=== PATIENT | female | born 1945 | race Caucasian/White ===

== ENCOUNTER → 2017-04-30 14:42 | Outpatient (CLI) | payer MEDICARE, SELFPAY ==
--- NOTE | 2017-04-30 14:46 | RAD_ITS ---
STUDY: X-RAY - LEFT KNEE REASON FOR EXAM: Left knee pain, no specific injury. TECHNIQUE: 4 view(s) of the knee. COMPARISON: None. FINDINGS: Normal visualized distal femur. Normal visualized proximal tibia and fibula. There is mild subchondral cystic change in the head of the fibula at the proximal tibiofibular articulation. There is mild joint space narrowing of the medial femorotibial compartment. There is no joint space narrowing of the lateral femorotibial compartment. Normal patellofemoral articulation. There is chondrocalcinosis of the medial and lateral menisci. RAD/Knee 4 or More Views IMPRESSION: Mild arthrosis of the medial femorotibial compartment. Chondrocalcinosis of the medial and lateral menisci. Electronically Signed: Shen Donovan MD at 16:31 EST Tel , Service support ,
--- NOTE | 2017-04-30 14:47 | VDLE_ITS ---
Reason For Study: EDEMA, PAIN Procedure LEFT Exam performed in department. GSV is normal. Proximal Peroneal V not visualized. CFV is compressible, spontaneous, phasic, A preliminary report was called and/or faxed competent, and demonstrates normal to DR BARON. augmentation. FV is compressible, spontaneous, phasic, competent and demonstrates normal augmentation. POP V is compressible, spontaneous, phasic, competent and demonstrates normal augmentation. T/P Trunk is compressible. PTV is compressible. LT PerV is compressible. Interpretation Summary Deep veins of the left lower extremity are patent and compressible segmentally. There is no evidence of left lower extremity deep vein thrombosis. Valvular competence appears intact within the proximal deep venous system on the left . The left greater saphenous vein appears patent and compressible segmentally. Ordering Physician: Swati Baron Performed By: Vee Jaquez, JACINTO, RVT
== END ==
PROVIDERS: Family Provider Family Medicine; PCP Family Medicine; Visit Provider Family Medicine
DX: R60.0 Localized edema (principal); M25.562 Pain in left knee
CPT/HCPCS: 73564; 93971

== ENCOUNTER → 2018-03-12 08:03 | Outpatient (CLI) | payer MEDICARE, SELFPAY ==
[2018-03-12 10:31] LABS: ALB/GLOB Ratio 1.1 RATIO (0.9-2.4); AST(SGOT) 21 U/L (15-37); Alanine Aminotransfer ALT/SGPT 25 U/L (13-56); Albumin, Serum 3.5 g/dL (3.2-5.0); Alkaline Phosphatase 76 U/L (45-117); Anion Gap 6 (5-15); BUN 18 mg/dL (7-18); BUN/Creat Ratio 20.4 RATIO (10-20); Calcium,Total 8.8 mg/dL (8.5-10.1); Chloride 106 mmol/L (98-107); Cholesterol 174 mg/dL (200); Creatinine, Serum 0.88 mg/dL (0.55-1.02); EST Glomerular Filtration Rate 67 mL/min (>60); Est Glom Filt Rate - Afr Amer 81 mL/min (>60); Globulin 3.2 g/dL (2.2-4.2); Glucose 89 mg/dL (74-106); High Density Lipoprotein 66 mg/dL; Potassium 4.3 mmol/L (3.5-5.1); Protein, Total 6.7 g/dL (6.4-8.2); Sodium Level 141 mmol/L (136-145); Triglycerides 85 mg/dL; Very Low Density Lipoprotein 17 mg/dL (5-40)
--- OUTSIDE RECORDS SUMMARY | 2018-05-16 20:39 | XMS RPT_ITS ---
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 animal products (which include dairy and all meats except fatty fish) and use whole, unprocessed plant foods to provide your protein, vitamins and other nutrients. We have a lot of information to share with you on this topic. This is not a diet. It is a way of life that you will keep with you. EXERCISE REGULARLY It is not important to spend hours in the gym, lifting weights and perspiring heavily. A total of 2-3 hours per week of aerobic (causing you to be moderately short of breath) exercise is sufficient to improve your health. Talk to us before you begin a new exercise program, if you have heart disease or experience shortness of breath or chest pain. REDUCE STRESS Chronic emotional and physical stress leads to disease. Ways of reducing stress include meditation, visualization, prayer, yoga and other forms of relaxation therapy. Consistency is the barber. Find a technique that works for you and do it every day. CULTIVATE RELATIONSHIPS Loneliness and isolation have a major negative impact on health. Seek out others who can love, care for and nurture you. Avoid hurtful relationships. MAINTAIN IDEAL BODY WEIGHT The best way to do this is to do all the things above. Our bodies naturally find the right weight if we keep moving and feed ourselves the right food. If your BMI is greater than 25, we strongly recommend a referral to a weight management program. Please speak to us or your family physician about available programs. AVOID NICOTINE IN ALL FORMS This includes all tobacco products, whether chewed, smoked, vaped, or rubbed on the skin. Smoking cessation programs, which can make use of tobacco substitutes, medications to suppress cravings and behavior management, are available. Please contact your family physician about programs in your area. Jay Peres MD 01/14/2018 9:08 AM Signed PERTINENT CARDIAC HISTORY Palpitations MIKE, SVT runs CLARA - CPAP ADHERENCE TO GUIDELINES MARK-I or ARB for HF with prior LVEF<40 (NQF 0081) - N/A ASA or Plavix for ASHD (NQF 0067) - N/A Beta keenan for ASHD with prior VT or prior LVEF<40 (NQF 0070) - N/A Beta keenan for HF with prior LVEF<40 (NQF 0083) - N/A MARK-I or ARB for ASHD with DM or prior LVEF<40 (NQF 0066) - N/A Statin therapy for ASHD or FHL or DM - N/A BMI documented and plan if >25 (NQF 0421) - lifestyle recommendation form Tobacco use screening and referral (NQ 0028) - lifestyle recommendation form Recommendation for whole food, plant based diet - lifestyle recommendation form CLINICAL IMPRESSION/PLAN: Carmen Nunes is doing well. Her arrhythmias are likely related largely to her sleep apnea. I encouraged her to remain active, increase her intake of plants and decrease fast food and processed food. I recommend that she be seen again in 12 months or as needed. Written and verbal health teaching given to patient, patient verbalizes understanding and agrees with treatment plan. DIAGNOSIS FOR VISIT: SVT HISTORY OF PRESENT ILLNESS Carmen Nunes returns for follow-up of her palpitations. She has been on CPAP. Her symptoms have largely resolved. She's had no progression of her memory problems. Her exercise tolerance has been stable. She denies chest pain. She's had no orthopnea, edema, syncope, TIAs, amaurosis or claudication. ALLERGIES: ALLERGIES Allergen Reactions - Penicillins Hives CURRENT OUTPATIENT MEDICATIONS: cholecalciferol, vitamin D3, 1,000 unit/drop drop Take 2 Drops by mouth once daily. anastrozole (ARIMIDEX) 1 mg tablet Take 1 tablet by mouth once daily. OTC PRODUCT Cyruta Plus OTC PRODUCT Catalyn Vitamin OTC PRODUCT Cataplex C: Take one(1) tablet three times daily. OTC PRODUCT Cataplex B: Take one(1) tablet daily. OTC PRODUCT Zinc Liver Chelate: Take one(1) tablet daily. PHYSICAL EXAMINATION: VITAL SIGNS: BP 96/57 Ht 5' 5.25 (1.66m) Wt 170 lb 14.4 oz (77.5kg) BMI 28.23 kg/(m2). Chest: Clear to auscultation. Trachea is midline. Air entry is equal. Cardiac: Regular rhythm. S1 and S2 are normal. PMI is nondisplaced. There are no murmurs, rubs or gallops. Carotids are brisk without bruits. JVP is less than 10 cm. Abdomen: Soft and nontender. There are no pulsatile masses or bruits. No liver enlargement. Bowel sounds are active. Extremities: No edema. Pulses are intact and symmetrical. Recent labs reviewed. Renal function is normal. LDL had increased slightly to 106. Echocardiogram shows normal ejection fraction and valves. Carotid Doppler showed no significant stenosis. There is diffuse plaque. Electronically Signed: Jay Peres MD January 14, 2018 8:56 AM CC: Swati Baron MD Referring Provider: JAY PERES [[id number]] Allergies As of Date: 01/14/2018 Noted Allergy Reaction PENICILLINS 05/27/2007 4 - Hives Date Reviewed: 01/14/2018 Reviewed by: Monse Bradley MA - Fully Assessed Reason for Visit: Established Patient [175] Primary Visit Diagnosis:SVT (supraventricular tachycardia) (HCC) [I47.1] Prescriptions as of 01/14/2018 Sig: CHOLECALCIFEROL (VITAMIN D3) * Take 2 Drops by mouth once da* ANASTROZOLE 1 MG TABLET Take 1 tablet by mouth once d* OTC PRODUCT Cyruta Plus OTC PRODUCT Catalyn Vitamin OTC PRODUCT Cataplex C: Take one(1) table* OTC PRODUCT Cataplex B: Take one(1) table* OTC PRODUCT Zinc Liver Chelate: Take one(* Problem List As Of Date 01/14/2018 Noted Resolved Lump or mass in breast [N63.0] INVALID FOR*10/29/2013 Breast cancer [C50.919] INVALID FOR* ER+ (estrogen receptor positive status) [Z17.0] INVALID FOR* Secondary and unspecified malignant neoplasm of*INVALID FOR*10/29/2013 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 Please give serious thought to the following areas and commit to making intermediate changes. EAT A WHOLE FOOD, PLANT BASED DIET The nutrition your body gets is more important than the medicine you take. What matters most is the overall way you eat. We encourage you to minimize the use of animal products (which include dairy and all meats except fatty fish) and use whole, unprocessed plant foods to provide your protein, vitamins and other nutrients. We have a lot of information to share with you on this topic. This is not a diet. It is a way of life that you will keep with you. EXERCISE REGULARLY It is not important to spend hours in the gym, lifting weights and perspiring heavily. A total of 2-3 hours per week of aerobic (causing you to be moderately short of breath) exercise is sufficient to improve your health. Talk to us before you begin a new exercise program, if you have heart disease or experience shortness of breath or chest pain. REDUCE STRESS Chronic emotional and physical stress leads to disease. Ways of reducing stress include meditation, visualization, prayer, yoga and other forms of relaxation therapy. Consistency is the barber. Find a technique that works for you and do it every day. CULTIVATE RELATIONSHIPS Loneliness and isolation have a major negative impact on health. Seek out others who can love, care for and nurture you. Avoid hurtful relationships. MAINTAIN IDEAL BODY WEIGHT The best way to do this is to do all the things above. Our bodies naturally find the right weight if we keep moving and feed ourselves the right food. If your BMI is greater than 25, we strongly recommend a referral to a weight management program. Please speak to us or your family physician about available programs. AVOID NICOTINE IN ALL FORMS This includes all tobacco products, whether chewed, smoked, vaped, or rubbed on the skin. Smoking cessation programs, which can make use of tobacco substitutes, medications to suppress cravings and behavior management, are available. Please contact your family physician about programs in your area. Encounter Status:Closed by JAY PERES MD on 01/14/18 CBC AND DIFFERENTIAL Collected: 01/07/2018 Status: F Source: [place] 8:04 AM [facility] REPOSITORY TYPE CODE TESTS RESULT OUT OF REFERENCE UNITS RANGE LAB WBC 3.70-11.00 k/uL Low WBC 3.44 LAB RBC 3.90-5.20 m/uL RBC 4.75 LAB HGB 11.5-15.5 g/dL Hemoglobin 14.5 LAB HCT 36.0-46.0 % Hematocrit 45.0 LAB MCV 80.0-100.0 fL MCV 94.7 LAB MCH 26.0-34.0 pG MCH 30.5 LAB MCHC 30.5-36.0 g/dL MCHC 32.2 LAB RDWCV 11.5-15.0 % RDW-CV 12.9 LAB PLTCT 150-400 k/uL Platelet Count 155 LAB MPV 9.0-12.7 fL MPV 10.9 LAB ANEUT % Neut% 62.8 LAB AANEUT 1.45-7.50 k/uL Abs Neut 2.15 LAB ALYMP % Lymph% 25.3 LAB AALYMP 1.00-4.00 k/uL Low Abs Lymph 0.87 LAB AMONO % Rosebud% 9.3 LAB AAMONO <0.87 k/uL Abs Rosebud 0.32 LAB AEOS % Eosin% 1.7 LAB AAEOS <0.46 k/uL Abs Eosin 0.06 LAB ABASO % Baso% 0.9 LAB AABASO <0.11 k/uL Abs Baso 0.03 LAB AUNRBC 0 /100 WBC NRBCs 0.0 LAB ABNRBC <0.01 k/uL Absolute nRBC <0.01 LAB DTYP DTYPE Auto Diff Performed By: #### CBCDIF, HBA1C, VITD, LD6, CMP, LDLDCT, LIPB, SERFOL, GGT, IRON, MG1, PHOS, URIC #### [facility] [address] [place], [place] [address] HEMOGLOBIN A1C Collected: 01/07/2018 Status: F Source: [place] 8:04 AM [facility] REPOSITORY TYPE CODE TESTS RESULT OUT OF REFERENCE UNITS RANGE LAB HGBA1C 4.3-5.6 % Hemoglobin A1c 5.4 Result Comment: [place] Diabetes Association guidelines indicate that patients with HgbA1c in the range 5.7-6.4% are at increased risk for development of diabetes, and intervention by lifestyle modification may be beneficial. HgbA1c greater or equal to 6.5% is considered diagnostic of diabetes. LAB HBA0 mg/dL Est. Average Glucose 108 Result Comment: eAG: (Estimated average glucose) is a calculated value from HgbA1c and is wholesale representative of the average blood glucose level in the last 2-3 month period. Performed By: #### CBCDIF, HBA1C, VITD, LD6, CMP, LDLDCT, LIPB, SERFOL, GGT, IRON, MG1, PHOS, URIC #### [facility] [address] [place] [address] VITAMIN D 25 HYDROXY Collected: 01/07/2018 Status: F Source: [place] 8:04 AM [facility] REPOSITORY TYPE CODE TESTS RESULT OUT OF REFERENCE UNITS RANGE LAB VITD 31.0-80.0 ng/mL Vitamin D 25 34.7 Hydroxy Result Comment: Classification of 25 [place] Vitamin D status: Insufficiency/Moderate Deficiency: < or = 30 ng/mL Sufficiency/Optimal Levels: 31 to 80 ng/mL Toxicity: > 100 ng/mL Test performed by chemiluminescent immunoassay. Performed By: #### CBCDIF, HBA1C, VITD, LD6, CMP, LDLDCT, LIPB, SERFOL, GGT, IRON, MG1, PHOS, URIC #### [facility] [employer] [facility] [place] [address] LD Collected: 01/07/2018 Status: F Source: [facility] 8:04 [facility] REPOSITORY TYPE CODE TESTS RESULT OUT OF RANGE REFERENCE UNITS LAB LD 135-214 U/L LD 171 Performed By: #### CBCDIF, HBA1C, VITD, LD6, CMP, LDLDCT, LIPB, SERFOL, GGT, IRON, MG1, PHOS, URIC #### [facility] [employer] [facility] [place] [address] COMP METABOLIC PANEL Collected: 01/07/2018 Status: F Source: [place] 8:04 AM [facility] REPOSITORY TYPE CODE TESTS RESULT OUT OF REFERENCE UNITS RANGE LAB TP 6.3-8.0 g/dL Protein, Total 7.0 LAB ALB 3.9-4.9 g/dL Albumin 4.2 LAB CA 8.5-10.2 mg/dL Calcium, Total 9.5 LAB TBIL 0.2-1.3 mg/dL Bilirubin, Total 0.5 LAB ALKP 34-123 U/L Alkaline Phosphatase 69 LAB AST 13-35 U/L AST 24 LAB GLU 74-99 mg/dL Glucose 85 Result Comment: The [place] Diabetes Association (ADA) provides guidance for cutoff values for fasting glucose and random glucose. The ADA defines fasting as no caloric intake for at least 8 hours. Fas ting plasma glucose results between 100 to 125 mg/dL indicate increased risk for diabetes (prediabetes). Fasting plasma glucose results greater than or equal to 126 mg/dL meet the criteria for diagnosis of diabetes. In the absence of unequivocal hyperglycemia, results should be confirmed by repeat testing. In a patient with classic symptoms of hyperglycemia or hyperglycemic crisis, random plasma glucose results greater than or equal to 200 mg/dL meet the criteria for diagnosis of diabetes. Reference: Standards of Medical Care in Diabetes 2016, [place] Diabetes Association. Diabetes Care. 2016.39(Suppl 1). LAB BUN 7-21 mg/dL BUN 15 LAB CRET 0.58-0.96 mg/dL Creatinine 0.93 LAB NA 136-144 mmol/L Sodium 141 LAB K 3.7-5.1 mmol/L Potassium 4.2 LAB CL 97-105 mmol/L Chloride 103 LAB CO2 22-30 mmol/L CO2 23 LAB AGAP 9-18 mmol/L Anion Gap 15 LAB ALT 7-38 U/L ALT 15 LAB GFRAA eGFR- Amer. >60 LAB GFRNAA . eGFR-All Other Races 60 Result Comment: eGFR (Estimated GFR) Units of measure: mL/min/1.73 meters squared eGFR is derived from the reexpressed MDRD Study equation using the following parameters: serum creatinine, age, gender and race. The creatinine assay has been calibrated to be traceable to IDMS. An eGFR <60 mL/min/1.73m2 for >3 months is consistent with chronic kidney disease. Refer to KDOQI guidelines for clinical interpretation. In patients with unstable renal function, e.g. those with acute kidney injury, the eGFR may not accurately reflect actual GFR. Performed By: #### CBCDIF, HBA1C, VITD, LD6, CMP, LDLDCT, LIPB, SERFOL, GGT, IRON, MG1, PHOS, URIC #### [facility] [address] [place] [address] LDL-CHOL, DIRECT Collected: 01/07/2018 Status: F Source: [place] 8:04 AM [facility] REPOSITORY TYPE CODE TESTS RESULT OUT OF REFERENCE UNITS RANGE LAB LDLDIR <100 mg/dL High LDL-Chol, 121 Direct Result Comment: <100 mg/dL, Optimal 100-129 mg/dL, Near optimal/above optimal 130-159 mg/dL, Borderline high 160-189 mg/dL, High >189 mg/dL, Very high Secondary prevention optimal LDL Cholesterol levels are recommended to be < 70 mg/dL Performed By: #### CBCDIF, HBA1C, VITD, LD6, CMP, LDLDCT, LIPB, SERFOL, GGT, IRON, MG1, PHOS, URIC #### [facility] [address] [place] [id number] LIPID PANEL, BASIC Collected: 01/07/2018 Status: F Source: [place] 8:04 AM [facility] REPOSITORY TYPE CODE TESTS RESULT OUT OF REFERENCE UNITS RANGE LAB CHOL <200 mg/dL Cholesterol 184 Result Comment: <200 mg/dL, Desirable 200-239 mg/dL, Borderline high >239 mg/dL, High LAB TRIGLY <150 mg/dL Triglyceride 68 Result Comment: <150 mg/dL, Normal 150-199 mg/dL, Borderline high 200-499 mg/dL, High >499 mg/dL, Very high LAB HDL >39 mg/dL HDL-Cholesterol 64 Result Comment: 40-59 mg/dL, Acceptable >59 mg/dL, High: Negative risk factor for coronary heart disease <40 mg/dL, Low: Positive risk factor for coronary heart disease LAB LDL <100 mg/dL LDL-Cholesterol High 106 Result Comment: <100 mg/dL, Optimal 100-129 mg/dL, Near optimal/above optimal 130-159 mg/dL, Borderline high 160-189 mg/dL, High >189 mg/dL, Very high Secondary prevention optimal LDL Cholesterol levels are recommended to be < 70 mg/dL LAB NONHDL <130 mg/dL Non HDL Cholesterol 120 Result Comment: <130 mg/dL, Optimal 130-159 mg/dL, Near optimal/above optimal 160-189 mg/dL, Borderline high 190-219 mg/dL, High >219 mg/dL, Very high Secondary prevention optimal non HDL Cholesterol levels are recommended to be < 100 mg/dL LAB FT hrs Fasting Time Unknown LAB VLDL <30 mg/dL VLDL Cholesterol 14 LAB TCHDL <5.10 TC:HDL Ratio 2.88 LAB LDLHDL <2.54 LDL:HDL Ratio 1.66 Result Comment: Reference: 1. National Cholesterol Education Program ATP III Guideline At-A-Glance Quick Desk Reference: National Heart, Lung, and Blood [place]. National Institutes of Health. 2001: NIH Publication No. 01-3305. 2. An International Atherosclerosis Society position paper: global recommendations for the management of dyslipidemia: executive summary, Atherosclerosis. 2014: 232(2):410-413. Performed By: #### CBCDIF, HBA1C, VITD, LD6, CMP, LDLDCT, LIPB, SERFOL, GGT, IRON, MG1, PHOS, URIC #### [facility] [address] [phone] FOLATE, SERUM Collected: 01/07/2018 Status: F Source: [place] 8:04 AM [facility] REPOSITORY TYPE CODE TESTS RESULT OUT OF REFERENCE UNITS RANGE LAB SERFOL >4.7 ng/mL Folate, 19.1 Serum Performed By: #### CBCDIF, HBA1C, VITD, LD6, CMP, LDLDCT, LIPB, SERFOL, GGT, IRON, MG1, PHOS, URIC #### [facility] [address] [place] [phone] GGT Collected: 01/07/2018 Status: F Source: [place] 8:04 [facility] REPOSITORY TYPE CODE TESTS RESULT OUT OF RANGE REFERENCE UNITS LAB GGT 6-46 U/L GGT 14 Performed By: #### CBCDIF, HBA1C, VITD, LD6, CMP, LDLDCT, LIPB, SERFOL, GGT, IRON, MG1, PHOS, URIC #### [facility] [address] [place], [place] [address] IRON AND TIBC Collected: 01/07/2018 Status: F Source: [place] 8:04 AM [facility] REPOSITORY TYPE CODE TESTS RESULT OUT OF REFERENCE UNITS RANGE LAB IRN 41-186 ug/dL Iron 79 LAB TIBC 232-386 ug/dL TIBC 274 LAB SAT 15-57 % Transferrin Saturatn 29 Performed By: #### CBCDIF, HBA1C, VITD, LD6, CMP, LDLDCT, LIPB, SERFOL, GGT, IRON, MG1, PHOS, URIC #### [facility] [address] [place], [place] [phone] MAGNESIUM Collected: 01/07/2018 Status: F Source: [place] 8:04 AM [facility] REPOSITORY TYPE CODE TESTS RESULT OUT OF REFERENCE UNITS RANGE LAB MG 1.7-2.3 mg/dL Magnesium 2.2 Performed By: #### CBCDIF, HBA1C, VITD, LD6, CMP, LDLDCT, LIPB, SERFOL, GGT, IRON, MG1, PHOS, URIC #### [facility] [address] [place], [place] [address] PHOSPHORUS Collected: 01/07/2018 Status: F Source: [place] 8:04 AM [facility] REPOSITORY TYPE CODE TESTS RESULT OUT OF REFERENCE UNITS RANGE LAB PHOS 2.7-4.8 mg/dL Phosphorus 3.4 Performed By: #### CBCDIF, HBA1C, VITD, LD6, CMP, LDLDCT, LIPB, SERFOL, GGT, IRON, MG1, PHOS, URIC #### [facility] [address] [place], [place] [address] URIC ACID Collected: 01/07/2018 Status: F Source: [place] 8:04 AM [facility] REPOSITORY TYPE CODE TESTS RESULT OUT OF RANGE REFERENCE UNITS LAB URIC 2.5-6.6 mg/dL Uric Acid 4.2 Performed By: #### CBCDIF, HBA1C, VITD, LD6, CMP, LDLDCT, LIPB, SERFOL, GGT, IRON, MG1, PHOS, URIC #### [facility] [address] [place], [place] [address] PROGRESS Observed: 01/06/2018 Status: COMPLETED Source: [place] 9:15 AM [facility] REPOSITORY HNO ID: [id number] Author: Viktoria Hawkins Service: (none) Author Type: Nurse Practitioner Type: Progress Notes Filed: 01/06/2018 9:48 AM Note Text: Chief Complaint Patient presents with: Established Patient HPI: Carmen Nunes is a 72 year old female who presents here today for follow up breast cancer. H/o palpable breast mass. The patient notes a mass in the retroaerolar portion of her left breast. The patient has noticed this mass for couple months. The patient had a mammogram on 06/24/12 which demonstrated Birads 4. ?? On Jul 14 2012, she underwent a ultrasound-guided left needle core biopsy. This came back as invasive ductal carcinoma. Dr. Colby performed a left wire loaclization lumpectomy with sentinel lymph node biopsy on 08/05/12. The pathology demonstrated invasive poorly differentiated carcinoma. The tumor's greatest dimension was 2.5 cm. Surgical margins were free of disease. axillary sentinel node biopsy 1 out of 1 lymph nodes were positive for metastatic disease. Total 8 axillary lymph nodes removed, with 1/8 positive for metastatic disease. The estrogen receptors were positive, the progesterone receptors were moderate positive, [id number] receptors were 2-2+, but non-amplified by FISH. Pathologic stage was pT2 N1a Mx. ?? Received:AC/Taxol After third treatment-neutropenic/mucositis/thrombocytopenic/dehydrated/orthostatic hypotension. Received fluids. ?? Completed Radiation:01/18/13 to 03/05/13 Arimidex started 2013. ?? Pt. broke her L ankle 2013-slipped and fell in her kitchen- floor wet. Had a plate and 2 pins placed. ? Stopped arimidex d/t fatigue, not sleeping at night-symptoms resolved when stopped the drug. Changed to Aromasin. ?? Pt. wanted to change back to arimidex d/t s/e of anxiety/depression and head fogginess ?? Current therapy:Arimidex ? 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 ?? Followed by Dr. Stein. ? No complaints. Pt. was seen by Dr. Stein in July. He advised pt. to take fosamax-she declined. ?? Appetite:good Energy level:great Denies fever, chills or night sweats. Resp:denies cough or sob Cardiac:denies chest pain/palpitations GI:denies abd pain, n/v, moving bowels regularly :denies dysuria/hematuria Extrem:denies pain currently Endo:denies hot flashes Neuro:tingling to feet-more to the soles-stable Skin:denies rashes/lesions? Heme:denies bleeding The ROS is otherwise negative. Past medical history, appointments, medications, allergies reviewed. No changes. EXAM: BP 105/73 Pulse 75 Temp 36.7 ?C (98 ?F) (Oral) Wt 76.7 kg (169 lb) BMI 27.70 kg/m? APPEARANCE Well appearing, alert, in no acute distress, well-hydrated, well nourished. HEART RRR with normal S1 and S2, no murmurs LUNG clear to auscultation BREAST FEMALE R recon/implant no surrounding mass/nodule, L no mass/nodule LYMPH NODES No cervical lymphadenopathy, No supraclavicular lymphadenopathy and No axillary lymphadenopathy. ABDOMEN bowel sounds normoactive, no bruits, soft, non-tender, non-distended, without organomegaly or palpable masses EXTREMITIES No edema NEURO Awake, alert and oriented x 3, Normal gait and No involuntary motions. SKIN Skin color, texture, turgor normal, no suspicious rashes or lesions ASSESSMENT/PLAN: 1. 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 Encounter for screening mammogram for high-risk patient - ICD9: V76.11, ICD10: Z12.31 - ?No concerning findings on exam. - ?Tolerating arimidex well. Continue. - ?L mammogram due in June 2018. - ?Follow up in 6 months after mammogram. - ?Pt. aware to call office with any questions/concerns. ? The patient indicates understanding of these issues and agrees with the plan. Viktoria Hawkins APRN.SELINA CNOVSP Observed: 01/06/2018 Status: COMPLETED Source: [place] 9:00 AM [facility] REPOSITORY Visit (SP) Office (SHRAVAN) FRANCISCO NUNESYURI Abel ([id number]) 1945 F [facility] Date Time Provider Department 01/06/18 9:00 AM VIKTORIA HAWKINS During your visit today, we recorded the following information about you: Temperature Pulse Blood pressure Weight 98 degrees 75/minute 105/73 76.7 kg Olinda Yo LPN 01/06/2018 9:15 AM Signed Est patient. Six month office visit. Olinda Hawkins APRN.SELINA 01/06/2018 9:48 AM Signed Chief Complaint Patient presents with: Established Patient HPI: Carmen Roman Nunes is a 72 year old female who presents here today for follow up breast cancer. H/o palpable breast mass. The patient notes a mass in the retroaerolar portion of her left breast. The patient has noticed this mass for couple months. The patient had a mammogram on 06/24/12 which demonstrated Birads 4. ?? On Jul 14 2012, she underwent a ultrasound-guided left needle core biopsy. This came back as invasive ductal carcinoma. Dr. Colby performed a left wire loaclization lumpectomy with sentinel lymph node biopsy on 08/05/12. The pathology demonstrated invasive poorly differentiated carcinoma. The tumor's greatest dimension was 2.5 cm. Surgical margins were free of disease. axillary sentinel node biopsy 1 out of 1 lymph nodes were positive for metastatic disease. Total 8 axillary lymph nodes removed, with 1/8 positive for metastatic disease. The estrogen receptors were positive, the progesterone receptors were moderate positive, [id number] receptors were 2-2+, but non-amplified by FISH. Pathologic stage was pT2 N1a Mx. ?? Received:AC/Taxol After third treatment-neutropenic/mucositis/thrombocytopenic/dehydrated/orthostatic hypotension. Received fluids. ?? Completed Radiation:01/18/13 to 03/05/13 Arimidex started 2013. ?? Pt. broke her L ankle 2013-slipped and fell in her kitchen- floor wet. Had a plate and 2 pins placed. ? Stopped arimidex d/t fatigue, not sleeping at night-symptoms resolved when stopped the drug. Changed to Aromasin. ?? Pt. wanted to change back to arimidex d/t s/e of anxiety/depression and head fogginess ?? Current therapy:Arimidex ? 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 ?? Followed by Dr. Stein. ? No complaints. Pt. was seen by Dr. Stein in July. He advised pt. to take fosamax- she declined. ?? Appetite:good Energy level:great Denies fever, chills or night sweats. Resp:denies cough or sob Cardiac:denies chest pain/palpitations GI:denies abd pain, n/v, moving bowels regularly :denies dysuria/hematuria Extrem:denies pain currently Endo:denies hot flashes Neuro:tingling to feet-more to the soles-stable Skin:denies rashes/lesions? Heme:denies bleeding The ROS is otherwise negative. Past medical history, appointments, medications, allergies reviewed. No changes. EXAM: BP 105/73 Pulse 75 Temp 36.7 ?C (98 ?F) (Oral) Wt 76.7 kg (169 lb) BMI 27.70 kg/m? APPEARANCE Well appearing, alert, in no acute distress, well- hydrated, well nourished. HEART RRR with normal S1 and S2, no murmurs LUNG clear to auscultation BREAST FEMALE R recon/implant no surrounding mass/nodule, L no mass/nodule LYMPH NODES No cervical lymphadenopathy, No supraclavicular lymphadenopathy and No axillary lymphadenopathy. ABDOMEN bowel sounds normoactive, no bruits, soft, non-tender, non-distended, without organomegaly or palpable masses EXTREMITIES No edema NEURO Awake, alert and oriented x 3, Normal gait and No involuntary motions. SKIN Skin color, texture, turgor normal, no suspicious rashes or lesions ASSESSMENT/PLAN: 1. 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 Encounter for screening mammogram for high-risk patient - ICD9: V76.11, ICD10: Z12.31 - ?No concerning findings on exam. - ?Tolerating arimidex well. Continue. - ?L mammogram due in June 2018. - ?Follow up in 6 months after mammogram. - ?Pt. aware to call office with any questions/concerns. ? The patient indicates understanding of these issues and agrees with the plan. Viktoria Hawkins APRN.DUST BOX WORKER Referring Provider: VIKTORIA HAWKINS [[id number]] Allergies As of Date: 01/06/2018 Noted Allergy Reaction PENICILLINS 05/27/2007 4 - Hives Date Reviewed: 01/06/2018 Reviewed by: Viktoria Hawkins - Fully Assessed Reason for Visit: Established Patient [175] Primary Visit Diagnosis:Malignant neoplasm of left breast in female, estrogen receptor positive, unspecified site of breast (HCC) [C50.912, Z17.0] Other Visit Diagnoses:Sarcoma of right breast (HCC) [C50.911] Encounter for screening mammogram for high-risk patient [Z12.31] Order(s):JEANETTE SCREENING W ELIAZAR [[id number]] Order #: [id number] FUTURE Follow-up and Disposition History Recorded Prescriptions as of 01/06/2018 Sig: CHOLECALCIFEROL (VITAMIN D3) * Take 2 Drops by mouth once da* ANASTROZOLE 1 MG TABLET Take 1 tablet by mouth once d* OTC PRODUCT Cyruta Plus OTC PRODUCT Catalyn Vitamin OTC PRODUCT Cataplex C: Take one(1) table* OTC PRODUCT Cataplex B: Take one(1) table* OTC PRODUCT Zinc Liver Chelate: Take one(* Problem List As Of Date 01/06/2018 Noted Resolved Lump or mass in breast [N63.0] INVALID FOR*10/29/2013 Breast cancer [C50.919] INVALID FOR* ER+ (estrogen receptor positive status) [Z17.0] INVALID FOR* Secondary and unspecified malignant neoplasm of*INVALID FOR*10/29/2013 Drug induced neutropenia(288.03) (HCC) [D70.2] INVALID FOR*10/29/2013 Breast mass, right [N63.10] INVALID FOR* Sarcoma of breast (HCC) [C50.919] INVALID FOR* History of breast cancer [Z85.3] INVALID FOR* Sarcoma of right breast (HCC) [C50.911] INVALID FOR* Malignant neoplasm of left breast in female, es*INVALID FOR* Visit Notes: >> Olinda Yo LPN [place] Jan 06, 2018 9:00 AM Status: Signed Est patient. Six month office visit. Olinda Yo LPN Encounter Status:Closed by VIKTORIA HAWKINS CNP on 01/06/18 PROGRESS Observed: 08/07/2017 Status: COMPLETED Source: [place] 8:40 AM [facility] REPOSITORY HNO ID: [id number] Author: Tavon Stein Service: (none) Author Type: Physician Type: Progress Notes Filed: 08/07/2017 9:14 AM Note Text: [facility] SOLID TUMOR ONCOLOGY PROGRESS NOTE PATIENT NAME: Carmen Nunes DATE: 08/07/2017 PHYSICIAN: Abel Stein MD PATIENT ID: Carmen Nunes is a 72 year old woman who is seen in follow-up for a spindle-cell sarcoma of the right breast. HISTORY OF THE PRESENT ILLNESS: Carmen Nunes has a history of Stage IIA ([id number]) ER+, LA+, HER2-negative (2+, non-amplified) left breast cancer treated with left partial mastectomy and axillary staging 08/05/12. She also received adjuvant therapy with dose-dense doxorubicin/cyclophosphamide followed by paclitaxel, radiation therapy, and remains on anastrozole 1 mg po daily. On 05/08/14 she was seen for a palpable right (contralateral) breast mass, confirmed on mammography and ultrasound. A core biopsy was reported by [facility] to show only benign stromal tissue, and she was followed clinically. Mammograms 09/07/14 showed the right breast mass, which was not significantly changed in size, but was somewhat painful. On 09/29/14 Dr. Colby performed an excisional biopsy. Pathologic review of this specimen showed a 3 cm low-grade spindle cell sarcoma, as read here. The resection margins were positive. She feels well physically. On 03/20/15 Ms. Nunes underwent right completion mastectomy by Dr. Azevedo with implant reconstruction by Dr. Li. Pathologic review showed patch areas of dense stromal fibrosis, but no residual malignancy. She saw Dr. Nair pre-operatively, who felt that radiation was not indicated. INTERVAL HISTORY: Ms. Nunes feels well. She tolerates anastrozole well and takes it daily without fail. She has no symptoms suggestive of recurrent or metastatic malignancy. PHYSICAL EXAM: BP 125/63 Pulse 56[md cooper[ Temp (Src) 97.8 (Oral) Resp 20 Wt 167 lb 3.2 oz (75.8kg) SpO2 100% Carmen Nunes is a very pleasant 72 year old woman who is unaccompanied in the exam room today. Performance Status=0. HEENT-unremarkable. Pulmonary-lungs are clear to ausculation. Cardiac-regular rate and rhythm. Breast and Chest Wall-right breast exam shows healed right implant reconstruction. Examination of the left breast shows post-operative changes, but no suspicious masses. Abdomen-no organomegaly, mass, or tenderness. Extremities-unremarkable. Neuro-grossly intact. LABORATORY: none today IMAGING: Tomosynthesis mammograms performed 07/10/17 showed new calcifications, but left breast mammograms showed only benign appearing calcifications. Chest CT done 08/06/17 showed stable sub-cm pulmonary nodules, unchanged from 01/24/15. DEXA Scan performed 08/06/17 showed osteopenia in the lumbar spine, with lowest T-score -1.8. IMPRESSION: No evidence or recurrent breast cancer or low grade spindle-cell sarcoma. Osteopenia. PLAN: The situation was reviewed and discussed. She will continue anastrozole. We discussed her osteopenia, and she will start alendronate 70 mg po monthly for no more than 5 years. She will return in 6 months with no tests. We plan no more chest imaging unless she develops new signs or symptoms. Abel Stein MD cc: MD Swati Walker MD Chirag Shah, MD CNOVSP Observed: 08/07/2017 Status: COMPLETED Source: [place] 8:40 AM [facility] REPOSITORY Visit (SP) Office ([facility]) CARMEN NUNES ([id number]) 1945 F [facility] Date Time Provider Department 08/07/17 8:40 AM TAVON STEIN [facility] During your visit today, we recorded the following information about you: Temperature Pulse Respiration Blood pressure 97.8 degrees 56/minute 20/minute 125/63 Weight 75.8 kg Xiomara Arroyo LPN, LPN 08/07/2017 8:19 AM Signed Additional intake questions: Has the patient had nausea, vomiting, diarrhea, constipation, fatigue for > 1 week? None of the above Does the patient have a decreased appetite? No Does patient want to see a Transformation Manager? No (yes to any of above refer patient to schedulers for dietitian appointment) ) Does patient have any new or increased numbness or tingling of extremities? No Is patient interested in fertility information? NA Does patient need any prescription refills? Yes, MD Farmer Electronically Signed By: DAYNA Tapia MD 08/07/2017 9:14 AM Signed [facility] SOLID TUMOR ONCOLOGY PROGRESS NOTE PATIENT NAME: Carmen Nunes DATE: 08/07/2017 PHYSICIAN: Abel Stein MD PATIENT ID: Carmen Nunes is a 72 year old woman who is seen in follow-up for a spindle-cell sarcoma of the right breast. HISTORY OF THE PRESENT ILLNESS: Carmen Nunes has a history of Stage IIA (T6R2tD4) ER+, LA+, HER2-negative (2+, non-amplified) left breast cancer treated with left partial mastectomy and axillary staging 08/05/12. She also received adjuvant therapy with dose-dense doxorubicin/cyclophosphamide followed by paclitaxel, radiation therapy, and remains on anastrozole 1 mg po daily. On 05/08/14 she was seen for a palpable right (contralateral) breast mass, confirmed on mammography and ultrasound. A core biopsy was reported by [facility] to show only benign stromal tissue, and she was followed clinically. Mammograms 09/07/14 showed the right breast mass, which was not significantly changed in size, but was somewhat painful. On 09/29/14 Dr. Colby performed an excisional biopsy. Pathologic review of this specimen showed a 3 cm low-grade spindle cell sarcoma, as read here. The resection margins were positive. She feels well physically. On 03/20/15 Ms. Nunes underwent right completion mastectomy by Dr. Azevedo with implant reconstruction by Dr. Li. Pathologic review showed patch areas of dense stromal fibrosis, but no residual malignancy. She saw Dr. Nair pre-operatively, who felt that radiation was not indicated. INTERVAL HISTORY: Ms. Nunes feels well. She tolerates anastrozole well and takes it daily without fail. She has no symptoms suggestive of recurrent or metastatic malignancy. PHYSICAL EXAM: BP 125/63 Pulse 56[md cooper[ Temp (Src) 97.8 (Oral) Resp 20 Wt 167 lb 3.2 oz (75.8kg) SpO2 100% Carmen Nunes is a very pleasant 72 year old woman who is unaccompanied in the exam room today. Performance Status=0. HEENT-unremarkable. Pulmonary-lungs are clear to ausculation. Cardiac-regular rate and rhythm. Breast and Chest Wall-right breast exam shows healed right implant reconstruction. Examination of the left breast shows post-operative changes, but no suspicious masses. Abdomen-no organomegaly, mass, or tenderness. Extremities-unremarkable. Neuro-grossly intact. LABORATORY: none today IMAGING: Tomosynthesis mammograms performed 07/10/17 showed new calcifications, but left breast mammograms showed only benign appearing calcifications. Chest CT done 08/06/17 showed stable sub-cm pulmonary nodules, unchanged from 01/24/15. DEXA Scan performed 08/06/17 showed osteopenia in the lumbar spine, with lowest T-score -1.8. IMPRESSION: No evidence or recurrent breast cancer or low grade spindle-cell sarcoma. Osteopenia. PLAN: The situation was reviewed and discussed. She will continue anastrozole. We discussed her osteopenia, and she will start alendronate 70 mg po monthly for no more than 5 years. She will return in 6 months with no tests. We plan no more chest imaging unless she develops new signs or symptoms. Abel Stein MD cc: MD Swati Walker MD Chirag Shah, MD Referring Provider: TAVON STEIN [[id number]] Allergies As of Date: 08/07/2017 Noted Allergy Reaction PENICILLINS 05/27/2007 4 - Hives Date Reviewed: 08/07/2017 Reviewed by: Xiomara (Hourly Associate) DAYNA Arroyo - Fully Assessed Reason for Visit: Established Patient [175] Primary Visit Diagnosis:Malignant neoplasm of left breast in female, estrogen receptor positive, unspecified site of breast (HCC) [C50.912, Z17.0] Order(s):anastrozole (ARIMIDEX) 1 mg tabletTake 1 tablet by mouth once daily.Disp: 90 tabletRfl: 3 alendronate (FOSAMAX) 70 mg tabletTake 1 tablet by mouth once each week.Disp: 12 tabletRfl: 3 Disposition: Return in about 6 months (around 02/06/2018). Follow-up and Disposition History Recorded Prescriptions as of 08/07/2017 Sig: ANASTROZOLE 1 MG TABLET Take 1 tablet by mouth once d* OTC PRODUCT Cyruta Plus OTC PRODUCT Catalyn Vitamin OTC PRODUCT Cataplex C: Take one(1) table* OTC PRODUCT Cataplex B: Take one(1) table* OTC PRODUCT Zinc Liver Chelate: Take one(* ALENDRONATE 70 MG TABLET Take 1 tablet by mouth once e* Problem List As Of Date 08/07/2017 Noted Resolved Lump or mass in breast [N63.0] INVALID FOR*10/29/2013 Breast cancer [C50.919] INVALID FOR* ER+ (estrogen receptor positive status) [Z17.0] INVALID FOR* Secondary and unspecified malignant neoplasm of*INVALID FOR*10/29/2013 Drug induced neutropenia(288.03) (HCC) [D70.2] INVALID FOR*10/29/2013 Breast mass, right [N63.10] INVALID FOR* Sarcoma of breast (HCC) [C50.919] INVALID FOR* History of breast cancer [Z85.3] INVALID FOR* Sarcoma of right breast (HCC) [C50.911] INVALID FOR* Malignant neoplasm of left breast in female, es*INVALID FOR* Visit Notes: >> Xiomara Arroyo LPN [facility] Aug 07, 2017 8:18 AM Status: Signed Additional intake questions: Has the patient had nausea, vomiting, diarrhea, constipation, fatigue for > 1 week? None of the above Does the patient have a decreased appetite? No Does patient want to see a Transformation Manager? No (yes to any of above refer patient to schedulers for dietitian appointment) ) Does patient have any new or increased numbness or tingling of extremities? No Is patient interested in fertility information? NA Does patient need any prescription refills? Yes, Notiifed PROGRESS Observed: 08/06/2017 Status: COMPLETED Source: [place] 12:22 PM [facility] [place] REPOSITORY HNO ID: [id number] Author: Racheal Lerner Service: (none) Author Type: (none) Type: Progress Notes Filed: 08/06/2017 12:22 PM Note Text: Radiology Service Progress Note PATIENT NAME: Carmen Nunes DATE OF SERVICE: August 06, 2017 TIME: 12:22 PM PATIENT IDENTITY VERIFICATION COMPLETED USING TWO (2) METHODS: Patient confirmed name verbally and Date of . PATIENT GENDER DATA: Female. status: : No status: NO. PATIENT RELEVANT IMPLANT DATA REVIEWED: Not Applicable RADIOLOGY DEPARTMENT: CT; Exam(s) Completed: Chest PERIPHERAL IV DATA: Not applicable SIGNED BY: Racheal Lerner August 06, 2017 12:22 PM BD DXA - AXIAL Observed: 08/06/2017 Status: F Source: [place] 9:47 AM [facility] [place] REPOSITORY * * *Final Report* * * DATE OF EXAM: Aug 06 2017 9:47AM WRB [id number] - BD DXA - AXIAL [place] B / PROCEDURE REASON: multiple diagnoses * * * * Physician Interpretation * * * * PROCEDURE: BD DXA - AXIAL [place] INDICATION: Malignant neoplasm of unspecified site of left female breast Estrogen receptor positive status (ER+) Malignant neoplasm of unspecified site of right female breast TECHNIQUE: Low dose AP spine and hip images COMPARISON: 12/23/2012 LUMBAR SPINE: The bone mineral density from L1 through L4 is 0.852 grams per square centimeter which yields a T-score of -1.8. This is 14.2% worse. LEFT HIP: The bone mineral density of the total region of the hip is 0.934 grams per square centimeter which yields a T-score of -0.1. This is 8.5% worse. LEFT FEMORAL NECK: The bone mineral density of the femoral neck is 0.745 grams per square centimeter which yields a T-score of -0.9. This is 13.2% worse. RIGHT HIP: The bone mineral density of the total region of the hip is 0.964 grams per square centimeter which yields a T-score of 0.2. This is 8.9% worse. RIGHT FEMORAL NECK: The bone mineral density of the femoral neck is 0.765 grams per square centimeter which yields a T-score of -0.8. This is 7.4% worse. 10-year Fracture Risk (FRAX): Major osteoporotic fracture risk 14% Hip fracture risk 1.3% IMPRESSION: Osteopenia in the lumbar spine and normal bone mineral density in both hips, worse in all areas compared to the prior study. [facility]. CLASSIFICATION OF BONE MASS CLASSIFICATION T-SCORE Normal Greater than -1 Low Bone Mass Between -1 and -2.5 (Osteopenia) Osteoporosis Less than or equal to -2.5 Washing Machine Loader: MARTÍNEZ Transcribe Date/Time: Aug 06 2017 12:08P Dictated by : NATALIE BOWDEN MD This examination was interpreted and the report reviewed and electronically signed by: NATALIE BOWDEN MD on Aug 06 2017 12:16PM EST [id number] PROGRESS Observed: 08/06/2017 Status: COMPLETED Source: [place] 9:33 AM [facility] REPOSITORY HNO ID: [id number] Author: Rolf Judd (Rt) Gonzalo Mayo Service: (none) Author Type: Steam Box Hand Type: Progress Notes Filed: 08/06/2017 9:43 AM Note Text: Radiology Service Progress Note PATIENT NAME: Carmen Nunes DATE OF SERVICE: August 06, 2017 TIME: 9:33 AM PATIENT IDENTITY VERIFICATION COMPLETED USING TWO (2) METHODS: Patient confirmed name verbally and Date of . PATIENT GENDER DATA: Female. status: : No status: NO. PATIENT RELEVANT IMPLANT DATA REVIEWED: Not Applicable RADIOLOGY DEPARTMENT: [facility] bone density PERIPHERAL IV DATA: Not applicable SIGNED BY: RT Annelise August 06, 2017 9:[address] CHEST WO IVCON Observed: 08/06/2017 Status: F Source: [place] 9:30 AM [facility] REPOSITORY * * *Final Report* * * DATE OF EXAM: Aug 06 2017 9:30AM [facility] 0541 - CT CHEST WO IVCON / PROCEDURE REASON: multiple diagnoses * * * * Physician Interpretation * * * * EXAMINATION: CHEST CT WITHOUT CONTRAST CLINICAL HISTORY: 72-year-old female with history of left breast cancer, status post lumpectomy and chemoradiation ((2012) and history of right breast sarcoma status post mastectomy and right breast implant (2014). Technique: Spiral CT acquisition of the chest from the thoracic inlet to the upper abdomen without contrast. MQ: [id number] CT Dose-Length Product: 293 mGy*cm CT Dose Reduction Employed: Automated exposure control (AEC) Comparison: CT chest 07/10/2016, 01/24/2015 RESULT: Lines, tubes, and devices: None. Lung parenchyma and pleura: When compared to the exam dated 07/10/2016, there are no new or enlarging pulmonary nodules. Several indeterminate pulmonary nodules are again identified and stable from the exam dated 01/24/2015. For reference, an indeterminant 3 mm subpleural groundglass nodule in the superior aspect of the right lower lobe (image 79) and a 2 mm nodule adjacent to the superior aspect of the right major fissure (image 71). There is a tiny granuloma in the medial aspect of the right middle lobe. Groundglass opacities in the medial aspect of the right lower lobe adjacent to sequential osteophytes is passive atelectasis. Overall unchanged appearance of architectural distortion, traction bronchiectasis, volume loss and linear opacities in the left apex/anterior left upper lobe which are sequela from prior radiation therapy. No suspicious nodularity in the radiation port. Trachea and central bronchi are patent and without endobronchial lesions. No pleural effusion or pneumothorax. Thoracic inlet, heart, and mediastinum: The thyroid is mildly heterogeneous. Stable status post left axillary slade dissection with several clips in the operative bed. Scattered subcentimeter mediastinal lymph nodes are unchanged from prior. Normal caliber and appearance of the great vessels. Mild biatrial enlargement. Mild aortic valve calcifications. No coronary calcifications. No pericardial effusion. The esophagus is nondilated. Bones and soft tissues: Lumpectomy scar related changes of the left breast with minimal stranding and mild thickening in the subareolar soft tissues are stable from prior exam. No suspicious nodularity. Status post right mastectomy and breast implants with postsurgical changes stable from the prior exam. Mild pectus excavatum. Mild rightward curvature of the spine. Multi degenerative endplate and disc changes of the visualized spine. No suspicious osseous findings. Upper abdomen: Several low dense lesions in the liver are again identified, the largest in the right hepatic lobe is partially visualized measuring 6.5 cm in long axis. The remaining visualized upper abdomen is unremarkable. IMPRESSION: When compared to the exam dated 07/10/2016, No CT evidence of new pulmonary metastasis or thoracic lymphadenopathy. Several indeterminate subcentimeter pulmonary nodules are again identified stable from 01/24/2015. Continued follow-up according to clinical protocol is recommended. Stable left lung fibrotic changes are sequela of radiation therapy to the left breast. Stable bilateral breast and chest wall changes as described in the body of the report. I agree that this report by the resident or fellow represents my interpretation of the study. Washing Machine Loader: MARTÍNEZ Transcribe Date/Time: Aug 06 2017 12:01P Dictated by : JACEY HODGES MD This examination was interpreted and the report reviewed and electronically signed by: SHELLEY WARNER MD on Aug 06 2017 3:59PM EST [id number] PROGRESS Observed: 07/16/2017 Status: COMPLETED Source: [place] 12:07 PM [facility] REPOSITORY HNO ID: [id number] Author: Tanvi Lui Rt Service: (none) Author Type: (none) Type: Progress Notes Filed: 07/16/2017 12:07 PM Note Text: Radiology Service Progress Note PATIENT NAME: Carmen Nunes DATE OF SERVICE: July 16, 2017 TIME: 12:07 PM PATIENT IDENTITY VERIFICATION COMPLETED USING TWO (2) METHODS: Patient confirmed name verbally and Date of . PATIENT GENDER DATA: Female. status: : No status: NO. PATIENT RELEVANT IMPLANT DATA REVIEWED: Not Applicable RADIOLOGY DEPARTMENT: [facility] left diagnostic mammogram PERIPHERAL IV DATA: Not applicable SIGNED BY: Tanvi Lui Rt July 16, 2017 12:07 PM CNCO Observed: 07/16/2017 Status: COMPLETED Source: [place] 11:53 AM [facility] [place] REPOSITORY HNO ID: [id number] Author: Mammography Coordinator Service: (none) Author Type: Physician Type: Letter Filed: 07/17/2017 11:31 PM Note Text: July 16, 2017 PID: [id number] Carmen Nunes [address] [place] [address] Dear Ms. Nunes, We are pleased to inform you that the results of your recent breast imaging exam on 07/16/2017 are normal and we recommend that you return to your annual screening Mammography schedule. Early detection of cancer is very important. We also understand recommendations regarding breast cancer screening are controversial. Please discuss with your primary care provider which strategy is best for you and whether a mammogram is right for you. Your imaging studies and report will be kept on file at [facility] as part of your permanent medical record and are available for your continuing care. Thank you for allowing us to help in meeting your health care needs. Sincerely, Dr. Duque Interpreting Radiologist [facility] (Return to Annual Mammogram schedule) [facility] DIAGNOSTIC LT Observed: 07/16/2017 Status: F Source: [place] 11:43 AM [facility] REPOSITORY * * *Final Report* * * DATE OF EXAM: Jul 16 2017 11:43AM WR 0621 - [facility] DIAGNOSTIC LT / PROCEDURE REASON: call back left breast / abnormal mammogram * * * * Physician Interpretation * * * * RESULT: #[id number] - [facility] DIAGNOSTIC LT UNILATERAL LEFT DIGITAL DIAGNOSTIC MAMMOGRAM WITH CAD: 07/16/2017 HISTORY: Call Back Left Breast / Abnormal Mammogram. RESULT: TECHNIQUE: The study was acquired using full field digital technology and interpreted from soft copy. Current study was also evaluated with a Computer Aided Detection (CAD). Comparison is made to exams dated: 07/10/2017 mammogram, 03/28/2016 mammogram, 09/26/2015 mammogram - [facility], 09/13/2015 mammogram - [facility], 09/29/2014 mammogram, and 09/07/2014 mammogram - [facility]. The tissue of the left breast is heterogeneously dense. This may lower the sensitivity of mammography. There are linear coarse calcifications in the left breast at 5 o'clock in the retroareolar region. This correlates with surgery. No other significant masses or calcifications are seen in the breast. IMPRESSION: BENIGN FINDING The linear coarse calcifications in the left breast are consistent with fat necrosis or a previous surgery and are benign. These are most likely related to prior reduction in 2015. There is no mammographic evidence of malignancy. A 1 year screening mammogram is recommended. Jamal Duque M.D. tab/jaylan:07/16/2017 11:53:41 Lay Out Carpenter: Tanvi RUIZ)(Placido), [facility] letter sent: Return to Annual Mammogram BI-RADS: 2 Benign finding Washing Machine Loader: Jaylan Transcribe Date/Time: Jul 16 2017 11:24A Dictated by: JAMAL DUQUE MD This examination was interpreted and the report reviewed and electronically signed by: JAMAL DUQUE MD on Jul 16 2017 11:53AM EST [id number] Observed: 07/14/2017 Status: COMPLETED Source: [place] 8:50 AM CLINIC OTHER CAMPUS REPOSITORY O ID: [id number] Author: Jay Peres Service: (none) Author Type: Physician Type: Progress Notes Filed: 07/16/2017 1:04 PM Note Text: PERTINENT CARDIAC HISTORY Palpitations MIKE, SVT runs CLARA - CPAP ADHERENCE TO GUIDELINES MARK-I or ARB for HF with prior LVEF<40 (NQF 0081) - N/A ASA or Plavix for ASHD (NQF 0067) - N/A Beta keenan for ASHD with prior VT or prior LVEF<40 (NQF 0070) - N/A Beta keenan for HF with prior LVEF<40 (NQF 0083) - N/A MARK-I or ARB for ASHD with DM or prior LVEF<40 (NQF 0066) - N/A Statin therapy for ASHD or FHL or DM - N/A BMI documented and plan if >25 (NQF 0421) - lifestyle recommendation form Tobacco use screening and referral (NQ 0028) - lifestyle recommendation form Recommendation for whole food, plant based diet - lifestyle recommendation form CLINICAL IMPRESSION/PLAN: Carmen Nunes has had some improvement in her SVT. She's now on CPAP, which has helped. She is concerned about her memory loss. Recent TSH was normal. I recommended that she have an echocardiogram as well as carotid Doppler for further evaluation of her cardiac arrhythmia and memory dysfunction. These will be done in the near future. I'll see her in 6 months or as needed. Written and verbal health teaching given to patient, patient verbalizes understanding and agrees with treatment plan. DIAGNOSIS FOR VISIT: SVT TIAs HISTORY OF PRESENT ILLNESS Carmen Nunes returns for follow-up of her SVT. She reports that her palpitations have improved with CPAP therapy. She was noted to have occasional isolated ventricular and atrial ectopics. No atrial fibrillation was observed. There were occasional short runs of SVT. She denies chest pain. She's had no orthopnea, edema, amaurosis or claudication. She notes occasional brain fogginess by which she means that she loses her train of thought or forgets recent events for a short time. She has had no unilateral motor or sensory findings and no gait instability. She denies eye symptoms. ALLERGIES: ALLERGIES Allergen Reactions - Penicillins Hives CURRENT OUTPATIENT MEDICATIONS: OTC PRODUCT Cyruta Plus OTC PRODUCT Catalyn Vitamin anastrozole (ARIMIDEX) 1 mg tablet Take 1 tablet by mouth once daily. OTC PRODUCT Cataplex C: Take one(1) tablet three times daily. OTC PRODUCT Cataplex B: Take one(1) tablet daily. OTC PRODUCT Zinc Liver Chelate: Take one(1) tablet daily. PHYSICAL EXAMINATION: VITAL SIGNS: BP 104/67 Pulse 62 Ht 5' 5.5 (1.66m) Wt 170 lb (77.1kg) BMI 27.85 kg/(m2). Chest: Clear to percussion and auscultation. Trachea is midline. Air entry is equal. Cardiac: Regular rhythm. S1 and S2 are normal. PMI is nondisplaced. Is a soft systolic ejection murmur. Carotids are brisk with soft bilateral bruits. JVP is less than 10 cm. Abdomen: Soft and nontender. There are no pulsatile masses or bruits. No liver enlargement. Bowel sounds are active. Extremities: No edema. Pulses are intact and symmetrical. Neurologic: No gross motor or sensory deficit. She is alert and oriented. Recent labs were reviewed. Renal function is normal. LDL was 97. Event monitor was reviewed. Her symptoms of palpitations correlated with isolated ventricular ectopy but also were seen during sinus rhythm. Electronically Signed: Jay Peres MD July 14, 2017 8:50 AM CC: Swati Baron MD CNOV Observed: 07/14/2017 Status: COMPLETED Source: [place] 8:30 AM CLINIC OTHER CAMPUS REPOSITORY Office Visit (AGCARDWST) CARMEN NUNES ([id number]) 1945 [facility] Date Time Provider Department 07/14/17 8:30 AM JAY PERES AGCARDWST During your visit today, we recorded the following information about you: Pulse Blood pressure Weight Height 62/minute 104/67 77.1 kg 1.664 m Jay Peres MD 07/16/2017 1:04 PM Signed PERTINENT CARDIAC HISTORY Palpitations MIKE, SVT runs CLARA - CPAP ADHERENCE TO GUIDELINES MARK-I or ARB for HF with prior LVEF<40 (NQF 0081) - N/A ASA or Plavix for ASHD (NQF 0067) - N/A Beta keenan for ASHD with prior VT or prior LVEF<40 (NQF 0070) - N/A Beta keenan for HF with prior LVEF<40 (NQF 0083) - N/A MARK-I or ARB for ASHD with DM or prior LVEF<40 (NQF 0066) - N/A Statin therapy for ASHD or FHL or DM - N/A BMI documented and plan if >25 (NQF 0421) - lifestyle recommendation form Tobacco use screening and referral (NQF 0028) - lifestyle recommendation form Recommendation for whole food, plant based diet - lifestyle recommendation form CLINICAL IMPRESSION/PLAN: Carmen Nunes has had some improvement in her SVT. She's now on CPAP, which has helped. She is concerned about her memory loss. Recent TSH was normal. I recommended that she have an echocardiogram as well as carotid Doppler for further evaluation of her cardiac arrhythmia and memory dysfunction. These will be done in the near future. I'll see her in 6 months or as needed. Written and verbal health teaching given to patient, patient verbalizes understanding and agrees with treatment plan. DIAGNOSIS FOR VISIT: SVT TIAs HISTORY OF PRESENT ILLNESS Carmen Nunes returns for follow-up of her SVT. She reports that her palpitations have improved with CPAP therapy. She was noted to have occasional isolated ventricular and atrial ectopics. No atrial fibrillation was observed. There were occasional short runs of SVT. She denies chest pain. She's had no orthopnea, edema, amaurosis or claudication. She notes occasional brain fogginess by which she means that she loses her train of thought or forgets recent events for a short time. She has had no unilateral motor or sensory findings and no gait instability. She denies eye symptoms. ALLERGIES: ALLERGIES Allergen Reactions - Penicillins Hives CURRENT OUTPATIENT MEDICATIONS: OTC PRODUCT Cyruta Plus OTC PRODUCT Catalyn Vitamin anastrozole (ARIMIDEX) 1 mg tablet Take 1 tablet by mouth once daily. OTC PRODUCT Cataplex C: Take one(1) tablet three times daily. OTC PRODUCT Cataplex B: Take one(1) tablet daily. OTC PRODUCT Zinc Liver Chelate: Take one(1) tablet daily. PHYSICAL EXAMINATION: VITAL SIGNS: BP 104/67 Pulse 62 Ht 5' 5.5 (1.66m) Wt 170 lb (77.1kg) BMI 27.85 kg/(m2). Chest: Clear to percussion and auscultation. Trachea is midline. Air entry is equal. Cardiac: Regular rhythm. S1 and S2 are normal. PMI is nondisplaced. Is a soft systolic ejection murmur. Carotids are brisk with soft bilateral bruits. JVP is less than 10 cm. Abdomen: Soft and nontender. There are no pulsatile masses or bruits. No liver enlargement. Bowel sounds are active. Extremities: No edema. Pulses are intact and symmetrical. Neurologic: No gross motor or sensory deficit. She is alert and oriented. Recent labs were reviewed. Renal function is normal. LDL was 97. Event monitor was reviewed. Her symptoms of palpitations correlated with isolated ventricular ectopy but also were seen during sinus rhythm. Electronically Signed: Jay Peres MD July 14, 2017 8:50 AM CC: MD Jay Barney MD 07/14/2017 8:50 AM Signed LIFESTYLE CHANGE A healthy lifestyle is the most important component of your overall treatment plan. Please give serious thought to the following areas and commit to making intermediate changes. EAT A WHOLE FOOD, PLANT BASED DIET The nutrition your body gets is more important than the medicine you take. What matters most is the overall way you eat. We encourage you to minimize the use of animal products (which include dairy and all meats except fatty fish) and use whole, unprocessed plant foods to provide your protein, vitamins and other nutrients. We have a lot of information to share with you on this topic. This is not a diet. It is a way of life that you will keep with you. EXERCISE REGULARLY It is not important to spend hours in the gym, lifting weights and perspiring heavily. A total of 2-3 hours per week of aerobic (causing you to be moderately short of breath) exercise is sufficient to improve your health. Talk to us before you begin a new exercise program, if you have heart disease or experience shortness of breath or chest pain. REDUCE STRESS Chronic emotional and physical stress leads to disease. Ways of reducing stress include meditation, visualization, prayer, yoga and other forms of relaxation therapy. Consistency is the barber. Find a technique that works for you and do it every day. CULTIVATE RELATIONSHIPS Loneliness and isolation have a major negative impact on health. Seek out others who can love, care for and nurture you. Avoid hurtful relationships. MAINTAIN IDEAL BODY WEIGHT The best way to do this is to do all the things above. Our bodies naturally find the right weight if we keep moving and feed ourselves the right food. If your BMI is greater than 25, we strongly recommend a referral to a weight management program. Please speak to us or your family physician about available programs. AVOID NICOTINE IN ALL FORMS This includes all tobacco products, whether chewed, smoked, vaped, or rubbed on the skin. Smoking cessation programs, which can make use of tobacco substitutes, medications to suppress cravings and behavior management, are available. Please contact your family physician about programs in your area. Referring Provider: JAY PERES [[id number]] Allergies As of Date: 07/14/2017 Noted Allergy Reaction PENICILLINS 05/27/2007 4 - Hives Date Reviewed: 07/14/2017 Reviewed by: Tayla Lackey - Fully Assessed Reason for Visit: Established Patient [175] Primary Visit Diagnosis:SVT (supraventricular tachycardia) (HCC) [I47.1] Other Visit Diagnoses:Transient cerebral ischemia, unspecified type [G45.9] Dizziness and giddiness [R42] Order(s): CAROTID ARTERIES [facility] [[id number]] Order #: [id number] FUTURE ECHO [[id number]] Order #: [id number]: 1 FUTURE Prescriptions as of 07/14/2017 Sig: OTC PRODUCT Cyruta Plus OTC PRODUCT Catalyn Vitamin ANASTROZOLE 1 MG TABLET Take 1 tablet by mouth once d* OTC PRODUCT Cataplex C: Take one(1) table* OTC PRODUCT Cataplex B: Take one(1) table* OTC PRODUCT Zinc Liver Chelate: Take one(* Problem List As Of Date 07/14/2017 Noted Resolved Lump or mass in breast [N63.0] INVALID FOR*10/29/2013 Breast cancer [C50.919] INVALID FOR* ER+ (estrogen receptor positive status) [Z17.0] INVALID FOR* Secondary and unspecified malignant neoplasm of*INVALID FOR*10/29/2013 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 Please give serious thought to the following areas and commit to making extermination supervisor changes. EAT A WHOLE FOOD, PLANT BASED DIET The nutrition your body gets is more important than the medicine you take. What matters most is the overall way you eat. We encourage you to minimize the use of animal products (which include dairy and all meats except fatty fish) and use whole, unprocessed plant foods to provide your protein, vitamins and other nutrients. We have a lot of information to share with you on this topic. This is not a diet. It is a way of life that you will keep with you. EXERCISE REGULARLY It is not important to spend hours in the gym, lifting weights and perspiring heavily. A total of 2-3 hours per week of aerobic (causing you to be moderately short of breath) exercise is sufficient to improve your health. Talk to us before you begin a new exercise program, if you have heart disease or experience shortness of breath or chest pain. REDUCE STRESS Chronic emotional and physical stress leads to disease. Ways of reducing stress include meditation, visualization, prayer, yoga and other forms of relaxation therapy. Consistency is the barber. Find a technique that works for you and do it every day. CULTIVATE RELATIONSHIPS Loneliness and isolation have a major negative impact on health. Seek out others who can love, care for and nurture you. Avoid hurtful relationships. MAINTAIN IDEAL BODY WEIGHT The best way to do this is to do all the things above. Our bodies naturally find the right weight if we keep moving and feed ourselves the right food. If your BMI is greater than 25, we strongly recommend a referral to a weight management program. Please speak to us or your family physician about available programs. AVOID NICOTINE IN ALL FORMS This includes all tobacco products, whether chewed, smoked, vaped, or rubbed on the skin. Smoking cessation programs, which can make use of tobacco substitutes, medications to suppress cravings and behavior management, are available. Please contact your family physician about programs in your area. Encounter Status:Closed by JAY PERES MD on 07/16/17 CNCO Observed: 07/10/2017 Status: COMPLETED Source: [place] 2:34 PM [facility] REPOSITORY [facility] ID: [id number] Author: Mammography Coordinator Service: (none) Author Type: Physician Type: Letter Filed: 07/14/2017 11:32 PM Note Text: July 10, 2017 PID: [id number] Carmen Nunes [address] [place] [address] Dear Ms. Nunes, Your recent breast imaging exam on 07/10/2017 showed a possible finding that requires additional imaging studies for a complete evaluation. Most such findings are probably benign (not cancer). Please call [phone] or [phone] to schedule an appointment for your additional imaging if you have not already done so. Your mammogram demonstrates that you have dense breast tissue, which could hide abnormalities. Dense breast tissue, in and of itself, is a relatively common condition. Therefore, this information is not provided to cause undue concern; rather, it is to raise your awareness and promote discussion with your health care provider regarding the presence of dense breast tissue in addition to other risk factors. Your breast images and report will be kept on file here as part of your permanent medical record and are available for your continuing care. Thank you for allowing us to help in meeting your health care needs. Sincerely, Dr. Bird Interpreting Radiologist [facility] (Additional imaging) [facility] SCREENING W ELIAZAR Observed: 07/10/2017 Status: F Source: [place] 9:35 AM [facility] REPOSITORY * * *Final Report* * * DATE OF EXAM: Jul 10 2017 9:35AM W 0582 - [facility] SCREENING W ELIAZAR / PROCEDURE REASON: multiple diagnoses * * * * Physician Interpretation * * * * RESULT: #[id number] - [facility] SCREENING W ELIAZAR BILATERAL DIGITAL SCREENING MAMMOGRAM TOMOSYNTHESIS WITH CAD: 07/10/2017 HISTORY: Multiple Diagnoses /Screening Mammogram - patient reports NO symptoms /priors available for comparison. RESULT: TECHNIQUE: The study was acquired using full field digital technology and interpreted from soft copy. Digital Breast Tomosynthesis (DBT) images were obtained and used to assist in the interpretation of this examination. Current study was also evaluated with a Computer Aided Detection (CAD). Comparison is made to exams dated: 03/28/2016 mammogram, 09/26/2015 mammogram - [facility], 09/13/2015 mammogram - [facility], 09/29/2014 mammogram, 09/07/2014 mammogram, and 04/28/2014 mammogram - [facility]. The tissue of both breasts is heterogeneously dense. This may lower the sensitivity of mammography. There are stable post operative findings in the left breast. The patient is status post mastectomy right breast. There are multiple new calcifications in the left breast inferior medial quadrant anterior depth. No other significant masses, calcifications, or other findings are seen in either breast. IMPRESSION: INCOMPLETE: NEEDS ADDITIONAL IMAGING EVALUATION The multiple new calcifications in the left breast resemble fat necrosis or a previous surgery and are indeterminate. Additional views are recommended. The exam was reviewed by a staff physician. Stephanie Ahumada M.D. ld,sarbjit/jaylan:07/10/2017 14:34:32 Lay Out Carpenter: Mari POWER(Anand)(Placido), [facility] letter sent: Additional Imaging Needed Mammogram BI-RADS: 0 Incomplete: needs additional imaging evaluation Washing Machine Loader: Jaylan Transcribe Date/Time: Jul 10 2017 9:11A Dictated by: LORI AHUMADA MD This examination was interpreted and the report reviewed and electronically signed by: STEPHANIE BIRD MD on Jul 10 2017 2:34PM EST [id number] Observed: 07/10/2017 Status: COMPLETED Source: [place] 8:25 AM [facility] REPOSITORY HNO ID: [id number] Author: Camille Power Service: (none) Author Type: (none) Type: Progress Notes Filed: 07/10/2017 3:02 PM Note Text: Radiology Service Progress Note PATIENT NAME: Carmen Nunes DATE OF SERVICE: July 10, 2017 TIME: 8:25 AM PATIENT IDENTITY VERIFICATION COMPLETED USING TWO (2) METHODS: Patient confirmed name verbally and Date of . PATIENT GENDER DATA: Female. status: : No status: NO. PATIENT RELEVANT IMPLANT DATA REVIEWED: Not Applicable RADIOLOGY DEPARTMENT: [facility] left scr mammogram PERIPHERAL IV DATA: Not applicable SIGNED BY: Camille Power July 10, 2017 8:25 AM PROGRESS Observed: 07/08/2017 Status: COMPLETED Source: [place] 9:02 AM [facility] [place] REPOSITORY HNO ID: [id number] Author: Viktoria Hawkins Service: (none) Author Type: Nurse Practitioner Type: Progress Notes Filed: 07/08/2017 12:54 PM Note Text: Chief Complaint Patient presents with: Established Patient HPI: Carmen Nunes is a 72 year old female who presents here today for follow up breast cancer. H/o palpable breast mass. The patient notes a mass in the retroaerolar portion of her left breast. The patient has noticed this mass for couple months. The patient had a mammogram on 06/24/12 which demonstrated Birads 4. ?? On Jul 14 2012, she underwent a ultrasound-guided left needle core biopsy. This came back as invasive ductal carcinoma. Dr. Colby performed a left wire loaclization lumpectomy with sentinel lymph node biopsy on 08/05/12. The pathology demonstrated invasive poorly differentiated carcinoma. The tumor's greatest dimension was 2.5 cm. Surgical margins were free of disease. axillary sentinel node biopsy 1 out of 1 lymph nodes were positive for metastatic disease. Total 8 axillary lymph nodes removed, with 1/8 positive for metastatic disease. The estrogen receptors were positive, the progesterone receptors were moderate positive, Mco5Jdm receptors were 2-2+, but non-amplified by FISH. Pathologic stage was pT2 N1a Mx. ?? Received:AC/Taxol After third treatment-neutropenic/mucositis/thrombocytopenic/dehydrated/orthostatic hypotension. Received fluids. ?? Completed Radiation:01/18/13 to 03/05/13 Arimidex started 2013. ?? Pt. broke her L ankle 2013-slipped and fell in her kitchen- floor wet. Had a plate and 2 pins placed. ? Stopped arimidex d/t fatigue, not sleeping at night-symptoms resolved when stopped the drug. Changed to Aromasin. ?? Pt. wanted to change back to arimidex d/t s/e of anxiety/depression and head fogginess ?? Current therapy:Arimidex ? 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 ?? Followed by Dr. Stein. ? No complaints. ?? Appetite:good Energy level:it's really good Denies fever, chills or night sweats. Resp:denies cough or sob Cardiac:denies chest pain/palpitations GI:denies abd pain, n/v, moving bowels regularly :denies dysuria/hematuria Extrem:denies pain currently, occ. L knee pain Endo:denies hot flashes Neuro:tingling to feet-more to the soles-stable Skin:denies rashes/lesions Heme:denies bleeding ? The ROS is otherwise negative. Past medical history, appointments, medications, allergies reviewed. No changes. EXAM: BP 108/63 Pulse 65 Temp 36.1 ?C (97 ?F) Wt 77.1 kg (170 lb) BMI 28.29 kg/m? APPEARANCE Well appearing, alert, in no acute distress, well-hydrated, well nourished. HEART RRR with normal S1 and S2, no murmurs LUNG clear to auscultation BREAST FEMALE R implant no surrounding mass/nodule, L no mass/nodule LYMPH NODES No cervical lymphadenopathy, No supraclavicular lymphadenopathy and No axillary lymphadenopathy. ABDOMEN bowel sounds normoactive, no bruits, soft, non-tender, non-distended, without organomegaly or palpable masses EXTREMITIES No edema NEURO Awake, alert and oriented x 3, Normal gait and No involuntary motions. SKIN Skin color, texture, turgor normal, no suspicious rashes or lesions ASSESSMENT/PLAN: 1. 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 - Tolerating arimidex well. Continue. - L mammogram overdue. - Follow up in 6 months-pending mammogram. - Pt. aware to call office with any questions/concerns. The patient indicates understanding of these issues and agrees with the plan. Viktoria Hawkins APRN.DUST BOX WORKER CNOVSP Observed: 07/08/2017 Status: COMPLETED Source: [place] 9:00 AM [facility] REPOSITORY Visit (SP) Office (SHRAVAN) CARMEN NUNES ([id number]) 1945 F [place] Date Time Provider Department 07/08/17 9:00 AM VIKTORIA HAWKINS (SELINA) SHRAVAN During your visit today, we recorded the following information about you: Temperature Pulse Blood pressure Weight 97 degrees 65/minute 108/63 77.1 kg Ewa Fields LPN, DAYNA 07/08/2017 9:12 AM Signed Est pt., 6 month f/u DAYNA Reina APRN.SELINA 07/08/2017 12:54 PM Signed Chief Complaint Patient presents with: Established Patient HPI: Carmen Nunes is a 72 year old female who presents here today for follow up breast cancer. H/o palpable breast mass. The patient notes a mass in the retroaerolar portion of her left breast. The patient has noticed this mass for couple months. The patient had a mammogram on 06/24/12 which demonstrated Birads 4. ?? On Jul 14 2012, she underwent a ultrasound-guided left needle core biopsy. This came back as invasive ductal carcinoma. Dr. Colby performed a left wire loaclization lumpectomy with sentinel lymph node biopsy on 08/05/12. The pathology demonstrated invasive poorly differentiated carcinoma. The tumor's greatest dimension was 2.5 cm. Surgical margins were free of disease. axillary sentinel node biopsy 1 out of 1 lymph nodes were positive for metastatic disease. Total 8 axillary lymph nodes removed, with 1/8 positive for metastatic disease. The estrogen receptors were positive, the progesterone receptors were moderate positive, Upi7Nsp receptors were 2-2+, but non-amplified by FISH. Pathologic stage was pT2 N1a Mx. ?? Received:AC/Taxol After third treatment-neutropenic/mucositis/thrombocytopenic/dehydrated/orthostatic hypotension. Received fluids. ?? Completed Radiation:01/18/13 to 03/05/13 Arimidex started 2013. ?? Pt. broke her L ankle 2013-slipped and fell in her kitchen- floor wet. Had a plate and 2 pins placed. ? Stopped arimidex d/t fatigue, not sleeping at night-symptoms resolved when stopped the drug. Changed to Aromasin. ?? Pt. wanted to change back to arimidex d/t s/e of anxiety/depression and head fogginess ?? Current therapy:Arimidex ? 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 ?? Followed by Dr. Stein. ? No complaints. ?? Appetite:good Energy level:it's really good Denies fever, chills or night sweats. Resp:denies cough or sob Cardiac:denies chest pain/palpitations GI:denies abd pain, n/v, moving bowels regularly :denies dysuria/hematuria Extrem:denies pain currently, occ. L knee pain Endo:denies hot flashes Neuro:tingling to feet-more to the soles-stable Skin:denies rashes/lesions Heme:denies bleeding ? The ROS is otherwise negative. Past medical history, appointments, medications, allergies reviewed. No changes. EXAM: BP 108/63 Pulse 65 Temp 36.1 ?C (97 ?F) Wt 77.1 kg (170 lb) BMI 28.29 kg/m? APPEARANCE Well appearing, alert, in no acute distress, well- hydrated, well nourished. HEART RRR with normal S1 and S2, no murmurs LUNG clear to auscultation BREAST FEMALE R implant no surrounding mass/nodule, L no mass/nodule LYMPH NODES No cervical lymphadenopathy, No supraclavicular lymphadenopathy and No axillary lymphadenopathy. ABDOMEN bowel sounds normoactive, no bruits, soft, non-tender, non-distended, without organomegaly or palpable masses EXTREMITIES No edema NEURO Awake, alert and oriented x 3, Normal gait and No involuntary motions. SKIN Skin color, texture, turgor normal, no suspicious rashes or lesions ASSESSMENT/PLAN: 1. 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 - Tolerating arimidex well. Continue. - L mammogram overdue. - Follow up in 6 months-pending mammogram. - Pt. aware to call office with any questions/concerns. The patient indicates understanding of these issues and agrees with the plan. Viktoria Hawkins APRN.DUST BOX WORKER Referring Provider: VIKTORIA HAWKINS ([facility]) [[id number]] Allergies As of Date: 07/08/2017 Noted Allergy Reaction PENICILLINS 05/27/2007 4 - Hives Date Reviewed: 07/08/2017 Reviewed by: Viktoria ([facility]) Ross - Fully Assessed Reason for Visit: Established Patient [175] Primary Visit Diagnosis:Malignant neoplasm of left breast in female, estrogen receptor positive, unspecified site of breast (HCC) [C50.912, Z17.0] Other Visit Diagnosis:Sarcoma of right breast (HCC) [C50.911] Follow-up and Disposition History Recorded Prescriptions as of 07/08/2017 Sig: OTC PRODUCT Cyruta Plus OTC PRODUCT Catalyn Vitamin ANASTROZOLE 1 MG TABLET Take 1 tablet by mouth once d* OTC PRODUCT Cataplex C: Take one(1) table* OTC PRODUCT Cataplex B: Take one(1) table* OTC PRODUCT Zinc Liver Chelate: Take one(* Medication notes this encounter OTC PRODUCT >> Ewa Fields LPN, LPN 07/08/2017 8:53 AM >> EWA FIELDS July 08, 2017 8:53 AM resumed Problem List As Of Date 07/08/2017 Noted Resolved Lump or mass in breast [N63.0] INVALID FOR*10/29/2013 Breast cancer [C50.919] INVALID FOR* ER+ (estrogen receptor positive status) [Z17.0] INVALID FOR* Secondary and unspecified malignant neoplasm of*INVALID FOR*10/29/2013 Drug induced neutropenia(288.03) (HCC) [D70.2] INVALID FOR*10/29/2013 Breast mass, right [N63.10] INVALID FOR* Sarcoma of breast (HCC) [C50.919] INVALID FOR* History of breast cancer [Z85.3] INVALID FOR* Sarcoma of right breast (HCC) [C50.911] INVALID FOR* Malignant neoplasm of left breast in female, es*INVALID FOR* Visit Notes: >> Ewa Rehana (Dayna) DAYNA Fields FriJuly 08, 2017 8:53 AM Status: Signed Est pt., 6 month f/u Ewa Rehana Fields LPN Encounter Status:Closed by VIKTORIA HAWKINS CNP on 07/08/17 VENOUS DUPLEX LOWER Observed: 04/30/2017 Status: F Source: [place] EXTREMITY 5:47 PM [facility] REPOSITORY [facility] Cardiovascular Services [address] [place] [id number] Venous Duplex US, Unilateral 04/30/17 1449 MR#: [id number] Acct: [id number] Name: CARMEN NUNES Rep #: [id number] : 1945 71 From: Kj Cochran MD Attending Dr: Swati Baron MD Status: REG CLI Ordering Dr: Swati Baron MD Date: 04/30/17 Location: [facility] Sex: F C Admitted: Reason For Study: EDEMA, PAIN Procedure LEFT Exam performed in department. GSV is normal. Proximal Peroneal V not visualized. CFV is compressible, spontaneous, phasic, A preliminary report was called and/or faxed competent, and demonstrates normal to DR BARON. augmentation. FV is compressible, spontaneous, phasic, competent and demonstrates normal augmentation. POP V is compressible, spontaneous, phasic, competent and demonstrates normal augmentation. T/P Trunk is compressible. PTV is compressible. LT PerV is compressible. Interpretation Summary Deep veins of the left lower extremity are patent and compressible segmentally. There is no evidence of left lower extremity deep vein thrombosis. Valvular competence appears intact within the proximal deep venous system on the left . The left greater saphenous vein appears patent and compressible segmentally. Ordering Physician: Swati Baron Performed By: Vee Jaquez, JACINTO, RVT 04/30/17 1747 Date Kj Cochran MD CC: Swati Baron MD Date Dictated: 04/30/17 1449 Date Transcribed: 04/30/171746 Washing Machine Loader: Signed KNEE 4 OR MORE Observed: 04/30/2017 Status: F Source: [place] VIEWS 2:47 PM [facility] REPOSITORY [facility] Imaging Services [address] [place] [address] Knee 4 or More Views MR#: [id number] Acct: [id number] Name: CARMEN NUNES Rep #: [id number] : 1945 F 71 From: Shen Donovan MD PCP: Swati Baron MD Status: REG CLI Study: Knee 4 or More Views Date of Exam: 04/30/17 Exam# [id number] Ordering Dr: Swati Baron MD STUDY: X-RAY - LEFT KNEE REASON FOR EXAM: Left knee pain, no specific injury. TECHNIQUE: 4 view(s) of the knee. COMPARISON: None. FINDINGS: Normal visualized distal femur. Normal visualized proximal tibia and fibula. There is mild subchondral cystic change in the head of the fibula at the proximal tibiofibular articulation. There is mild joint space narrowing of the medial femorotibial compartment. There is no joint space narrowing of the lateral femorotibial compartment. Normal patellofemoral articulation. There is chondrocalcinosis of the medial and lateral menisci. RAD/Knee 4 or More Views IMPRESSION: Mild arthrosis of the medial femorotibial compartment. Chondrocalcinosis of the medial and lateral menisci. Electronically Signed: Shen Donovan MD at 16:31 EST Tel , Service support , CC: Swati Baron MD Washing Machine Loader: Signed BASIC METABOLIC PANL Collected: 04/14/2017 Status: F Source: [place] 10:36 AM [facility] REPOSITORY TYPE CODE TESTS RESULT OUT OF REFERENCE UNITS RANGE LAB GLU 74-99 mg/dL Glucose 81 Result Comment: The [place] Diabetes Association (ADA) provides guidance for cutoff values for fasting glucose and random glucose. The ADA defines fasting as no caloric intake for at least 8 hours. Fas ting plasma glucose results between 100 to 125 mg/dL indicate increased risk for diabetes (prediabetes). Fasting plasma glucose results greater than or equal to 126 mg/dL meet the criteria for diagnosis of diabetes. In the absence of unequivocal hyperglycemia, results should be confirmed by repeat testing. In a patient with classic symptoms of hyperglycemia or hyperglycemic crisis, random plasma glucose results greater than or equal to 200 mg/dL meet the criteria for diagnosis of diabetes. Reference: Standards of Medical Care in Diabetes 2016, [place] Diabetes Association. Diabetes Care. 2016.39(Suppl 1). LAB BUN 7-21 mg/dL BUN 15 LAB CRET 0.58-0.96 mg/dL Creatinine 0.95 LAB NA 136-144 mmol/L Sodium 141 LAB K 3.7-5.1 mmol/L Potassium 4.3 LAB CL 97-105 mmol/L Chloride 102 LAB CO2 22-30 mmol/L CO2 29 LAB AGAP 9-18 mmol/L Anion Gap 10 LAB CA 8.5-10.2 mg/dL Calcium, Total 9.4 LAB GFRAA eGFR- Amer. >60 LAB GFRNAA . eGFR-All Other Races 58 Result Comment: eGFR (Estimated GFR) Units of measure: mL/min/1.73 meters squared eGFR is derived from the reexpressed MDRD Study equation using the following parameters: serum creatinine, age, gender and race. The creatinine assay has been calibrated to be traceable to IDMS. An eGFR <60 mL/min/1.73m2 for >3 months is consistent with chronic kidney disease. Refer to KDOQI guidelines for clinical interpretation. In patients with unstable renal function, e.g. those with acute kidney injury, the eGFR may not accurately reflect actual GFR. Performed By: #### BMP, LIPB, MG1, TSH #### [facility] [employer] [address] [place], [place] [address] LIPID PANEL, BASIC Collected: 04/14/2017 Status: F Source: [place] 10:36 AM [facility] REPOSITORY TYPE CODE TESTS RESULT OUT OF REFERENCE UNITS RANGE LAB CHOL <200 mg/dL Cholesterol 181 Result Comment: <200 mg/dL, Desirable 200-239 mg/dL, Borderline high >239 mg/dL, High LAB TRIGLY <150 mg/dL Triglyceride 91 Result Comment: <150 mg/dL, Normal 150-199 mg/dL, Borderline high 200-499 mg/dL, High >499 mg/dL, Very high LAB HDL >39 mg/dL HDL-Cholesterol 66 Result Comment: 40-59 mg/dL, Acceptable >59 mg/dL, High: Negative risk factor for coronary heart disease <40 mg/dL, Low: Positive risk factor for coronary heart disease LAB LDL <100 mg/dL LDL-Cholesterol 97 Result Comment: <100 mg/dL, Optimal 100-129 mg/dL, Near optimal/above optimal 130-159 mg/dL, Borderline high 160-189 mg/dL, High >189 mg/dL, Very high Secondary prevention optimal LDL Cholesterol levels are recommended to be < 70 mg/dL LAB NONHDL <130 mg/dL Non HDL Cholesterol 115 Result Comment: <130 mg/dL, Optimal 130-159 mg/dL, Near optimal/above optimal 160-189 mg/dL, Borderline high 190-219 mg/dL, High >219 mg/dL, Very high Secondary prevention optimal non HDL Cholesterol levels are recommended to be < 100 mg/dL LAB FT hrs Fasting Time 2 LAB VLDL <30 mg/dL VLDL Cholesterol 18 LAB TCHDL <5.10 TC:HDL Ratio 2.74 LAB LDLHDL <2.54 LDL:HDL Ratio 1.47 Result Comment: Reference: 1. National Cholesterol Education Program ATP III Guideline At-A-Glance Quick Desk Reference: National Heart, Lung, and Blood [place]. National Institutes of Health. 2001: NIH Publication No. 01-3305. 2. An International Atherosclerosis Society position paper: global recommendations for the management of dyslipidemia: executive summary, Atherosclerosis. 2014: 232(2):410-413. Performed By: #### BMP, LIPB, MG1, TSH #### [facility] [address] [address] MAGNESIUM Collected: 04/14/2017 Status: F Source: [place] 10:36 AM [facility] REPOSITORY TYPE CODE TESTS RESULT OUT OF REFERENCE UNITS RANGE LAB MG 1.7-2.3 mg/dL Magnesium 2.2 Performed By: #### BMP, LIPB, MG1, TSH #### [facility] [address] [address] TSH Collected: 04/14/2017 Status: F Source: [place] 10:36 AM [facility] REPOSITORY TYPE CODE TESTS RESULT OUT OF RANGE REFERENCE UNITS LAB TSH 0.400-5.500 uU/mL TSH 1.720 Performed By: #### BMP, LIPB, MG1, TSH #### [facility] [address] [address] PROGRESS Observed: 04/14/2017 Status: COMPLETED Source: [place] 10:19 AM [facility] OTHER [place] REPOSITORY O ID: [id number] Author: Jay Peres Service: (none) Author Type: Physician Type: Progress Notes Filed: 04/14/2017 5:56 PM Note Text: PERTINENT CARDIAC HISTORY Palpitations MIKE, SVT runs CLARA - CPAP ADHERENCE TO GUIDELINES MARK-I or ARB for HF with prior LVEF<40 (NQF 0081) - N/A ASA or Plavix for ASHD (NQF 0067) - N/A Beta keenan for ASHD with prior VT or prior LVEF<40 (NQF 0070) - N/A Beta keenan for HF with prior LVEF<40 (NQF 0083) - N/A MARK-I or ARB for ASHD with DM or prior LVEF<40 (NQF 0066) - N/A Statin therapy for ASHD or FHL or DM - N/A BMI documented and plan if >25 (NQF 0421) - lifestyle recommendation form Tobacco use screening and referral (NQF 0028) - lifestyle recommendation form Recommendation for whole food, plant based diet - lifestyle recommendation form CLINICAL IMPRESSION/PLAN: Carmen Nunes has palpitations which are likely related to benign ectopy. This may be exacerbated by her sleep apnea. She is likely awakening with sleep disturbance and not with palpitations. She's been advised to get her device as soon as possible. Laboratory studies will be done today. I've asked her to call me in a week to let me know how she's doing. If she continues to have palpitations, we can consider suppressive therapy, although her low blood pressure makes this problematic. I will see her in 3 months or as needed. Written and verbal health teaching given to patient, patient verbalizes understanding and agrees with treatment plan. This note was generated using WorkingPoint voice recognition system, and there may be some incorrect words, spellings, and punctuation that were not noted in checking the note before saving. DIAGNOSIS FOR VISIT: Ventricular arrhythmia Sleep apnea HISTORY OF PRESENT ILLNESS Carmen Nunes returns for follow-up of her palpitations. Event monitoring disclosed occasional ventricular ectopy. There was no complex ectopy. She had short runs of SVT. She's undergone a sleep study which showed moderately severe sleep apnea. She reports that she slept well during her titration. She's not yet gotten her device. She denies chest pain. She's had no orthopnea or edema. She denies syncope, TIAs, amaurosis and claudication. ALLERGIES: ALLERGIES Allergen Reactions - Penicillins Hives CURRENT OUTPATIENT MEDICATIONS: OTC PRODUCT Cyruta Plus OTC PRODUCT Catalyn Vitamin anastrozole (ARIMIDEX) 1 mg tablet Take 1 tablet by mouth once daily. OTC PRODUCT Cataplex C: Take one(1) tablet three times daily. OTC PRODUCT Cataplex B: Take one(1) tablet daily. OTC PRODUCT Cardiotrophin PMG CALCIUM LACTATE ORAL Take 2 tablets by mouth twice daily. OTC PRODUCT Zinc Liver Chelate: Take one(1) tablet daily. COD LIVER OIL ORAL Take 2 capsules by mouth once daily. OTC PRODUCT Zypan: Take one(1) tablet three times daily with meals. PHYSICAL EXAMINATION: VITAL SIGNS: BP 90/58 Pulse 62 Ht 5' 5 (1.65m) Wt 165 lb 6.4 oz (75.0kg) BMI 27.52 kg/(m2). Chest: Clear to percussion and auscultation. Trachea is midline. Air entry is equal. Cardiac: Regular rhythm. S1 and S2 are normal. PMI is nondisplaced. There is a 1/6 systolic ejection murmur. Carotids are brisk without bruits. JVP is less than 10 cm. Abdomen: Soft and nontender. There are no pulsatile masses or bruits. No liver enlargement. Bowel sounds are active. Extremities: No edema. Pulses are intact and symmetrical. EKG, sleep study and event monitor were all reviewed with her. Laboratory studies have not yet been done. Electronically Signed: Jay Peres MD April 14, 2017 10:19 AM CC: Swati Baron MD CNOV Observed: 04/14/2017 Status: COMPLETED Source: [place] 10:00 AM CLINIC OTHER [place] REPOSITORY Office Visit (AGCARDWST) CARMEN NUNES ([id number]) 1945 [facility] Date Time Provider Department 04/14/17 10:00 AM JAY PERES During your visit today, we recorded the following information about you: Pulse Blood pressure Weight Height 62/minute 90/58 75 kg 1.651 m Jay Peres MD 04/14/2017 5:56 PM Signed PERTINENT CARDIAC HISTORY Palpitations MIKE, SVT runs CLARA - CPAP ADHERENCE TO GUIDELINES MARK-I or ARB for HF with prior LVEFANDlt;40 (NQF 0081) - N/A ASA or Plavix for ASHD (NQF 0067) - N/A Beta keenan for ASHD with prior VT or prior LVEFANDlt;40 (NQF 0070) - N/A Beta keenan for HF with prior LVEFANDlt;40 (NQF 0083) - N/A MARK-I or ARB for ASHD with DM or prior LVEFANDlt;40 (NQF 0066) - N/A Statin therapy for ASHD or FHL or DM - N/A BMI documented and plan if ANDgt;25 (NQF 0421) - lifestyle recommendation form Tobacco use screening and referral (NQF 0028) - lifestyle recommendation form Recommendation for whole food, plant based diet - lifestyle recommendation form CLINICAL IMPRESSION/PLAN: Carmen Nunes has palpitations which are likely related to benign ectopy. This may be exacerbated by her sleep apnea. She is likely awakening with sleep disturbance and not with palpitations. She's been advised to get her device as soon as possible. Laboratory studies will be done today. I've asked her to call me in a week to let me know how she's doing. If she continues to have palpitations, we can consider suppressive therapy, although her low blood pressure makes this problematic. I will see her in 3 months or as needed. Written and verbal health teaching given to patient, patient verbalizes understanding and agrees with treatment plan. This note was generated using WorkingPoint voice recognition system, and there may be some incorrect words, spellings, and punctuation that were not noted in checking the note before saving. DIAGNOSIS FOR VISIT: Ventricular arrhythmia Sleep apnea HISTORY OF PRESENT ILLNESS Carmen Nunes returns for follow-up of her palpitations. Event monitoring disclosed occasional ventricular ectopy. There was no complex ectopy. She had short runs of SVT. She's undergone a sleep study which showed moderately severe sleep apnea. She reports that she slept well during her titration. She's not yet gotten her device. She denies chest pain. She's had no orthopnea or edema. She denies syncope, TIAs, amaurosis and claudication. ALLERGIES: ALLERGIES Allergen Reactions - Penicillins Hives CURRENT OUTPATIENT MEDICATIONS: OTC PRODUCT Cyruta Plus OTC PRODUCT Catalyn Vitamin anastrozole (ARIMIDEX) 1 mg tablet Take 1 tablet by mouth once daily. OTC PRODUCT Cataplex C: Take one(1) tablet three times daily. OTC PRODUCT Cataplex B: Take one(1) tablet daily. OTC PRODUCT Cardiotrophin PMG CALCIUM LACTATE ORAL Take 2 tablets by mouth twice daily. OTC PRODUCT Zinc Liver Chelate: Take one(1) tablet daily. COD LIVER OIL ORAL Take 2 capsules by mouth once daily. OTC PRODUCT Zypan: Take one(1) tablet three times daily with meals. PHYSICAL EXAMINATION: VITAL SIGNS: BP 90/58 Pulse 62 Ht 5' 5ANDquot; (1.65m) Wt 165 lb 6.4 oz (75.0kg) BMI 27.52 kg/(m2). Chest: Clear to percussion and auscultation. Trachea is midline. Air entry is equal. Cardiac: Regular rhythm. S1 and S2 are normal. PMI is nondisplaced. There is a 1/6 systolic ejection murmur. Carotids are brisk without bruits. JVP is less than 10 cm. Abdomen: Soft and nontender. There are no pulsatile masses or bruits. No liver enlargement. Bowel sounds are active. Extremities: No edema. Pulses are intact and symmetrical. EKG, sleep study and event monitor were all reviewed with her. Laboratory studies have not yet been done. Electronically Signed: Jay Peres MD April 14, 2017 10:19 AM CC: MD Ignacio Barney, RN, RN 04/15/2017 8:26 AM Signed Copy of OV note mailed to Dr. Baron's office. Referring Provider: JAY PERES [[id number]] Allergies As of Date: 04/14/2017 Noted Allergy Reaction PENICILLINS 05/27/2007 4 - Hives Date Reviewed: 04/14/2017 Reviewed by: Tayla Lackey - Fully Assessed Reason for Visit: Follow Up [171] Primary Visit Diagnosis:Palpitations [R00.2] Prescriptions as of 04/14/2017 Sig: OTC PRODUCT Cyruta Plus OTC PRODUCT Catalyn Vitamin ANASTROZOLE 1 MG TABLET Take 1 tablet by mouth once d* OTC PRODUCT Cataplex C: Take one(1) table* OTC PRODUCT Cataplex B: Take one(1) table* OTC PRODUCT Cardiotrophin PMG CALCIUM LACTATE ORAL Take 2 tablets by mouth twice* OTC PRODUCT Zinc Liver Chelate: Take one(* COD LIVER OIL ORAL Take 2 capsules by mouth once* OTC PRODUCT Zypan: Take one(1) tablet thr* Medication notes this encounter OTC PRODUCT >> Tayla Lackey MA 04/14/2017 9:47 AM >> TRAMAINE TAYLA WALSH [facility] Apr 14, 2017 9:47 AM Not taking Problem List As Of Date 04/14/2017 Noted Resolved Lump or mass in breast [N63.0] INVALID FOR*10/29/2013 Breast cancer [C50.919] INVALID FOR* ER+ (estrogen receptor positive status) [Z17.0] INVALID FOR* Secondary and unspecified malignant neoplasm of*INVALID FOR*10/29/2013 Drug induced neutropenia(288.03) (HCC) [D70.2] INVALID FOR*10/29/2013 Breast mass, right [N63.10] INVALID FOR* Sarcoma of breast (HCC) [C50.919] INVALID FOR* History of breast cancer [Z85.3] INVALID FOR* Sarcoma of right breast (HCC) [C50.911] INVALID FOR* Malignant neoplasm of left breast in female, es*INVALID FOR* Visit Notes: >> Ignacio (Rn) DANNY Olmos Apr 15, 2017 8:25 AM Status: Signed Copy of OV note mailed to Dr. Baron's office. Encounter Status:Closed by JAY PERES MD on 04/14/17 ALLERGIES ALLERGIES DATE TYPE / CODE NAME / CODE REACTION SEVERITY SOURCE 03/29/2013 Drug Penicillins/[id number] Hives Unknown [place] Allergy/416 0476(RXNORM) [facility] [id number]([facility] ED CT) Repository 05/27/2007 Drug PENICILLINS HIVES [facility] Class/52141 Other [place] 1003(SNOMED Repository CT) [id number] PENICILLINS [place] [address]([facility] CT) Repository ENCOUNTERS ENCOUNTERS ADMIT/DISCHARGE ACCOUNT NUMBER ADMITTING ENCOUNTER LOCATION SOURCE CLASS 03/12/2018 [id number] Ambulatory [facility] ding:MFPLAB Repository 02/03/2018/02/06/20 [id number] Ambulatory [address] Repository 01/14/2018/01/15/20 [id number] Ambulatory [address] Repository 01/14/2018 [id number] Ambulatory [facility] MEDICAL Repository CENTERBuildi ng:CAGWS 01/06/2018/01/08/20 [id number] Ambulatory [place] 18 [facility] [place] 08/07/2017/08/08/19 [id number] Ambulatory [address] [place] 08/06/2017/08/07/19 [id number] Ambulatory [address] [place] 08/06/2017/08/07/19 [id number] Ambulatory [address] [place] 07/23/2017/07/24/19 [id number] Ambulatory [address] [place] 07/23/2017/07/24/19 [id number] Ambulatory [address] [place] 07/16/2017/07/17/19 [id number] Ambulatory [address] [place] 07/14/2017/07/15/19 [id number] Ambulatory [address] [place] 07/14/2017/07/15/19 [id number] Ambulatory [address] MEDICAL Repository MIAMIBuildi ng:JOSE ENRIQUE 07/10/2017/07/11/19 [id number] Ambulatory [address] [place] 07/08/2017/07/10/19 [id number] Ambulatory [address] [place] 04/30/2017 [id number] [facility] ding:[facility] Repository 04/14/2017/04/14/19 [id number] Ambulatory [address] [place] 04/14/2017/04/14/19 [id number] Ambulatory [address] [place] 04/14/2017/04/14/19 [id number] Ambulatory [address] MEDICAL Repository CENTERBuildi ng:JOSE ENRIQUE PAYERS PAYERS ENCOUNTER GUARANTOR PAYER SUBSCRIBER SOURCE 03/12/2018 Carmen Roman Primary Insurance:MMO Carmen Nickersonoster [id number] MEDICAREPolicy CampbellDOB: [facility] Number: [id number], [place] [id number] Repository [address]Xku: 330) Date:[id number] [phone] (FH) [address] [address]JX: 03/12/2018 Secondary NOT GIVENUNK [place] Insurance:SELF PAY [facility] Number: Effective Repository Date:2018-03-12 01/14/2018 CARMEN Roman Primary Insurance:MMO CARMEN Roman [facility] CAMPBELLDOB: MEDADVANTAGE CAMPBELLDOB: [facility] PREFERRED PPOPolicy [id number] Repository PRAY Number: ROSY WAGNER [id number]: ([phone]) Date: [phone] (HP) 07/14/2017 CARMEN Roman Primary Insurance:MMO CARMEN Roman [facility] CAMPBELLDOB: MEDADVANTAGE CAMPBELLDOB: [facility] System PREFERRED PPOPolicy [id number] Repository PRAY Number: ROSY WAGNER [id number]: ([phone]) Date: [phone] (HP) 04/30/2017 Carmen Roman Primary Insurance:MMO Carmen Roman [place] [id number] MEDICAREPolic CampbellDOB: [facility] Number: [id number] [facility] Centersherineluis [place] [id number] Repository [address]Ptm: ([phone]) Date:[id number] [phone] (HP) [address] [address]JG: 04/30/2017 Secondary NOT GIVENUNK [place] Insurance:SELF PAY [facility] Number: Effective Repository Date:2017-04-30 04/14/2017 CARMEN Roman Primary Insurance:MMO CARMEN Roman [facility] CAMPBELLDOB: MEDADVANTAGE CAMPBELLDOB: Health System PREFERRED PPOPolicy [id number] Repository PRAY Number: [place] [id number]: ([phone]) Date: [phone] (HP)
== END ==
PROVIDERS: Family Provider Family Medicine; PCP Family Medicine; Visit Provider Nurse Practitioner Family
DX: Z00.00 Encounter for general adult medical examination without abnormal findings (principal)
CPT/HCPCS: 36415; 80053; 80061

== ENCOUNTER → 2018-08-26 15:31 | Outpatient (CLI) | payer MEDICARE, SELFPAY ==
[2018-08-26 17:45] LABS: Absolute Neutrophil Count 4.2 X10^3/uL (2.0-7.7); Basophil# 0.01 X10^3/uL; Basophil% 0.2 % (0-1); Eosinophil# 0.02 X10^3/uL; Eosinophils% 0.3 % (0-5); Hematocrit 42.8 % (37-47); Hemoglobin 13.9 g/dl (12.0-15.0); Lymphocyte % 18.3 % (19-41); Mean Corp Hgb Conc 32.5 g/gl (32-36); Mean Corpuscular Hgb 30.2 pg (27.0-32.0); Mean Platelet Vol. 10.5 fl (6.2-12.0); Monocyte# 0.68 X10^3/uL; Monocyte% 11.3 % (0-10); Neutrophil # 4.18 X10^3/uL (2.7-7.7); Neutrophil % 69.7 % (47-70); Platelet Count 152 K/mm3 (150-450); RBC Distribution Width CV 13.5 % (11.6-14.6); RBC Distribution Width SD 45.3 fl (35.1-43.9)
[2018-08-26 18:06] LABS: ALB/GLOB Ratio 1.4 RATIO (0.9-2.4); AST(SGOT) 26 U/L (15-37); Alanine Aminotransfer ALT/SGPT 25 U/L (13-56); Alkaline Phosphatase 62 U/L (45-117); Anion Gap 8 (5-15); BUN 17 mg/dL (7-18); Calcium,Total 9.1 mg/dL (8.5-10.1); Chloride 104 mmol/L (98-107); Creatinine, Serum 0.95 mg/dL (0.55-1.02); EST Glomerular Filtration Rate 62 mL/min (>60); Est Glom Filt Rate - Afr Amer 75 mL/min (>60); Globulin 2.9 g/dL (2.2-4.2); Glucose 104 mg/dL (74-106); Potassium 4.2 mmol/L (3.5-5.1); Protein, Total 6.9 g/dL (6.4-8.2); Sodium Level 140 mmol/L (136-145); Thyroid Stim Hormone (TSH) 1.41 uIU/mL (0.358-3.74)
[2018-08-26 18:12] LABS: POSITIVE COUNT NO; POSITIVE DIFFERENTIAL NO; POSITIVE MORPHOLOGY NO
== END ==
PROVIDERS: Family Provider Family Medicine; PCP Family Medicine; Referring Provider Family Medicine; Visit Provider Family Medicine
DX: R53.81 Other malaise (principal)
CPT/HCPCS: 36415; 80053; 84443; 85025

== ENCOUNTER 2019-04-28 19:14 | Emergency (ER) | payer MEDICARE, SELFPAY ==
[2019-04-28 19:15] VITALS: BP 137/73; PULSE 79; RESP 16; TEMP 36.3; O2SAT 96; BMI 26.8
--- NOTE | 2019-04-28 19:25 | ED.RN ---
CALLED FOR EKG PER RN REQUEST, PULLED OLD EKGS FOR
--- NOTE | 2019-04-28 19:45 | EKG12_ITS ---
Test Reason : PALPITATIONS Blood Pressure : / mmHG Vent. Rate : 069 BPM Atrial Rate : 069 BPM P-R Int : 142 ms QRS Dur : 086 ms QT Int : 408 ms P-R-T Axes : 029 008 032 degrees QTc Int : 437 ms Normal sinus rhythm Nonspecific ST-T Changes Abnormal ECG Confirmed by BERNA RAIN, SERG ([id number]), editor managing director CRISTOBAL RICK ([id number]) on 04/30/2019 8:04:38 AM Referred By: RICHARD Confirmed By:TEODORO CORONEL MD
--- NOTE | 2019-04-28 19:49 | RAD_ITS ---
STUDY: X-RAY CHEST REASON FOR EXAM: Female, 73 years old. CHEST PAIN WITH SOB TECHNIQUE: PA and lateral views of the chest. COMPARISON: September 08, 2012. FINDINGS: Cardiac silhouette unremarkable. Pulmonary vascularity unremarkable. Aorta unremarkable. Postsurgical changes are noted in the left breast. No focal airspace opacities. No pleural effusions. Upper abdomen unremarkable. Osseous structures intact. No pneumothorax. RAD/Chest PA and Lateral IMPRESSION: No acute cardiopulmonary findings Electronically Signed: Mohsen Bolanos, at 20:10 EST Tel , Service support ,
[2019-04-28 19:55] LABS: Absolute Lymphocyte Count 0.85 X10^3/uL (0.83-4.51); Absolute Neutrophil Count 4.4 X10^3/uL (2.0-7.7); Basophil# 0.02 X10^3/uL; Basophil% 0.3 % (0-1); Eosinophil# 0.03 X10^3/uL; Eosinophils% 0.5 % (0-5); Hematocrit 41.8 % (37-47); Hemoglobin 13.8 g/dL (12.0-15.0); Lymphocyte # 0.85 X10^3/ul (4.0); Lymphocyte % 14.4 % (19-41); Mean Corpuscular Hgb 30.2 pg (27.0-32.0); Mean Corpuscular Volume 91.5 fL (81-99); Mean Platelet Vol. 9.9 fl (6.2-12.0); Monocyte# 0.62 X10^3/uL; Monocyte% 10.5 % (0-10); NRBC Flagged by Analyzer 0 % (0-5); Neutrophil # 4.37 X10^3/uL (2.7-7.7); Neutrophil % 74.1 % (47-70); Platelet Count 152 K/mm3 (150-450); RBC Distribution Width CV 12.8 % (11.6-14.6); RBC Distribution Width SD 42.5 fl (35.1-43.9); Red Blood Count 4.57 M/mm3 (4.2-5.4); White Blood Count 5.9 K/mm3 (4.4-11.0)
[2019-04-28 20:23] LABS: Anion Gap 3 (5-15); BUN 13 mg/dL (7-18); BUN/Creat Ratio 12.7 RATIO (10-20); Calcium,Total 9.2 mg/dL (8.5-10.1); Chloride 107 mmol/L (98-107); Creatinine, Serum 1.02 mg/dL (0.55-1.02); EST Glomerular Filtration Rate 57 mL/min (>60); Est Glom Filt Rate - Afr Amer 69 mL/min (>60); Estimated Creatinine Clearance 47.36 ml/min; Glucose 112 mg/dL (74-106); Magnesium 2.2 mg/dL (1.6-2.6); Potassium 4.1 mmol/L (3.5-5.1); Sodium Level 140 mmol/L (136-145); Thyroid Stim Hormone (TSH) 2.07 uIU/mL (0.358-3.74)
[2019-04-28 20:39] VITALS: BP 134/74; PULSE 60; RESP 18; TEMP 36.7; O2SAT 98
--- NOTE | 2019-04-28 20:42 | NURSING ---
dr browne said ok to d/c sepsis protocol
[2019-04-28 21:03] VITALS: BP 144/84; PULSE 61; RESP 15; O2SAT 98
--- NOTE | 2019-04-28 21:23 | ED.VIS.CHEST ---
History of Present Illness Chief Complaint: Palpitations Informant: Patient Narrative: Patient presenting for evaluation secondary to palpitations. Patient reports that she has been having intermittent issue with palpitations over the course of the last couple of days, but worse tonight. She reports that these will come and go and do not necessarily have any sort of inciting factors. No relieving factors. Not associated with time of day, exertion, anxiety, eating, drinking. She reports that she will just feel a palpitation in her chest. She denies chest pain. She denies lightheadedness shortness of breath or sweatiness associated with this. Patient denies any increased caffeine intake, recent travel or surgery DVT or PE risk factors. She denies any cardiovascular history. Review of systems otherwise negative. Past Medical History - Allergies and Home Meds Allergies/Adverse Reactions: Allergies Penicillins Allergy (Verified 03/29/13 11:54) Hives Primary Care Physician: Swati Baron MD [Primary Care Provider] - Past Medical History: - - Distant history of breast cancer Smoking Status: Never smoker Review of Systems All systems negative except as indicated General: Denies: Chills, Fever, Sweats Eyes: Denies: Visual changes - bilaterally, Diplopia ENT: Denies: Rhinorrhea, Sore throat Cardiovascular: Reports: Palpitations Respiratory: Denies: Dyspnea, Cough, Dyspnea on exertion Gastrointestinal: Denies: Abdominal pain, Nausea, Vomiting, Diarrhea, Melena, Hematochezia Genitourinary: Denies: Dysuria, Hematuria, Frequency Musculoskeletal: Denies: Back pain, Extremity Pain Skin: Denies: Rash, Wounds Neurological: Denies: Headache, Weakness, Numbness Physical Exam Vital Signs/Narrative: Vital Signs Temp Pulse Resp BP Pulse Ox 04/28/19 21:03 61 15 144/84 H 98 04/28/19 20:39 98.1 F 60 18 134/74 H 98 04/28/19 19:15 97.3 F L 79 16 137/73 H 96 Inital Vital Signs reviewed: Yes General: Well nourished, Well developed, No Acute Distress Head: Normocephalic, Atraumatic Eyes: Perrl, EOMI ENT: Moist mucous membranes, No rhinorrhea Neck: Supple, Nontender Cardiovascular: Regular rate, Regular rhythm, No murmurs Respiratory: No distress, CTA bilaterally, Chest nontender Abdomen: Soft, Nontender, Nondistended, Normal bowel sounds Back: Nontender, Normal Inspection Extremities: Nontender, No edema Skin: Normal color, No rash Neurological: Alert, Oriented x3, Cranial nerves II-XII grossly intact, Normal Strength, Normal Sensation Psychological: Normal affect, Normal Mood Diagnostic/Tx/Re-eval Chest X-Ray - ED: 2 View, Read by ED Physician, Read by Radiologist, Normal - EKG Initial EKG Interpretation: - - Sinus rhythm at [address] segments. There is a incomplete right bundle branch block with abnormal but nonspecific appearing T waves in leads V3. No evidence of acute ischemia or arrhythmia. - Medical Decision Making Patient presented secondary to palpitations. She did not have any events on telemetry monitoring. CBC chemistry troponin TSH and magnesium all found to be unremarkable. Patient's EKG unremarkable chest x-ray unremarkable. Patient at this point is having palpitations, she has not had any arrhythmias, there is no indications for admission she has not had any chest pain. Patient was given reassurance, recommended to follow-up with primary care for Holter monitor should she have continued symptoms. ED Disposition - Plan for ED Patient: Disposition: Home or Assisted Living Diagnosis: Palpitations Instructions: Palpitations Referrals: Swati Baron MD [Primary Care Provider] - 3-5 Days
[2019-04-28 21:34] VITALS: BP 148/61; PULSE 61; RESP 18; O2SAT 98
== END 2019-04-28 21:36 | disposition home or self-care (01) ==
PROVIDERS: Emergency Provider Emergency Medicine; PCP Family Medicine
DX: R00.2 Palpitations (principal); Z85.3 Personal history of malignant neoplasm of breast; Z88.0 Allergy status to penicillin
CPT/HCPCS: 71046; 80048; 83735; 84443; 84484; 85025; 93005; 99285; A4216

== ENCOUNTER → 2019-05-12 05:47 | Outpatient (CLI) | payer MEDICARE, SELFPAY ==
[2019-04-28 19:15] VITALS: BMI 26.8
--- NOTE | 2019-05-12 11:59 | STRESSREP ---
Stress Test Report Exercise myocardial perfusion stress test. 74-year-old lady with a history of chest pain. Stress protocol: Resting EKG demonstrates sinus bradycardia with a rate of 55 bpm normal intervals are noted resting blood pressure 730/70 2 mmHg. Patient exercised according to regular Maximus protocol for total duration of 9 minutes. The maximum heart rate attained was 131 bpm which was 88% of the maximum predicted heart rate. The maximum workload was 10.1 metabolic equivalents. At rest there were no ST or T wave changes noted suggest ischemia peak exercise upsloping ST changes only were noted with no meet the criteria for ischemia. No clinical angina was noted the test was terminated due to the target heart rate being achieved. Myocardial perfusion protocol. 11.6 mCi of technetium 99m sestamibi was injected at rest. Patient exercised according to regular Maximus protocol for 9 minutes at peak exercise 33.1 mCi of technetium 99m sestamibi was injected stress images were obtained stress and rest images were reconstructed and compared in the short axis vertical and horizontal long axis. Gated images were also obtained Perfusion SPECT analysis: Review of the stress images demonstrate normal uptake of tracer noted in all areas of the myocardium the resting images similar demonstrate normal uptake of tracer noted in all areas of the myocardium. No reversibility is no suggest ischemia no previous infarct is noted. Gated SPECT analysis: The gated ejection fraction is noted to be 65%. Conclusion: Normal exercise myocardial perfusion stress test at a high workload. Preserved ejection fraction.
== END ==
PROVIDERS: PCP Family Medicine; Referring Provider Family Medicine; Visit Provider Family Medicine
DX: R07.9 Chest pain, unspecified (principal); R00.2 Palpitations
CPT/HCPCS: 78452; 93017; A9500; A4216

== ENCOUNTER 2019-09-27 08:34 | Emergency (ER) | payer MEDICARE, SELFPAY ==
[2019-09-27 08:37] VITALS: BP 132/81; PULSE 111; RESP 17; TEMP 36.9; O2SAT 96; BMI 26.8
[2019-09-27 08:47] VITALS: BP 149/81; PULSE 95; RESP 18; O2SAT 96
--- NOTE | 2019-09-27 08:57 | EKG12_ITS ---
Test Reason : PALPS Blood Pressure : / mmHG Vent. Rate : 078 BPM Atrial Rate : 078 BPM P-R Int : 124 ms QRS Dur : 078 ms QT Int : 386 ms P-R-T Axes : 005 025 016 degrees QTc Int : 440 ms Normal sinus rhythm Nonspecific ST and T wave abnormality Abnormal ECG Confirmed by RAMEZ RAIN, MEAGHAN ([id number]), commercial production editor PHILL WALKER ([id number]) on 09/30/2019 3:33:32 PM Referred By: ALLEGRA Confirmed By:MEAGHAN MYRICK MD
--- NOTE | 2019-09-27 09:05 | ED.VIS.GEN ---
History of Present Illness Chief Complaint: Palpitations Informant: Patient Narrative: Patient is a 74-year-old female who presents to the emergency department for palpitations. She states she gets a fluttering sensation in her chest that goes up to her neck and also to her hands. She feels like she has a tremor in her bilateral upper extremities. No chest pain. She does occasionally feel short of breath during these episodes. She is not currently experiencing this. She did call her PCP today to get an appointment but they were told to come to the emergency department. These symptoms have been going on for the past couple of months. She was seen in April for the same complaint. At that time her work-up was negative and she was discharged. Denies any leg swelling or calf pain. No recent illnesses including any cough, cold, congestion. No fevers or chills. No abdominal pain or nausea/vomiting. She does not know any aggravating or relieving factors. She thought she might of been overdoing her vitamin so she stopped some of them. This did not help. She is under a lot of stress as they are putting a lot of money into a vacation home currently. She believes that this might be contributing. Past Medical History - Allergies and Home Meds Allergies/Adverse Reactions: Allergies Penicillins Allergy (Verified 09/27/19 08:36) Hives Primary Care Physician: Swati Baron MD [Primary Care Provider] - As soon as possible Past Medical History: - - History of breast cancer status post resection Smoking Status: Never smoker Drugs: None Review of Systems All systems negative except as indicated General: Denies: Chills, Fever, Sweats Eyes: Denies: Visual changes - bilaterally, Diplopia ENT: Denies: Rhinorrhea, Sore throat Cardiovascular: Reports: Palpitations. Denies: Chest pain Respiratory: Reports: Dyspnea. Denies: Cough, Dyspnea on exertion Gastrointestinal: Denies: Abdominal pain, Nausea, Vomiting, Diarrhea, Melena, Hematochezia Genitourinary: Denies: Dysuria, Hematuria, Frequency Musculoskeletal: Denies: Back pain, Extremity Pain Skin: Denies: Rash, Wounds Neurological: Denies: Headache, Weakness, Numbness Physical Exam Vital Signs/Narrative: Vital Signs Temp Pulse Resp BP Pulse Ox 09/27/19 08:47 95 18 149/81 H 96 09/27/19 08:37 98.5 F 111 H 17 132/81 H 96 Inital Vital Signs reviewed: Yes General: Well nourished, Well developed, No Acute Distress Head: Normocephalic, Atraumatic Eyes: Perrl, EOMI ENT: Moist mucous membranes, No rhinorrhea Neck: Supple, Nontender Cardiovascular: Regular rate, Regular rhythm, No murmurs Respiratory: No distress, CTA bilaterally, Chest nontender Abdomen: Soft, Nontender, Nondistended, Normal bowel sounds Back: Nontender, Normal Inspection Extremities: Nontender, No edema. Negative for: Edema, Calf Tenderness Skin: Normal color, No rash Neurological: Alert, Oriented x3, Cranial nerves II-XII grossly intact, Normal Strength, Normal Sensation Psychological: Normal affect, Normal Mood Diagnostic/Tx/Re-eval - EKG Initial EKG Interpretation: - - Rate of 78 bpm and normal sinus rhythm. Normal intervals. Normal axis. No ST elevations or depressions appreciated. T wave inversions in the anterior leads. Prior EKG for comparison was performed on April 28, 2019 which is similar in appearance. - Medical Decision Making Patient presents to the emergency department for intermittent palpitations. She is not currently having the symptoms. Upon arrival to the emerge department vital signs within normal limits. Physical exam is benign. Heart is regular rate and rhythm without any murmurs. Will check basic lab work along with EKG and chest x-ray. Lab work-up did not reveal any significant acute abnormality. X-ray negative for acute cardiopulmonary abnormality. She has been asymptomatic throughout ED stay. She states she does feel very calm on reexamination. I did call and talk to her PCP, Dr. Calix. We did discuss the patient wearing a Holter monitor and they believe that this is a good idea. The patient is to call the office to help schedule this. Warning signs and symptoms for which to return to the emerge department are reviewed with her. She understands and is agreeable this plan. Will discharge home in stable condition. ED Disposition - Plan for ED Patient: Disposition: Home or Assisted Living Diagnosis: Palpitations Instructions: ED Palpitations Referrals: Swati Baron MD [Primary Care Provider] - As soon as possible Additional Instructions: For Holter monitor.
[2019-09-27 09:08] LABS: Absolute Lymphocyte Count 0.61 X10^3/uL (0.83-4.51); Absolute Neutrophil Count 5.8 X10^3/uL (2.0-7.7); Basophil# 0.03 X10^3/uL; Basophil% 0.4 % (0-1); Eosinophil# 0.13 X10^3/uL; Eosinophils% 1.8 % (0-5); Hematocrit 45.2 % (37-47); Hemoglobin 14.9 g/dL (12.0-15.0); Lymphocyte # 0.61 X10^3/ul (4.0); Lymphocyte % 8.4 % (19-41); Mean Corpuscular Hgb 30.7 pg (27.0-32.0); Mean Corpuscular Volume 93.2 fL (81-99); Mean Platelet Vol. 9.8 fl (6.2-12.0); Monocyte# 0.67 X10^3/uL; Monocyte% 9.2 % (0-10); NRBC Flagged by Analyzer 0 % (0-5); Neutrophil # 5.81 X10^3/uL (2.7-7.7); Neutrophil % 79.9 % (47-70); POSITIVE MORPHOLOGY YES; Platelet Count 181 K/mm3 (150-450); RBC Distribution Width CV 12.9 % (11.6-14.6); RBC Distribution Width SD 44.2 fl (35.1-43.9); Red Blood Count 4.85 M/mm3 (4.2-5.4); White Blood Count 7.3 K/mm3 (4.4-11.0)
[2019-09-27 09:18] LABS: Differential Indicated SCAN CRITERIA MET
[2019-09-27 09:23] LABS: Anion Gap 6 (5-15); BUN 17 mg/dL (7-18); BUN/Creat Ratio 15.2 RATIO (10-20); Calcium,Total 8.9 mg/dL (8.5-10.1); Chloride 105 mmol/L (98-107); Creatinine, Serum 1.12 mg/dL (0.55-1.02); EST Glomerular Filtration Rate 51 mL/min (>60); Est Glom Filt Rate - Afr Amer 61 mL/min (>60); Glucose 120 mg/dL (74-106); Magnesium 2.3 mg/dL (1.6-2.6); Potassium 3.9 mmol/L (3.5-5.1); Sodium Level 137 mmol/L (136-145)
[2019-09-27 09:36] LABS: Reactive Lymphocyte RARE
--- NOTE | 2019-09-27 10:00 | RAD_ITS ---
STUDY: X-RAY CHEST REASON FOR EXAM: Female, 74 years old. Palpitations for 1 month TECHNIQUE: Single AP portable view of the chest. COMPARISON: Comparison is made with prior study dated 04/28/2019. FINDINGS: EKG electrodes are seen. Surgical clips are seen in the left axillary region. The lungs are clear and expanded. There is no demonstrated pleural abnormality. Normal size heart. Normal mediastinum and hubert. Normal visualized pulmonary arteries. There is atherosclerotic tortuosity of the aortic arch and descending thoracic aorta. There are mild degenerative changes of the visualized thoracic spine. Normal visualized ribs, clavicles, and shoulders. There is no demonstrated abnormality of the visualized soft tissue structures of the upper abdomen. RAD/Chest 1 View (Portable) IMPRESSION: No acute abnormality is seen. Electronically Signed: Jesus Souza, at 10:18 EDT , Service support ,
[2019-09-27 10:02] VITALS: BP 131/74; PULSE 78; RESP 18; O2SAT 98
[2019-09-27 11:03] VITALS: BP 140/71; PULSE 80; RESP 18; O2SAT 99
== END 2019-09-27 11:04 | disposition home or self-care (01) ==
PROVIDERS: Emergency Provider Emergency Medicine; PCP Family Medicine
DX: R00.2 Palpitations (principal); Z85.3 Personal history of malignant neoplasm of breast; Z88.0 Allergy status to penicillin
CPT/HCPCS: 71045; 80048; 83735; 84484; 85025; 93005; 99284; A4216

== ENCOUNTER → 2020-02-11 10:15 | Outpatient (CLI) | payer MEDICARE, SELFPAY ==
[2020-02-11 12:28] LABS: Hemoglobin A1c 5.7 % (3.8-5.6)
[2020-02-11 12:29] LABS: Thyroid Stim Hormone (TSH) 1.25 uIU/mL (0.358-3.74)
== END ==
PROVIDERS: PCP Family Medicine; Referring Provider Family Medicine; Visit Provider Family Medicine
DX: R41.3 Other amnesia (principal)
CPT/HCPCS: 36415; 83036; 84443

== ENCOUNTER 2020-04-03 08:06 | Emergency (ER) | payer MEDICARE, SELFPAY ==
[2020-04-03 08:07] VITALS: BP 126/80; PULSE 114; RESP 18; TEMP 36.9; O2SAT 98; BMI 26.6
[2020-04-03 08:29] VITALS: BP 126/80; PULSE 84; RESP 18; TEMP 36.9; O2SAT 98
--- NOTE | 2020-04-03 08:37 | CT_ITS ---
STUDY: CT CHEST WITH CONTRAST REASON FOR EXAM: Female, 74 years old. PAIN, REDNESS AND SWELLING TO BREAST, HAS IMPLANTS FOLLOWING MASTECTOMY, HX-LT BREAST CA RADIATION DOSAGE (If Supplied By Facility): CTDIvol = ( 10.62 ) mGy, DLP = ( 526.86 ) mGycm TECHNIQUE: Transaxial imaging was performed following intravenous administration of IV 100mL Isovue-300. Multiplanar coronal and sagittal images were reformatted. Individualized dose optimization techniques were used for this CT. COMPARISON: None. FINDINGS: The patient is status post right breast implant. There is deformity of the breast implant with evidence of fluid surrounding the anterior and posterior aspect of the implant. This is more prominent on the posterior side. There is evidence of increased soft tissue markings in the deep portion of the [place] right breast. Inflammatory changes should be ruled out. 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 Minimal increased markings are also seen in the lingular segment of the left upper lobe. There is no demonstrated pleural abnormality. Normal heart and pericardium. Normal mediastinum. Normal hilar regions. Normal enhanced pulmonary arteries. Normal aorta arch and descending thoracic aorta. There are multi-level degenerative changes of the thoracic spine. Multiple hypodensities are seen in the liver suggestive of multiple hepatic cysts in both lobes of the liver. CT/Chest WITH Contrast IMPRESSION: There is deformity of the right breast implant with fluid surrounding the implant more prominent posteriorly with increased markings in the [place] right breast suggestive of a inflammatory changes most likely secondary to implant rupture. Clinical correlation is recommended. Electronically Signed: Jesus Souza MD at 10:12 EST , Service support ,
[2020-04-03 08:56] LABS: Absolute Neutrophil Count 7.7 X10^3/uL (2.0-7.7); Basophil# 0.03 X10^3/uL; Basophil% 0.3 % (0-1); Eosinophil# 0.07 X10^3/uL; Eosinophils% 0.7 % (0-5); Hematocrit 39.1 % (37-47); Hemoglobin 12.7 g/dL (12.0-15.0); Lymphocyte % 6.3 % (19-41); Mean Corp Hgb Conc 32.5 g/dL (32-36); Mean Corpuscular Hgb 29.9 pg (27.0-32.0); Mean Platelet Vol. 9.2 fl (6.2-12.0); Monocyte# 1.05 X10^3/uL; Monocyte% 11.1 % (0-10); NRBC Flagged by Analyzer 0 % (0-5); Neutrophil # 7.71 X10^3/uL (2.7-7.7); Neutrophil % 81.2 % (47-70); POSITIVE DIFFERENTIAL YES; Platelet Count 208 K/mm3 (150-450); RBC Distribution Width SD 47.5 fl (35.1-43.9); Red Blood Count 4.25 M/mm3 (4.2-5.4); White Blood Count 9.5 K/mm3 (4.4-11.0)
[2020-04-03 08:57] LABS: Differential Indicated SCAN CRITERIA MET
[2020-04-03 09:14] LABS: Anion Gap 5 (5-15); BUN 13 mg/dL (7-18); BUN/Creat Ratio 15.3 RATIO (10-20); Calcium,Total 8.9 mg/dL (8.5-10.1); Chloride 108 mmol/L (98-107); Creatinine, Serum 0.85 mg/dL (0.55-1.02); EST Glomerular Filtration Rate 70 mL/min (>60); Est Glom Filt Rate - Afr Amer 84 mL/min (>60); Estimated Creatinine Clearance 53.83 ml/min; Glucose 105 mg/dL (74-106); Potassium 3.9 mmol/L (3.5-5.1); Sodium Level 140 mmol/L (136-145)
--- NOTE | 2020-04-03 09:38 | ED.DCSUM_ITS ---
History of Present Illness Chief Complaint: Cellulitis Narrative: Patient presenting secondary to concern for inflammatory changes of the right breast. Patient has a past history of a right-sided mastectomy with breast implant. Patient reports that last week she had a dermatologic procedure where she had biopsy taken of the lesion on her breast that was found to be negative. In the last day or 2 she has had significant spreading redness pain and swelling of the right breast. She denies constitutional symptoms such as objective fever. Pain is moderate worse with palpation and movement. Patient does state on Friday of this week she is scheduled to have both a mammogram and an ultrasound. Patient denies history of immunosuppression. Review of systems otherwise negative. Past Medical History - Allergies and Home Meds Allergies/Adverse Reactions: Allergies Penicillins Allergy (Verified 04/03/20 08:10) Hives Primary Care Physician: Swati Baron MD [Primary Care Provider] - Prior records reviewed: Yes Past Medical History: - - Breast cancer Smoking Status: Never smoker Review of Systems All systems negative except as indicated General: Denies: Chills, Fever, Sweats Eyes: Denies: Visual changes - bilaterally, Diplopia ENT: Denies: Rhinorrhea, Sore throat Cardiovascular: Denies: Chest pain, Palpitations Respiratory: Denies: Dyspnea, Cough, Dyspnea on exertion Gastrointestinal: Denies: Abdominal pain, Nausea, Vomiting, Diarrhea, Melena, Hematochezia Genitourinary: Denies: Hematuria Musculoskeletal: Denies: Back pain, Extremity Pain Skin: Reports: Rash Neurological: Denies: Headache, Weakness, Numbness Physical Exam Vital Signs/Narrative: Vital Signs Temp Pulse Resp BP Pulse Ox 04/03/20 08:29 98.4 F 84 18 126/80 H 98 04/03/20 08:07 98.4 F 114 H 18 126/80 H 98 Inital Vital Signs reviewed: Yes General: Well nourished, Well developed, No Acute Distress Head: Normocephalic, Atraumatic Eyes: Perrl, EOMI ENT: Moist mucous membranes, No rhinorrhea Neck: Supple, Nontender Cardiovascular: Regular rhythm, No murmurs, Tachycardia Respiratory: No distress, CTA bilaterally, Chest nontender, - - Chaperoned exam of the patient's right breast shows induration of the inferior portion of the breast with overlying erythema and tenderness to palpation. No obvious fluctuance. No drainage noted. Abdomen: Soft, Nontender, Nondistended, Normal bowel sounds Back: Nontender, Normal Inspection Extremities: Nontender, No edema Skin: Normal color, No rash Neurological: Alert, Oriented x3, Cranial nerves II-XII grossly intact, Normal Strength, Normal Sensation Psychological: Normal affect, Normal Mood Diagnostic/Tx/Re-eval Clinical Impression(s) from Imaging Studies Chest CT 04/03/20 08:37 IMPRESSION: There is deformity of the right breast implant with fluid surrounding the implant more prominent posteriorly with increased markings in the [place] right breast suggestive of a inflammatory changes most likely secondary to implant rupture. Clinical correlation is recommended. Electronically Signed: Jesus Souza MD at 10:12 EST , Service support , Laboratory Data 04/03/20 04/03/20 08:45 08:45 WBC 9.5 RBC 4.25 Hgb 12.7 Hct 39.1 MCV 92.0 MCH 29.9 MCHC 32.5 RDW Std Deviation 47.5 H RDW Coeff of [place] 14.0 Plt Count 208 MPV 9.2 Immature Gran % (Auto) 0.400 Neut % (Auto) 81.2 H Lymph % (Auto) 6.3 L [place] % (Auto) 11.1 H Eos % (Auto) 0.7 Baso % (Auto) 0.3 Absolute Neuts (auto) 7.7 Absolute Lymphs (auto) 0.60 L Nucleated RBC % 0 Sodium 140 Potassium 3.9 Chloride 108 H Carbon Dioxide 27.0 Anion Gap 5 BUN 13 Creatinine 0.85 Estim Creat Clear Calc 53.83 Est GFR (MDRD) Af Amer 84 Est GFR (MDRD) Non-Af 70 BUN/Creatinine Ratio 15.3 Glucose 105 Calcium 8.9 - Medical Decision Making Patient presented secondary to inflammatory changes of the right breast. IV was established patient was given clindamycin. CBC shows a normal white count with somewhat of a neutrophilic predominance. Chemistry unremarkable. CT of the chest with IV contrast per radiology review shows inflammatory changes and deformation of the patient's right breast implant concerning for rupture of the breast implant with inflammatory changes. I discussed the patient's case with on-call surgery Dr. Earnestine. He states that he does not perform procedures on breast implants, and the patient will need to follow-up with her plastic surgeon. Through a significant amount of efforts by the oracle reports developer, we ultimately were able to speak with somebody from the plastic surgery team at the [facility]. Patient will be arranged close follow-up in the next 2 days, and an appointment was made. Patient will be discharged with a course of clindamycin. Patient was given strict return instructions that should she have any worsening she actually should present to the emergency department at [facility] for quicker evaluation by the breast specialists. She did voice understanding of this. Patient was discharged in stable condition. ED Disposition - Plan for ED Patient: Disposition: Home or Assisted Living Diagnosis: Breast implant leak Instructions: Cellulitis Prescriptions: Clindamycin [Cleocin] 300 mg PO 4X/DAY #80 cap Prescription Printed Additional Instructions: Followup at the following appointment Dr Christel Stahl [phone] [facility] 6th Floor, Desk A60 Sunday April 05, 2020 9:15 AM
[2020-04-03 10:10] VITALS: BP 104/68; PULSE 78; RESP 16; TEMP 37.1; O2SAT 100
--- NOTE | 2020-04-03 10:26 | NURSING ---
DR UNDERWOOD PAGED
--- NOTE | 2020-04-03 11:21 | NURSING ---
CALLED [facility] TRYING TO REACH A PLASTIC SURGEON. TALKED TO ALVINA RUEDA AND GABRIELA ROLDAN SURGERY DONE Feb BY DR CADEN RUFF POST OP VISIT WITH DR DARIEN LEMONS [phone] PLASTICS NUMBER IS [phone]. CALLED AND LEFT A MESSAGE FOR TO CALL AND TALK TO DR RAMOS
--- NOTE | 2020-04-03 13:19 | NURSING ---
[address] CULP OFFICE, TALKED TO NIRANJAN. [phone] SHE PUT IN A PAGE TO PLASTICS FOR US.
--- NOTE | 2020-04-03 13:20 | NURSING ---
KIMBERLI, NURSE PRACTIONER, TALKING TO DR RAMOS
[2020-04-03 13:38] VITALS: BP 142/75; PULSE 85; RESP 18; TEMP 36.8; O2SAT 99
== END 2020-04-03 13:56 | disposition home or self-care (01) ==
PROVIDERS: Emergency Provider Emergency Medicine; PCP Family Medicine
DX: T85.43XA Leakage of breast prosthesis and implant, initial encounter (principal); Y83.8 Other surgical procedures as the cause of abnormal reaction of the patient, or of later complication, without mention of misadventure at the time of the procedure; Y92.9 Unspecified place or not applicable; Z85.3 Personal history of malignant neoplasm of breast; Z88.0 Allergy status to penicillin; Z98.82 Breast implant status
CPT/HCPCS: 71260; 80048; 85025; 99284; Q9967; A4216

== ENCOUNTER → 2020-11-20 14:02 | Outpatient (CLI) | payer MEDICARE, SELFPAY ==
--- NOTE | 2020-11-20 14:05 | RAD_ITS ---
STUDY: X-RAY CHEST REASON FOR EXAM: Female, 75 years old. COUGH TECHNIQUE: Single PA view of the chest. COMPARISON: 09/27/2019, 221 CT FINDINGS: Surgical clips project over the right lower chest. The lungs are clear and expanded. There is no demonstrated pleural abnormality. Normal size heart. Normal mediastinum and hubert. Normal visualized pulmonary arteries. Normal visualized aortic arch and descending thoracic aorta. There are diffuse degenerative changes of the visualized thoracic spine. 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 There is no demonstrated abnormality of the visualized soft tissue structures of the upper abdomen. RAD/Chest PA and Lateral IMPRESSION: No acute abnormal cardiopulmonary finding. Electronically Signed: Felipe Martinez MD at 22:09 EDT Tel , Service support ,
== END ==
PROVIDERS: PCP Family Medicine; Referring Provider Family Medicine; Visit Provider Family Medicine
DX: R05 Cough (principal)
CPT/HCPCS: 71046

== ENCOUNTER 2021-04-13 12:28 | Outpatient (CLI) | payer MEDICARE, SELFPAY ==
--- NOTE | 2021-04-13 13:34 | SP.MBSS_ITS ---
Modified Barium Swallow - Patient Information Study Date: 04/13/21 Study Time: 13:00 Direct Billable Minutes: 45 Total Minutes procedure & reportin Diagnosis: Dysphagia, unspecified (R13.10) Referring Physician: Ned Ortega V Reason for Referral: To objectively assess swallow function and aspiration risk. Medical History: The patient is a 75 year old female with PMH including CLARA and breast cancer s/p surgery and chemoradiation treatment (~3-4 years ago per patient). She was referred for a MBS study due to increased coughing; however, the patient denies coughing when eating and drinking. She manages her cough with a cough drop. No cough observed prior to MBS study on this date. Current Diet Ordered: Regular Textures / Thin Liquids Dentition: Natural Teeth Mental Status: WNL Respiratory Status: Oxygenating on Room Air - Penetration-Aspiration Scale Penetration-Aspiration Scale: OBJECTIVE ASSESSMENT OF SWALLOW FUNCTION (QUANTITATIVE ? PER TRIAL): PENETRATION / ASPIRATION SCALE (BAIN): 1 = does not enter airway 2 = enters airway/above vocal folds/ejected 3 = enters airway/above vocal folds/not ejected 4 = enters airway/contacts vocal folds/ejected 5 = enters airway/contacts vocal folds/not ejected 6 = enters airway/below vocal folds/ejected 7 = enters airway/below vocal folds/not ejected despite effort 8 = enters airway/below vocal folds/no effort VIDEOFLOROSCOPIC SCALE SCORE (BAIN): Grade I = aspiration of material that has penetrated into the laryngeal vestibule, intact cough reflex Grade II = aspiration < 10 % of the bolus, intact cough reflex Grade III = aspiration of < 10 % of the bolus, reduced cough reflex or aspiration of > 10 % of the bolus, intact cough reflex Grade IV = aspiration of > 10 % of the bolus, reduced cough reflex - Penetration-Aspiration Scale Score Thin Liquid via teaspoon Result: 1= does not enter airway Thin Liquid via teaspoon Trial 2 Result: 1= does not enter airway Thin Liquid via large single sip from cup Result: 1= does not enter airway Thin Liquid via sequential sips from cup Result: 1= does not enter airway [place] Thick Liquid via large single sip from cup Result: 1= does not enter airway Honey Thick Liquid via large single sip from cup Result: 1= does not enter airway Pudding via teaspoon with Esophageal screen Result: 1= does not enter airway 1/2 Eva Jo in Pudding with Esophageal screen Result: 1= does not enter airway Thin Liquid via single sip from straw Result: 1= does not enter airway Thin Liquid via sequential sips from straw Result: 1= does not enter airway - Oral Phase Labial Seal: No Labial Escape Tongue Control During Bolus Hold: Posterior escape of less than half of bolus Bolus Preparation/Mastication: Timely and efficient chewing and mashing Bolus Transport/Lingual Motion: Brisk tongue motion Oral Residue: Complete oral clearance - Pharyngeal Phase Initiation of Pharyngeal Swallow: Bolus head at posterior laryngeal surgace of epiglottis Soft Palate Elevation: No bolus between soft palate and pharyngeal wall Laryngeal Elevation: Partial superior movement thyroid cart/partial apprx aryt- epig petiole Anterior Hyoid Excursion: Complete anterior movement Epiglottic Movement: Complete inversion Laryngeal Vestibule Closure at Height of Swallow: Complete; no air/contrast in laryngeal vestibule Pharyngeal Stripping Wave: Present - complete Pharyngoesophageal Segment Opening: Complete distension and complete duration; no obstruction of flow Tongue Base Retraction: Trace column of contrast between tongue base & post. pharyngeal wall Pharyngeal Residue: Trace residue within or on pharyngeal structures - Esophageal Phase Esophageal Clearance: Esophageal retention - Minimal retention in upper esophagus with no retrograde flow - Diagnosis/Impression Diagnosis: Swallow function WNL Impression: Overall, the patient presents with normal swallow function. She presented with premature posterior spillage of large bolus sizes to the posterior surface of the epiglottis and mildly decreased laryngeal elevation; however, the patient demonstrated excellent airway closure with no penetration or aspiration evident during the study. - Recommendations Diet: Regular Textures, Thin Liquids Recommend Repeat Modified Barium Swallow: No Need for Skilled Speech Therapy Services: No Education Completed: 1. Described result of evaluation. - Status Active ST Patient: Active - Contact Information [facility] Speech Therapy:: Ale Baldwin M.A. [facility] Speech-Language Pathologist [facility] [address] [place] [address] [email or web address] [phone] 04/13/21 13:46
== END 2021-04-13 23:59 | disposition home or self-care (01) ==
LOC: RAD 12:28
PROVIDERS: PCP Family Medicine; Referring Provider Internal Medicine Pulmonary Disease; Visit Provider Internal Medicine Pulmonary Disease
DX: R13.10 Dysphagia, unspecified (principal)
CPT/HCPCS: 74230; 92611

== ENCOUNTER → 2021-07-10 | Outpatient (CLI) | payer MEDICARE, SELFPAY ==
[2021-07-10 12:19] LABS: Absolute Lymphocyte Count 0.87 X10^3/uL (0.83-4.51); Absolute Neutrophil Count 5.7 X10^3/uL (2.0-7.7); Basophil# 0.03 X10^3/uL; Basophil% 0.4 % (0-1); Eosinophil# 0.07 X10^3/uL; Eosinophils% 0.9 % (0-5); Hematocrit 43.3 % (37-47); Hemoglobin 13.7 g/dL (12.0-15.0); Lymphocyte # 0.87 X10^3/ul (0.83-4.51); Lymphocyte % 11.6 % (19-41); Mean Corp Hgb Conc 31.6 g/dL (32-36); Mean Corpuscular Hgb 29.3 pg (27.0-32.0); Mean Corpuscular Volume 92.7 fL (81-99); Mean Platelet Vol. 9.6 fl (6.2-12.0); Monocyte# 0.81 X10^3/uL; Monocyte% 10.8 % (0-10); NRBC Flagged by Analyzer 0 % (0-5); Neutrophil # 5.66 X10^3/uL (2.7-7.7); Neutrophil % 75.9 % (47-70); Platelet Count 215 K/mm3 (150-450); RBC Distribution Width CV 14.1 % (11.6-14.6); RBC Distribution Width SD 48.2 fl (35.1-43.9); Red Blood Count 4.67 M/mm3 (4.2-5.4); White Blood Count 7.5 K/mm3 (4.4-11.0)
[2021-07-10 12:47] LABS: Syphilis Antibodies Non-reactive; Vitamin B12 540 pg/mL (211-911); Vitamin D,25 Hydroxy 47.5 ng/mL
[2021-07-10 13:12] LABS: ALB/GLOB Ratio 0.9 RATIO (0.9-2.4); AST(SGOT) 23 U/L (15-37); Alanine Aminotransfer ALT/SGPT 31 U/L (13-56); Albumin, Serum 3.3 g/dL (3.2-5.0); Alkaline Phosphatase 76 U/L (45-117); Anion Gap 5 (5-15); BUN 21 mg/dL (7-18); BUN/Creat Ratio 22.2 RATIO (10-20); Calcium,Total 8.9 mg/dL (8.5-10.1); Chloride 106 mmol/L (98-107); Creatinine, Serum 0.94 mg/dL (0.55-1.02); EST Glomerular Filtration Rate 62 mL/min (>60); Est Glom Filt Rate - Afr Amer 74 mL/min (>60); Globulin 3.5 g/dL (2.2-4.2); Glucose 106 mg/dL (74-106); Iron 86 ug/dL (50-170); Potassium 4.2 mmol/L (3.5-5.1); Protein, Total 6.8 g/dL (6.4-8.2); Sodium Level 140 mmol/L (136-145)
[2021-07-27 20:42] LABS: VITAMIN B6 47.3 ug/L (3.4-65.2); Vitamin B1, Thiamine 171.8 nmol/L (66.5-200.0)
== END | disposition home or self-care (01) ==
LOC: MFPLAB 10:47
PROVIDERS: PCP Family Medicine; Visit Provider Family Medicine
DX: D50.9 Iron deficiency anemia, unspecified (principal); E55.9 Vitamin D deficiency, unspecified; R41.3 Other amnesia
CPT/HCPCS: 36415; 80053; 82306; 82607; 82746; 83540; 84207; 84425; 84443; 85025; 86780

== ENCOUNTER → 2021-08-30 | Outpatient (CLI) | payer MEDICARE, SELFPAY ==
[2021-09-01 00:07] LABS: Free Kappa Light Chains 22.2 mg/L (3.3-19.4); Free Lambda Light Chains 15.8 mg/L (5.7-26.3)
== END | disposition home or self-care (01) ==
LOC: MTLAB 08:32
PROVIDERS: PCP Family Medicine; Referring Provider Psychiatry & Neurology Neurology; Visit Provider Psychiatry & Neurology Neurology
DX: G62.9 Polyneuropathy, unspecified (principal)
CPT/HCPCS: 36415; 83883

== ENCOUNTER → 2021-09-12 | Outpatient (CLI) | payer MEDICARE, SELFPAY ==
--- NOTE | 2021-09-12 07:31 | MRI_ITS ---
STUDY: MRI BRAIN WITHOUT CONTRAST REASON FOR EXAM: Female, 76 years old. dementia TECHNIQUE: Standardized multiplanar fat and water weighted pulse sequences were obtained. COMPARISON: None. FINDINGS: There is mild cerebral atrophy with widening of the extra-axial spaces and ventricular dilatation. There are a limited number of small white matter hyperintensities, distributed throughout the deep white matter tracts of the cerebral hemispheres, consistent with mild chronic white matter ischemic changes. There is no evidence for recent intracranial ischemia or other cause of cytotoxic edema on diffusion weighted imaging (DWI). Normal T2* images of the brain without demonstrated susceptibility artifact. There is no demonstrated hemosiderin stain. Normal bilateral frontal poles, and orbital frontal and gyrus recti of the frontal lobes. Normal bilateral temporal tips of the temporal lobes. There are no white matter shear injuries (diffuse axonal injuries). There are no parenchymal hemorrhages or hematomas. There are no findings to suggest prior closed head parenchymal injury of the brain. No focal parenchymal edema or lesions are present. Normal bilateral basal ganglia. Normal thalami. There is no extra-axial fluid accumulation. Normal flow voids within the major intracranial circulation suggesting patency by spin echo criteria. Normal sella turcica, pituitary gland, infundibular stalk, optic chiasm and hypothalamus. Normal tectal plate and pineal gland. Normal midbrain, isidro and medulla. Normal cerebellum. Normal basal cisterns. Normal bilateral temporal bones. Normal bilateral internal auditory canals. No demonstrated orbital abnormality, within the constraints of a routine brain study. Normal visualized paranasal sinuses. Normal calvarium and skull base. Normal visualized soft tissue structures. Normal visualized upper cervical spine. MRI/Brain without Contrast IMPRESSION: 1. Chronic ischemic and involutional changes of the brain, as described above. Electronically Signed: Kwan Palmer MD at 15:21 EDT Reading Location ID and State: [facility] / [place] , Service support ,
== END | disposition home or self-care (01) ==
LOC: MRI 07:31
PROVIDERS: PCP Family Medicine; Referring Provider Psychiatry & Neurology Neurology; Visit Provider Psychiatry & Neurology Neurology
DX: F03.90 Unspecified dementia, unspecified severity, without behavioral disturbance, psychotic disturbance, mood disturbance, and anxiety (principal)
CPT/HCPCS: 70551

== ENCOUNTER → 2021-12-18 | Outpatient (CLI) | payer MEDICARE, SELFPAY ==
[2021-12-21 15:08] LABS: Albumin 3.9 g/dL (2.9-4.4); Alpha-1-Globulins 0.3 g/dL (0.0-0.4); Alpha-2-Globulins 0.7 g/dL (0.4-1.0); Gamma Globulin 1.2 g/dL (0.4-1.8); Immunoglobulin A 251 mg/dL (64-422); Immunoglobulin G 1106 mg/dL (586-1602); Immunoglobulin M 162 mg/dL (26-217); PROEL- TOTAL PROTEIN 7.3 g/dL (6.0-8.5)
[2021-12-22 09:47] LABS: IMMUNOFIXATION RESULT,S Comment: (.)
== END | disposition home or self-care (01) ==
LOC: MTLAB 13:09
PROVIDERS: PCP Family Medicine; Referring Provider Psychiatry & Neurology Neurology; Visit Provider Psychiatry & Neurology Neurology
DX: G62.9 Polyneuropathy, unspecified (principal)
CPT/HCPCS: 36415; 82784; 84165; 86334; 86335

== ENCOUNTER 2022-01-24 16:06 | Emergency (ER) | payer MEDICARE, SELFPAY ==
[2022-01-24 16:07] VITALS: BP 119/82; PULSE 95; RESP 16; TEMP 36.7; O2SAT 94; BMI 29.4
[2022-01-24 17:58] VITALS: BP 131/80; PULSE 72; RESP 16; O2SAT 99
--- NOTE | 2022-01-24 18:17 | CT_ITS ---
STUDY: CT ABDOMEN AND PELVIS WITH CONTRAST REASON FOR EXAM: Female, 76 years old. Abdominal pain -- IV PO Contrast RADIATION DOSAGE (If Supplied By Facility): CTDIvol = ( 15.96 ) mGy, DLP = ( 925.23 ) mGycm TECHNIQUE: Transaxial images were obtained from the dome of the diaphragm to the symphysis pubis without oral contrast. Oral and amp; IV Gastrografin and amp; 100mL Isovue-370 was administered. Sagittal and coronal images were reconstructed. Individualized dose optimization techniques were used for this CT. COMPARISON: None. FINDINGS: The visualized lung bases are unremarkable. The visualized portions of the heart are within normal limits. Multiple simple hepatic cysts measuring up to 6.9 cm the right lobe. Normal gallbladder and extrahepatic biliary system. Normal spleen. Normal pancreas. Normal bilateral adrenal glands. Punctate nonobstructing nephrolith on the right. Normal left kidney. Oral contrast in the stomach. Multiple air-fluid levels in the small bowel. Oral contrast is also noted in the small bowel. Colonic diverticulosis. Appendix is not identified. Normal abdominal aorta. Normal inferior vena cava. Normal retroperitoneum. Normal urinary bladder. There is a small umbilical hernia containing fat. Normal osseous structures. CT/Abdomen/Pelvis WITH Contrast IMPRESSION: Punctate nonobstructing nephrolith on the right. Ileus. Electronically Signed: Bowen Sarmiento MD at 20:23 [facility] ,
[2022-01-24] MEDS: 0.9% Normal Saline 1,000 ML 1000 ML IV (18:39)
--- NOTE | 2022-01-24 18:44 | ED.VIS.GI ---
HPI HPI - GI History of Present Illness Chief Complaint: Abd Pain Informant: patient and spouse/S.O. Abdominal Pain/Flank Pain Onset: Yesterday Context: Gradual Onset Timing: Continuous Quality: Cramping Location: RLQ Worsened by: Nothing Relieved by: Nothing Nausea/Vomiting/Emesis GI Symptom: Positive for Nausea; Negative for Vomiting Diarrhea/Melena/Hematochezia GI Symptom: Negative for Diarrhea, Melena or Hematochezia Associated Symptoms Associated Symptoms: Negative for Dysuria, Frequency or Hematuria Narrative Narrative: Patient presents with abdominal pain that has been constant for the past couple days. Patient states the pain started in the right lower abdomen. Patient states today she had some pain in her right shoulder as well. Patient states nothing seems to make her pain worse and nothing makes it better. Patient admits to some mild nausea but denies any vomiting. Patient states her appetite is fine. Patient describes her pain as cramping. Patient denies any diarrhea, melena, or hematochezia. Patient denies any dysuria, frequency, or hematuria. [facility] Medical History Breast cancer Neuropathy Skin cancer Vision problems Home Medications anastrozole 1 mg tablet 1 mg PO DAILY 03/29/13 [History Last Taken 04/28/19] alendronate 70 mg tablet 70 mg PO QWEEK 04/28/19 [History Last Taken 04/28/19] fluticasone furoate 200 mcg/actuation blister powder for inhalation (Arnuity Ellipta) 1 inh inhalation DAILY 08/21/21 [History Last Taken Unknown] mitocore PO DAILY 08/21/21 [History Last Taken Unknown] alendronate 70 mg tablet 70 mg PO QWEEK 12/18/21 [History Last Taken Unknown] ascorbate calcium (vitamin C) 500 mg tablet 1,000 mg PO DAILY 12/18/21 [History Last Taken Unknown] donepezil 10 mg tablet 10 mg PO QHS #30 tabs 12/18/21 [Rx Last Taken Unknown] memantine 14 mg capsule sprinkle,extended release 24hr 14 mg PO DAILY #14 ea 12/18/21 [Rx Last Taken Unknown] memantine 28 mg capsule sprinkle,extended release 24hr 28 mg PO DAILY #30 ea 12/18/21 [Rx Last Taken Unknown] omeprazole 20 mg capsule,delayed release 20 mg PO DAILY 12/18/21 [History Last Taken Unknown] ondansetron 4 mg disintegrating tablet 4 mg PO Q8H PRN PRN Nausea #10 tabs 01/24/22 [Rx Last Taken Unknown] Allergy/AdvReac Type Severity Reaction Status Date / Time Penicillins Allergy Hives Verified 01/24/22 16:07 Family History Mother Dementia Father Lung cancer Grandfather Parkinson disease Surgical History History of mastectomy Hx of breast implants, bilateral Social History Smoking Status: Never smoker second hand exposure: No alcohol intake: never substance use type: does not use what type of physical activity do you participate in: none adeel/hinduism: Worship seatbelt use: always ROS ROS ED Constitutional Constitutional ED: Denies chills or fever(s) Eyes Eyes: Denies blurry vision or change in vision ENT ENT ED: Denies rhinorrhea or sore throat Cardiovascular Cardiovascular: Denies chest pain or palpitations Respiratory/Chest Respiratory/Chest: Denies cough or dyspnea Gastrointestinal Gastrointestinal: Reports abdominal pain and nausea; Denies diarrhea or vomiting Genitourinary Genitourinary ED: Denies dysuria or hematuria Musculoskeletal Musculoskeletal: Denies back pain or neck pain Integumentary Denies abscess or rash Neurologic Neurologic: Denies headache(s) or weakness Allergic/Immunologic Allergic/Immunologic ED: Denies mouth swelling or urticaria EXAM Physical Exam Const Vital Signs: 01/24/22 16:07 01/24/22 17:58 Temperature 98.0 F Temperature Source Temporal Pulse Rate 95 72 Respiratory Rate 16 16 Blood Pressure 119/82 H 131/80 H Blood Pressure Mean 94 97 Pulse Ox 94 99 Oxygen Delivery Method Room Air Room Air Positive well nourished and well developed General Appearance ED: well developed HEENT Reports moist mucous membranes Neck supple and no JVD Resp normal respiratory effort and clear to auscultation bilaterally Cardio regular rate, regular rhythm and no murmurs GI normal to inspection, nondistended, normoactive bowel sounds and non-tender Palpation: soft Extremity normal to inspection General Extremety ED: Negative for edema or tenderness General Extremity: Negative for edema Neuro oriented x3, CN's II-XII intact bilaterally and no sensory deficits noted Sensorium / Orientation: alert Motor Exam: strength 5/5 throughout Psych mental status grossly normal Skin no rashes or lesions noted MDM MDM MDM Narrative Medical decision making narrative: Patient was given IV fluids and Zofran here. CBC was within normal limits. Comprehensive metabolic profile showed a mild hypokalemia of 2.9. BUN was slightly elevated at 19. Lipase was normal. Urinalysis does not show any evidence of urinary tract infection. CT scan of the abdomen pelvis was obtained. There is a nonobstructing stone in the right kidney. There is a mild ileus. There is no evidence of bowel obstruction. Patient is feeling better on reevaluation. Patient wants to go home. Patient was given a prescription for Zofran. Patient was instructed to start with a liquid diet and advance as tolerated. Patient was instructed to follow-up with her primary care physician in 5 to 7 days. Patient and spouse understood and were agreeable with the plan. All questions were answered. Lab Data Attestation: I reviewed the patient's lab results. Labs: Laboratory Results - last 24 hr 01/24/22 01/24/22 01/24/22 18:38 18:38 18:50 WBC 8.4 RBC 4.64 Hgb 13.6 Hct 42.4 MCV 91.4 MCH 29.3 MCHC 32.1 RDW Std Deviation 46.2 H RDW Coeff of [place] 13.6 Plt Count 184 MPV 9.5 Immature Gran % (Auto) 0.400 Neut % (Auto) 75.0 H Lymph % (Auto) 11.9 L [place] % (Auto) 11.8 H Eos % (Auto) 0.7 Baso % (Auto) 0.2 Absolute Neuts (auto) 6.3 Absolute Lymphs (auto) 1.00 Nucleated RBC % 0 Sodium 144 Potassium 2.9 L Chloride 114 H Carbon Dioxide 25.0 Anion Gap 5 BUN 19 H Creatinine 0.67 Estim Creat Clear Calc 44.41 Est GFR (MDRD) Af Amer 111 Est GFR (MDRD) Non-Af 92 BUN/Creatinine Ratio 28.5 H Glucose 89 Calcium 7.2 L Total Bilirubin 0.30 AST 21 ALT 23 Alkaline Phosphatase 54 Total Protein 4.9 L Albumin 2.5 L Globulin 2.4 Albumin/Globulin Ratio 1.0 Lipase 153 Urine Color Yellow Urine Clarity Clear Urine pH 6.0 Ur Specific [place] 1.025 Urine Protein 30 H Urine Glucose (UA) Normal Urine Ketones 5 H Urine Occult Blood Negative Urine Nitrite Negative Urine Bilirubin Negative Urine Urobilinogen Normal Ur Leukocyte Esterase 25 H Urine RBC 0 SEEN Urine WBC 0-5 SEEN Ur Squamous Epith Cells 0-5 SEEN Calcium Oxalate Crystal 2+ Urine Bacteria 0 SEEN Urine Mucus 2+ Radiography Diagnostic Testing: Clinical Impression(s) from Imaging Studies Abdomen/Pelvis CT 01/24/22 18:17 IMPRESSION: Punctate nonobstructing nephrolith on the right. Ileus. Electronically Signed: Bowen Sarmiento MD at 20:23 EST Reading Location ID and State: [address] [place] [address] , Service support , Discharge Plan Triage Chief Complaint: Abd Pain ED Provider: Walt Prado Dx/Rx/DC Orders Clinical Impression: Abdominal pain, Ileus Instructions: ED Abdominal Pain Unkn Cause Fem Prescriptions: New ondansetron [ondansetron] 4 mg tablet,disintegrating 4 mg PO Q8H PRN PRN (Reason: Nausea) Qty: 10 0RF No Action mitocore PO DAILY Arnuity Ellipta 200 mcg/actuation blister with device 1 inh inhalation DAILY ascorbate calcium (vitamin C) 500 mg tablet 1,000 mg PO DAILY omeprazole 20 mg capsule,delayed release(DR/EC) 20 mg PO DAILY alendronate 70 mg tablet 70 mg PO QWEEK memantine 14 mg capsule,sprinkle,ER 24hr 14 mg PO DAILY Qty: 14 0RF memantine 28 mg capsule,sprinkle,ER 24hr 28 mg PO DAILY Qty: 30 4RF Rx Instructions: Begin after completing 2 week course of memantine ER 14mg daily donepezil 10 mg tablet 10 mg PO QHS Qty: 30 4RF anastrozole 1 MG tablet 1 mg PO DAILY alendronate 70 MG tablet 70 mg PO QWEEK Rx Instructions: every fri Primary Care Provider: Swati Baron Referrals: Swati Baron MD [Primary Care Provider] - 3-5 Days Disposition Disposition: Home, Self Care
[2022-01-24 18:56] LABS: Absolute Neutrophil Count 6.3 X10^3/uL (2.0-7.7); Basophil# 0.02 X10^3/uL; Basophil% 0.2 % (0-1); Eosinophil# 0.06 X10^3/uL; Eosinophils% 0.7 % (0-5); Hematocrit 42.4 % (37-47); Hemoglobin 13.6 g/dL (12.0-15.0); Lymphocyte % 11.9 % (19-41); Mean Corp Hgb Conc 32.1 g/dL (32-36); Mean Corpuscular Hgb 29.3 pg (27.0-32.0); Mean Corpuscular Volume 91.4 fL (81-99); Mean Platelet Vol. 9.5 fl (6.2-12.0); Monocyte# 0.99 X10^3/uL; Monocyte% 11.8 % (0-10); NRBC Flagged by Analyzer 0 % (0-5); Neutrophil # 6.31 X10^3/uL (2.7-7.7); Platelet Count 184 K/mm3 (150-450); RBC Distribution Width CV 13.6 % (11.6-14.6); RBC Distribution Width SD 46.2 fl (35.1-43.9); Red Blood Count 4.64 M/mm3 (4.2-5.4); White Blood Count 8.4 K/mm3 (4.4-11.0)
[2022-01-24 19:00] LABS: Bacteria 0 SEEN /hpf (None Seen); Color, Urine Yellow (Yellow); Glucose, Dipstick Normal (Normal); Ketone-Dipstick 5 mg/dl (Negative); Leukocyte Esterase-Dipstick 25 /ul (Negative); Nitrite-Dipstick Negative (Negative); Occult Blood-Urine Negative /ul (Negative); Protein-Dipstick 30 mg/dl (Negative); Red Blood Cells-Urine 0 SEEN /hpf (0-5); Specific Gravity, Urine 1.025 (1.002-1.030); Urine Bilirubin Dipstick Negative (Negative); Urine Clarity Clear (Clear); Urine Urobilinogen Normal (Normal)
[2022-01-24 19:06] LABS: Mucous, Urine 2+ /hpf (<or=2+); Squamous Epithelial Cells - UA 0-5 SEEN /hpf (5-10)
[2022-01-24 19:07] LABS: Calcium Oxalate Crystals Ur 2+ /hpf (<or=2+); White Blood Cells 0-5 SEEN /hpf (0-5)
[2022-01-24 19:09] LABS: AST(SGOT) 21 U/L (15-37); Alanine Aminotransfer ALT/SGPT 23 U/L (13-56); Albumin, Serum 2.5 g/dL (3.2-5.0); Alkaline Phosphatase 54 U/L (45-117); Anion Gap 5 (5-15); BUN 19 mg/dL (7-18); BUN/Creat Ratio 28.5 RATIO (10-20); Calcium,Total 7.2 mg/dL (8.5-10.1); Chloride 114 mmol/L (98-107); Creatinine, Serum 0.67 mg/dL (0.55-1.02); EST Glomerular Filtration Rate 92 mL/min (>60); Est Glom Filt Rate - Afr Amer 111 mL/min (>60); Estimated Creatinine Clearance 44.41 ml/min; Globulin 2.4 g/dL (2.2-4.2); Glucose 89 mg/dL (74-106); Lipase 153 U/L (73-393); Potassium 2.9 mmol/L (3.5-5.1); Protein, Total 4.9 g/dL (6.4-8.2); Sodium Level 144 mmol/L (136-145)
== END 2022-01-24 21:22 | disposition home or self-care (01) ==
PROVIDERS: Emergency Provider Emergency Medicine; PCP Family Medicine; Visit Provider Emergency Medicine
DX: K56.7 Ileus, unspecified (principal); R11.0 Nausea; N20.0 Calculus of kidney; R10.9 Unspecified abdominal pain
CPT/HCPCS: 74177; 80053; 81001; 83690; 85025; 96361; 96374; 99283; Q9967; A4216; J2405

== ENCOUNTER → 2022-03-20 | Outpatient (CLI) | payer MEDICARE, SELFPAY ==
--- NOTE | 2022-03-20 06:42 | CT_ITS ---
STUDY: CT CHEST WITHOUT CONTRAST REASON FOR EXAM: Female, 76 years old. COUGH X2 WEEKS -- HX-BREAST CA W/ PARTIAL MASTECTOMY, CHEMO, RADIATION RADIATION DOSAGE (If Supplied By Facility): CTDIvol = ( 11.46 ) mGy, DLP = ( 412.24 ) mGycm TECHNIQUE: Transaxial imaging was performed without the administration of intravenous contrast material. Individualized dose optimization techniques were used for this CT. COMPARISON: Comparison is made with prior examination dated 04/03/2020. FINDINGS: CHEST The patient is status post right mastectomy. This is new as compared to prior study. Surgical clips are seen in the right axillary region. Surgical clips are also seen in the deep chest wall on the right side. Prior biopsy in the left breast with evidence of a tissue clip marker. Stable focal area of scarring and bronchiectasis in the upper medial aspect of the left upper lobe in keeping with history of prior radiation therapy and post radiation fibrosis. Minimal increased linear markings in the anterior aspect of the lingular segment of the left upper lobe. There is no demonstrated pleural abnormality. There are calcifications of the coronary arteries. There are multiple small lymph nodes within the mediastinum, which are normal in size and morphology most compatible with reactive lymph hyperplasia. Normal hilar regions. Normal unenhanced pulmonary arteries. There is atherosclerotic calcification of the aortic arch with tortuosity and elongation of the aortic arch and descending thoracic aorta. There are multi-level degenerative changes of the thoracic spine. Stable multiple well-defined hypodense nodules in the liver suggestive of cysts. The largest is in the posterior inferior aspect of the right lobe of the liver and measures 6.1 cm x 6.[address]/Chest without Contrast IMPRESSION: Stable area of focal scarring in the medial aspect of the left upper lobe in keeping with prior radiation and post radiation fibrosis. Stable appearance of the multiple hypodense nodules in the liver. Electronically Signed: Jesus Souza MD at 9:14 EST ,
== END | disposition home or self-care (01) ==
LOC: CT 06:39
PROVIDERS: PCP Family Medicine; Visit Provider Internal Medicine Pulmonary Disease
DX: R05.9 Cough, unspecified (principal)
CPT/HCPCS: 71250

== ENCOUNTER → 2022-05-09 | Outpatient (CLI) | payer MEDICARE, SELFPAY ==
[2022-05-09 12:42] LABS: BUN 18 mg/dL (7-18); Creatinine, Serum 1.11 mg/dL (0.55-1.02); EST Glomerular Filtration Rate 51 mL/min (>60); Est Glom Filt Rate - Afr Amer 62 mL/min (>60); Potassium 3.9 mmol/L (3.5-5.1)
[2022-05-10 14:09] LABS: Albumin 3.9 g/dL (2.9-4.4); Alpha-1-Globulins 0.3 g/dL (0.0-0.4); Alpha-2-Globulins 0.7 g/dL (0.4-1.0); Gamma Globulin 0.9 g/dL (0.4-1.8); Immunoglobulin A 220 mg/dL (64-422); Immunoglobulin G 983 mg/dL (586-1602); Immunoglobulin M 145 mg/dL (26-217); PROEL- TOTAL PROTEIN 6.8 g/dL (6.0-8.5)
== END | disposition home or self-care (01) ==
LOC: MTLAB 09:20
PROVIDERS: PCP Family Medicine; Referring Provider Psychiatry & Neurology Neurology; Visit Provider Psychiatry & Neurology Neurology
DX: E87.6 Hypokalemia (principal); G62.9 Polyneuropathy, unspecified
CPT/HCPCS: 36415; 82565; 82784; 84132; 84165; 84520; 86334

== ENCOUNTER → 2023-01-22 | Outpatient (CLI) | payer MEDICARE, SELFPAY ==
--- NOTE | 2023-01-22 16:37 | RAD_ITS ---
STUDY: X-RAY CHEST REASON FOR EXAM: Female, 77 years old. COUGH/PURITIS TECHNIQUE: PA and lateral views of the chest. COMPARISON: 11/20/2020 FINDINGS: Status post right mastectomy and bilateral axillary lymph node dissection. Pectus excavatum deformity of the chest wall. The lungs are clear and expanded. There is no demonstrated pleural abnormality. Normal size heart. Normal mediastinum and hubert. Normal visualized pulmonary arteries. Normal visualized aortic arch and descending thoracic aorta. Normal visualized thoracic spine. Normal visualized ribs, clavicles, and shoulders. There is no demonstrated abnormality of the visualized soft tissue structures of the upper abdomen. RAD/Chest PA and Lateral IMPRESSION: No active disease. Electronically Signed: Babka Don MD at 20:56 EST ,
[2023-01-28 11:08] LABS: Alternaria alternata <0.10 kU/L (Class 0); Bermuda Grass <0.10 kU/L (Class 0); Bluegrass, Kentucky <0.10 kU/L (Class 0); Cat Hair/Dander, Standard <0.10 kU/L (Class 0); D farinae Mite <0.10 kU/L (Class 0); D pteronyssinus <0.10 kU/L (Class 0); Dog Epithelia <0.10 kU/L (Class 0); Elm, American White <0.10 kU/L (Class 0); Mouse Urine <0.10 kU/L (Class 0); Oak, White <0.10 kU/L (Class 0); Plantain, English <0.10 kU/L (Class 0); Ragweed, Short/Common <0.10 kU/L (Class 0)
== END | disposition home or self-care (01) ==
PROVIDERS: PCP Family Medicine; Referring Provider Internal Medicine Pulmonary Disease; Visit Provider Internal Medicine Pulmonary Disease
DX: R05.9 Cough, unspecified (principal); Z90.11 Acquired absence of right breast and nipple
CPT/HCPCS: 36415; 71046; 86003

== ENCOUNTER 2023-02-20 13:29 | Emergency (ER) | payer MEDICARE, SELFPAY ==
[2023-02-20 13:30] VITALS: BP 134/81; PULSE 100; RESP 26; TEMP 36.2; O2SAT 97; BMI 29.9
[2023-02-20 13:43] VITALS: O2SAT 96
--- OUTSIDE RECORDS SUMMARY | 2023-02-20 14:51 | XMS RPT_ITS | CCD ---
Author Name Unknown Address [address] [place] [address] Organization [facility] Care Team Providers Care [place] Pilot Name Role Phone LARISA, BONNIE Unavailable Unavailable Jolliff, Swati Unavailable Unavailable Jolliff, Swati Unavailable Unavailable LARISA, BONNIE Unavailable Unavailable Jolliff, Swati Unavailable Unavailable LARISA, BONNIE Unavailable Unavailable LARISA, BONNIE Unavailable Unavailable Jolliff, Swati Unavailable Unavailable LARISA, BONNIE Unavailable Unavailable LARISA, BONNIE Unavailable Unavailable Jolliff, Swati Unavailable Unavailable LARISA, BONNIE Unavailable Unavailable LARISA, BONNIE Unavailable Unavailable Jolliff, Swati Unavailable Unavailable Jolliff, Swati Bryce Primary Care Provider [phone] Blayne Villareal Unavailable Ned Graves Unavailable Swati Baron Bryce Primary Care Provider Blayne Villareal Unavailable Ned Graves Unavailable SWATI BARON BRYCE Primary Care Unavailable PROVIDER, UNKNOWN Referring Unavailable Loraine Swati Bryce Primary Care Provider Blayne Villareal MD Unavailable Ned Graves Unavailable LORAINE SWATI BRYCE Primary Care Unavailable FRANCESCO HAWKINS Attending Unavailable FRANCESCO HAWKINS Referring Unavailable ALISONLLIFF, SWATI BRYCE Primary Care Unavailable TAVON STEIN Attending Unavailable TAVON STEIN Referring Unavailable JOLLIFF, SWATI BRYCE Primary Care Unavailable TALI DIXON Referring Unavailable JOLLIFF, SWATI BRYCE Primary Care Unavailable FRANCESCO HAWKINS Attending Unavailable FRANCESCO HAWKINS Referring Unavailable JOLLIFF, SWATI BRYCE Primary Care Unavailable Allergies Allergy Classification Reported Allergen(s) Allergy Type Date of Onset Reaction(s) Facility (18 sources) Penicillins; Translations: [PENICILLINS] Propensity to adverse reactions (disorder) 8 [facility] Repository Medications Current Medications Medication Drug Class(es) Dates Sig (Normalized) Sig (Original) cephalexin 500 mg oral capsule (1 source) Cephalosporin Antibacterial Start: 02-26-2022 End: 03-05-2022 take 1 capsule by mouth three times daily cephALEXin (KEFLEX) 500 mg capsule Take 1 capsule by mouth three times daily for 7 days. 21 capsule 0 02/26/2022 03/05/2022 Active Completed/Discontinued Medications Medication Drug Class(es) Dates Sig (Normalized) Sig (Original) alendronic acid 70 mg oral tablet (15 sources) Bisphosphonate Start: 02-22-2021 End: 10-16-2022 take 1 tablet by mouth every week alendronate (FOSAMAX) 70 mg tablet Take 1 tablet by mouth once a week 12 tablet 3 01/31/2022 10/16/2022 Discontinued Problems Active Problems Problem Classification Problem Date Documented Date Episodic/Chronic Cancer of bone and connective tissue (2 sources) Primary malignant neoplasm; Translations: [Malignant neoplasm of connective and soft tissue, unspecified] Chronic Cancer of breast (20 sources) Malignant neoplasm of female breast; Translations: [Malignant neoplasm of unspecified site of left female breast] Onset: 07-23-2012 Chronic Cardiac dysrhythmias (20 sources) Supraventricular tachycardia; Translations: [Supraventricular tachycardia] Onset: 01-14-2018 01-14-2018 Chronic Inflammation; infection of eye (except that caused by tuberculosis or sexually transmitteddisease) (1 source) Acute conjunctivitis of right eye; Translations: [Unspecified acute conjunctivitis, right eye] Episodic Other aftercare (2 sources) Long-term current use of aromatase inhibitor; Translations: [skilled nursing (current) use of aromatase inhibitors] Episodic Other aftercare (1 source) skilled nursing (current) use of aromatase inhibitors; Translations: [skilled nursing (current) use of aromatase inhibitors] Onset: 12-26-2021 Episodic Other aftercare (1 source) H/O: malignant neoplasm; Translations: [Encounter for follow-up examination after completed treatment for malignant neoplasm] Episodic Other aftercare (2 sources) Prophylactic aromatase inhibitors given; Translations: [skilled nursing (current) use of aromatase inhibitors] Episodic Residual codes; unclassified (15 sources) Obstructive sleep apnea syndrome; Translations: [Obstructive sleep apnea (adult) (pediatric)] Onset: 01-27-2019 02-03-2019 Chronic Residual codes; unclassified (2 sources) Menopause present; Translations: [Asymptomatic menopausal state] Episodic Residual codes; unclassified (1 source) Asymptomatic menopausal state; Translations: [Menopause] Onset: 12-26-2021 Episodic Unclassified (1 source) Obstructive sleep apnea (adult)(pediatric) Onset: 03-14-2017 Chronic Unclassified (1 source) Unknown / UNK(Unknown) Onset: 03-14-2017 Past or Other Problems Problem Classification Problem Date Documented Date Episodic/Chronic Cancer of breast (15 sources) History of malignant neoplasm of breast; Translations: [Personal history of malignant neoplasm of breast] Onset: 01-25-2015 01-25-2015 Episodic Nonmalignant breast conditions (20 sources) Lump in right breast; Translations: [Unspecified lump in the right breast, unspecified quadrant] Onset: 12-14-2014 12-14-2014 Episodic Other screening for suspected conditions (not mental disorders or infectious disease) (2 sources) Patient encounter status; Translations: [Encounter for screening mammogram for malignant neoplasm of breast] Onset: 05-01-2022 Episodic Residual codes; unclassified (15 sources) Estrogen receptor positive tumor; Translations: [Estrogen receptor positive status [ER+]] Onset: 08-20-2012 08-20-2012 Episodic Residual codes; unclassified (4 sources) H/O: artificial organ/tissue; Translations: [Other specified postprocedural states] Onset: 06-20-2020 06-20-2020 Episodic Residual codes; unclassified (11 sources) History of breast reconstruction; Translations: [Other specified postprocedural states] Onset: 06-20-2020 06-20-2020 Episodic Residual codes; unclassified (1 source) Estrogen receptor positive status [ER+]; Translations: [Malignant neoplasm of left breast in female, estrogen receptor positive, unspecified site of breast (HCC)] Onset: 12-18-2016 Episodic Results Test Name Value Interpretation Reference Range Facil ity Vital Signs Date Time Vital Sign Value Performing Clinician Faci lity 10-16-2022 10:47-0400 Body height 164.2 cm Francesco Hawkins SOLE ASSESSOR.BURNER OPERATOR Work Phone: [facility] 10-16-2022 10:47-0400 Body temperature 97.7 [degF] [place] Hawkins SOLE ASSESSOR.BURNER OPERATOR Work Phone: [facility] 10-16-2022 10:47-0400 Body weight 78.7 kg [place]on Hawkins SOLE ASSESSOR.BURNER OPERATOR Work Phone: [facility] 10-16-2022 10:47-0400 Diastolic blood pressure 67 mm[Hg] Francesco Hawkins SOLE ASSESSOR.BURNER OPERATOR Work Phone: [facility] 10-16-2022 10:47-0400 Heart rate 80 /min [place]on Hawkins SOLE ASSESSOR.BURNER OPERATOR Work Phone: [facility] 10-16-2022 10:47-0400 SaO2% (BldA) [Mass fraction] 95 % Francesco Hawkins SOLE ASSESSOR.BURNER OPERATOR Work Phone: [facility] 10-16-2022 10:47-0400 Systolic blood pressure 102 mm[Hg] [place]on Hawkins SOLE ASSESSOR.BURNER OPERATOR Work Phone: [facility] 05-01-2022 11:32-0500 Body height 163.2 cm Tavon Stein MD Work Phone: [facility] 05-01-2022 11:32-0500 Body temperature 97.3 [degF] Tavon Stein MD Work Phone: [facility] 05-01-2022 11:32-0500 Body weight 78.06 kg Tavon Stein MD Work Phone: [facility] 05-01-2022 11:32-0500 Diastolic blood pressure 72 mm[Hg] Tavon Stein MD Work Phone: [facility] 05-01-2022 11:32-0500 Heart rate 86 /min Tavon Stein MD Work Phone: [facility] 05-01-2022 11:32-0500 Respiratory rate 16 /min Tavon Stein MD Work Phone: [facility] 05-01-2022 11:32-0500 SaO2% (BldA) [Mass fraction] 100 % Tavon Stein MD Work Phone: [facility] 05-01-2022 11:32-0500 Systolic blood pressure 132 mm[Hg] Tavon Stein MD Work Phone: [facility] 03-18-2022 08:35-0500 Body temperature 98.8 [degF] Sc[place]on Hawkins SOLE ASSESSOR.BURNER OPERATOR Work Phone: [facility] 03-18-2022 08:35-0500 Body weight 79.38 kg Scranton Hawkins SOLE ASSESSOR.BURNER OPERATOR Work Phone: [facility] 03-18-2022 08:35-0500 Diastolic blood pressure 52 mm[Hg] Sc[place]on Hawkins SOLE ASSESSOR.BURNER OPERATOR Work Phone: [facility] 03-18-2022 08:35-0500 Heart rate 112 /min Scranton Hawkins SOLE ASSESSOR.BURNER OPERATOR Work Phone: [facility] 03-18-2022 08:35-0500 SaO2% (BldA) [Mass fraction] 95 % [place]on Hawkins SOLE ASSESSOR.BURNER OPERATOR Work Phone: [facility] 03-18-2022 08:35-0500 Systolic blood pressure 85 mm[Hg] Francesco Hawkins SOLE ASSESSOR.BURNER OPERATOR Work Phone: [facility] 02-26-2022 16:42-0500 Body temperature 99.5 [degF] Charis Athy PA-C Work Phone: [facility] 02-26-2022 16:42-0500 Body weight 79.83 kg Charis Athy PA-C Work Phone: [facility] 02-26-2022 16:42-0500 Diastolic blood pressure 72 mm[Hg] Charis Athy PA-C Work Phone: [facility] 02-26-2022 16:42-0500 Heart rate 106 /min Charis Athy PA-C Work Phone: [facility] 02-26-2022 16:42-0500 Respiratory rate 16 /min Charissole Dela Cruzy PA-C Work Phone: [facility] 02-26-2022 16:42-0500 SaO2% (BldA) [Mass fraction] 95 % Charissole Dela Cruzy PA-C Work Phone: [facility] 02-26-2022 16:42-0500 Systolic blood pressure 122 mm[Hg] Charissole Dela Cruzy PA-C Work Phone: [facility] 09-17-2021 08:12-0400 Body temperature 98.29 [degF] Francesco Hawkins SOLE ASSESSOR.BURNER OPERATOR Work Phone: [facility] 09-17-2021 08:12-0400 Body weight 82.56 kg Francesco Hawkins SOLE ASSESSOR.BURNER OPERATOR Work Phone: [facility] 09-17-2021 08:12-0400 Diastolic blood pressure 75 mm[Hg] Francesco Hawkins SOLE ASSESSOR.BURNER OPERATOR Work Phone: [facility] 09-17-2021 08:12-0400 Heart rate 112 /min Francesco Hawkins SOLE ASSESSOR.BURNER OPERATOR Work Phone: [facility] 09-17-2021 08:12-0400 Systolic blood pressure 130 mm[Hg] Francesco Hawkins SOLE ASSESSOR.BURNER OPERATOR Work Phone: [facility] Encounters Encounter Date Encounter Type Care Provider Facility Start: 11-27-2022 Telephone encounter Tavon Degroot MD Work Phone: Hematology/Oncology Procedures Date Procedure Procedure Detail Performing Clinician Start: 05-01-2022 Mammography Tavon dunaway MD Work Phone: Start: 12-26-2021 Dxa bone density haleigh dy 1/> sites axial skel Francesco Hawkins SOLE ASSESSOR.BURNER OPERATOR Work Phone: Start: 09-26-2021 Mri chest w/o & w/co ntrast material Jono Pimentel MD Work Phone: Start: 09-26-2021 Radiologic exam ches t 2 views Jono Pimentel MD Work Phone: Start: 04-30-2021 Mammography Francesco garcia SOLE ASSESSOR.BURNER OPERATOR Work Phone: Start: 07-05-2020 Adult depression scr eening assessment Francesco Hawkins SOLE ASSESSOR.BURNER OPERATOR Work Phone: Start: 01-07-2018 Lipid 1996 panel - S ainsley or Plasma Tavon Stein MD Work Phone: Start: 07-12-2013 Colonoscopy Francesco garcia SOLE ASSESSOR.BURNER OPERATOR Work Phone: Plan of Treatment Date Care Activity Detail Author Start: 07-13-2023 Colonoscopy COLONOSCOPY [facility] Start: 07-13-2023 COLORECTAL CANCER SCREENING COLORECTAL CANCER SCREENING [facility] Start: 06-26-2023 DIABETES SCREEN DIABETES SCREEN [facility] Start: 06-26-2023 Diabetes Screening Diabetes Screenin g [facility] Start: 05-05-2023 End: 10-30-2023 JEANETTE SCREENING W ELIAZAR JEANETTE SCREENING W ELIAZAR Radiology Routine Malignant neoplasm of left breast in female, estrogen receptor positive, unspecified site of breast (HCC) Aromatase inhibitor use Sarcoma of right breast (HCC) Expected: 05/05/2023 (Approximate), Expires: 10/30/2023 [facility] Work Phone: Immunizations Immunization Date Immunization Notes Care Provider Babs valerio 02-01-2022 influenza virus vacc ine, unspecified formulation Tavon Stein MD Work Phone: [facility] 06-23-2020 COVID-19 vaccine, fu ll dose (MODERNA) Francesco Hawkins SOLE ASSESSOR.BURNER OPERATOR Work Phone: [facility] 12-03-2012 influenza virus vacc ine, unspecified formulation Francesco Hawkins SOLE ASSESSOR.BURNER OPERATOR Work Phone: [facility] Payers Date Payer Category Payer Medicare MMO MEDICARE MMO MEDADVANTAGE O [id number] 2018-Present [phone] [address] [place] [address] [facility] [id number] 2018 Medicare MMO MEDICARE MMO MEDADVANTAGE HMO [id number] 2018-Present [phone] [address] [place] [address] O [id number] 2018 Unknown [id number] Social History Date Type Detail Facility Start: 06-14-2020 End: 02-26-2022 Tobacco smoking status NHIS Ex-smoker [facility] Work Phone: Start: 06-14-2020 End: 02-26-2022 Tobacco use and exposure Smokeless tobacco non-user [facility] Work Phone: Start: 09-17-2021 End: 10-16-2022 Alcohol intake Ex-drinker (finding) [facility] Start: 06-14-2020 End: 02-26-2022 Tobacco Comment smoked for a few years in [facility] Start: 1945 Sex Assigned At Not on file [facility] Start: 09-07-2021 End: 12-26-2021 Exposure to SARS-CoV-2 (event) Not sure [facility] History of tobacco use Current smoker [facility] Work Phone: Start: 02-26-2022 End: 10-16-2022 History of Social function [facility] Start: 02-26-2022 End: 10-16-2022 Tobacco use panel [facility] Adult Depression Screening Assessment 0 [facility] Medical Equipment Procedure Code Equipment Code Equipment Origin al Text Equipment Identifier Dates Matrix Alloderm Thick Acellular Dermis 16x8cm Tissue Allograft Regenerative - [id number] Start: 03-20-2015 Implant Memoryge l 13.9cm P4.2cm Moderate Plus Profile Silicone Breast Gel - [id number] Start: 03-20-2015 Clinical Notes 09-09-2012 to 11-27-2022 Telephone Encounter - Rosana Cooper - 11/27/2022 9:14 AM Francesco Carbajal APRN.CNP - 10/16/2022 10:27 AM EDTLetter - Mammography Coordinator - 05/01/2022 3:07 PM EST Note Date & Type Note Facility 11-27-2022 Miscellaneous Notes Carmen Nunes('s) is calling Abel Stein MD today regarding Health Professor - Other Patient has been identified by name and birthdate. Patient [facility] #[phone] called stated the patient needs a order for mammogram would like to know when completed Requesting response back: [phone] (home) [phone] (cell) Rosana Cooper November 27, 2022 documented in this encounter [facility] 10-16-2022 Note HNO ID: [id number] Author: Francesco Hawkins APRN.SELINA Service: ? Author Type: Nurse Practitioner Type: Progress Notes Filed: 10/16/2022 2:39 PM Note Text: Chief Complaint Patient presents with: Established Patient HPI: Carmen Nunes is a 77 year old female who presents here today for follow up breast cancer. Per Dr. Rendon's previous note: H/o palpable breast mass. The patient notes a mass in the retroaerolar portion of her left breast. The patient has noticed this mass for couple months. The patient had a mammogram on 06/24/12 which demonstrated Birads 4. On Jul 14 2012, she underwent a [...] positive, the progesterone receptors were moderate positive, Acm5Tmm receptors were 2-2+, but non-amplified by FISH. Pathologic stage was pT2 N1a Mx. Received:AC/Taxol After third treatment-neutropenic/mucositis/ thrombocytopenic/dehydrated/orth ostatic hypotension. Received fluids. Completed Radiation:01/18/13 to 03/05/13 Arimidex started 2013. Pt. broke her L ankle 2013-slipped and fell in her kitchen-floor wet. Had a plate and 2 pins placed. Stopped arimidex d/t fatigue, not sleeping at night-symptoms resolved when stopped the drug. Changed to Aromasin. Pt. wanted to change back to arimidex d/t s/e of anxiety/depression and head fogginess Current therapy:Arimidex S/p Right breast completion mastectomy for a known sarcoma that was located and removed on the right breast at the 6 o'clock posterior depth location (Jolly) 03/20/2015 and Right breast immediate reconstruction with breast implant and AlloDerm and contralateral breast reduction for symmetrization (Mono). 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 Followed by Dr. Stein. Seen 03/29/20 to eval R pain around implant that began the night prior. US ordered/scheduled. Pt. ended up going to [facility] ED before US was obtained. S/p right infected breast implant removal, right breast inferior capsulectomy, and repair of pectoralis major muscle to the chest wall on 04/05/20. Pathology findings consistent with low-grade spindle cell sarcoma in breast tissue that was sent and in the capsule. Pt. was then seen by Dr. Stein who did not recommend chemotherapy. Radiation recommended. Pt. is scheduled for R mastectomy/to go flat-no implant by Dr. Azevedo. She will then follow up with radiation to discuss plan. Last seen by Dr. Nair on 05/09/20. L breast bx done on 04/24/20 for calcifications: FINAL DIAGNOSIS Left breast, calcifications, stereotactic biopsy with top hat clip placement - Benign fibrofatty breast tissue with dense hyalinized stroma and associated stromal microcalcifications. - Focal usual ductal hyperplasia. - See comment. S/p 06/20/20-Dr. Stahl 1. Right Chest Wall Sarcoma Resection and Removal of Breast Reconstruction Capsule 2. Right Pedicled Musculocutaneous Latissimus Dorsi Flap to Reconstruct the Right Chest Wall Surgery/Date: 06/20/20-Dr. 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 Plan for surveillance. Pt. here today with her . She is being followed by Neuro for dementia. Pt. able to answer questions but does ask to verify her answers. Seen by Dr. Stein April 2022. Appetite: Good. Wt. stable. Energy level: It's off. Denies fevers or recent illness. Resp:+ chronic cough, denies sob at rest, occ. acuña-followed by PULM-Dr. Ortega-on CPAP Cardiac:denies chest pain/palpitations GI:denies abd pain, n/v, moving bowels regularly :denies dysuria/hematuria Extrem:denies pain Endo:+hot flashes Once in awhile. Neuro:tingling to feet-soles- It's still there. Stable Skin:denies rashes/lesions Heme:denies bleeding The ROS is otherwise negative. Past medical history, appointments, medications, allergies reviewed. No changes. EXAM: BP 102/67 Pulse 80 Temp 36.5 ?C (97.7 ?F) Ht 164.3 cm (5' 4.67 ) Wt 78.7 kg (173 lb 8 oz) SpO2 95% BMI 29.17 kg/m? APPEARANCE Well appearing, alert, in no acute distress, well-hydrated, well nourished. HEART RRR with normal S1 and S2, no murmurs LUNG clear to auscultation BREAST (more content not included)... [facility] 10-16-2022 History of Presen t illness Narrative Chief Complaint Patient presents with: Established Patient HPI: Carmen Nunes is a 77 year old female who presents here today for follow up breast cancer. Per Dr. Rendon's previous note: H/o palpable breast mass. The patient notes a mass in the retroaerolar portion of her left breast. The patient has noticed this mass for couple months. The patient had a mammogram on 06/24/12 which demonstrated Birads 4. On Jul 14 2012, she underwent a [...] positive, the progesterone receptors were moderate positive, Jrk0Ofl receptors were 2-2+, but non-amplified by FISH. Pathologic stage was pT2 N1a Mx. Received:AC/Taxol After third treatment-neutropenic/mucositis/ thrombocytopenic/dehydrated/orth ostatic hypotension. Received fluids. Completed Radiation:01/18/13 to 03/05/13 Arimidex started 2013. Pt. broke her L ankle 2013-slipped and fell in her kitchen-floor wet. Had a plate and 2 pins placed. Stopped arimidex d/t fatigue, not sleeping at night-symptoms resolved when stopped the drug. Changed to Aromasin. Pt. wanted to change back to arimidex d/t s/e of anxiety/depression and head fogginess Current therapy:Arimidex S/p Right breast completion mastectomy for a known sarcoma that was located and removed on the right breast at the 6 o'clock posterior depth location (Jolly) 03/20/2015 and Right breast immediate reconstruction with breast implant and AlloDerm and contralateral breast reduction for symmetrization (Mono). 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 Followed by Dr. Stein. Seen 03/29/20 to eval R pain around implant that began the night prior. US ordered/scheduled. Pt. ended up going to [facility] ED before US was obtained. S/p right infected breast implant removal, right breast inferior capsulectomy, and repair of pectoralis major muscle to the chest wall on 04/05/20. Pathology findings consistent with low-grade spindle cell sarcoma in breast tissue that was sent and in the capsule. Pt. was then seen by Dr. Stein who did not recommend chemotherapy. Radiation recommended. Pt. is scheduled for R mastectomy/to go flat-no implant by Dr. Azevedo. She will then follow up with radiation to discuss plan. Last seen by Dr. Nair on 05/09/20. L breast bx done on 04/24/20 for calcifications: FINAL DIAGNOSIS Left breast, calcifications, stereotactic biopsy with top hat clip placement - Benign fibrofatty breast tissue with dense hyalinized stroma and associated stromal microcalcifications. - Focal usual ductal hyperplasia. - See comment. S/p 06/20/20-Dr. Stahl 1. Right Chest Wall Sarcoma Resection and Removal of Breast Reconstruction Capsule 2. Right Pedicled Musculocutaneous Latissimus Dorsi Flap to Reconstruct the Right Chest Wall Surgery/Date: 06/20/20-Dr. 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 Plan for surveillance. Pt. here today with her . She is being followed by Neuro for dementia. Pt. able to answer questions but does ask to verify her answers. Seen by Dr. Stein April 2022. Appetite: Good. Wt. stable. Energy level: It's off. Denies fevers or recent illness. Resp:+ chronic cough, denies sob at rest, occ. acuña-followed by PULM-Dr. Ortega-on CPAP Cardiac:denies chest pain/palpitations GI:denies abd pain, n/v, moving bowels regularly :denies dysuria/hematuria Extrem:denies pain Endo:+hot flashes Once in awhile. Neuro:tingling to feet-soles- It's still there. Stable Skin:denies rashes/lesions Heme:denies bleeding The ROS is otherwise negative. Past medical history, appointments, medications, allergies reviewed. No changes. EXAM: BP 102/67 Pulse 80 Temp 36.5 C (97.7 F) Ht 164.3 cm (5' 4.67 ) Wt 78.7 kg (173 lb 8 oz) SpO2 95% BMI 29.17 kg/m APPEARANCE Well appearing, alert, in no acute distress, well-hydrated, well nourished. HEART RRR with normal S1 and S2, no murmurs LUNG clear to auscultation BREAST FEMALE R mastectomy/flap recon., L recon/surgical scars, no mass/nodule b/l LYMPH NODES No cervical lymphadenopathy, No supraclavicular lymphadenopathy, and No axillary lymphadenopathy. ABDOMEN bowel sounds normoactive, soft, non-tender EXTREMITIES No edema NEURO Awake, alert and oriented x 3, Normal gait, and No involuntary motions. SKIN Skin color, texture, turgor normal, no suspicious rashes or lesions ASSESSMENT/PLAN: 1. 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 2. Sarcoma of right breast (HCC) - ICD9: 174.9, ICD10: C50.911 R sided spindle cell sarcoma August 2014 s/p R mastectomy-followed by Dr. Stein. S/p R implant removal d/t cellulitis. Residual/recurrent low-grade spindle cell, completely excised. S/p Wide Excision of Right Chest Wall Sarcoma 06/20/20. - No new concerning findings on exam. - Tolerating arimidex well. Rx done. - Continue arimidex-will complete therapy end of January 2023 (Per Dr. Stein's note). - L mammogram due April 2022-Order per Dr. Stein. - Follow up in one year. - Pt. aware to call office with any questions/concerns. The patient and spouse indicate understanding of these issues and agree with the plan. All documentation from previous visit of 03/18/22-Dr. Rendon/myself was copied and pasted, documentation has been reviewed and edited as necessary for today's visit. Francesco Hawkins APRN.CNP documented in this encounter [facility] 05-01-2022 Miscellaneous Notes May 02, 2022 PID: [id number] Carmen Nunes [address] [place] [address] Dear Ms. Nunes, We are pleased to inform you that the results of your recent breast imaging exam on 05/01/2022 are normal. Your mammogram demonstrates that you have dense breast tissue, which could hide abnormalities. Dense breast tissue, in and of itself, is a relatively common condition. Therefore, this information is not provided to cause undue concern; rather, it is to raise your awareness and promote discussion with your health care provider regarding the presence of dense breast tissue in addition to other risk factors. Early detection of cancer is very important. We also understand recommendations regarding breast cancer screening are controversial. Please discuss with your primary care provider which strategy is best for you and whether a mammogram is right for you. Your imaging studies and report will be kept on file at [facility] as part of your permanent medical record and are available for your continuing care. Thank you for allowing us to help in meeting your health care needs. Sincerely, Dr. Merchant Interpreting Radiologist [facility] (Normal over 40) documented in this encounter [facility] 05-01-2022 Note HNO ID: [id number] Author: Tavon Stein MD Service: ? Author Type: Physician Type: Progress Notes Filed: 05/01/2022 11:59 AM Note Text: [facility] SOLID TUMOR ONCOLOGY PROGRESS NOTE PATIENT NAME: Carmen Nunes DATE: 05/01/2022 PHYSICIAN: Abel Stein MD Some elements of all sections below were copied from my previous note of 04/26/2020.and have been re-examined and updated where appropriate. 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 HISTORY OF THE PRESENT ILLNESS: Carmen Nunes has a history of Stage IIA ([id number]) ER+, VT+, HER2-negative (2+, non-amplified) left breast cancer treated with left partial mastectomy and axillary staging 08/05/12. She also received adjuvant therapy with dose-dense doxorubicin/cyclophosphamide followed by paclitaxel, radiation therapy, and anastrozole 1 mg po daily. On 05/08/14 she was seen for a palpable right (contralateral) breast mass, confirmed on mammography and ultrasound. A core biopsy was reported by [facility] to show only benign stromal tissue, and [...] not indicated. INTERVAL HISTORY: Ms. Nunes feels well and continues to take anastrozole. She tolerates it well. She has no symptoms suggestive of recurrent or metastatic malignancy. She has been diagnoses with dementia and her manages her medications. PHYSICAL EXAM: There were no vitals taken for this visit. Carmen Nunes is a very pleasant 76 year old woman accompanied by her . Performance Status=0. HEENT-unremarkable. Pulmonary-lungs are clear to ausculation. Cardiac-regular rate and rhythm. Breast and Chest Wall-right breast exam shows operative changes following removal of her implant. There is an indurated mound with no suspicious changes. Examination of the left breast shows post-operative changes, but no suspicious masses. Abdomen-no organomegaly, mass, or tenderness. Extremities-unremarkable. Neuro-intermittent resting tremor. LABORATORY: none today IMAGING: Mammograms done today are pending. DXA scan performed 12/26/21 showed normal BMD with lowest t-score -0.7. IMPRESSION: No evidence or recurrent breast cancer or low grade spindle-cell sarcoma. PLAN: The situation was reviewed and discussed. -She has been on alendronate for about 5 years and her last BMD was normal, so she will DISCONTINUE alendronate. -In January 2023 she will complete 10 years of anastrozole, so will DISCONTINUE anastrozole after 02/15. -Further follow-up for her breast cancer can be with her PCP as she will complete all treatment in January. The only recommended evaluation is annual physical exam and mammography. I spent a total of 30 minutes on the date of the service which included preparing to see the patient, [id number] patient care, completing clinical documentation, obtaining and/or reviewing separately obtained history, performing a medically appropriate examination, counseling and educating the patient/family/caregiver, ordering medications, tests, or procedures, communicating with other HCPs (not separately reported), independently interpreting results (not separately reported), communicating results to the patient/family/caregiver and care coordination (not separately reported). Abel Stein MD cc: MD Swati Walker MD Mark Nair MD [facility] 05-01-2022 Note HNO ID: [id number] Author: RT Marianne(R) Service: ? Author Type: Technologist Type: Progress Notes Filed: 05/01/2022 10:41 AM Note Text: Radiology Service Progress Note PATIENT NAME: Carmen Nunes DATE OF SERVICE: May 01, 2022 TIME: 10:40 AM PATIENT IDENTITY VERIFICATION COMPLETED USING TWO (2) IDENTIFIERS: Name and Date of confirmed by patient verbally and Name and Date of confirmed by identification band. FALL SCREENING: Has the patient had 2 falls in the last year or 1 fall with injury or currently using an Ambulatory Assistive Device (Walker, Cane, Wheelchair, Crutches, etc.)? No PATIENT GENDER DATA: Female. status: : No status: NO. PATIENT RELEVANT IMPLANT DATA REVIEWED: Not Applicable RADIOLOGY DEPARTMENT: Mammography PERIPHERAL IV DATA: Not applicable SIGNED BY: RT Marianne(R) May 01, 2022 10:40 AM [facility] 05-01-2022 Nurse Note Additional intake questions: Has the patient had fever, nausea, vomiting, diarrhea, constipation, fatigue for > 1 week? No Does the patient have a decreased appetite? No Does patient want to see a Electric Power Line Examiner? No (yes to any of above refer patient to schedulers for dietitian appointment) ) Does patient have any new or increased numbness or tingling of extremities? No Is patient interested in fertility information? No Does patient need any prescription refills? No Does patient have an advanced directive in place? Yes, copies are in [facility] documented in this encounter [facility] 05-01-2022 History of Presen t illness Narrative [facility] SOLID TUMOR ONCOLOGY PROGRESS NOTE PATIENT NAME: Carmen Nunes DATE: 05/01/2022 PHYSICIAN: Abel Stein MD Some elements of all sections below were copied from my previous note of 04/26/2020.and have been re-examined and updated where appropriate. 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 HISTORY OF THE PRESENT ILLNESS: Carmen Nunes has a history of Stage IIA ([id number]) ER+, VT+, HER2-negative (2+, non-amplified) left breast cancer treated with left partial mastectomy and axillary staging 08/05/12. She also received adjuvant therapy with dose-dense doxorubicin/cyclophosphamide followed by paclitaxel, radiation therapy, and anastrozole 1 mg po daily. On 05/08/14 she was seen for a palpable right (contralateral) breast mass, confirmed on mammography and ultrasound. A core biopsy was reported by [facility] to show only benign stromal tissue, and [...] not indicated. INTERVAL HISTORY: Ms. Nunes feels well and continues to take anastrozole. She tolerates it well. She has no symptoms suggestive of recurrent or metastatic malignancy. She has been diagnoses with dementia and her manages her medications. PHYSICAL EXAM: There were no vitals taken for this visit. Carmen Nunes is a very pleasant 76 year old woman accompanied by her . Performance Status=0. HEENT-unremarkable. Pulmonary-lungs are clear to ausculation. Cardiac-regular rate and rhythm. Breast and Chest Wall-right breast exam shows operative changes following removal of her implant. There is an indurated mound with no suspicious changes. Examination of the left breast shows post-operative changes, but no suspicious masses. Abdomen-no organomegaly, mass, or tenderness. Extremities-unremarkable. Neuro-intermittent resting tremor. LABORATORY: none today IMAGING: Mammograms done today are pending. DXA scan performed 12/26/21 showed normal BMD with lowest t-score -0.7. IMPRESSION: No evidence or recurrent breast cancer or low grade spindle-cell sarcoma. PLAN: The situation was reviewed and discussed. -She has been on alendronate for about 5 years and her last BMD was normal, so she will DISCONTINUE alendronate. -In January 2023 she will complete 10 years of anastrozole, so will DISCONTINUE anastrozole after 02/15. -Further follow-up for her breast cancer can be with her PCP as she will complete all treatment in January. The only recommended evaluation is annual physical exam and mammography. I spent a total of 30 minutes on the date of the service which included preparing to see the patient, [id number] patient care, completing clinical documentation, obtaining and/or reviewing separately obtained history, performing a medically appropriate examination, counseling and educating the patient/family/caregiver, ordering medications, tests, or procedures, communicating with other HCPs (not separately reported), independently interpreting results (not separately reported), communicating results to the patient/family/caregiver and care coordination (not separately reported). Abel Stein MD cc: MD Swati Walker MD Mark Nair MD documented in this encounter [facility] 03-18-2022 Note HNO ID: [id number] Author: Francesco Hawkins APRN.BURNER OPERATOR Service: ? Author Type: Nurse Practitioner Type: Progress Notes Filed: 03/19/2022 12:36 PM Note Text: Chief Complaint Patient presents with: Established Patient HPI: Carmen Nunes is a 76 year old female who presents here today for follow up breast cancer. Per Dr. Rendon's previous note: H/o palpable breast mass. The patient notes a mass in the retroaerolar portion of her left breast. The patient has noticed this mass for couple months. The patient had a mammogram on 06/24/12 which demonstrated Birads 4. On Jul 14 2012, she underwent a [...] positive, the progesterone receptors were moderate positive, [id number] receptors were 2-2+, but non-amplified by FISH. Pathologic stage was pT2 N1a Mx. Received:AC/Taxol After third treatment-neutropenic/mucositis/ thrombocytopenic/dehydrated/orth ostatic hypotension. Received fluids. Completed Radiation:01/18/13 to 03/05/13 Arimidex started 2013. Pt. broke her L ankle 2013-slipped and fell in her kitchen-floor wet. Had a plate and 2 pins placed. Stopped arimidex d/t fatigue, not sleeping at night-symptoms resolved when stopped the drug. Changed to Aromasin. Pt. wanted to change back to arimidex d/t s/e of anxiety/depression and head fogginess Current therapy:Arimidex S/p Right breast completion mastectomy for a known sarcoma that was located and removed on the right breast at the 6 o'clock posterior depth location (Jolly) 03/20/2015 and Right breast immediate reconstruction with breast implant and AlloDerm and contralateral breast reduction for symmetrization (Mono). 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 Followed by Dr. Stein. Seen 03/29/20 to eval R pain around implant that began the night prior. US ordered/scheduled. Pt. ended up going to [facility] ED before US was obtained. S/p right infected breast implant removal, right breast inferior capsulectomy, and repair of pectoralis major muscle to the chest wall on 04/05/20. Pathology findings consistent with low-grade spindle cell sarcoma in breast tissue that was sent and in the capsule. Pt. was then seen by Dr. Stein who did not recommend chemotherapy. Radiation recommended. Pt. is scheduled for R mastectomy/to go flat-no implant by Dr. Azevedo. She will then follow up with radiation to discuss plan. Last seen by Dr. Nair on 05/09/20. L breast bx done on 04/24/20 for calcifications: FINAL DIAGNOSIS Left breast, calcifications, stereotactic biopsy with top hat clip placement - Benign fibrofatty breast tissue with dense hyalinized stroma and associated stromal microcalcifications. - Focal usual ductal hyperplasia. - See comment. S/p 06/20/20-Dr. Stahl 1. Right Chest Wall Sarcoma Resection and Removal of Breast Reconstruction Capsule 2. Right Pedicled Musculocutaneous Latissimus Dorsi Flap to Reconstruct the Right Chest Wall Surgery/Date: 06/20/20-Dr. 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 Plan for surveillance. Pt. here today with her . She is being followed by Neuro for dementia. Pt. able to answer questions but does ask to verify her answers. Pt. is being followed by Pulm for cough. Currently on prednisone. Appetite: Good. Wt. down 7# since August. Energy level: 5. Denies fevers. Resp:+dry cough, denies sob at rest, occ. acuña-followed by PULM-Dr. Ortega-on CPAP Cardiac:denies chest pain/palpitations GI:denies abd pain, n/v, moving bowels regularly :denies dysuria/hematuria Extrem:denies pain Endo:+hot flashes Once in awhile. Neuro:tingling to feet-soles- It's there. Stable Skin:denies rashes/lesions Heme:denies bleeding The ROS is otherwise negative. Past medical history, appointments, medications, allergies reviewed. No changes. EXAM: BP 85/52 Pulse 112 Temp 37.1 ?C (98.8 ?F) (Temporal) Wt 79.4 kg (175 lb) SpO2 95% BMI 28.63 kg/m? APPEARANCE Well appearing, alert, in no acute distress, well-hydrated, well nourished. HEART RRR with normal S1 and S2, no murmurs LUNG clear to auscultation BREAST FEMALE (more content not included)... [facility] 03-18-2022 History of Presen t illness Narrative Chief Complaint Patient presents with: Established Patient HPI: Carmen Nunes is a 76 year old female who presents here today for follow up breast cancer. Per Dr. Rendon's previous note: H/o palpable breast mass. The patient notes a mass in the retroaerolar portion of her left breast. The patient has noticed this mass for couple months. The patient had a mammogram on 06/24/12 which demonstrated Birads 4. On Jul 14 2012, she underwent a [...] positive, the progesterone receptors were moderate positive, [id number] receptors were 2-2+, but non-amplified by FISH. Pathologic stage was pT2 N1a Mx. Received:AC/Taxol After third treatment-neutropenic/mucositis/ thrombocytopenic/dehydrated/orth ostatic hypotension. Received fluids. Completed Radiation:01/18/13 to 03/05/13 Arimidex started 2013. Pt. broke her L ankle 2013-slipped and fell in her kitchen-floor wet. Had a plate and 2 pins placed. Stopped arimidex d/t fatigue, not sleeping at night-symptoms resolved when stopped the drug. Changed to Aromasin. Pt. wanted to change back to arimidex d/t s/e of anxiety/depression and head fogginess Current therapy:Arimidex S/p Right breast completion mastectomy for a known sarcoma that was located and removed on the right breast at the 6 o'clock posterior depth location (Jolly) 03/20/2015 and Right breast immediate reconstruction with breast implant and AlloDerm and contralateral breast reduction for symmetrization (Mono). 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 Followed by Dr. Stein. Seen 03/29/20 to eval R pain around implant that began the night prior. US ordered/scheduled. Pt. ended up going to [facility] ED before US was obtained. S/p right infected breast implant removal, right breast inferior capsulectomy, and repair of pectoralis major muscle to the chest wall on 04/05/20. Pathology findings consistent with low-grade spindle cell sarcoma in breast tissue that was sent and in the capsule. Pt. was then seen by Dr. Steni who did not recommend chemotherapy. Radiation recommended. Pt. is scheduled for R mastectomy/to go flat-no implant by Dr. Azevedo. She will then follow up with radiation to discuss plan. Last seen by Dr. Nair on 05/09/20. L breast bx done on 04/24/20 for calcifications: FINAL DIAGNOSIS Left breast, calcifications, stereotactic biopsy with top hat clip placement - Benign fibrofatty breast tissue with dense hyalinized stroma and associated stromal microcalcifications. - Focal usual ductal hyperplasia. - See comment. S/p 06/20/20-Dr. Stahl 1. Right Chest Wall Sarcoma Resection and Removal of Breast Reconstruction Capsule 2. Right Pedicled Musculocutaneous Latissimus Dorsi Flap to Reconstruct the Right Chest Wall Surgery/Date: 06/20/20-Dr. Pimentel 1) Wide Excision of Right Chest Wall Sarcoma, 18cm x 11cm (CPT 16061) 2) Placement of KCI wound VAC, Conventional Technique, >50cm2 (CPT 57026) Diagnosis: Right Breast Implant Infection with Recurrent Infiltrative Low-Grade Spindle Cell Sarcoma, s/p Incomplete Excision 04/24/20 Seen by rad onc. Plan for surveillance. Pt. here today with her . She is being followed by Neuro for dementia. Pt. able to answer questions but does ask to verify her answers. Pt. is being followed by Pulm for cough. Currently on prednisone. Appetite: Good. Wt. down 7# since August. Energy level: 5. Denies fevers. Resp:+dry cough, denies sob at rest, occ. acuña-followed by PULM-Dr. Ortega-on CPAP Cardiac:denies chest pain/palpitations GI:denies abd pain, n/v, moving bowels regularly :denies dysuria/hematuria Extrem:denies pain Endo:+hot flashes Once in awhile. Neuro:tingling to feet-soles- It's there. Stable Skin:denies rashes/lesions Heme:denies bleeding The ROS is otherwise negative. Past medical history, appointments, medications, allergies reviewed. No changes. EXAM: BP 85/52 Pulse 112 Temp 37.1 C (98.8 F) (Temporal) Wt 79.4 kg (175 lb) SpO2 95% BMI 28.63 kg/m APPEARANCE Well appearing, alert, in no acute distress, well-hydrated, well nourished. HEART RRR with normal S1 and S2, no murmurs LUNG clear to auscultation BREAST FEMALE R mastectomy/flap recon., L recon/surgical scars, no mass/nodule b/l LYMPH NODES No cervical lymphadenopathy, No supraclavicular lymphadenopathy, and No axillary lymphadenopathy. ABDOMEN bowel sounds normoactive, soft, non-tender EXTREMITIES No edema NEURO Awake, alert and oriented x 3, Normal gait, and No involuntary motions. SKIN Skin color, texture, turgor normal, no suspicious rashes or lesions ASSESSMENT/PLAN: 1. 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 2. Sarcoma of right breast (HCC) - ICD9: 174.9, ICD10: C50.911 R sided spindle cell sarcoma August 2014 s/p R mastectomy-followed by Dr. Stein. S/p R implant removal d/t cellulitis. Residual/recurrent low-grade spindle cell, completely excised. S/p Wide Excision of Right Chest Wall Sarcoma 06/20/20. - No new concerning findings on exam. - Tolerating arimidex well. - Continue arimidex. - L mammogram due April 2022. - Follow up as scheduled with Dr. Stein. - Follow up in 6 months. - Pt. aware to call office with any questions/concerns. The patient and spouse indicate understanding of these issues and agree with the plan. All documentation from previous visit of 09/17/21-Dr. Rendon/myself was copied and pasted, documentation has been reviewed and edited as necessary for today's visit. Francesco Hawkins APRN.SELINA documented in this encounter [facility] 02-26-2022 Note HNO ID: [id number] Author: Charis Rivas PA-C Service: ? Author Type: Physician Medical Receptionist Biller Type: Progress Notes Filed: 02/26/2022 5:41 PM Note Text: This note was created using Odiloriter. Subjective Carmen Nunes is a 76 year old female. HPI Patient presents with right eye matting and drainage since this morning. She started to get some redness around her eye this evening so came in for evaluation. She does not wear contacts. She does wear glasses. Denies any other cold symptoms. Denies significant pain in the eye. No visual changes. No fever. Review of Systems Constitutional: Negative. HENT: Negative. Eyes: Positive for discharge and redness. Negative for photophobia, pain and visual disturbance. Respiratory: Negative. Cardiovascular: Negative. Gastrointestinal: Negative. Genitourinary: Negative. Musculoskeletal: Negative. All other systems reviewed and are negative. PAST MEDICAL HISTORY Diagnosis Date Breast cancer (HCC) 08/05/12 Left Lump or mass in breast 07/01 right breast Current Outpatient Medications Medication Sig Dispense Refill alendronate (FOSAMAX) 70 mg tablet Take 1 tablet by mouth once a week 12 tablet 3 anastrozole (ARIMIDEX) 1 mg tablet Take 1 tablet by mouth once daily. 90 tablet 3 fluticasone furoate (ARNUITY ELLIPTA) 50 mcg/actuation powder for inhalation Inhale 1 Puff as instructed once daily. ascorbic acid, vitamin C, (VITAMIN C) 500 mg tablet Take 500 mg by mouth once daily. cholecalciferol, vitamin D3, (VITAMIN D3 ORAL) Take 1 tablet by mouth once daily. memantine XR (NAMENDA XR) 28 mg CSpX Take 28 mg by mouth once daily. multivitamin tablet Take 1 tablet by mouth once daily. CPAP Supplies: CPAP 6 cm H2O, suitable mask per pt preference (Airfit N30i), chin strap, head gear, humidity, heated tubing, lifetime supplies. G47.33 Obstructive Sleep Apnea 1 Device 0 cephALEXin (KEFLEX) 500 mg capsule Take 1 capsule by mouth three times daily for 7 days. 21 capsule 0 ofloxacin (OCUFLOX) 0.3 % ophthalmic solution Use 2 Drops in the right eye every 4 hours for 7 days. 10 mL 0 Zinc 50 mg tab Take 50 mg by mouth once daily. No current facility-administered medications for this visit. PAST SURGICAL HISTORY Procedure Laterality Date BREAST SURGERY PROCEDURE UNLISTED 01/10/15 Excision right breast lesion COLONOSCOPY 07/12/13 repeat 2023 EXC CYST/ABERRANT BREAST TISSUE OPEN LESION 07/16/07 INSERTION BREAST IMPLANT SAME DAY OF MASTECTOMY Right 03/20/15 INSJ TUNNELED CTR VAD W/SUBQ PORT AGE 5 YR/> right removed MASTECTOMY, SIMPLE, COMPLETE Right 03/20/15 MASTECTOMY,PARTIAL, WITH AXILLARY LYMPHADENECTOMY 08-05-12 LEFT PAST SURGICAL HISTORY OF Bx mass in right breast - benign PAST SURGICAL HISTORY OF 02/2013 Left ankle- ORIF REDUCTION OF LARGE BREAST Left 03/20/15 SALPINGO-OOPHORECTOMY COMPL/PRTL UNI/BI SPX Salpingo-oophorectomy FAMILY HISTORY Problem Relation Age of Onset Heart Father Hypertension Father Cancer Father lung Stroke Mother Cancer Mother lung/lung other (alzheimers) Mother Colon Cancer Maternal Grandfather Anesthesia Problems No Family History Social History Tobacco Use Smoking status: Former Smokeless tobacco: Never Tobacco comments: smoked for a few years in college Vaping Use Vaping Use: Never used Substance Use Topics Alcohol use: Not Currently Drug use: No Objective BP 122/72 Pulse 106 Temp 37.5 ?C (99.5 ?F) Resp 16 Wt 79.8 kg (176 lb) SpO2 95% BMI 28.80 kg/m? Physical Exam Vitals reviewed. Constitutional: Appearance: Normal appearance. HENT: Head: Normocephalic and atraumatic. Right Ear: Tympanic membrane, ear canal and external ear normal. Left Ear: Tympanic membrane, ear canal and external ear normal. Nose: Nose normal. Mouth/Throat: Mouth: Mucous membranes are moist. Pharynx: Oropharynx is clear. Eyes: Comments: Patient has conjunctival swelling with erythema and mild chemosis. She has yellow drainage present. Some scleral injection. She does have some faint pinkness on the upper eyelid and lower eyelid and periorbital area. No significant swelling of the skin around the eyes. PERRLA and EOMI. No foreign bodies visualized. Skin: General: Skin is warm and dry. Neurological: Mental Status: She is alert. Assessment and Plan ASSESSMENT/PLAN: 1. Acute conjunctivitis of right eye, unspecified acute conjunctivitis type - ICD9: 372.00, ICD10: H10.31 - see medication orders - course and contagiousness issues discussed, including hand washing. - Instructed to call if high fever, development of periorbital redness or swelling, eye pain, visual changes, concerns or if symptoms persist. I will cover with ofloxacin drops. I also did cover with oral medication due to the redness around the eye and the temp of 99.5 here. Did not see any sign of orbital cellulitis. Follow-up with PCP if not improving. Red flags for ER care d (more content not included)... [facility] 02-26-2022 History of Presen t illness Narrative This note was created using [employer]. Subjective Carmen Nunes is a 76 year old female. HPI Patient presents with right eye matting and drainage since this morning. She started to get some redness around her eye this evening so came in for evaluation. She does not wear contacts. She does wear glasses. Denies any other cold symptoms. Denies significant pain in the eye. No visual changes. No fever. Review of Systems Constitutional: Negative. HENT: Negative. Eyes: Positive for discharge and redness. Negative for photophobia, pain and visual disturbance. Respiratory: Negative. Cardiovascular: Negative. Gastrointestinal: Negative. Genitourinary: Negative. Musculoskeletal: Negative. All other systems reviewed and are negative. PAST MEDICAL HISTORY Diagnosis Date Breast cancer (HCC) 08/05/12 Left Lump or mass in breast 07/01 right breast Current Outpatient Medications Medication Sig Dispense Refill alendronate (FOSAMAX) 70 mg tablet Take 1 tablet by mouth once a week 12 tablet 3 anastrozole (ARIMIDEX) 1 mg tablet Take 1 tablet by mouth once daily. 90 tablet 3 fluticasone furoate (ARNUITY ELLIPTA) 50 mcg/actuation powder for inhalation Inhale 1 Puff as instructed once daily. ascorbic acid, vitamin C, (VITAMIN C) 500 mg tablet Take 500 mg by mouth once daily. cholecalciferol, vitamin D3, (VITAMIN D3 ORAL) Take 1 tablet by mouth once daily. memantine XR (NAMENDA XR) 28 mg CSpX Take 28 mg by mouth once daily. multivitamin tablet Take 1 tablet by mouth once daily. CPAP Supplies: CPAP 6 cm H2O, suitable mask per pt preference (Airfit N30i), chin strap, head gear, humidity, heated tubing, lifetime supplies. G47.33 Obstructive Sleep Apnea 1 Device 0 cephALEXin (KEFLEX) 500 mg capsule Take 1 capsule by mouth three times daily for 7 days. 21 capsule 0 ofloxacin (OCUFLOX) 0.3 % ophthalmic solution Use 2 Drops in the right eye every 4 hours for 7 days. 10 mL 0 Zinc 50 mg tab Take 50 mg by mouth once daily. No current facility-administered medications for this visit. PAST SURGICAL HISTORY Procedure Laterality Date BREAST SURGERY PROCEDURE UNLISTED 01/10/15 Excision right breast lesion COLONOSCOPY 07/12/13 repeat 2023 EXC CYST/ABERRANT BREAST TISSUE OPEN /> LESION 07/16/07 INSERTION BREAST IMPLANT SAME DAY OF MASTECTOMY Right 03/20/15 INSJ TUNNELED CTR VAD W/SUBQ PORT AGE 5 YR/> right removed MASTECTOMY, SIMPLE, COMPLETE Right 03/20/15 MASTECTOMY,PARTIAL, WITH AXILLARY LYMPHADENECTOMY 08-05-12 LEFT PAST SURGICAL HISTORY OF Bx mass in right breast - benign PAST SURGICAL HISTORY OF 02/2013 Left ankle- ORIF REDUCTION OF LARGE BREAST Left 03/20/15 SALPINGO-OOPHORECTOMY COMPL/PRTL UNI/BI SPX Salpingo-oophorectomy FAMILY HISTORY Problem Relation Age of Onset Heart Father Hypertension Father Cancer Father lung Stroke Mother Cancer Mother lung/lung other (alzheimers) Mother Colon Cancer Maternal Grandfather Anesthesia Problems No Family History Social History Tobacco Use Smoking status: Former Smokeless tobacco: Never Tobacco comments: smoked for a few years in college Vaping Use Vaping Use: Never used Substance Use Topics Alcohol use: Not Currently Drug use: No Objective BP 122/72 Pulse 106 Temp 37.5 C (99.5 F) Resp 16 Wt 79.8 kg (176 lb) SpO2 95% BMI 28.80 kg/m Physical Exam Vitals reviewed. Constitutional: Appearance: Normal appearance. HENT: Head: Normocephalic and atraumatic. Right Ear: Tympanic membrane, ear canal and external ear normal. Left Ear: Tympanic membrane, ear canal and external ear normal. Nose: Nose normal. Mouth/Throat: Mouth: Mucous membranes are moist. Pharynx: Oropharynx is clear. Eyes: Comments: Patient has conjunctival swelling with erythema and mild chemosis. She has yellow drainage present. Some scleral injection. She does have some faint pinkness on the upper eyelid and lower eyelid and periorbital area. No significant swelling of the skin around the eyes. PERRLA and EOMI. No foreign bodies visualized. Skin: General: Skin is warm and dry. Neurological: Mental Status: She is alert. Assessment and Plan ASSESSMENT/PLAN: 1. Acute conjunctivitis of right eye, unspecified acute conjunctivitis type - ICD9: 372.00, ICD10: H10.31 - see medication orders - course and contagiousness issues discussed, including hand washing. - Instructed to call if high fever, development of periorbital redness or swelling, eye pain, visual changes, concerns or if symptoms persist. I will cover with ofloxacin drops. I also did cover with oral medication due to the redness around the eye and the temp of 99.5 here. Did not see any sign of orbital cellulitis. Follow-up with PCP if not improving. Red flags for ER care discussed. Patient agreeable. Charis Rivas PA-C documented in this encounter [facility] 12-26-2021 Note HNO ID: [id number] Author: TRISTON Tsai Service: Radiology Author Type: Technologist Type: Progress Notes Filed: 12/26/2021 11:10 AM Note Text: Radiology Service Progress Note PATIENT NAME: Carmen Nunes DATE OF SERVICE: December 26, 2021 TIME: 11:10 AM PATIENT IDENTITY VERIFICATION COMPLETED USING TWO (2) IDENTIFIERS: Name and Date of confirmed by patient verbally. FALL SCREENING: Has the patient had 2 falls in the last year or 1 fall with injury or currently using an Ambulatory Assistive Device (Walker, Cane, Wheelchair, Crutches, etc.)? No PATIENT GENDER DATA: Female. status: : No status: NO. PATIENT RELEVANT IMPLANT DATA REVIEWED: Not Applicable RADIOLOGY DEPARTMENT: Bone Density PERIPHERAL IV DATA: Not applicable SIGNED BY: TRISTON Tsai December 26, 2021 11:10 AM [facility] 12-26-2021 History of Presen t illness Narrative Radiology Service Progress Note PATIENT NAME: Carmen Nunes DATE OF SERVICE: December 26, 2021 TIME: 11:10 AM PATIENT IDENTITY VERIFICATION COMPLETED USING TWO (2) IDENTIFIERS: Name and Date of confirmed by patient verbally. FALL SCREENING: Has the patient had 2 falls in the last year or 1 fall with injury or currently using an Ambulatory Assistive Device (Walker, Cane, Wheelchair, Crutches, etc.)? No PATIENT GENDER DATA: Female. status: : No status: NO. PATIENT RELEVANT IMPLANT DATA REVIEWED: Not Applicable RADIOLOGY DEPARTMENT: Bone Density PERIPHERAL IV DATA: Not applicable SIGNED BY: TRISTON Tsai December 26, 2021 11:10 AM documented in this encounter [facility] 12-12-2021 Miscellaneous Notes Patient's request for medication is as follows Requested Prescriptions Signed Prescriptions Disp Refills anastrozole (ARIMIDEX) 1 mg tablet 90 tablet 3 Sig: Take 1 tablet by mouth once daily. Authorizing Provider: RADHA RENDON Order entered - please phone pharmacy and notify patient. Radha Rendon MD Patients spouse requesting a refill on anastrozole. 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 Thank you. Nohemy Chavez RN Patient states that he spoke with a caregiver yesterday at [facility]'s office who was going to speak with her about ordering the following medication. Please contact the patient's to advise on plan of care and when the prescription is sent to patient's pharmacy. Patient has been identified by name and date of : Yes Patient phones for refill(s): Requested Prescriptions Pending Prescriptions Disp Refills anastrozole (ARIMIDEX) 1 mg tablet 90 tablet 3 Sig: Take 1 tablet by mouth once daily. Date of last office visit in primary care: Unknown Last 2 Encounter Wt Readings: Date: Wt: 09/17/2021 82.6 kg (182 lb) 05/02/2021 79.8 kg (176 lb) Previous labs/tests for medication: Not applicable Please advise. Thank you. Lauren Eastman documented in this encounter [facility] 09-18-2021 Miscellaneous Notes Ilana from [facility] confirmed that she received the order and will contact the patient to change location of MRI. furniture technician at [facility] informed PSS' that the [place] location is unable to accomdate any MRI's that involve the chest. I reached out to [facility] to inquire about referring the patient to them. After speaking with their aircraft launch and recovery technician, their staff confirmed the procedure could be performed at their facility. I faxed the patient's order with Attn to Ilana so the patient could be called and scheduled properly with their staff. documented in this encounter [facility] 09-17-2021 History of Presen t illness Narrative Chief Complaint Patient presents with: Established Patient HPI: Carmen Nunes is a 76 year old female who presents here today for follow up L breast cancer/sarcoma R breast. Per Dr. Rendon's previous note: H/o palpable breast mass. The patient notes a mass in the retroaerolar portion of her left breast. The patient has noticed this mass for couple months. The patient had a mammogram on 5/1/13 which demonstrated Birads 4. On Jul 14 2012, she underwent a [...] positive, the progesterone receptors were moderate positive, [id number] receptors were 2-2+, but non-amplified by FISH. Pathologic stage was pT2 N1a Mx. Received:AC/Taxol After third treatment-neutropenic/mucositis/ thrombocytopenic/dehydrated/orth ostatic hypotension. Received fluids. Completed Radiation:01/18/13 to 03/05/13 Arimidex started 2013. Pt. broke her L ankle 2013-slipped and fell in her kitchen-floor wet. Had a plate and 2 pins placed. Stopped arimidex d/t fatigue, not sleeping at night-symptoms resolved when stopped the drug. Changed to Aromasin. Pt. wanted to change back to arimidex d/t s/e of anxiety/depression and head fogginess Current therapy:Arimidex S/p Right breast completion mastectomy for a known sarcoma that was located and removed on the right breast at the 6 o'clock posterior depth location (Jolly) 03/20/2015 and Right breast immediate reconstruction with breast implant and AlloDerm and contralateral breast reduction for symmetrization (Mono). 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 Followed by Dr. Stein. Seen 03/29/20 to eval R pain around implant that began the night prior. US ordered/scheduled. Pt. ended up going to [facility] ED before US was obtained. S/p right infected breast implant removal, right breast inferior capsulectomy, and repair of pectoralis major muscle to the chest wall on 04/05/20. Pathology findings consistent with low-grade spindle cell sarcoma in breast tissue that was sent and in the capsule. Pt. was then seen by Dr. Stein who did not recommend chemotherapy. Radiation recommended. Pt. is scheduled for R mastectomy/to go flat-no implant by Dr. Azevedo. She will then follow up with radiation to discuss plan. Last seen by Dr. Nair on 05/09/20. L breast bx done on 04/24/20 for calcifications: FINAL DIAGNOSIS Left breast, calcifications, stereotactic biopsy with top hat clip placement - Benign fibrofatty breast tissue with dense hyalinized stroma and associated stromal microcalcifications. - Focal usual ductal hyperplasia. - See comment. S/p 06/20/20-Dr. Sthal 1. Right Chest Wall Sarcoma Resection and Removal of Breast Reconstruction Capsule 2. Right Pedicled Musculocutaneous Latissimus Dorsi Flap to Reconstruct the Right Chest Wall Surgery/Date: 06/20/20-Dr. 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 Plan for surveillance. Pt. here today with her . She is being followed by Neuro for dementia. Pt. able to answer questions but does ask to verify her answers. Appetite: Good. Energy level: Good. Denies fevers or recent illness. Resp:+dry cough x past 3 weeks, denies sob at rest, occ. acuña-followed by PULM-Dr. Ortega-on CPAP Cardiac:denies chest pain/palpitations GI:denies abd pain, n/v, moving bowels regularly :denies dysuria/hematuria Extrem:denies pain Endo:+ hot flashes once in awhile. Not too often. Neuro:tingling to feet-soles- It's still there. Stable Skin:denies rashes/lesions Heme:denies bleeding The ROS is otherwise negative. Past medical history, appointments, medications, allergies reviewed. No changes. EXAM: BP 130/75 Pulse 112 Temp 36.8 C (98.3 F) (Temporal) Wt 82.6 kg (182 lb) BMI 29.78 kg/m APPEARANCE Well appearing, alert, in no acute distress, well-hydrated, well nourished. HEART RRR with normal S1 and S2, no murmurs LUNG clear to auscultation BREAST FEMALE R mastectomy/flap recon., L recon/surgical scars, no mass/nodule b/l LYMPH NODES No cervical lymphadenopathy, No supraclavicular lymphadenopathy and No axillary lymphadenopathy. ABDOMEN bowel sounds normoactive, soft, non-tender, non-distended, without organomegaly or palpable [...] sentinel node biopsy followed by axillary node dissection 2012. 2. Sarcoma of right breast (HCC) - ICD9: 174.9, ICD10: C50.911 R sided spindle cell sarcoma August 2014 s/p R mastectomy-followed by Dr. Stein. S/p R implant removal d/t cellulitis. Residual/recurrent low-grade spindle cell, completely excised. S/p Wide Excision of Right Chest Wall Sarcoma 06/20/20. - No new concerning findings on exam. - Tolerating arimidex well. - Continue arimidex. Will complete therapy in 2022. - Bone density due 2021. - L mammogram due in April 2022. - Follow up as scheduled with Drs. Stahl/Margarito/KORY. - Follow up in 6 months. - Pt. aware to call office with any questions/concerns. The patient indicates understanding of these issues and agrees with the plan. All documentation from previous visit of 04/04/21-Dr. Rendon/myself was copied and pasted, documentation has been reviewed and edited as necessary for today's visit. 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/20/2012 10/29/2013 Lump or mass in breast 05/27/2007 4 documented as of this encounter (statuses as of 09/18/2021) [facility] History of Past illness Narrative* Problem Noted Date Resolved Date Drug induced neutropenia(288.03) 09/09/2012 10/29/2013 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/20/2012 10/29/2013 Lump or mass in breast 05/27/2007 4 documented as of this encounter (statuses as of 09/27/2021) [facility] History of Past illness Narrative* Problem Noted Date Resolved Date Drug induced neutropenia(288.03) 09/09/2012 10/29/2013 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/20/2012 10/29/2013 Lump or mass in breast 05/27/2007 4 documented as of this encounter (statuses as of 09/27/2021) [facility] History of Past illness Narrative* Problem Noted Date Resolved Date Drug induced neutropenia(288.03) 09/09/2012 10/29/2013 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/20/2012 10/29/2013 Lump or mass in breast 05/27/2007 4 documented as of this encounter (statuses as of 12/11/2021) [facility] History of Past illness Narrative* Problem Noted Date Resolved Date Drug induced neutropenia(288.03) 09/09/2012 10/29/2013 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/20/2012 10/29/2013 Lump or mass in breast 05/27/2007 4 documented as of this encounter (statuses as of 12/12/2021) [facility] History of Past illness Narrative* Problem Noted Date Resolved Date Drug induced neutropenia(288.03) 09/09/2012 10/29/2013 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/20/2012 10/29/2013 Lump or mass in breast 05/27/2007 4 documented as of this encounter (statuses as of 12/27/2021) [address]17-2013 History of Past illness Narrative* Problem Noted Date Resolved Date Drug induced neutropenia(288.03) 09/09/2012 10/29/2013 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/20/2012 10/29/2013 Lump or mass in breast 05/27/2007 4 documented as of this encounter (statuses as of 01/31/2022) [address]17-2013 History of Past illness Narrative* Problem Noted Date Resolved Date Drug induced neutropenia(288.03) 09/09/2012 10/29/2013 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/20/2012 10/29/2013 Lump or mass in breast 05/27/2007 4 documented as of this encounter (statuses as of 02/28/2022) [address]17-2013 History of Past illness Narrative* Problem Noted Date Resolved Date Drug induced neutropenia(288.03) 09/09/2012 10/29/2013 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/20/2012 10/29/2013 Lump or mass in breast 05/27/2007 4 documented as of this encounter (statuses as of 03/19/2022) [place] [id number] History of Past illness Narrative* Problem Noted Date Resolved Date Drug induced neutropenia(288.03) 09/09/2012 10/29/2013 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/20/2012 10/29/2013 Lump or mass in breast 05/27/2007 4 documented as of this encounter (statuses as of 05/01/2022) [place] [address]-17-2013 History of Past illness Narrative* Problem Noted Date Resolved Date Drug induced neutropenia(288.03) 09/09/2012 10/29/2013 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/20/2012 10/29/2013 Lump or mass in breast 05/27/2007 4 documented as of this encounter (statuses as of 05/03/2022) [address]17-2013 History of Past illness Narrative* Problem Noted Date Diagnosed Date Resolved Date Drug induced neutropenia(288.03) 09/09/2012 10/29/2013 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/20/2012 10/29/2013 Lump or mass in breast 05/27/200710/29 documented as of this encounter (statuses as of 10/01/2022) [place] [address]-17-2013 History of Past illness Narrative* Problem Noted Date Diagnosed Date Resolved Date Drug induced neutropenia(288.03) 09/09/2012 10/29/2013 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/20/2012 10/29/2013 Lump or mass in breast 05/27/200710/29 documented as of this encounter (statuses as of 10/17/2022) [place] [address]17-2013 History of Past illness Narrative* Problem Noted Date Diagnosed Date Resolved Date Drug induced neutropenia(288.03) 09/09/2012 10/29/2013 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/20/2012 10/29/2013 Lump or mass in breast 05/27/200710/29 documented as of this encounter (statuses as of 11/29/2022) [facility] Malignant neoplasm of left breast in female, estrogen receptor positive, unspecified site of breast (HCC)- Primary Sarcoma of right breast (HCC) skilled nursing (current) use of aromatase inhibitors Menopause Symptomatic menopausal or female climacteric states [facility] 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, site unspecified [facility] 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, site unspecified [facility] Diagnosis Malignant neoplasm of left breast in female, estrogen receptor positive, unspecified site of breast (HCC) 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 Menopause Symptomatic menopausal or female climacteric states [facility] Diagnosis Acute conjunctivitis of right eye, unspecified acute conjunctivitis type- Primary [facility] Diagnosis Malignant neoplasm of left breast in female, estrogen receptor positive, unspecified site of breast (HCC)- Primary Sarcoma of right breast (HCC) [facility] Malignant neoplasm of left breast in female, estrogen receptor positive, unspecified site of breast (HCC)- Primary Encounter for routine cancer follow-up Other follow-up examination Aromatase inhibitor use Use of aromatase inhibitors Encounter for screening mammogram for malignant neoplasm of breast Other screening mammogram Sarcoma of right breast (HCC) [facility] Diagnosis Malignant neoplasm of left breast in female, estrogen receptor positive, unspecified site of breast (HCC)- Primary Aromatase inhibitor use Use of aromatase inhibitors Sarcoma of right breast (HCC) [facility] Diagnosis Malignant neoplasm of left breast in female, estrogen receptor positive, unspecified site of breast (HCC)- Primary Sarcoma of right breast (HCC) [facility] Diagnostic Procedure Only (Routine) - Pending Review Specialty Diagnoses / Procedures Referred By Onofre t Referred To Contact [facility] Diagnoses Malignant neoplasm of left breast in female, estrogen receptor positive, unspecified site of breast (HCC) Aromatase inhibitor use Sarcoma of right breast (HCC) Procedures JEANETTE SCREENING W ELIAZAR SCREENING DIGITAL BREAST TOMOSYNTHESIS BI SCREENING MAMMOGRAPHY BI 2-[place] [address] [place] [address] [facility] [address] [place] [address] Referral ID Status Reason Start Date Expiration Date Visits Requested Visits Authorized [id number] Pending Review Auto-Generat ed Referral 05/05/2023 10/30/2023 1 1 [facility] Summary Purpose Family History No Family History Records FoundNo Family History Records FoundNo Family History Records FoundNo Family History Records Found Advance Directives No Advanced Directives Records FoundDocuments on File Type Date Recorded Patient Vending Machine Mechanic Expl anation Advance Directive(s) 05/31/2020 5:28 PM Advance Directive(s) 05/31/2020 5:33 PM Advance Directive(s) 04/10/2020 2:55 PM Advance Directive(s) 04/06/2020 4:24 PM Advance Directive(s) 04/05/2020 10:50 AM Advance Directive(s) 03/10/2015 9:50 AM Documents on File Type Date Recorded Patient Vending Machine Mechanic Expl anation Advance Directive(s) 05/31/2020 5:28 PM Advance Directive(s) 05/31/2020 5:33 PM Advance Directive(s) 04/10/2020 2:55 PM Advance Directive(s) 04/06/2020 4:24 PM Advance Directive(s) 04/05/2020 10:50 AM Advance Directive(s) 03/10/2015 9:50 AM Documents on File Type Date Recorded Patient Vending Machine Mechanic Expl anation Advance Directive(s) 03/10/2015 9:50 AM Documents on File Type Date Recorded Patient Vending Machine Mechanic Expl anation Advance Directive(s) 03/10/2015 9:50 AM Reason for Referral Specialty Diagnoses / Procedures Referred By Contac t Referred To Contact 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) Procedures MRI CHEST WALL/RIB WO/W IVCON RT MRI CHEST W/O & W/CONTRAST MATERIAL Jono Pimentel MD [address] [place] [address] [facility] Referral ID Status Reason Start Date Expiration Date V isits Requested Visits Authorized [id number] Closed Auto-Generate d Referral 09/05/2021 10/20/2021 1 1 Additional Source Comments INFORMATION SOURCE (unrecogn ized section and content) DATE CREATED AUTHOR AUTHOR'S ORGANIZ ATION 10/04/2021 [facility] DATE CREATED AUTHOR AUTHOR'S ORGANIZ ATION 12/27/2021 [facility] DATE CREATED AUTHOR AUTHOR'S ORGANIZ ATION 12/01/2022 [facility] Source Comments (unrecognize d section and content) In the event this informatio n is protected by the Federal Confidentiality of Alcohol and Drug Abuse Patient Records regulations: The Federal rules restrict any use of the information to criminally investigate or prosecute any alcohol or drug abuse patient.[facility] the event this information is protected by the Federal Confidentiality of Alcohol and Drug Abuse Patient Records regulations: The Federal rules restrict any use of the information to criminally investigate or prosecute any alcohol or drug abuse patient.[facility] Hospital[facility] the event this information is protected by the Federal Confidentiality of Alcohol and Drug Abuse Patient Records regulations: The Federal rules restrict any use of the information to criminally investigate or prosecute any alcohol or drug abuse patient.[facility] Hospital[facility] the event this information is protected by the Federal Confidentiality of Alcohol and Drug Abuse Patient Records regulations: The Federal rules restrict any use of the information to criminally investigate or prosecute any alcohol or drug abuse patient.[facility] Hospital[facility] the event this information is protected by the Federal Confidentiality of Alcohol and Drug Abuse Patient Records regulations: The Federal rules restrict any use of the information to criminally investigate or prosecute any alcohol or drug abuse patient.[facility] Hospital[facility] the event this information is protected by the Federal Confidentiality of Alcohol and Drug Abuse Patient Records regulations: The Federal rules restrict any use of the information to criminally investigate or prosecute any alcohol or drug abuse patient.[facility] HospitalIn the event this information is protected by the Federal Confidentiality of Alcohol and Drug Abuse Patient Records regulations: The Federal rules restrict any use of the information to criminally investigate or prosecute any alcohol or drug abuse patient.[facility] Hospital[facility] the event this information is protected by the Federal Confidentiality of Alcohol and Drug Abuse Patient Records regulations: The Federal rules restrict any use of the information to criminally investigate or prosecute any alcohol or drug abuse patient.[facility] Hospital[facility] the event this information is protected by the Federal Confidentiality of Alcohol and Drug Abuse Patient Records regulations: The Federal rules restrict any use of the information to criminally investigate or prosecute any alcohol or drug abuse patient.[facility] HospitalIn the event this information is protected by the Federal Confidentiality of Alcohol and Drug Abuse Patient Records regulations: The Federal rules restrict any use of the information to criminally investigate or prosecute any alcohol or drug abuse patient.[facility] HospitalIn the event this information is protected by the Federal Confidentiality of Alcohol and Drug Abuse Patient Records regulations: The Federal rules restrict any use of the information to criminally investigate or prosecute any alcohol or drug abuse patient.[facility] HospitalIn the event this information is protected by the Federal Confidentiality of Alcohol and Drug Abuse Patient Records regulations: The Federal rules restrict any use of the information to criminally investigate or prosecute any alcohol or drug abuse patient.[facility] HospitalIn the event this information is protected by the Federal Confidentiality of Alcohol and Drug Abuse Patient Records regulations: The Federal rules restrict any use of the information to criminally investigate or prosecute any alcohol or drug abuse patient.[facility] HospitalIn the event this information is protected by the Federal Confidentiality of Alcohol and Drug Abuse Patient Records regulations: The Federal rules restrict any use of the information to criminally investigate or prosecute any alcohol or drug abuse patient.[facility] HospitalIn the event this information is protected by the Federal Confidentiality of Alcohol and Drug Abuse Patient Records regulations: The Federal rules restrict any use of the information to criminally investigate or prosecute any alcohol or drug abuse patient.[facility] Reason for Visit (unrecogniz ed section and content) Reason Comments MRI Appointment Update in facility Specialty Diagnoses / Procedures Referred By Contac t Referred To Contact 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) Procedures MRI CHEST WALL/RIB WO/W IVCON RT MRI CHEST W/O & W/CONTRAST MATERIAL Jono Pimentel MD [address] [place] [address] Mr Imaging Referral ID Status Reason Start Date Expiration Date V isits Requested Visits Authorized [id number] Closed Auto-Generate d Referral 09/05/2021 10/20/2021 1 1 Reason Onset Date Comments Erroneous encounter-disregard 12/11/2021 Reason Onset Date Comments Refill Request 12/12/2021 Reason Comments Refill Request Reason Comments Eye Problem right eye red and ma tting x this am 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 (unrecognized sec tion and content) [employer] Relationship Specialty Start Date End Date Swati Baron PCP - General 05/27/07 Blayne Villareal [address] [place] [address] Home Care Physician Plastic Surgery 03/15/15 Ned Ortega V [address] [place] [phone] Consulting Internal Medicine 01/27/19 [employer] Relationship Specialty Start Date End Date Swati Baron PCP - General 05/27/07 Blayne Villareal [address] [place] [address] Home Care Physician Plastic Surgery 03/15/15 Ned Ortega V [address] [place] [phone] Consulting Internal Medicine 01/27/19 [employer] Relationship Specialty Start Date End Date Swati Baron PCP - General 05/27/07 Blayne Villareal [address] [place] [address] Home Care Physician Plastic Surgery 03/15/15 Ned Otrega V [address] [place] [phone] Consulting Internal Medicine 01/27/19 [employer] Relationship Specialty Start Date End Date Swati Baron PCP - General 05/27/07 Blayne Villareal [address] [place] [address] Home Care Provider Plastic Surgery 03/15/15 Ned Ortega V [address] [place] [phone] Consulting Internal Medicine 01/27/19 [employer] Relationship Specialty Start Date End Date Swati Baron PCP - General 05/27/07 Blayne Villareal [address] [place] [address] Home Care Provider Plastic Surgery 03/15/15 Ned Ortega V [address] [place] [phone] Consulting Internal Medicine 01/27/19 [employer] Relationship Specialty Start Date End Date Swati Baron PCP - General 05/27/07 Blayne Villareal [address] [place] [address] Home Care Provider Plastic Surgery 03/15/15 Ned Ortega V [address] [place] [phone] Consulting Internal Medicine 01/27/19 [employer] Relationship Specialty Start Date End Date Swati Baron PCP - General 05/27/07 Blayne Villareal MD Home Care Provider Plastic Surgery 03/15/15 Ned Ortega V [address] [place] [address] Consulting Internal Medicine 01/27/19 [employer] Relationship Specialty Start Date End Date Swati Baron PCP - General 05/27/07 Blayne Villareal MD Home Care Provider Plastic Surgery 03/15/15 Ned Ortega V [address] [place] [address] Consulting Internal Medicine 01/27/19 [employer] Relationship Specialty Start Date End Date Swati Baron PCP - General 05/27/07 Blayne Villareal MD Home Care Provider Plastic Surgery 03/15/15 Ned Ortega V [address] [place] [phone] Consulting Internal Medicine 01/27/19 [employer] Relationship Specialty Start Date End Date Swati Baron PCP - General 05/27/07 Blayne Villareal MD Home Care Provider Plastic Surgery 03/15/15 Ned Ortega V [address] [place] [address] Consulting Internal Medicine 01/27/19 [employer] Relationship Specialty Start Date End Date Swati Baron PCP - General 05/27/07 Blayne Villareal MD Home Care Provider Plastic Surgery 03/15/15 Ned Ortega V [address] [place] [phone] Consulting Internal Medicine 01/27/19 [employer] Relationship Specialty Start Date End Date Swati Baron PCP - General 05/27/07 Blayne Villareal MD Home Care Provider Plastic Surgery 03/15/15 Ned Ortega V [address] [place] [phone] Consulting Internal Medicine 01/27/19 [employer] Relationship Specialty Start Date End Date Swati Baron PCP - General 05/27/07 Blayne Villareal MD Home Care Provider Plastic Surgery 03/15/15 Ned Ortega V [address] [place] [phone] Consulting Internal Medicine 01/27/19 [employer] Relationship Specialty Start Date End Date Swati Baron PCP - General 05/27/07 Blayne Villareal MD Home Care Provider Plastic Surgery 03/15/15 Ned Ortega V [address] [place] [address] Consulting Internal Medicine 01/27/19 FOR RECORDS PERTAINING TO PATIENTS WHO ARE OR HAVE BEEN ENROLLED IN A CHEMICAL DEPENDENCY/SUBSTANCEABUSE PROGRAM, SOME INFORMATION MAY BE OMITTED. This clinical summary was aggregated from multiple sources. Caution should be exercised in using it in the provision of clinical care. This summary normalizes information from multiple sources, and as a consequence, information in this document may materially change the coding, format and clinical context of patient data. In addition, data may be omitted in some cases. CLINICAL DECISIONS SHOULD BE BASED ON THE PRIMARY CLINICAL RECORDS. [facility]. provides no warranty or guarantee of the accuracy or completeness of information in this document.
--- NOTE | 2023-02-20 14:54 | EX.ED.DYSGE1 ---
HPI History of Present Illness Chief Complaint: Cough Informant: patient and spouse/S.O. Narrative Narrative: Patient has had a cough occasional sputum production without a mopped assist for the last 4 days, followed by diarrhea that has been the main complaint. She goes more at night she states. No blood or melena. No fevers or chills. No abdominal pain. Occasional posttussive emesis but no nausea. states she is only short of breath when she gets into coughing fits that sometimes last 5 or 10 minutes. Otherwise no dyspnea with exertion. No known sick contacts. She has some chronic lung issues and had surgery on part of her lung in the past, the suggest that all of this was a result of multiple breast surgeries surgeries and not necessarily [facility] Medical History Breast cancer Neuropathy Skin cancer Vision problems Home Medications anastrozole 1 mg tablet 1 mg PO DAILY 03/29/13 [History Last Taken 04/28/19] alendronate 70 mg tablet 70 mg PO QWEEK 04/28/19 [History Last Taken 04/28/19] fluticasone furoate 200 mcg/actuation blister powder for inhalation (Arnuity Ellipta) 1 inh inhalation DAILY 08/21/21 [History Last Taken Unknown] benzonatate 200 mg capsule 200 mg PO TID 05/09/22 [History Last Taken Unknown] L.acidophilus-B.animalis-B.longum 15 billion cell capsule 1 cap PO DAILY 11/13/22 [History Last Taken Unknown] divalproex 250 mg tablet,delayed release 250 mg PO .COMPLEX #60 tabs 11/13/22 [Rx Last Taken Unknown] donepezil 10 mg tablet 10 mg PO QHS #30 tabs 11/13/22 [Rx Last Taken Unknown] memantine 28 mg capsule sprinkle,extended release 24hr 28 mg PO QAM #30 ea 11/13/22 [Rx Last Taken Unknown] Allergy/AdvReac Type Severity Reaction Status Date / Time Penicillins Allergy Unknown Hives Verified 02/20/23 13:30 Family History Mother Dementia Father Lung cancer Grandfather Parkinson disease Surgical History History of mastectomy Hx of breast implants, bilateral Social History Smoking Status: Never smoker second hand exposure: No alcohol intake: never substance use type: does not use what type of physical activity do you participate in: none adeel/confucianist: Buddhist seatbelt use: always ROS ROS ED Constitutional Constitutional ED: Denies chills or fever(s) Eyes Eyes: Denies change in vision or diplopia ENT ENT ED: Denies rhinorrhea or sore throat Cardiovascular Cardiovascular: Denies chest pain, orthopnea or palpitations Respiratory/Chest Respiratory/Chest: Reports cough; Denies dyspnea on exertion or orthopnea Gastrointestinal Gastrointestinal: Reports diarrhea and vomiting; Denies abdominal pain or nausea Genitourinary Genitourinary ED: Denies dysuria or hematuria Musculoskeletal Musculoskeletal: Denies back pain or neck pain Integumentary Denies abscess or rash Neurologic Neurologic: Denies headache(s), paresthesias or weakness EXAM Physical Exam Const Vital Signs: 02/20/23 13:30 02/20/23 13:43 02/20/23 16:28 Temperature 97.2 F L Temperature Source Temporal Pulse Rate 100 81 Respiratory Rate 26 H 19 H Respiratory Effort Short of Breath Respiratory Depth Shallow Respiratory Pattern Tachypnea Blood Pressure 134/81 H 140/78 H Blood Pressure Mean 98 98 Pulse Ox 97 96 Oxygen Delivery Method Room Air Room Air Room Air Positive well nourished and well developed Constitutional Narrative: Well-appearing in no distress. Conversive in full sentences. General Appearance ED: well developed and NAD HEENT Reports moist mucous membranes normocephalic and atraumatic Eyes PERRL and EOMs intact bilaterally Neck full ROM and supple Chest Wall inspection of chest normal and palpation of chest normal Resp normal respiratory effort Resp Narrative: Some rhonchi in the right base where there is a posterior lateral thoracotomy scar. Otherwise lungs clear throughout. Cardio regular rate, regular rhythm and no murmurs GI non-tender and non-distended Auscultation: normoactive bowel sounds Palpation: soft Back/Spine no CVA tenderness General Back: other FROM Extremity normal to inspection General Extremety ED: Negative for edema, pulses abnormal or tenderness General Extremity: Negative for edema or pulses abnormal Neuro oriented x3, CN's II-XII intact bilaterally and no sensory deficits noted Sensorium / Orientation: awake and alert Motor Exam: strength 5/5 throughout Skin no rashes or lesions noted and no wounds MDM MDM MDM Narrative Medical decision making narrative: 2 view chest x-ray my interpretation shows no acute infiltrates radiology in agreement. Swabs were sent, she came back having RSV. COVID and flu are negative. Her labs are normal. She was given IV fluids empirically and is walking back and forth to the bathroom without any difficulty or dyspnea to urinate. Discussed at length with her and , she has some dementia, so most of the instructions for directed at the who is comfortable with this plan taking her home. He was alerted that she could easily have 1-3 weeks worth of illness. Tuoe-rbe-rfojuvy cold and flu medications that she is already taking are okay to continue as needed as well as to push fluids. Legionella in the differential given all of the diarrhea but she does not have pneumonia and she is testing positive for viral etiology, so although antibiotics are considered they are not acutely indicated for viral illness. Lab Data Attestation: I reviewed the patient's lab results. Labs: Laboratory Results - last 24 hr 02/20/23 15:05 WBC 6.5 RBC 4.74 Hgb 14.0 Hct 43.3 MCV 91.4 MCH 29.5 MCHC 32.3 RDW Std Deviation 46.2 H RDW Coeff of [place] 13.7 Plt Count 178 MPV 9.8 Immature Gran % (Auto) 0.500 Neut % (Auto) 66.6 Lymph % (Auto) 16.1 L [place] % (Auto) 15.7 H Eos % (Auto) 0.5 Baso % (Auto) 0.6 Absolute Neuts (auto) 4.3 Absolute Lymphs (auto) 1.05 Nucleated RBC % 0 Sodium 133 L Potassium 4.1 Chloride 99 Carbon Dioxide 28.0 Anion Gap 6 BUN 17 Creatinine 0.85 Estim Creat Clear Calc 51.46 Est GFR (MDRD) Af Amer 83 Est GFR (MDRD) Non-Af 69 BUN/Creatinine Ratio 20.0 Glucose 113 H Calcium 8.4 L Total Bilirubin 0.30 AST 27 ALT 24 Alkaline Phosphatase 76 Total Protein 6.6 Albumin 3.2 Globulin 3.4 Albumin/Globulin Ratio 0.9 Radiography Diagnostic Testing: Clinical Impression(s) from Imaging Studies Chest X-Ray 02/20/23 15:05 IMPRESSION: No acute cardiopulmonary abnormality. No interval change. Electronically Signed: Campbell Schmitt MD at 15:34 EST , Discharge Plan Triage Chief Complaint: Cough Other Complaint: Nausea/Vomiting/Diarrhea ED Provider: Jono Antunez Dx/Rx/DC Orders Clinical Impression: RSV bronchitis, Acute diarrhea Instructions: Treating Diarrhea, RSV (Respiratory Syncytial Virus), ED Bronchitis, No Antibiotic (Adult) Prescriptions: No Action Arnuity Ellipta 200 mcg/actuation blister with device 1 inh inhalation DAILY benzonatate 200 mg capsule 200 mg PO TID L.acidoph-B.animalis-B.longum 15 billion cell capsule 1 cap PO DAILY donepezil 10 mg tablet 10 mg PO QHS Qty: 30 5RF memantine 28 mg capsule,sprinkle,ER 24hr 28 mg PO QAM Qty: 30 5RF divalproex 250 mg tablet,delayed release (DR/EC) 250 mg PO .COMPLEX Qty: 60 5RF Rx Instructions: Take 1 tablet orally every morning. Take 1 additional tablet every afternoon as needed. anastrozole 1 MG tablet 1 mg PO DAILY alendronate 70 MG tablet 70 mg PO QWEEK Rx Instructions: every fri Primary Care Provider: Swati Baron Referrals: Swati Baron MD [Primary Care Provider] - 1 Week if not improving Disposition Disposition: Home, Self Care
[2023-02-20] MEDS: 0.9% Normal Saline (1000mL) 1,000 ML 999 ML IV (15:05)
--- NOTE | 2023-02-20 15:05 | RAD_ITS ---
EXAM: XR CHEST, 2 VIEWS CLINICAL INDICATION: cough TECHNIQUE: Frontal and lateral views of the chest. COMPARISON: XR Chest dated 01/22/2023 FINDINGS: LUNGS AND PLEURAL SPACES: Normal. No consolidation or edema. No pneumothorax. No effusion. HEART: Normal heart size. MEDIASTINUM: No mediastinal or hilar mass. BONES/JOINTS: No acute abnormality. SOFT TISSUES: Surgical changes of right mastectomy and axillary node dissection again seen. Post inflammatory changes of the left lung apex. RAD/Chest PA and Lateral IMPRESSION: No acute cardiopulmonary abnormality. No interval change. Electronically Signed: Campbell Schmitt MD at 15:34 EST ,
[2023-02-20 15:28] LABS: Absolute Lymphocyte Count 1.05 X10^3/uL (0.83-4.51); Absolute Neutrophil Count 4.3 X10^3/uL (2.0-7.7); Basophil# 0.04 X10^3/uL; Basophil% 0.6 % (0-1); Eosinophil# 0.03 X10^3/uL; Eosinophils% 0.5 % (0-5); Hematocrit 43.3 % (37-47); Lymphocyte # 1.05 X10^3/ul (0.83-4.51); Lymphocyte % 16.1 % (19-41); Mean Corp Hgb Conc 32.3 g/dL (32-36); Mean Corpuscular Hgb 29.5 pg (27.0-32.0); Mean Corpuscular Volume 91.4 fL (81-99); Mean Platelet Vol. 9.8 fl (6.2-12.0); Monocyte# 1.02 X10^3/uL; Monocyte% 15.7 % (0-10); NRBC Flagged by Analyzer 0 % (0-5); Neutrophil # 4.34 X10^3/uL (2.7-7.7); Neutrophil % 66.6 % (47-70); Platelet Count 178 K/mm3 (150-450); RBC Distribution Width CV 13.7 % (11.6-14.6); RBC Distribution Width SD 46.2 fl (35.1-43.9); Red Blood Count 4.74 M/mm3 (4.2-5.4); White Blood Count 6.5 K/mm3 (4.4-11.0)
[2023-02-20 15:49] LABS: ALB/GLOB Ratio 0.9 RATIO (0.9-2.4); AST(SGOT) 27 U/L (15-37); Alanine Aminotransfer ALT/SGPT 24 U/L (13-56); Albumin, Serum 3.2 g/dL (3.2-5.0); Alkaline Phosphatase 76 U/L (45-117); Anion Gap 6 (5-15); BUN 17 mg/dL (7-18); Calcium,Total 8.4 mg/dL (8.5-10.1); Chloride 99 mmol/L (98-107); Creatinine, Serum 0.85 mg/dL (0.55-1.02); EST Glomerular Filtration Rate 69 mL/min (>60); Est Glom Filt Rate - Afr Amer 83 mL/min (>60); Estimated Creatinine Clearance 51.46 ml/min; Globulin 3.4 g/dL (2.2-4.2); Glucose 113 mg/dL (74-106); Potassium 4.1 mmol/L (3.5-5.1); Protein, Total 6.6 g/dL (6.4-8.2); Sodium Level 133 mmol/L (136-145)
[2023-02-20 16:28] VITALS: BP 140/78; PULSE 81; RESP 19; O2SAT 96
[2023-02-20 17:17] VITALS: PULSE 83; RESP 17; O2SAT 97
== END 2023-02-20 17:18 | disposition home or self-care (01) ==
PROVIDERS: Emergency Provider Emergency Medicine; PCP Family Medicine; Visit Provider Emergency Medicine
DX: J20.5 Acute bronchitis due to respiratory syncytial virus (principal); R19.7 Diarrhea, unspecified; Z85.3 Personal history of malignant neoplasm of breast; Z85.828 Personal history of other malignant neoplasm of skin; Z90.10 Acquired absence of unspecified breast and nipple
CPT/HCPCS: 71046; 80053; 85025; 87428; 87634; 96360; 99284; J7030; A4216

== ENCOUNTER 2023-02-28 08:30 | Outpatient (RCR) | payer MEDICARE, SELFPAY ==
--- NOTE | 2023-02-26 13:50 | HP.PTEVAL_ITS ---
Patient's Visit Information Visit Information Visit Information: AAKASH SAMANIEGO is a 77 year old F referred to Physical Therapy by RANJIT GASTON with a diagnosis of R knee OA. Date of Evaluation: 02/26/23 Physical Therapist: Walt Arango, IRISH, OCS, CSCS Visit Plan Frequency: 2x /Week Duration: 4 Weeks Plan: 2x/week for 4 weeks for instruction in hip and knee and postural and core strength that patient can eventually do at home with pics and list. Declined gym or pool exercise for now. Wants HEP. Monitor ability to be I with her dementia but is willing to help. Subjective Subjective: Goes bu Julia speaks as she has dementia. Has knee problems and referred to [facility] for possible surgery. They took off liquid and gave injection then sent for rehab. R knee hurt as it is bone on bone but no surgery yet. Seeing if injection. It helped quite a bit. Still must use cane. Can walk short distances at home without it. Used cane 9 months. A little pain walking into therapy. sleep is pretty good. Retired hairdresser. Spends day watching TV. No regular exercises. used to line dance and silver sneakers but no more. Pain R knee: Pain Intensity (Out of 10): 0 Pain Intensity Range: 0 and 3 Objective Objective: Walks with cane in R UE and antalgic on R knee slightly but I gait and transfers with UE. Varus present in R knee with WB flexibility is good in LE and ROM of knees is only slightly less in flexion R vs L and full extension. Slight pain R at end ranges. Ambulates without cane safely and takes FGa without cane today. strength hips 3+, knees 4- and no pain, ankles 4. reflexes 1/3 patella and achilles sensation WNL to gross light touch. Pt is not always oriented to place and time and looks to to answer many questions which he does. Able to follow instructions when asked to do something however. = R knee scour - valgus and varus - ant drawer - bounce home. Balance/Special Test Scores Functional Gait Assessment Score: 26 % Disability: 13.3400 Lower Extremity Functional Score: 34 Goals Goal 1:: Pain remains 1/10 or better all day Goal Time Frame: 4-6 Weeks Goal 2:: I appropriate HEP to minimize future problems adn maximize effects of injection Goal Time Frame: 4-6 Weeks Goal 3:: 50% improvement from today according to patient and subjectively Goal Time Frame: 4-6 Weeks Rehabilitation Potential Physical Therapy Diagnosis: R knee OA and resulting pain and dysfunction poorly managed with activity. Rehabilitation Potential: Fair Anticipated Interventions Patient/Client Instruction: Educate patient on: Condition and Plan of Care For the Purpose of:: To improve muscle performance and motor function, To increase tolerance to activity/condition/position and To improve ability of physical actions for home/community/work/leisure Therapeutic Exercise to Include: Strength training, Passive ROM and Active ROM For the Purpose of:: To decrease pain, To improve nutrient delivery to tissue and To improve muscle performance and motor function Text: Thank you for the opportunity to evaluate your patient. For Medicare and Medicare HMO plans, please review the plan of care and approve it. It will need to be FAXED BACK to us at [phone] for Medicare purposes. For Medicare only, by signing this I certify the plan of care. Please let me know if there are questions or concerns regarding this plan of care. Physician Signature: Date:
--- NOTE | 2023-05-07 08:00 | HP.PT.NRP ---
Patient Information Patient Information: AAKASH SAMANIEGO was seen in my office for initial evaluation on 02/26/23. The following Plan of Care was established for this patient: POC Established Initial Frequency: 2x /Week Initial Duration: 4 Weeks Anticipated Interventions Patient/Client Instruction: Educate patient on: Condition and Plan of Care For the Purpose of:: To improve muscle performance and motor function, To increase tolerance to activity/condition/position and To improve ability of physical actions for home/community/work/leisure Therapeutic Exercise to Include: Strength training, Passive ROM and Active ROM For the Purpose of:: To decrease pain, To improve nutrient delivery to tissue and To improve muscle performance and motor function Last Seen Last Seen: This patient was last seen in our office 02/28/23. Pertinent comments regarding their Physical therapy will appear below: Pt seen for two visits of POC and cancelled the third and all remaining visits. At this point, it has been over two months and i will disocntinue due to nonattendance. At this point I will be discontinuing this patient from physical therapy. I would be happy to see this patient again in the future if found appropriate by the physician. Thank you! Walt Arango, DPT, OCS, CSCS Balance/Gait/Functional tests Balance/Special Test Scores Functional Gait Assessment Score: 26 % Disability: 13.3400 Lower Extremity Functional Score: 34
== END 2023-02-28 19:00 | disposition home or self-care (01) ==
LOC: PT 08:30
PROVIDERS: PCP Family Medicine; Visit Provider Physician Assistant
DX: M17.11 Unilateral primary osteoarthritis, right knee (principal)
CPT/HCPCS: 97110; 97161

== ENCOUNTER → 2023-02-28 | Outpatient (CLI) | payer MEDICARE, SELFPAY ==
--- OUTSIDE RECORDS SUMMARY | 2023-02-28 07:40 | XMS RPT_ITS | CCD ---
Author Name Unknown Address [address] [place] [address] Organization [facility] Team Providers Care Bilingual Operator Name Role Phone LARISA, BONNIE Unavailable Unavailable [...] Unavailable Jolliff, Swati Bryce Primary Care Provider [phone] Blayne Villareal Unavailable Ned Graves Unavailable Swati Baron Bryce Primary Care Provider Blayne Villareal Unavailable Ned Graves Unavailable SWATI BARON BRYCE Primary Care Unavailable PROVIDER, UNKNOWN Referring Unavailable Swati Baron Bryce Primary Care Provider Blayne Villareal MD Unavailable [phone] Ned Graves Unavailable NEYDA SWATI BRYCE Primary Care Unavailable FRANCESCO HAWKINS Attending Unavailable FRANCESCO HAWKINS Referring Unavailable BIRGITIFF, SWATI BRYCE Primary Care Unavailable TAVON STEIN [...] [PENICILLINS] Propensity to adverse reactions (disorder) 8 [facility] Repository Medications Current Medications Medication Drug Class(es) [...] Long-term current use of aromatase inhibitor; Translations: [MCFP (current) use of aromatase inhibitors] Episodic Other aftercare (1 source) 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; Translations: [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] Onset: 12-26-2021 Episodic Other aftercare (1 source) H/O: malignant neoplasm; Translations: [Encounter for follow-up examination after completed treatment for malignant neoplasm] Episodic Other aftercare (2 sources) Prophylactic aromatase inhibitors given; Translations: [MCFP (current) use of aromatase inhibitors] Episodic Residual [...] 10:47-0400 Body height 164.2 cm Francesco Hawkins RN BIRTHING.BUILDING COORDINATOR Work Phone: [facility] 10-16-2022 10:47-0400 Body temperature 97.7 [degF] Bradford Hawkins RN BIRTHING.BUILDING COORDINATOR Work Phone: [facility] 10-16-2022 10:47-0400 Body weight 78.7 kg Francesco Hawkins RN BIRTHING.BUILDING COORDINATOR Work Phone: [facility] 10-16-2022 10:47-0400 Diastolic blood pressure 67 mm[Hg] Francesco Hawkins RN BIRTHING.BUILDING COORDINATOR Work Phone: [facility] 10-16-2022 10:47-0400 Heart rate 80 /min Francesco Hawkins RN BIRTHING.BUILDING COORDINATOR Work Phone: [facility] 10-16-2022 10:47-0400 SaO2% (BldA) [Mass fraction] 95 % Bradford Hawkins RN BIRTHING.BUILDING COORDINATOR Work Phone: [facility] 10-16-2022 10:47-0400 Systolic blood pressure 102 mm[Hg] Bradford Hawkins RN BIRTHING.BUILDING COORDINATOR Work Phone: [facility] 05-01-2022 11:32-0500 Body height 163.2 cm Tavon Stein MD Work Phone: [facility] 05-01-2022 11:32-0500 Body temperature 97.3 [degF] Tavon Stein MD Work Phone: [facility] 05-01-2022 11:32-0500 Body weight 78.06 kg Tavon Stein MD Work Phone: [facility] 05-01-2022 11:32-0500 Diastolic blood pressure 72 mm[Hg] Tavon Stein MD Work Phone: [facility] 05-01-2022 11:32-0500 Heart rate 86 /min Tavon Stein MD Work Phone: [facility] 05-01-2022 11:32-0500 Respiratory rate 16 /min Tavon Stein MD Work Phone: [facility] 05-01-2022 11:32-0500 SaO2% (BldA) [Mass fraction] 100 % Tavon Stein MD Work Phone: [facility] 05-01-2022 11:32-0500 Systolic blood pressure 132 mm[Hg] Tavon Stein MD Work Phone: [facility] 03-18-2022 08:35-0500 Body temperature 98.8 [degF] Francesco Hawkins RN BIRTHING.BUILDING COORDINATOR Work Phone: [facility] 03-18-2022 08:35-0500 Body weight 79.38 kg Francesco Hawkins RN BIRTHING.BUILDING COORDINATOR Work Phone: [facility] 03-18-2022 08:35-0500 Diastolic blood pressure 52 mm[Hg] Francesco Hawkins RN BIRTHING.BUILDING COORDINATOR Work Phone: [facility] 03-18-2022 08:35-0500 Heart rate 112 /min Francesco Hawkins RN BIRTHING.BUILDING COORDINATOR Work Phone: [facility] 03-18-2022 08:35-0500 SaO2% (BldA) [Mass fraction] 95 % Francesco Hawkins RN BIRTHING.BUILDING COORDINATOR Work Phone: [facility] 03-18-2022 08:35-0500 Systolic blood pressure 85 mm[Hg] Bradford Hawkins RN BIRTHING.BUILDING COORDINATOR Work Phone: [facility] 02-26-2022 16:42-0500 Body temperature 99.5 [degF] Charis Athy PA-C Work Phone: [facility] 02-26-2022 16:42-0500 Body weight 79.83 kg Charis Athy PA-C Work Phone: [facility] 02-26-2022 16:42-0500 Diastolic blood pressure 72 mm[Hg] Charis Athy PA-C Work Phone: [facility] 02-26-2022 16:42-0500 Heart rate 106 /min Charis Athy PA-C Work Phone: [facility] 02-26-2022 16:42-0500 Respiratory rate 16 /min Charis Dela Cruzy PA-C Work Phone: [facility] 02-26-2022 16:42-0500 SaO2% (BldA) [Mass fraction] 95 % Charis Dela Cruzy PA-C Work Phone: [facility] 02-26-2022 16:42-0500 Systolic blood pressure 122 mm[Hg] Charis Dela Cruzy PA-C Work Phone: [facility] 09-17-2021 08:12-0400 Body temperature 98.29 [degF] Francesco Hawkins RN BIRTHING.BUILDING COORDINATOR Work Phone: [facility] 09-17-2021 08:12-0400 Body weight 82.56 kg Francesco Hawkins RN BIRTHING.BUILDING COORDINATOR Work Phone: [facility] 09-17-2021 08:12-0400 Diastolic blood pressure 75 mm[Hg] Francesco Hawkins RN BIRTHING.BUILDING COORDINATOR Work Phone: [facility] 09-17-2021 08:12-0400 Heart rate 112 /min Francesco Hawkins RN BIRTHING.BUILDING COORDINATOR Work Phone: [facility] 09-17-2021 08:12-0400 Systolic blood pressure 130 mm[Hg] Francesco Hawkins RN BIRTHING.BUILDING COORDINATOR Work Phone: [facility] Encounters Encounter Date Encounter Type Care Provider Facility Start: 11-27-2022 Telephone encounter Tavon Degroot MD Work Phone: Hematology/Oncology Procedures Date Procedure Procedure Detail Performing Clinician Start: 05-01-2022 Mammography Tavon dunaway MD Work Phone: Start: 12-26-2021 Dxa bone density haleigh dy 1/> sites axial skel Francesco Hawkins RN BIRTHING.BUILDING COORDINATOR Work Phone: Start: 09-26-2021 Mri chest w/o & w/co ntrast material Jono Pimentel MD Work Phone: Start: 09-26-2021 Radiologic exam ches t 2 views Jono Pimentel MD Work Phone: Start: 04-30-2021 Mammography Francesco garcia RN BIRTHING.BUILDING COORDINATOR Work Phone: Start: 07-05-2020 Adult depression scr eening assessment Francesco Hawkins RN BIRTHING.BUILDING COORDINATOR Work Phone: Start: 01-07-2018 Lipid 1996 panel - S ainsley or Plasma Tavon Stein MD Work Phone: Start: 07-12-2013 Colonoscopy Francesco garcia RN BIRTHING.BUILDING COORDINATOR Work Phone: Plan of Treatment Date Care Activity Detail Author Start: 07-13-2023 Colonoscopy COLONOSCOPY [facility] Start: 07-13-2023 COLORECTAL CANCER SCREENING COLORECTAL CANCER SCREENING [facility] Start: 06-26-2023 DIABETES SCREEN DIABETES SCREEN [facility] Start: 06-26-2023 Diabetes Screening Diabetes Screenin g [facility] Start: 05-05-2023 End: 10-30-2023 JEANETTE SCREENING W ELIAZAR JEANETTE SCREENING W ELIAZAR Radiology Routine Malignant neoplasm of left breast in female, estrogen receptor positive, unspecified site of breast (HCC) Aromatase inhibitor use Sarcoma of right breast (HCC) Expected: 05/05/2023 (Approximate), Expires: 10/30/2023 [facility] Work Phone: Immunizations Immunization Date Immunization Notes Care Provider Babs valerio 02-01-2022 influenza virus vacc ine, unspecified formulation Tavon Stein MD Work Phone: [facility] 06-23-2020 COVID-19 vaccine, fu ll dose (MODERNA) Francesco Hawkins RN BIRTHING.BUILDING COORDINATOR Work Phone: [facility] 12-03-2012 influenza virus vacc ine, unspecified formulation Francesco Hawkins RN BIRTHING.BUILDING COORDINATOR Work Phone: [facility] Payers Date Payer Category Payer Medicare MMO MEDICARE MMO MEDADVANTAGE O [id number] 2018-Present [phone] [address] [place] [address] [facility] [id number] 2018 Medicare MMO MEDICARE MMO MEDADVANTAGE HMO [id number] 2018-Present [phone] [address] [place] [address] O [id number] 2018 Unknown [id number] Social History Date Type Detail Facility Start: 06-14-2020 End: 02-26-2022 Tobacco smoking status NHIS Ex-smoker [facility] Work Phone: Start: 06-14-2020 End: 02-26-2022 Tobacco use and exposure Smokeless tobacco non-user [facility] Work Phone: Start: 09-17-2021 End: 10-16-2022 Alcohol intake Ex-drinker (finding) [facility] Start: 06-14-2020 End: 02-26-2022 Tobacco Comment smoked for a few years in [facility] Start: 1945 Sex Assigned At Not on file [facility] Start: 09-07-2021 End: 12-26-2021 Exposure to SARS-CoV-2 (event) Not sure [facility] History of tobacco use Current smoker [facility] Work Phone: Start: 02-26-2022 End: 10-16-2022 History of Social function [facility] Start: 02-26-2022 End: 10-16-2022 Tobacco use panel [facility] Adult Depression Screening Assessment 0 [facility] Medical Equipment Procedure Code Equipment Code Equipment Origin al Text Equipment Identifier Dates Matrix Alloderm Thick Acellular Dermis 16x8cm Tissue Allograft Regenerative - [id number] Start: 03-20-2015 Implant Memoryge l 13.9cm P4.2cm Moderate Plus Profile Silicone Breast Gel - [id number] Start: 03-20-2015 Clinical Notes 09-09-2012 to 11-27-2022 Telephone Encounter - Rosana Cooper - 11/27/2022 9:14 AM Francesco Carbajal APRN.CNP - 10/16/2022 10:27 AM EDTLetter - Mammography Coordinator - 05/01/2022 3:07 PM EST Note Date & Type Note Facility 11-27-2022 Miscellaneous Notes Carmen Nunes('s) is calling Abel Stein MD today regarding Plastics And Composites Inspector - Other Patient has been identified by name and birthdate. Patient [facility] #[phone] called stated the patient needs a order for mammogram would like to know when completed Requesting response back: [phone] (home) [phone] (cell) Rosana Cooper November 27, 2022 documented in this encounter [facility] 10-16-2022 Note HNO ID: [id number] Author: Francesco Hawkins APRN.CNP Service: ? Author Type: Nurse Practitioner Type: [...] positive, the progesterone receptors were moderate positive, Lsv6Din receptors were 2-2+, but non-amplified by FISH. [...] US ordered/scheduled. Pt. ended up going to [facility] ED before US was obtained. S/p right [...] Chest Wall Sarcoma, 18cm x 11cm (CPT 03641) 2) Placement of KCI wound VAC, Conventional Technique, >50cm2 (CPT 98156) Diagnosis: Right Breast Implant Infection with Recurrent [...] to auscultation BREAST (more content not included)... [facility] 10-16-2022 History of Presen t illness Narrative [...] positive, the progesterone receptors were moderate positive, Kni0Wjl receptors were 2-2+, but non-amplified by FISH. [...] US ordered/scheduled. Pt. ended up going to [facility] ED before US was obtained. S/p right [...] Chest Wall Sarcoma, 18cm x 11cm (CPT 16231) 2) Placement of KCI wound VAC, Conventional Technique, >50cm2 (CPT 88074) Diagnosis: Right Breast Implant Infection with Recurrent [...] Francesco Hawkins APRN.CNP documented in this encounter [facility] 05-01-2022 Miscellaneous Notes May 02, 2022 PID: [id number] Carmen Nunes [address] [place] [address] Dear Ms. Nunes, We are pleased to [...] report will be kept on file at [facility] as part of your permanent medical record and are available for your continuing care. Thank you for allowing us to help in meeting your health care needs. Sincerely, Dr. Merchant Interpreting Radiologist [facility] (Normal over 40) documented in this encounter [facility] 05-01-2022 Note HNO ID: [id number] Author: Tavon Stein MD Service: ? Author Type: Physician Type: Progress Notes Filed: 05/01/2022 11:59 AM Note Text: [facility] SOLID TUMOR ONCOLOGY PROGRESS NOTE PATIENT [...] Nunes has a history of Stage IIA ([id number]) ER+, WV+, HER2-negative (2+, non-amplified) left breast cancer treated with left partial mastectomy and axillary staging 08/05/12. She also received adjuvant therapy with dose-dense doxorubicin/cyclophosphamide followed by paclitaxel, radiation therapy, and anastrozole 1 mg po daily. On 05/08/14 she was seen for a palpable right (contralateral) breast mass, confirmed on mammography and ultrasound. A core biopsy was reported by [facility] to show only benign stromal tissue, [...] which included preparing to see the patient, [id number] patient care, completing clinical documentation, obtaining and/or reviewing separately obtained history, performing a medically appropriate examination, counseling and educating the patient/family/caregiver, ordering medications, tests, or procedures, communicating with other HCPs (not separately reported), independently interpreting results (not separately reported), communicating results to the patient/family/caregiver and care coordination (not separately reported). Abel Stein MD cc: MD Swait Walker MD Mark Nair MD [facility] 05-01-2022 Note HNO ID: [id number] Author: RT Marianne(R) Service: ? Author Type: [...] RT Marianne(R) May 01, 2022 10:40 AM [facility] 05-01-2022 Nurse Note Additional intake questions: Has the patient had fever, nausea, vomiting, diarrhea, constipation, fatigue for > 1 week? No Does the patient have a decreased appetite? No Does patient want to see a Principal Hardware Architect? No (yes to any of above refer patient to schedulers for dietitian appointment) ) Does patient have any new or increased numbness or tingling of extremities? No Is patient interested in fertility information? No Does patient need any prescription refills? No Does patient have an advanced directive in place? Yes, copies are in [facility] documented in this encounter [facility] 05-01-2022 History of Presen t illness Narrative [facility] SOLID TUMOR ONCOLOGY PROGRESS NOTE PATIENT [...] Nunes has a history of Stage IIA ([id number]) ER+, WV+, HER2-negative (2+, non-amplified) left breast cancer treated with left partial mastectomy and axillary staging 08/05/12. She also received adjuvant therapy with dose-dense doxorubicin/cyclophosphamide followed by paclitaxel, radiation therapy, and anastrozole 1 mg po daily. On 05/08/14 she was seen for a palpable right (contralateral) breast mass, confirmed on mammography and ultrasound. A core biopsy was reported by [facility] to show only benign stromal tissue, [...] which included preparing to see the patient, [id number] patient care, completing clinical documentation, obtaining and/or [...] Mark Nair MD documented in this encounter [facility] 03-18-2022 Note HNO ID: [id number] Author: Francesco Hawkins APRN.SELINA Service: ? Author [...] positive, the progesterone receptors were moderate positive, Hul5Vbr receptors were 2-2+, but non-amplified by FISH. [...] US ordered/scheduled. Pt. ended up going to [facility] ED before US was obtained. S/p right [...] Chest Wall Sarcoma, 18cm x 11cm (CPT 49067) 2) Placement of KCI wound VAC, Conventional Technique, >50cm2 (CPT 35722) Diagnosis: Right Breast Implant Infection with Recurrent [...] auscultation BREAST FEMALE (more content not included)... [facility] 03-18-2022 History of Presen t illness Narrative [...] positive, the progesterone receptors were moderate positive, Dyk0Uvc receptors were 2-2+, but non-amplified by FISH. [...] US ordered/scheduled. Pt. ended up going to [facility] ED before US was obtained. S/p right [...] Chest Wall Sarcoma, 18cm x 11cm (CPT 57793) 2) Placement of KCI wound VAC, Conventional Technique, >50cm2 (CPT 25115) Diagnosis: Right Breast Implant Infection with Recurrent [...] Francesco Hawkins APRN.SELINA documented in this encounter [facility] 02-26-2022 Note HNO ID: [id number] Author: Charis Rivas PA-C Service: ? Author Type: Physician Chlorine Cell Tender Type: Progress Notes Filed: 02/26/2022 5:41 PM Note Text: This note was created using Robot App Storeriter. Subjective Carmen Nunes is a 76 year [...] ER care d (more content not included)... [facility] 02-26-2022 History of Presen t illness Narrative This note was created using Robot App Store[employer]. Subjective Carmen Nunes is a 76 year [...] Charis Rivas PA-C documented in this encounter [facility] 12-26-2021 Note HNO ID: [id number] Author: TRISTON Tsai Service: Radiology Author Type: [...] TRISTON Tsai December 26, 2021 11:10 AM [facility] 12-26-2021 History of Presen t illness [...] 2021 11:10 AM documented in this encounter [facility] 12-12-2021 Miscellaneous Notes Patient's request for [...] tomorrow (late morning) and are hoping to pharmacy picking tech a refill before they leave. Thank you. Nohemy Chavez RN Patient states that he spoke with a caregiver yesterday at [facility]'s office who was going to speak with [...] you. Lauren Eastman documented in this encounter [facility] 09-18-2021 Miscellaneous Notes Ilana from [facility] confirmed that she received the order and will contact the patient to change location of MRI. tissue recovery technician at [facility] informed PSS' that the [facility] location is unable to accomdate any MRI's that involve the chest. I reached out to [facility] to inquire about referring the patient to them. After speaking with their machine maintenance technician, their staff confirmed the procedure could be performed at their facility. I faxed the patient's order with Attn to Ilana so the patient could be called and scheduled properly with their staff. documented in this encounter [facility] 09-17-2021 History of Presen t illness [...] positive, the progesterone receptors were moderate positive, Hwr4Ujo receptors were 2-2+, but non-amplified by FISH. [...] US ordered/scheduled. Pt. ended up going to [facility] ED before US was obtained. 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/2012 10/29/2013 Lump or mass in breast 05/27/2007 4 documented as of this encounter (statuses as of 09/18/2021) [facility] History of Past illness Narrative* Problem Noted Date Resolved Date Drug induced neutropenia(288.03) 09/09/2012 10/29/2013 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/20/2012 10/29/2013 Lump or mass in breast 05/27/2007 4 documented as of this encounter (statuses as of 09/27/2021) [facility] History of Past illness Narrative* Problem Noted Date Resolved Date Drug induced neutropenia(288.03) 09/09/2012 10/29/2013 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/20/2012 10/29/2013 Lump or mass in breast 05/27/2007 4 documented as of this encounter (statuses as of 09/27/2021) [facility] History of Past illness Narrative* Problem Noted Date Resolved Date Drug induced neutropenia(288.03) 09/09/2012 10/29/2013 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/20/2012 10/29/2013 Lump or mass in breast 05/27/2007 4 documented as of this encounter (statuses as of 12/11/2021) [facility] History of Past illness Narrative* Problem Noted Date Resolved Date Drug induced neutropenia(288.03) 09/09/2012 10/29/2013 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/20/2012 10/29/2013 Lump or mass in breast 05/27/2007 4 documented as of this encounter (statuses as of 12/12/2021) [facility] History of Past illness Narrative* Problem Noted Date Resolved Date Drug induced neutropenia(288.03) 09/09/2012 10/29/2013 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/20/2012 10/29/2013 Lump or mass in breast 05/27/2007 4 documented as of this encounter (statuses as of 12/27/2021) [address]17-2013 History of Past illness Narrative* Problem Noted Date Resolved Date Drug induced neutropenia(288.03) 09/09/2012 10/29/2013 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/20/2012 10/29/2013 Lump or mass in breast 05/27/2007 4 documented as of this encounter (statuses as of 01/31/2022) [address]2013 History of Past illness Narrative* Problem Noted Date Resolved Date Drug induced neutropenia(288.03) 09/09/2012 10/29/2013 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/20/2012 10/29/2013 Lump or mass in breast 05/27/2007 4 documented as of this encounter (statuses as of 02/28/2022) [place] [id number] History of Past illness Narrative* Problem Noted Date Resolved Date Drug induced neutropenia(288.03) 09/09/2012 10/29/2013 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/20/2012 10/29/2013 Lump or mass in breast 05/27/2007 4 documented as of this encounter (statuses as of 03/19/2022) [place] [id number] History of Past illness Narrative* Problem Noted Date Resolved Date Drug induced neutropenia(288.03) 09/09/2012 10/29/2013 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/20/2012 10/29/2013 Lump or mass in breast 05/27/2007 4 documented as of this encounter (statuses as of 05/01/2022) [place] [id number] History of Past illness Narrative* Problem Noted Date Resolved Date Drug induced neutropenia(288.03) 09/09/2012 10/29/2013 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/20/2012 10/29/2013 Lump or mass in breast 05/27/2007 4 documented as of this encounter (statuses as of 05/03/2022) [address] History of Past illness Narrative* Problem Noted Date Diagnosed Date Resolved Date Drug induced neutropenia(288.03) 09/09/2012 10/29/2013 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/20/2012 10/29/2013 Lump or mass in breast 05/27/200710/29 documented as of this encounter (statuses as of 10/01/2022) [facility] History of Past illness Narrative* Problem Noted Date Diagnosed Date Resolved Date Drug induced neutropenia(288.03) 09/09/2012 10/29/2013 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/20/2012 10/29/2013 Lump or mass in breast 05/27/200710/29 documented as of this encounter (statuses as of 10/17/2022) [facility] History of Past illness Narrative* Problem Noted Date Diagnosed Date Resolved Date Drug induced neutropenia(288.03) 09/09/2012 10/29/2013 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/20/2012 10/29/2013 Lump or mass in breast 05/27/200710/29 documented as of this encounter (statuses as of 11/29/2022) [facility] Diagnosis Malignant neoplasm of left breast in female, estrogen receptor positive, unspecified site of breast (HCC)- Primary Sarcoma of right breast (HCC) [facility] (current) use of aromatase inhibitors Menopause Symptomatic menopausal or female climacteric states [facility] 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, site unspecified [facility] 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, site unspecified [facility] Malignant neoplasm of left breast in female, estrogen receptor positive, unspecified site of breast (HCC) 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 Menopause Symptomatic menopausal or female climacteric states [facility] Diagnosis Acute conjunctivitis of right eye, unspecified acute conjunctivitis type- Primary [facility] Diagnosis Malignant neoplasm of left breast in female, estrogen receptor positive, unspecified site of breast (HCC)- Primary Sarcoma of right breast (HCC) [facility] Malignant neoplasm of left breast in female, estrogen receptor positive, unspecified site of breast (HCC)- Primary Encounter for routine cancer follow-up Other follow-up examination Aromatase inhibitor use Use of aromatase inhibitors Encounter for screening mammogram for malignant neoplasm of breast Other screening mammogram Sarcoma of right breast (HCC) documented in this encounter [facility] Diagnosis Malignant neoplasm of left breast in female, estrogen receptor positive, unspecified site of breast (HCC)- Primary Aromatase inhibitor use Use of aromatase inhibitors Sarcoma of right breast (HCC) documented in this encounter [facility] Diagnosis Malignant neoplasm of left breast in female, estrogen receptor positive, unspecified site of breast (HCC)- Primary Sarcoma of right breast (HCC) documented [facility] this encounter [facility] Diagnostic Procedure Only [...] 2-[place] [address] [place] [address] Br Imaging [address] [place] [address] Referral ID Status Reason Start Date Expiration Date Visits Requested Visits Authorized [id number] Pending Review Auto-Generat ed Referral 05/05/2023 10/30/2023 1 1 [facility] Summary Purpose Family History No Family History Records FoundNo Family History Records FoundNo Family History Records FoundNo Family History Records Found Advance Directives No Advanced Directives Records FoundDocuments on File Type Date Recorded Patient Assembly Line Brazer Expl anation Advance Directive(s) 05/31/2020 5:28 PM Advance Directive(s) 05/31/2020 5:33 PM Advance Directive(s) 04/10/2020 2:55 PM Advance Directive(s) 04/06/2020 4:24 PM Advance Directive(s) 04/05/2020 10:50 AM Advance Directive(s) 03/10/2015 9:50 AM Documents on File Type Date Recorded Patient Assembly Line Brazer Expl anation Advance Directive(s) 05/31/2020 5:28 PM Advance Directive(s) 05/31/2020 5:33 PM Advance Directive(s) 04/10/2020 2:55 PM Advance Directive(s) 04/06/2020 4:24 PM Advance Directive(s) 04/05/2020 10:50 AM Advance Directive(s) 03/10/2015 9:50 AM Documents on File Type Date Recorded Patient Assembly Line Brazer Expl anation Advance Directive(s) 03/10/2015 9:50 AM Documents on File Type Date Recorded Patient Assembly Line Brazer Expl anation Advance Directive(s) 03/10/2015 9:50 AM Reason for Referral Specialty Diagnoses / Procedures Referred By Contac t Referred To Contact 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) Procedures MRI CHEST WALL/RIB WO/W IVCON RT MRI CHEST W/O & W/CONTRAST MATERIAL Jono Pimentel MD [address] [place] [address] Mr Imaging Referral ID Status Reason Start Date Expiration Date V isits Requested Visits Authorized [id number] Closed Auto-Generate d Referral 09/05/2021 10/20/2021 1 1 Additional Source Comments INFORMATION SOURCE (unrecogn ized section and content) DATE CREATED AUTHOR AUTHOR'S ORGANIZ ATION 10/04/2021 [facility] DATE CREATED AUTHOR AUTHOR'S ORGANIZ ATION 12/27/2021 [facility] DATE CREATED AUTHOR AUTHOR'S ORGANIZ ATION 12/01/2022 [facility] Source Comments (unrecognize d section and content) In the event this informatio n is protected by the Federal Confidentiality of Alcohol and Drug Abuse Patient Records regulations: The Federal rules restrict any use of the information to criminally investigate or prosecute any alcohol or drug abuse patient.[facility] the event this information is protected by the Federal Confidentiality of Alcohol and Drug Abuse Patient Records regulations: The Federal rules restrict any use of the information to criminally investigate or prosecute any alcohol or drug abuse patient.[facility] Hospital[facility] the event this information is protected by the Federal Confidentiality of Alcohol and Drug Abuse Patient Records regulations: The Federal rules restrict any use of the information to criminally investigate or prosecute any alcohol or drug abuse patient.[facility] Hospital[facility] the event this information is protected by the Federal Confidentiality of Alcohol and Drug Abuse Patient Records regulations: The Federal rules restrict any use of the information to criminally investigate or prosecute any alcohol or drug abuse patient.[facility] Hospital[facility] the event this information is protected by the Federal Confidentiality of Alcohol and Drug Abuse Patient Records regulations: The Federal rules restrict any use of the information to criminally investigate or prosecute any alcohol or drug abuse patient.[facility] HospitalIn the event this information is protected by the Federal Confidentiality of Alcohol and Drug Abuse Patient Records regulations: The Federal rules restrict any use of the information to criminally investigate or prosecute any alcohol or drug abuse patient.[facility] HospitalIn the event this information is protected by the Federal Confidentiality of Alcohol and Drug Abuse Patient Records regulations: The Federal rules restrict any use of the information to criminally investigate or prosecute any alcohol or drug abuse patient.[facility] Hospital[facility] the event this information is protected by the Federal Confidentiality of Alcohol and Drug Abuse Patient Records regulations: The Federal rules restrict any use of the information to criminally investigate or prosecute any alcohol or drug abuse patient.[facility] HospitalIn the event this information is protected by the Federal Confidentiality of Alcohol and Drug Abuse Patient Records regulations: The Federal rules restrict any use of the information to criminally investigate or prosecute any alcohol or drug abuse patient.[facility] HospitalIn the event this information is protected by the Federal Confidentiality of Alcohol and Drug Abuse Patient Records regulations: The Federal rules restrict any use of the information to criminally investigate or prosecute any alcohol or drug abuse patient.[facility] HospitalIn the event this information is protected by the Federal Confidentiality of Alcohol and Drug Abuse Patient Records regulations: The Federal rules restrict any use of the information to criminally investigate or prosecute any alcohol or drug abuse patient.[facility] HospitalIn the event this information is protected by the Federal Confidentiality of Alcohol and Drug Abuse Patient Records regulations: The Federal rules restrict any use of the information to criminally investigate or prosecute any alcohol or drug abuse patient.[facility] HospitalIn the event this information is protected by the Federal Confidentiality of Alcohol and Drug Abuse Patient Records regulations: The Federal rules restrict any use of the information to criminally investigate or prosecute any alcohol or drug abuse patient.[facility] HospitalIn the event this information is protected by the Federal Confidentiality of Alcohol and Drug Abuse Patient Records regulations: The Federal rules restrict any use of the information to criminally investigate or prosecute any alcohol or drug abuse patient.[facility] HospitalIn the event this information is protected by the Federal Confidentiality of Alcohol and Drug Abuse Patient Records regulations: The Federal rules restrict any use of the information to criminally investigate or prosecute any alcohol or drug abuse patient.[facility] Reason for Visit (unrecogniz ed section and content) Reason Comments MRI Appointment Update in facility Specialty Diagnoses / Procedures Referred By Contac t Referred To Contact 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) Procedures MRI CHEST WALL/RIB WO/W IVCON RT MRI CHEST W/O & W/CONTRAST MATERIAL Jono Pimentel MD [address] [place] [address] Mr Imaging Referral ID Status Reason Start Date Expiration Date V isits Requested Visits Authorized [id number] Closed Auto-Generate d Referral 09/05/2021 10/20/2021 1 1 Reason Onset Date Comments Erroneous encounter-disregard 12/11/2021 Reason Onset Date Comments Refill Request 12/12/2021 Reason Comments Refill Request Reason Comments Eye Problem right eye red and ma tting x this am Reason Comments [employer] Inspector - Other Care Teams (unrecognized sec tion and content) Bilingual Operator Relationship Specialty Start Date End Date Swati Baron PCP - General 05/27/07 Blayne Villareal [address] [place] [address] Home Care Physician Plastic Surgery 03/15/15 Ned Ortega V [address] [place] [phone] Consulting Internal Medicine 01/27/19 Bilingual Operator Relationship Specialty Start Date End Date Swati Baron PCP - General 05/27/07 Blayne Villareal [address] [place] [address] Home Care Physician Plastic Surgery 03/15/15 Ned Ortega V [address] [place] [address] Consulting Internal Medicine 01/27/19 Bilingual Operator Relationship Specialty Start Date End Date Swati Baron PCP - General 05/27/07 Blayne Villareal [address] [place] [address] Home Care Physician Plastic Surgery 03/15/15 Ned Ortega V [address] [place] [address] Consulting Internal Medicine 01/27/19 Bilingual Operator Relationship Specialty Start Date End Date Swati Baron PCP - General 05/27/07 Blayne Villareal [address] [place] [address] Home Care Provider Plastic Surgery 03/15/15 Ned Ortega V [address] [place] [phone] Consulting Internal Medicine 01/27/19 Bilingual Operator Relationship Specialty Start Date End Date Swati Baron PCP - General 05/27/07 Blayne Villareal [address] [place] [address] Home Care Provider Plastic Surgery 03/15/15 Ned Ortega V [address] [place] [phone] Consulting Internal Medicine 01/27/19 Bilingual Operator Relationship Specialty Start Date End Date Swati Baron PCP - General 05/27/07 Blayne Villareal [address] [place] [address] Home Care Provider Plastic Surgery 03/15/15 Ned Ortega V [address] [place] [phone] Consulting Internal Medicine 01/27/19 Bilingual Operator Relationship Specialty Start Date End Date Swati Baron PCP - General 05/27/07 Blayne Villareal MD Home Care Provider Plastic Surgery 03/15/15 Ned Ortega V [address] [place] [address] Consulting Internal Medicine 01/27/19 Bilingual Operator Relationship Specialty Start Date End Date Swati Baron PCP - General 05/27/07 Blayne Villareal MD Home Care Provider Plastic Surgery 03/15/15 Shannon NedCayla [address] [place] [address] Consulting Internal Medicine 01/27/19 Bilingual Operator Relationship Specialty Start Date End Date Swati Baron PCP - General 05/27/07 Blayne Villareal MD Home Care Provider Plastic Surgery 03/15/15 Shannon NedCayla [address] [place] [phone] Consulting Internal Medicine 01/27/19 Bilingual Operator Relationship Specialty Start Date End Date Swati Baron PCP - General 05/27/07 Blayne Villareal MD Home Care Provider Plastic Surgery 03/15/15 Ned Ortega V [address] [place] [address] Consulting Internal Medicine 01/27/19 Bilingual Operator Relationship Specialty Start Date End Date Swati Baron PCP - General 05/27/07 Blayne Villareal MD Home Care Provider Plastic Surgery 03/15/15 Ned Ortega V [address] [place] [address] Consulting Internal Medicine 01/27/19 Bilingual Operator Relationship Specialty Start Date End Date Swati Baron PCP - General 05/27/07 Blayne Villareal MD Home Care Provider Plastic Surgery 03/15/15 Ned Ortega V [address] [place] [phone] Consulting Internal Medicine 01/27/19 Bilingual Operator Relationship Specialty Start Date End Date Swati Baron PCP - General 05/27/07 Blayne Villareal MD Home Care Provider Plastic Surgery 03/15/15 Ned Ortega V [address] [place] [phone] Consulting Internal Medicine 01/27/19 Bilingual Operator Relationship Specialty Start Date End Date Swati Baron PCP - General 05/27/07 Blayne Villareal MD Home Care Provider Plastic Surgery 03/15/15 Ned Ortega V [address] [place] [address] Consulting Internal Medicine 01/27/19 FOR RECORDS PERTAINING [...] BE BASED ON THE PRIMARY CLINICAL RECORDS. [employer] [facility]. provides no warranty or guarantee of the accuracy or completeness of information in this document.
[2023-02-28 10:47] LABS: Hematocrit 44.3 % (37-47); Hemoglobin 14.5 g/dL (12.0-15.0); Mean Corp Hgb Conc 32.7 g/dL (32-36); Mean Corpuscular Hgb 29.3 pg (27.0-32.0); Mean Corpuscular Volume 89.5 fL (81-99); Mean Platelet Vol. 9.6 fl (6.2-12.0); Platelet Count 224 K/mm3 (150-450); RBC Distribution Width SD 45.1 fl (35.1-43.9); Red Blood Count 4.95 M/mm3 (4.2-5.4); White Blood Count 6.6 K/mm3 (4.4-11.0)
[2023-02-28 11:06] LABS: Valproic Acid (Depakene) Level 16 ug/mL (50-100)
[2023-02-28 11:08] LABS: ALB/GLOB Ratio 0.8 RATIO (0.9-2.4); AST(SGOT) 20 U/L (15-37); Alanine Aminotransfer ALT/SGPT 24 U/L (13-56); Albumin, Serum 3.2 g/dL (3.2-5.0); Alkaline Phosphatase 81 U/L (45-117); Anion Gap 6 (5-15); BUN 16 mg/dL (7-18); BUN/Creat Ratio 17.6 RATIO (10-20); Calcium,Total 9.1 mg/dL (8.5-10.1); Chloride 103 mmol/L (98-107); Creatinine, Serum 0.91 mg/dL (0.55-1.02); EST Glomerular Filtration Rate 64 mL/min (>60); Est Glom Filt Rate - Afr Amer 77 mL/min (>60); Globulin 3.8 g/dL (2.2-4.2); Glucose 133 mg/dL (74-106); Potassium 4.2 mmol/L (3.5-5.1); Sodium Level 135 mmol/L (136-145)
== END | disposition home or self-care (01) ==
LOC: MTLAB 07:37
PROVIDERS: PCP Family Medicine; Referring Provider Psychiatry & Neurology Neurology; Visit Provider Psychiatry & Neurology Neurology
DX: F03.93 Unspecified dementia, unspecified severity, with mood disturbance (principal)
CPT/HCPCS: 36415; 80053; 80164; 82140; 85027

== ENCOUNTER 2023-07-29 14:05 | Inpatient (IN) | payer MEDICARE, SELFPAY ==
[2023-07-29 16:22] VITALS: BP 125/56; PULSE 83; RESP 14; TEMP 36.4; O2SAT 97; BMI 30.3
[2023-07-29] MEDS: Aspirin E.C. 81 MG Tablet PO (18:22)
[2023-07-29 18:53] VITALS: RESP 16
--- NOTE | 2023-07-29 20:45 | HP.PCM_ITS ---
HPI - General General Date of Admission: 07/29/23 Date of Service: 07/29/23 Chief Complaint: Here for rehabilitation. HPI Narrative AAKASH SAMANIEGO, is a 78 Female who presents with followin07/24/2023 Admit to [facility]. 07/24/2023 Dr. Mccormack performed right robotic arm-assisted Magdaleno total knee arthroplasty. 07/24/2023 Pain 4/10 postop. PT/OT, IS, DVT prophylaxis. 07/28/2023 Agitation requiring sitter. 07/29/2023 Admit to TCU with debility, here for rehabilitation, strengthening, prior to discharge home with . [facility] Medical History Vision problems Skin cancer Neuropathy Breast cancer Home Medications ?Medication ?Instructions ?Recorded ?Last Taken ?Type alendronate 70 mg tablet 70 mg PO QWEEK 04/28/19 04/28/19 History fluticasone furoate 200 1 inh inhalation DAILY lungs 08/21/21 Unknown History mcg/actuation blister powder for inhalation (Arnuity Ellipta) benzonatate 200 mg capsule 200 mg PO TID 05/09/22 Unknown History L.acidophilus-B.animalis-B.longum 1 cap PO DAILY 11/13/22 Unknown History 15 billion cell capsule ascorbic acid (vitamin C) 1,000 mg 1 g PO DAILY 02/27/23 Unknown History tablet donepezil 10 mg tablet 10 mg PO QHS memory #30 tabs 02/27/23 Unknown Rx memantine 28 mg capsule 28 mg PO QAM memory #30 ea 02/27/23 Unknown Rx sprinkle,extended release 24hr aspirin 81 mg tablet,delayed 81 mg PO BID heart health 07/29/23 Unknown History release divalproex 250 mg tablet,delayed 250 mg PO DAILY migraine 07/29/23 Unknown History release ibuprofen 800 mg tablet 800 mg PO Q8H PRN PRN pain 07/29/23 Unknown History ondansetron HCl 4 mg tablet 4 mg PO Q8 nausea 07/29/23 Unknown History oxycodone-acetaminophen 5 mg-325 1 - 2 tab PO Q6H PRN PRN pain 07/29/23 Unknown History mg tablet Allergy/AdvReac Type Severity Reaction Status Date / Time Penicillins Allergy Unknown Hives Verified 02/27/23 08:26 Family History Mother Dementia Father Lung cancer Grandfather Parkinson disease Surgical History Hx of breast implants, bilateral History of mastectomy Social History (Updated 07/29/23 @ 20:[address] Gray Horowitz MD) household members: spouse Smoking Status: Never smoker second hand exposure: No alcohol intake: never substance use type: does not use what type of physical activity do you participate in: none adeel/yazdanism: Religion seatbelt use: always ROS Constitutional Constitutional: Denies chills, fever(s) or weight gain ENT HEENT: Denies headache(s), nasal congestion or nasal discharge Cardiovascular Cardiovascular: Denies chest pain or palpitations Respiratory/Chest Respiratory/Chest: Denies cough, excessive phlegm production or shortness of breath with exertion Gastrointestinal Gastrointestinal: Denies abdominal pain, nausea or vomiting Genitourinary Genitourinary: Denies dysuria Musculoskeletal Musculoskeletal: Denies joint pain or joint swelling Integumentary Integumentary: Denies rash or wounds Neurologic Neurologic: Denies focal weakness, numbness or tingling Psychiatric Psychiatric: Denies anxiety, auditory hallucinations, depression, homicidal ideation or suicidal ideation Vital Signs Vital Signs Vital Signs: 07/29/23 16:22 07/29/23 18:53 Temperature 97.5 F L Temperature Source Temporal Pulse Rate 83 Pulse Rhythm Regular Pulse Strength Normal (2+) Respiratory Rate 14 16 Respiratory Effort Normal Non-Labored Respiratory Depth Normal Respiratory Pattern Normal Blood Pressure 125/56 H Blood Pressure Mean 79 Blood Pressure Source Monitor Blood Pressure Position Semi-Fowlers Blood Pressure Location Right Arm Pulse Ox 97 Oxygen Delivery Method Room Air Room Air Oxygen Flow Rate (L/min) 95 Weight Weight: 82.781 kg Body Mass Index (BMI) 30.3 Assessment & Plan Assessment/Plan (1) Debility: (2) Osteoarthritis of right knee: (3) Status post total knee replacement, right: (4) Osteoporosis: (5) Asthma: (6) COPD (chronic obstructive pulmonary disease): (7) Chronic cough: (8) Obstructive sleep apnea: (9) Alzheimer disease: (10) Irritability: PLAN: Plan 78 year old female with below past medical history hospitalized for right total knee replacement 07/24/[address] Mccormack, postoperative course complicated by agitation, admitted to TCU with debility, here for rehabilitation, strengthening, prior to discharge home with . * Debility - PT/OT. * Pain - Tylenol 1000mg q6 prn pain (1-3), Ibuprofen 800mg q8 prn pain (4-5), Oxycodone 5mg q4h prn pain (6-10). * Bowel - senna/colace 1 tablet bid, Magnesium citrate 300ml daily prn. * Adult immunization - Administer pneumonia vaccine, covid vaccine, flu vaccine as appropriate. * DVT prophylaxis - Aspirin 81mg bidcm. 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 * Alzheimer Disease - Donepezil 10mg daily, Memantine 10mg bid. * Asthma - Fluticasone 110mcg 3 puffs bid. * Nausea - Zofran odt 4mg q8h prn.
[2023-07-29] MEDS: Memantine Hydrochloride 10 MG Tablet PO (21:19)
[2023-07-29] MEDS: Donepezil HCl 10 MG Tablet PO (21:19)
[2023-07-29] MEDS: Fluticasone Propionate 110 MCG AER.W.ADAP 3 PUFF INHALATION (21:20)
[2023-07-29] MEDS: Senna/Docusate Sodium 1 Tablet PO (21:22)
[2023-07-30 05:55] LABS: Absolute Neutrophil Count 4.3 X10^3/uL (2.0-7.7); Basophil# 0.02 X10^3/uL; Basophil% 0.3 % (0-1); Eosinophil# 0.14 X10^3/uL; Eosinophils% 2.2 % (0-5); Hematocrit 36.9 % (37-47); Hemoglobin 11.9 g/dL (12.0-15.0); Lymphocyte % 14.2 % (19-41); Mean Corp Hgb Conc 32.2 g/dL (32-36); Mean Corpuscular Hgb 29.1 pg (27.0-32.0); Mean Corpuscular Volume 90.2 fL (81-99); Mean Platelet Vol. 8.9 fl (6.2-12.0); Monocyte# 0.93 X10^3/uL; Monocyte% 14.7 % (0-10); NRBC Flagged by Analyzer 0 % (0-5); Neutrophil # 4.29 X10^3/uL (2.7-7.7); Neutrophil % 67.7 % (47-70); Platelet Count 221 K/mm3 (150-450); RBC Distribution Width CV 13.6 % (11.6-14.6); RBC Distribution Width SD 45.2 fl (35.1-43.9); Red Blood Count 4.09 M/mm3 (4.2-5.4); White Blood Count 6.3 K/mm3 (4.4-11.0)
--- NOTE | 2023-07-30 06:07 | NURSING ---
Restless/agitated at times, attempts self transfers, poor safety awareness. Attempted to strike [employer] when attempting to assist patient to toilet. Able to redirect, difficult to redirect at times. Written communication left for Dr. Horowitz. Call light in reach. No distress observed or reported
--- NOTE | 2023-07-30 07:25 | NURSING ---
Spouse on unit, requested if spouse able to provide home cpap due to dx sleep apnea. Per spouse patient cannot tolerate CPAP any longer due to lung surgeries and does not wear cpap any longer at home. Spouse agreeable to patient to utilize O2 at HS if able to tolerate.
[2023-07-30 08:15] VITALS: O2SAT 96
[2023-07-30 09:01] LABS: Anion Gap 6 (5-15); BUN 16 mg/dL (7-18); BUN/Creat Ratio 22.4 RATIO (10-20); Calcium,Total 8.9 mg/dL (8.5-10.1); Chloride 105 mmol/L (98-107); Creatinine, Serum 0.72 mg/dL (0.55-1.02); EST Glomerular Filtration Rate 84 mL/min (>60); Est Glom Filt Rate - Afr Amer 102 mL/min (>60); Estimated Creatinine Clearance 63.57 ml/min; Glucose 110 mg/dL (74-106); Sodium Level 137 mmol/L (136-145)
[2023-07-30] MEDS: Divalproex Sodium 250 MG Tablet PO (09:31)
[2023-07-30] MEDS: Memantine Hydrochloride 10 MG Tablet PO ×2 (09:31→20:05)
[2023-07-30] MEDS: Senna/Docusate Sodium 1 Tablet PO ×2 (09:31→20:05)
[2023-07-30] MEDS: Fluticasone Propionate 110 MCG AER.W.ADAP 3 PUFF INHALATION ×2 (09:31→20:06)
[2023-07-30] MEDS: Aspirin E.C. 81 MG Tablet PO ×2 (09:31→16:19)
[2023-07-30] MEDS: Tuberculin,Purif.prot.deriv. 50 TU/ML Vial 0.1 ML ID (10:12)
--- NOTE | 2023-07-30 11:51 | PCM.PN.DRR ---
Documented by User: Inés Zuniga 07/30/23 12:33 TCU RX Drug Regimen Review Subjective/Objective Subjective/Objective: Subjective: TCU Admission. 78 YOF hospitalized for right total knee replacement 07/24/[address] Mccormack, postoperative course complicated by agitation. Admitted to TCU with debility for strengthening and rehabilitation. Objective: Allergies Penicillins Allergy (Unknown, Verified 02/27/23 08:26) Hives Current Medications Generic Name Dose Route Start Last Admin Trade Name Freq PRN Reason Stop Dose Admin Acetaminophen 1,000 mg 07/29/23 21:00 Acetaminophen 500 Mg Tablet PO Q6H PRN PRN Pain Score 1-3 Aspirin 81 mg 07/29/23 17:00 07/30/23 09:31 Aspirin E.C. 81 Mg Tablet PO 81 mg BIDCM JEWEL Administration Divalproex Sodium 250 mg 07/30/23 10:00 07/30/23 09:31 Divalproex Sodium 250 Mg Tablet PO 250 mg DAILY JEWEL Administration Divalproex Sodium 250 mg 07/29/23 16:57 Divalproex Sodium 250 Mg Tablet PO DAILY PRN MIGRAINE SYMPTOMS Donepezil HCl 10 mg 07/29/23 22:00 07/29/23 21:19 Donepezil Hcl 10 Mg Tablet PO 10 mg QHS JEWEL Administration Fluticasone Propionate 3 puff 07/29/23 22:00 07/30/23 09:31 Fluticasone Propionate 110 Mcg Aer.W.Adap INHALATION 3 puff BID JEWEL Administration Ibuprofen 800 mg 07/29/23 21:02 Ibuprofen 400 Mg Tablet PO Q8H PRN PRN Pain Score 4-5 Lorazepam 0.5 mg 07/30/23 08:00 Lorazepam 0.5 Mg Tablet PO Q4H PRN PRN ANXIETY/RESTLESSNESS/SLEEP Magnesium Citrate 300 ml 07/29/23 21:00 Magnesium Citrate 300 Ml PO DAILY PRN Constipation Memantine 10 mg 07/29/23 22:00 07/30/23 09:31 Memantine Hydrochloride 10 Mg Tablet PO 10 mg BID JEWEL Administration Ondansetron HCl 4 mg 07/29/23 17:15 Ondansetron Odt 4 Mg Tablet PO Q8 PRN NAUSEA/VOMITING Oxycodone HCl 5 mg 07/29/23 21:02 Oxycodone 5 Mg Tablet PO Q4H PRN PRN Pain Score 6-10 or Pre PT/OT Senna/Docusate Sodium 1 tablet 07/29/23 22:00 07/30/23 09:31 Senna/Docusate Sodium 1 Tablet PO 1 tablet BID JEWEL Administration Tuberculin PPD 0.1 ml 08/06/23 10:00 Tuberculin,Purif.Prot.Deriv. 50 Tu/Ml Vial ID 08/06/23 10:01 X1 ONE Problem List Alzheimer disease (Acute) Obstructive sleep apnea (Acute) Chronic cough (Chronic) COPD (chronic obstructive pulmonary disease) (Chronic) Asthma (Acute) Osteoporosis (Acute) Status post total knee replacement, right (Acute) Osteoarthritis of right knee (Acute) Debility (Acute) Irritability (Chronic) Vital Signs Temp Pulse Resp BP Pulse Ox O2 Del Method O2 Flow Rate 97.5 F L 83 16 125/56 H 96 Room Air 95 07/29/23 16:22 07/29/23 16:22 07/29/23 18:53 07/29/23 16:22 07/30/23 08:15 07/30/23 08:15 07/29/23 18:53 Oxygen Flow Rate (L/min) 95 Oxygen Delivery Method Room Air Weight: 82.781 kg Body Mass Index (BMI) 30.3 Sodium 137 mmol/L (136-145) 07/30/23 05:45 Potassium 4.0 mmol/L (3.5-5.1) 07/30/23 05:45 Chloride 105 mmol/L (98-107) 07/30/23 05:45 Carbon Dioxide 26.0 mmol/L (21.0-32.0) 07/30/23 05:45 Anion Gap 6 (5-15) 07/30/23 05:45 BUN 16 mg/dL (7-18) 07/30/23 05:45 Creatinine 0.72 mg/dL (0.55-1.02) 07/30/23 05:45 Est GFR (MDRD) Af Amer 102 mL/min (>60) 07/30/23 05:45 Est GFR (MDRD) Non-Af 84 mL/min (>60) 07/30/23 05:45 BUN/Creatinine Ratio 22.4 RATIO (10-20) H 07/30/23 05:45 Glucose 110 mg/dL (74-106) H 07/30/23 05:45 Assessment/Plan: 1. Pain: acetaminophen 1000mg PO Q6H PRN pain 1-3, ibuprofen 800mg PO Q8H PRN pain 4-5 and oxycodone 5mg PO Q4H PRN pain 6-10. Resident has not received any PRN doses so far. Please continue to monitor for increased pain and PRN usage. 2. Bowel: senna/docusate 1T PO BID and magnesium citrate 300mL PO daily PRN constipation. Resident has not received any PRN doses so far. Please continue to monitor for constipation and PRN usage. No documented bowel movement so far. 3. DVT prophylaxis: aspirin 81mg PO BIDCM. Please consider adding a stop date if clinically appropriate as this is being used BID for DVT prophylaxis. Thanks. Please continue to monitor for S/S of bleeding/DVT and hemoglobin (last 11.9g/dL). 4. Alzheimer disease: donepezil 10mg PO QHS and memantine 10mg PO BID. Please continue to monitor for S/S of Alzheimer's, GI side effects, rash and BP (last 125/56, BEERs medication). 5. Asthma: fluticasone 110mcg 3puffs inhalation BID. Please continue to monitor for S/S of asthma and thrush. Please rinse mouth with water and spit following administration to prevent thrush. 6. Nausea: ondansetron 4mg PO Q8H PRN nausea. No PRN doses have been given. Please continue to monitor for S/S of nausea and PRN usage. Assessment/Plan for indications treated with psychotropic medications: 1. Irritability/migraine: Depakote 250mg PO daily and 250mg PO daily PRN migraine symptoms. Resident has not received any PRN doses so far. Please see physician note regarding GDR. Please continue to monitor for falls/fractures (BEERs medication), GI side effects, LFTs (black box warning for hepatotoxicity) and nausea. Please consider ordering a valproic acid level if patient experiences S/S of toxicity (last 02/28/23). 2. Anxiety/sleep/restlessness: lorazepam 0.5mg PO Q4H PRN anxiety/sleep/restlessness. GDR likely not appropriate at this time as this medication was just started. Please continue to monitor for PRN usage. No doses given at this time. Medical chart and medication regimen reviewed. The following medication irregularities or issues were identified: 1. Aspirin 81mg PO BIDCM. Please consider adding a stop date if clinically appropriate as this is being used BID for DVT prophylaxis. Thanks. Date Date of Note:: 07/30/23 Documented by User: Dr. Gray Horowitz MD 07/30/23 12:55 TCU RX Drug Regimen Review Provider Comments Provider responsibility Provider Comments to Recommendations by Pharmacy: Agree
--- NOTE | 2023-07-30 12:28 | NURSING ---
Medical Physics Researcher Note; Activity Asset: Complete Carmen stated she has dementia and will need to be reminded of weekly activities. Her family brought her in her own coloring stuff and staff will encourage her coloring, out of room activities, group activities and independent activities. Family will visits daily as well and welcome visits with the check services clerk and therapy dog when available. Staff will continue to remind her of activities and respect her right to say no.
[2023-07-30 14:35] VITALS: BP 114/80; PULSE 105; RESP 18; TEMP 36.3; O2SAT 96
[2023-07-30 14:53] VITALS: O2SAT 96
[2023-07-30 16:34] VITALS: BMI 30.4
[2023-07-30 20:00] VITALS: RESP 16
[2023-07-30] MEDS: LORazepam 0.5 MG Tablet PO (20:04)
[2023-07-30] MEDS: Donepezil HCl 10 MG Tablet PO (20:05)
[2023-07-30] MEDS: Acetaminophen 500 MG Tablet 1000 MG PO (20:05)
[2023-07-31 04:40] VITALS: RESP 16
--- NOTE | 2023-07-31 04:41 | NURSING ---
Patient woke up this morning very agitated, aggressive, irrational, and confused. Patient will not follow commands, is quick to get up without assistance from staff, and screams out when left alone. Patient fixated on repeating tasks that were just done minutes before such as toileting, getting dressed, and getting up. Patient was brought out to nurses' station d/t frequent attempts to get up without assistance. Pt unable to answer orientation questions at this time. Patient has diagnosis of Alzheimers and is A/O to self per baseline. Prior to being admitted to floor she had a sitter d/t agitation and aggression. Patient was provided fluids, activity, and extra blankets to promote comfort. Chair alarm on.
[2023-07-31] MEDS: oxyCODONE 5 MG Tablet PO ×2 (04:55→20:03)
[2023-07-31] MEDS: LORazepam 0.5 MG Tablet PO ×2 (04:55→20:04)
[2023-07-31 07:11] VITALS: O2SAT 95
[2023-07-31] MEDS: Memantine Hydrochloride 10 MG Tablet PO ×2 (10:49→20:04)
[2023-07-31] MEDS: Aspirin E.C. 81 MG Tablet PO ×2 (10:49→17:34)
[2023-07-31] MEDS: Divalproex Sodium 250 MG Tablet PO (10:49)
[2023-07-31] MEDS: Senna/Docusate Sodium 1 Tablet PO ×2 (10:49→20:04)
[2023-07-31] MEDS: Fluticasone Propionate 110 MCG AER.W.ADAP 3 PUFF INHALATION ×2 (10:49→20:04)
[2023-07-31 14:24] VITALS: BP 129/92; PULSE 83; RESP 18; TEMP 36.3; O2SAT 95
[2023-07-31] MEDS: Donepezil HCl 10 MG Tablet PO (20:04)
[2023-08-01] MEDS: oxyCODONE 5 MG Tablet PO ×3 (00:49→21:15)
[2023-08-01] MEDS: LORazepam 0.5 MG Tablet PO ×3 (00:49→21:15)
--- NOTE | 2023-08-01 00:59 | NURSING ---
Addendum entered by Christel Alfaro 08/01/23 02:59: PRN Ativan effective, patient resting eyes in recliner near nurses' station. Chair alarm on. Original Note: This nurse heard bed alarm in patient's room go off, patient attempted to get up without assistance. This nurse asked patient if she needed to use the restroom and assisted her to bathroom. Patient could not directly tell nurse what she needed, could not answer any orientation questions, and she could not follow commands. Patient is alert but confused per baseline. She responds to verbal stimuli but cannot answer questions correctly. Patient has diagnosis of Alzheimers. This nurse provided hygiene care and attempted to assist patient back to bed. Patient refused to go back into bed, refused to go to chair, screaming please! Please! This nurse and WEB CONTENT WRITER attempted to redirect patient and reorient her, attempts were unsuccessful. Patient hitting and pushing staff. This nurse asked patient if she would like to go to bed or chair and she replied, neither, now step back and let me go. When asked where patient wanted to go, she was unable to answer staff. Another RN entered the room, and asked patient to sit in her chair so she could come to the nurses' station with staff. Patient cooperative and sat in chair. This nurse offered and provided patient fluids and a snack, patient thanked nurse. Patient very anxious and restless, calling out for for , Yassine. This nurse administered PRN Ativan per order to promote sleep and relieve anxiety.
--- NOTE | 2023-08-01 04:43 | NURSING ---
Addendum entered by Lizbeth Stark 08/01/23 06:38: restlessness continues despite pharmacologic and non-pharmacologic interventions. Written communication left for Dr. Horowitz. staff 1:1 continues Addendum entered by Lizbeth Stark 08/01/23 05:31: 1:1 continues in TCU common area Original Note: Patient restless at this time, agitated, attempting to self transfer, repeating please, Jose, please Jose. Unable to redirect. Assisted to bathroom per request x2 staff assist, patient grabs bars and refuses to let go despite verbal cues, attempting to hit staff with elbows, removing clothing, continues to repeat please, please. 1:1 provided, 2nd RN present due to patient's continued agitation and aggressive behavior. Patient requests to walk. Assisted x2 staff assist, agrees to sit in recliner. Snack offered, fluids offered, repositioned for comfort. Agitation continues. Non-pharmacologic interventions ineffective. 1:1 continues in TCU common area.
[2023-08-01 07:12] VITALS: O2SAT 96
[2023-08-01] MEDS: Aspirin E.C. 81 MG Tablet PO ×2 (08:59→16:32)
[2023-08-01 10:00] VITALS: RESP 15
[2023-08-01] MEDS: Divalproex Sodium 250 MG Tablet PO (10:26)
[2023-08-01] MEDS: Memantine Hydrochloride 10 MG Tablet PO ×2 (10:26→21:15)
[2023-08-01] MEDS: Senna/Docusate Sodium 1 Tablet PO ×2 (10:26→21:15)
[2023-08-01] MEDS: Fluticasone Propionate 110 MCG AER.W.ADAP 3 PUFF INHALATION ×2 (10:27→21:14)
[2023-08-01] MEDS: Acetaminophen 500 MG Tablet 1000 MG PO (11:11)
--- NOTE | 2023-08-01 13:09 | NURSING ---
Updated patient and that a patient on the unit tested positive for covid.
[2023-08-01 13:55] VITALS: BP 101/57; PULSE 74; RESP 14; TEMP 36.2; O2SAT 97
--- NOTE | 2023-08-01 14:49 | CHAPLAIN ---
Type of Pastoral Visit _x__ Initial Visit ___ Follow-up Visit ___ On-call Visit ___ General Patient Visit ___ Spiritual Assessment ___ Family Conference ___ Bereavement ___ Rapid Response ___ Code Blue ___ Other (describe below) Pastoral Care Referral From ___ Patient _x__ Family ___ Nurse ___ Physician ___ Steel Rigger ___ Cash Checker ___ Other (describe below) Sacrament/Intervention _x__ Active listening ___ Anointing ___ Sabianism ___ Bereavement ___ Communion ___ [place] exploration ___ ___ Life review _x__ Prayer ___ Reconciliation ___ Sacrament of Sick _x__ Supportive presence ___ Wedding ___ Other (describe below) Pastoral Comments patient was asleep at first attempt and spouse was at bedside; spouse recommended visit at another time due to inability of pt to sleep last night; returned to room later when friends were arriving who welcomed the visit of this carpenter helper at this time; pt is now sitting up in chair and awake; pt does not appear to have clear understanding and a friend says she has some dementia; pt does interact with the visitors in sufficient way and talks with them; pt states that she is good; pt does welcome a prayer and is thankful for that per her words
--- NOTE | 2023-08-01 16:50 | CASEMGMT ---
Social Work- TCU Admit Note OLI met with patient and daughterIsha to complete initial intake assessment. OLI introduced self and role. Patient has alzheimer. Patient was lethargic unable to maintain focus during assessment. OLI spoke with daughterIsha outside of room. Isha informed OLI that the patient has been sleeping all day; expressed concerns for patient's medication regimen. OLI consulted Dr. Horowitz to review medications with daughter. Dr. Horowitz spoke with daughter regarding patient's sundowner. Patient's medication to be adjusted to assist with sleep aid. Isha confirmed patient demographics and contact information. Isha confirmed patient code status as full code. Patient has advanced directive; current in medical chart. Patient's primary decision maker is , Yassine. OLI educated Isha on MMO Medicare insurance coverage. OLI informed Isha that continued stay is not guaranteed at this time. Isha informed OLI that 's goal is for patient to return home with additional support. Isha expressed concern for patient to return home due to patient's feeling overwhelmed caring for patient independent of additional support. OLI discussed private duty aid services to assist within [facility]. OLI discussed additional support from [facility] and provided information for medical alert device. OLI discussed home health care v. assisted living/memory care. Isha informed OLI that family has not discussed machine long goods helper care goals, but she will review with patient's . OLI will continue to follow to support discharge planning. MARJ Chambers
[2023-08-01] MEDS: Donepezil HCl 10 MG Tablet PO (21:15)
[2023-08-01] MEDS: Doxepin Hydrochloride 10 MG Capsule PO (21:15)
--- NOTE | 2023-08-02 00:58 | NURSING ---
Restlessness/agitation/attempting self transfers continues despite pharmacologic and nonpharmacologic interventions (food/fluids/toileting/repositioning/ambulating). Staff 1:1 to promote safety throughout shift. Sitting in common area with staff 1:1 per pt. preference. No c/o pain at this time.
--- NOTE | 2023-08-02 00:58 | NURSING ---
Patient has required sitter this night. Anxious and restless. prn ativan given. SUPERVISOR GRINDING and sitter has notified this nurse that the patient has continued to attempt to hit and hurt staff. Patient also has attempted to get up and move without assistance despite redirection and assistance with toileting or other needs
[2023-08-02] MEDS: LORazepam 0.5 MG Tablet PO ×4 (01:37→21:15)
[2023-08-02] MEDS: oxyCODONE 5 MG Tablet PO ×2 (01:38→12:59)
[2023-08-02] MEDS: Fluticasone Propionate 110 MCG AER.W.ADAP 3 PUFF INHALATION ×2 (09:37→21:30)
[2023-08-02] MEDS: Aspirin E.C. 81 MG Tablet PO ×2 (09:37→17:14)
[2023-08-02] MEDS: Divalproex Sodium 250 MG Tablet PO (09:37)
[2023-08-02] MEDS: Memantine Hydrochloride 10 MG Tablet PO ×2 (09:37→21:20)
[2023-08-02] MEDS: Senna/Docusate Sodium 1 Tablet PO ×2 (09:38→21:20)
[2023-08-02 10:00] VITALS: RESP 16
[2023-08-02 12:55] VITALS: BP 104/55; PULSE 73; RESP 14; TEMP 36.4; O2SAT 96
[2023-08-02] MEDS: Ibuprofen 400 MG Tablet 800 MG PO (15:25)
[2023-08-02] MEDS: Donepezil HCl 10 MG Tablet PO (21:20)
[2023-08-02] MEDS: Doxepin Hydrochloride 10 MG Capsule PO (21:20)
--- NOTE | 2023-08-03 03:07 | NURSING ---
Resident starts to be come anxious and agitated. Verbalizes the urge to void and questions where her is. Resident was recently taken to the bathroom. Bladder scan for 176ml. Informed resident her is at home. 1:1 provided. Anxiety and restlessness resolves after bladder scan complete. Sitter remains at bedside. Will continue to monitor.
[2023-08-03] MEDS: LORazepam 0.5 MG Tablet PO ×3 (04:45→14:30)
[2023-08-03] MEDS: Ibuprofen 400 MG Tablet 800 MG PO (04:45)
--- NOTE | 2023-08-03 04:54 | NURSING ---
6-8 pt had 2 episodes of non compliance and combativeness. given ativan prn and meds as ordered. slept well most of night. up frequently to use br but would fall back asleep. ativan given at 0445 pt would not go in bed or chair. sitter brought pt out to dining room for activities to keep her busy. pt fell asleep awhile later.
[2023-08-03 09:24] VITALS: BP 105/51; PULSE 95; RESP 18; TEMP 36.5; O2SAT 95
[2023-08-03] MEDS: Divalproex Sodium 250 MG Tablet PO (09:30)
[2023-08-03] MEDS: Aspirin E.C. 81 MG Tablet PO ×2 (09:30→17:30)
[2023-08-03] MEDS: Senna/Docusate Sodium 1 Tablet PO (09:31)
[2023-08-03] MEDS: Fluticasone Propionate 110 MCG AER.W.ADAP 3 PUFF INHALATION (09:31)
[2023-08-03] MEDS: Memantine Hydrochloride 10 MG Tablet PO (09:31)
[2023-08-03] MEDS: oxyCODONE 5 MG Tablet PO (14:04)
[2023-08-03] MEDS: Acetaminophen 500 MG Tablet 1000 MG PO (14:31)
[2023-08-03] MEDS: Magnesium Citrate 300 ML PO (14:31)
--- NOTE | 2023-08-03 14:34 | NURSING ---
Addendum entered by Yash Hernandez 08/03/23 16:38: Patient continues to be restless, anxious, and agitated. Patient resisting care. Staff unable to redirect after several intervention attempts. Call placed to Dr. Horowitz with update. New order received for Ativan 2mg PO X1. Original Note: Patient restless, agitated and combative with staff. Patient is not yet due for PRN Ativan. Call placed to Dr. Horowitz. OK to give Ativan 0.5mg PO Q4H PRN now and new order to increase Doxepin to 25mg PO QHS.
[2023-08-03] MEDS: LORazepam 1 MG Tablet 2 MG PO (16:33)
--- NOTE | 2023-08-03 22:12 | NURSING ---
Attempted to administer hs meds without success d/t resident sleeping. Respirations are even and unlabored. Attempted to arouse w/ verbal and tactile stimulation without success. Completed circulation check to BLE and resident did not have any reaction to the assessment of the extremities. Sitter remains in room. Will continue to monitor.
[2023-08-04] MEDS: Acetaminophen 500 MG Tablet 1000 MG PO (02:42)
[2023-08-04] MEDS: LORazepam 0.5 MG Tablet PO ×3 (02:42→23:55)
--- NOTE | 2023-08-04 02:59 | NURSING ---
Resident starts to become restless and has tremors to the upper extremities. Sits on the edge of the bed and repeatedly verbalizes she wants to go to another bedroom and have someone sleep w/ her. 1:1 given per this nurse and FLOOR HELPER without success. Given water to drink. Recently toileted. Medicated w/ Tylenol and Ativan- refer to MAR for doses. Continues to remain restless even when staff assist resident back to supine position. Taken to common via recliner chair. Turned on TV, given Eva Doones cookies, and milk. Sitter remains at side. Will continue to monitor.
[2023-08-04] MEDS: Ibuprofen 400 MG Tablet 800 MG PO (05:01)
[2023-08-04] MEDS: Divalproex Sodium 250 MG Tablet PO (08:24)
[2023-08-04] MEDS: Aspirin E.C. 81 MG Tablet PO ×2 (08:24→17:57)
[2023-08-04] MEDS: Fluticasone Propionate 110 MCG AER.W.ADAP 3 PUFF INHALATION ×2 (08:24→20:36)
[2023-08-04] MEDS: Memantine Hydrochloride 10 MG Tablet PO ×2 (08:25→20:35)
[2023-08-04] MEDS: Senna/Docusate Sodium 1 Tablet PO ×2 (08:25→20:35)
--- NOTE | 2023-08-04 10:44 | NURSING ---
Discussed covid vaccine with , patient confused. He did not want her to receive vaccine.
[2023-08-04 16:00] VITALS: BP 165/88; PULSE 125; RESP 26; TEMP 36.9; O2SAT 96
--- NOTE | 2023-08-04 16:12 | CASEMGMT ---
Addendum entered by Emily Mclain 08/04/23 18:36: Correction daughter name: Isha OLI discussed home health care provider choice with daughter, Isha. Isha is agreeable to referral to [facility]. Referral pending acceptance. OLI reviewed insurance coverage MMO Medicare. Discharge 08/06/2023: Home with Home Health Care Services PT/OT/SN/GIZZARD PEELER/DINING SERVICE INSPECTOR Original Note: Social Work OLI met with patient's daughter, Manda and , Yassine to discuss discharge plans. Manda informed OLI that she would like for patient to discharge home within the next couple of days. Manda inquired about best plan to assist patient in home. OLI reviewed private duty care support, Medical alert device, [facility] referral, and additional family support. Patient's other daughter joined meeting and informed SW and family that she will arrange schedule to assist with patient care in home. Patient will require medication management, continue therapy, and home health lpn support. OLI discussed plans for discharge. Patient's family informed OLI that they would like to have patient home on Friday08/06/2023. OLI submitted referral to [facility] due to insurance coverage and geographic. Discharge 08/06/2023: Home with Home Health Care Services PT/OT/SN/GIZZARD PEELER/DINING SERVICE INSPECTOR MARJ Chambers
--- NOTE | 2023-08-04 18:54 | NURSING ---
Dr. Horowitz made aware of elevated BP this evening. Recheck BP remains elevated at 170/90 HR 113 after Ativan administration but patient remains anxious and impulsive. Dr. Horowitz made aware that BP remains elevated after Ativan and he reports to check BP after more relaxed. Also noted this afternoon that knee is reddened and swollen. Patient denies pain on palpation. Dr. Horowitz orders Doppler this evening. Area appears to have grown by this later this evening but patient denies increased pain. Area marked to assess spreading redness and Dr. Horowitz to be made aware in AM if continues to worsen.
[2023-08-04] MEDS: Doxepin Hcl 25 MG Capsule PO (20:35)
[2023-08-04] MEDS: Donepezil HCl 10 MG Tablet PO (20:35)
--- NOTE | 2023-08-04 20:39 | DS.PCM_ITS ---
Providers Date of Admission: 07/29/23 Primary Care Physician: Dr. Swati Baron MD Reason For Visit: RIGHT TOTAL KNEE ARTHROPLASTY Diagnosis Discharge Diagnosis (1) Debility: Status: Acute Code(s): R53.81 - Other malaise (2) Osteoarthritis of right knee: Status: Acute Code(s): M17.11 - Unilateral primary osteoarthritis, right knee (3) Status post total knee replacement, right: Status: Acute Code(s): Z96.651 - Presence of right artificial knee joint (4) Osteoporosis: Status: Acute Code(s): M81.0 - Age-related osteoporosis without current pathological fracture (5) Asthma: Status: Acute Code(s): J45.909 - Unspecified asthma, uncomplicated (6) COPD (chronic obstructive pulmonary disease): Status: Chronic Code(s): J44.9 - Chronic obstructive pulmonary disease, unspecified (7) Chronic cough: Status: Chronic Code(s): R05.3 - Chronic cough (8) Obstructive sleep apnea: Status: Acute Code(s): G47.33 - Obstructive sleep apnea (adult) (pediatric) (9) Alzheimer disease: Status: Acute Code(s): G30.9 - Alzheimer's disease, unspecified; F02.80 - Dementia in other diseases classified elsewhere, unspecified severity, without behavioral disturbance, psychotic disturbance, mood disturbance, and anxiety (10) Irritability: Status: Chronic Code(s): R45.4 - Irritability and anger Plan 78 year old female with below past medical history hospitalized for right total knee replacement 07/24/[address] Mccormack, postoperative course complicated by agitation, admitted to TCU with debility, here for rehabilitation, strengthening, prior to discharge home with . * Debility - PT/OT. * Pain - Tylenol 1000mg q6 prn pain (1-3), Ibuprofen 800mg q8 prn pain (4-5), Oxycodone 5mg q4h prn pain (6-10). * Bowel - senna/colace 1 tablet bid, Magnesium citrate 300ml daily prn. * Adult immunization - Administer pneumonia vaccine, covid vaccine, flu vaccine as appropriate. * DVT prophylaxis - Aspirin 81mg bidcm. * Irritability - Depakote 250mg daily, 250mg daily prn, stable chronic joint terminal attack controller use, GDR not recommended. * Alzheimer Disease - Donepezil 10mg daily, Memantine 10mg bid. * Asthma - Fluticasone 110mcg 3 puffs bid. * Nausea - Zofran odt 4mg q8h prn. Medications at Discharge Home Medications alendronate 70 mg tablet 70 mg PO QWEEK 04/28/19 fluticasone furoate 200 mcg/actuation blister powder for inhalation (Arnuity Ellipta) 1 inh inhalation DAILY lungs 08/21/21 ascorbic acid (vitamin C) 1,000 mg tablet 1 g PO DAILY 02/27/23 donepezil 10 mg tablet 10 mg PO QHS memory #30 tabs 02/27/23 memantine 28 mg capsule sprinkle,extended release 24hr 28 mg PO QAM memory #30 ea 02/27/23 divalproex 250 mg tablet,delayed release 250 mg PO DAILY migraine 07/29/23 ibuprofen 800 mg tablet 800 mg PO Q8H PRN PRN pain 07/29/23 acetaminophen 500 mg tablet 1,000 mg (2 x 500 mg) PO Q6H PRN PRN Pain Score 1-3 #0 tabs 08/04/23 aspirin 81 mg tablet,delayed release 81 mg PO BIDCM 18 days #0 tabs 08/04/23 oxycodone 5 mg tablet 5 mg PO Q4H PRN PRN Pain Score 6-10 Or Pre Pt/Ot 3 days #18 tabs 08/04/23 sennosides 8.6 mg-docusate sodium 50 mg tablet (Stool Softener-Stimulant Laxative) 1 tab PO BID 30 days #60 tabs 08/04/23 Hospital Course Operations total knee replacement (Right.) Procedures None Summary of Care Provided Minutes Spent on Discharge: 35 Hospital Course: 78 year old female with below past medical history hospitalized for right total knee replacement 07/24/[address] Mccormack, postoperative course complicated by agitation, admitted to TCU with debility, here for rehabilitation, strengthening, prior to discharge home with . Discharge home with 08/06/2023, [facility] PT/OT/SN/FOREST PATROLMAN/X RAY NURSE. Physical Exam Const alert General Appearance: cooperative HEENT normocephalic Eyes PERRL and EOMs intact bilaterally Neck supple, no JVD and no carotid bruits Resp normal respiratory effort, normal air movement and clear to auscultation bilaterally Cardio regular rate and regular rhythm GI normal to inspection, nondistended, normoactive bowel sounds, non-tender and non-distended Extremity normal capillary refill General Extremity: Negative for edema Skin no rashes or lesions noted General Skin Exam: no breakdown Psych affect normal Appearance: appropriate Weight / BMI Weight Weight: 82.917 kg Body Mass Index (BMI) 30.4 ABG / Lab / Microbiology Data 07/30/23 05:45 07/30/23 05:45 Microbiology: Microbiology 08/01/23 10:40 Nasal Secretion SARS-CoV-2 Antigen (Rapid) - Final D/C Instructions Discharge Diet: No restrictions Discharge Activity: Return to Normal Activity, May Shower and Use Walker Weight Bearing Status: Weight bearing as tolerated Call your doctor if you observe: Fever of 101 or Higher, Inability to urinate, Inability to have a bowel movement, Shortness of breath, Dizziness, Fainting spells, Swelling in the ankles, Chest pain and Uncontrolled pain Additional Instructions: Discharge home with 08/06/2023, [facility] PT/OT/SN/FOREST PATROLMAN/X RAY NURSE. Please Follow Up With: Malik Mccormack When: As scheduled. Meaningful Use Info Meaningful Use Meaningful Use Diagnoses (Choose all that apply): None applicable Ischemic Stroke Statin Dosing Therapy Reference: STATIN DOSE THERAPY REFERENCE: * Patients > 75 years receive moderate or high dose statin therapy. * Patients 75 years or YOUNGER should receive HIGH intensity statin dose unless contraindicated. You will be required to document reason for non-treatment if statin daily dose does not meet guidelines. HIGH DOSE STATIN THERAPY DAILY Atorvastatin > than or = to 40 mg Rosuvastatin > than or = to 20 mg Amlodipine + Atorvastatin > than or = to 2.5/40 mg Ezetimibe + Simvastatin 10/80 mg Simvastatin 80mg Discharge Plan Admission Admit Date/Time: 07/29/23 14:05 Primary Reason for Your Visit: Debility. Attending Provider: Gray Horowitz Chi Primary Care Provider: Swati Baron Instructions Additional Instructions / Restrictions: Discharge home with 08/06/2023, [facility] PT/OT/SN/FOREST PATROLMAN/X RAY NURSE. Discharge Orders/Prescriptions Prescriptions: New acetaminophen 500 mg Tablet 1,000 mg PO Q6H PRN PRN (Reason: Pain Score 1-3) Qty: 0 0RF sennosides-docusate sodium [Stool Softener-Stimulant Laxat] 8.6-50 mg Tablet 1 tab PO BID 30 Days Qty: 60 0RF aspirin 81 mg Tablet,Delayed Release (Dr/Ec) 81 mg PO BIDCM 18 Days Qty: 0 0RF oxycodone 5 mg Tablet 5 mg PO Q4H PRN PRN (Reason: Pain Score 6-10 Or Pre Pt/Ot) 3 Days Qty: 18 0RF Continued Arnuity Ellipta 200 mcg/actuation blister with device 1 inh inhalation DAILY ascorbic acid (vitamin C) 1,000 mg tablet 1 g PO DAILY donepezil 10 mg tablet 10 mg PO QHS Qty: 30 6RF memantine 28 mg capsule,sprinkle,ER 24hr 28 mg PO QAM Qty: 30 6RF alendronate 70 MG tablet 70 mg PO QWEEK Rx Instructions: every fri divalproex 250 mg tablet,delayed release (DR/EC) 250 mg PO DAILY Rx Instructions: Take 1 tablet orally every morning. Take 1 additional tablet every afternoon as needed. ibuprofen 800 mg tablet 800 mg PO Q8H PRN PRN (Reason: pain) Discontinued benzonatate 200 mg capsule 200 mg PO TID L.acidoph-B.animalis-B.longum 15 billion cell capsule 1 cap PO DAILY aspirin 81 mg tablet,delayed release (DR/EC) 81 mg PO BID oxycodone-acetaminophen 5-325 mg tablet 1 - 2 tab PO Q6H PRN PRN (Reason: pain) ondansetron HCl 4 mg tablet 4 mg PO Q8 Referrals / Follow Up: Swati Baron MD [Primary Care Provider] - Disposition Disposition (needs filled in before D/C Order can be placed): Home Health Service
[2023-08-04] MEDS: oxyCODONE 5 MG Tablet PO (20:43)
[2023-08-04 20:46] VITALS: PULSE 102; RESP 18; O2SAT 98
[2023-08-05] MEDS: oxyCODONE 5 MG Tablet PO (02:10)
[2023-08-05] MEDS: Ibuprofen 400 MG Tablet 800 MG PO (02:10)
--- NOTE | 2023-08-05 05:07 | NURSING ---
Written communication left for Dr. Horowitz regarding: patient continued restlessness/agitation toward staff (AEB squeezing sitter's arm when ambulating), 1:1 sitter continues, frequently attempting to self transfer and often ambulating in [place]co due to restlessness, Redness/edema/warmth continues to right knee, New urinary incontinence/frequency/urgency, Awake/restless much of the night.
[2023-08-05] MEDS: LORazepam 1 MG Tablet PO ×3 (08:02→22:38)
[2023-08-05] MEDS: Aspirin E.C. 81 MG Tablet PO ×2 (08:03→16:16)
--- NOTE | 2023-08-05 09:39 | CASEMGMT ---
Addendum entered by Emily Mclain 08/05/23 19:22: Direction Home referral submitted to support patient family in home. Original Note: Social Work SW received follow up from [facility] confirming acceptance for home health care services. Patient will require PT/OT/SN/ALUMINA REFINERY OPERATOR/PAPER LATCHER Per [facility] F[employer] Machine TenderLauren start of care will be 08/07/2023. [facility] informed patient's family of acceptance for home health care services. Discharge 08/06/2023: Home [facility] PT/OT/SN/ALUMINA REFINERY OPERATOR/PAPER LATCHER MARJ Chambers
[2023-08-05] MEDS: Divalproex Sodium 250 MG Tablet PO (10:09)
[2023-08-05] MEDS: Memantine Hydrochloride 10 MG Tablet PO ×2 (10:09→22:33)
[2023-08-05] MEDS: Doxycycline 100 MG CAPSULE PO ×2 (10:10→22:33)
[2023-08-05] MEDS: Fluticasone Propionate 110 MCG AER.W.ADAP 3 PUFF INHALATION ×2 (10:10→22:33)
[2023-08-05] MEDS: Senna/Docusate Sodium 1 Tablet PO ×2 (10:10→22:33)
[2023-08-05] MEDS: Acetaminophen 500 MG Tablet 1000 MG PO (10:12)
[2023-08-05 10:45] LABS: Bacteria 0 SEEN /hpf (None Seen); Mucous, Urine 0 SEEN /hpf (<or=2+)
[2023-08-05 10:49] LABS: Color, Urine Yellow (Yellow); Glucose, Dipstick Normal (Normal); Ketone-Dipstick Negative (Negative); Leukocyte Esterase-Dipstick 500 /ul (Negative); Nitrite-Dipstick Negative (Negative); Occult Blood-Urine 10 /ul (Negative); Protein-Dipstick Negative (Negative); Specific Gravity, Urine 1.015 (1.002-1.030); Urine Bilirubin Dipstick Negative (Negative); Urine Clarity Clear (Clear); Urine Urobilinogen Normal (Normal)
[2023-08-05 10:55] LABS: Red Blood Cells-Urine 0-5 SEEN /hpf (0-5); Squamous Epithelial Cells - UA 0-5 SEEN /hpf (5-10); White Blood Cells 5-10 SEEN /hpf (0-5)
[2023-08-05] MEDS: Clindamycin HCl 150 MG Capsule 300 MG PO ×3 (11:36→22:32)
[2023-08-05 14:33] VITALS: BP 148/86; PULSE 99; RESP 26; TEMP 36.9; O2SAT 99
[2023-08-05 15:07] VITALS: BMI 31.6
[2023-08-05] MEDS: Donepezil HCl 10 MG Tablet PO (22:33)
[2023-08-05] MEDS: Doxepin Hcl 25 MG Capsule PO (22:34)
[2023-08-06 04:23] VITALS: RESP 16
[2023-08-06] MEDS: LORazepam 1 MG Tablet PO (04:42)
[2023-08-06] MEDS: Clindamycin HCl 150 MG Capsule 300 MG PO (04:42)
--- NOTE | 2023-08-06 04:51 | NURSING ---
Patient up to use the restroom, AM meds administered to prevent waking patient due to restlessness this shift. Patient restless and anxious this morning, stating, don't leave me. This nurse reassured patient we will be with her and are there for any needs. Patient attempted to get out of bed several times, wandering with staff assistance in room and in halls, unsure where she wants to go. This nurse returned her to bed, provided her a snack and warm blanket. PRN Ativan administered for anxiety.
[2023-08-06 05:39] LABS: Absolute Lymphocyte Count 1.08 X10^3/uL (0.83-4.51); Basophil# 0.04 X10^3/uL; Basophil% 0.5 % (0-1); Eosinophil# 0.15 X10^3/uL; Eosinophils% 1.8 % (0-5); Hematocrit 30.3 % (37-47); Lymphocyte # 1.08 X10^3/ul (0.83-4.51); Lymphocyte % 12.7 % (19-41); Mean Corpuscular Hgb 29.6 pg (27.0-32.0); Mean Corpuscular Volume 89.6 fL (81-99); Mean Platelet Vol. 8.7 fl (6.2-12.0); Monocyte# 1.13 X10^3/uL; Monocyte% 13.3 % (0-10); NRBC Flagged by Analyzer 0 % (0-5); Neutrophil # 6.02 X10^3/uL (2.7-7.7); Neutrophil % 70.9 % (47-70); Platelet Count 195 K/mm3 (150-450); RBC Distribution Width CV 13.7 % (11.6-14.6); RBC Distribution Width SD 44.9 fl (35.1-43.9); Red Blood Count 3.38 M/mm3 (4.2-5.4); White Blood Count 8.5 K/mm3 (4.4-11.0)
[2023-08-06 06:04] LABS: Anion Gap 5 (5-15); BUN 16 mg/dL (7-18); BUN/Creat Ratio 19.8 RATIO (10-20); Calcium,Total 8.5 mg/dL (8.5-10.1); Chloride 101 mmol/L (98-107); Creatinine, Serum 0.81 mg/dL (0.55-1.02); EST Glomerular Filtration Rate 73 mL/min (>60); Est Glom Filt Rate - Afr Amer 89 mL/min (>60); Glucose 115 mg/dL (74-106); Potassium 4.1 mmol/L (3.5-5.1); Sodium Level 133 mmol/L (136-145)
--- NOTE | 2023-08-06 08:15 | NURSING ---
Charge Accounts Audit Clerk Note; MDS for 08/05/2023 Complete
[2023-08-06] MEDS: Senna/Docusate Sodium 1 Tablet PO (09:04)
[2023-08-06] MEDS: Fluticasone Propionate 110 MCG AER.W.ADAP 3 PUFF INHALATION (09:04)
[2023-08-06] MEDS: Memantine Hydrochloride 10 MG Tablet PO (09:04)
[2023-08-06] MEDS: Doxycycline 100 MG CAPSULE PO (09:04)
[2023-08-06] MEDS: Aspirin E.C. 81 MG Tablet PO (09:04)
[2023-08-06] MEDS: Divalproex Sodium 250 MG Tablet PO (09:04)
[2023-08-06 10:40] VITALS: BP 131/62; PULSE 98; RESP 16; TEMP 36.5; O2SAT 96
--- NOTE | 2023-08-11 09:54 | MDS.RN ---
Information for the MDS was obtained from review of the clinical record, interview of resident, staff, and direct observation of resident?s care.
== END 2023-08-06 10:15 | disposition home health service (06) | DRG 560 ==
PROVIDERS: Admitting Provider Family Medicine Geriatric Medicine; PCP Family Medicine; Visit Provider Family Medicine Geriatric Medicine
DX: Z47.1 Aftercare following joint replacement surgery (principal); L03.115 Cellulitis of right lower limb; F02.811 Dementia in other diseases classified elsewhere, unspecified severity, with agitation; G30.9 Alzheimer's disease, unspecified; J44.9 Chronic obstructive pulmonary disease, unspecified; M17.11 Unilateral primary osteoarthritis, right knee; G47.33 Obstructive sleep apnea (adult) (pediatric); Z96.651 Presence of right artificial knee joint; Z79.82 Long term (current) use of aspirin; Z79.899 Other long term (current) drug therapy; G47.00 Insomnia, unspecified; M81.0 Age-related osteoporosis without current pathological fracture; Z79.51 Long term (current) use of inhaled steroids
CPT/HCPCS: 36415; 80048; 81001; 85025; 87086; 87811; 97110; 97116; 97162; 97166; 97530; 97535; 97802

== ENCOUNTER → 2023-08-05 | Outpatient (CLI) | payer MEDICARE, SELFPAY ==
--- NOTE | 2023-08-05 08:13 | VDLE_ITS ---
Reason For Study: RLE Swelling RIGHT LEFT GSV is normal. FV is compressible, spontaneous, phasic, CFV is compressible, spontaneous, phasic, competent and demonstrates normal competent and demonstrates normal augmentation. augmentation. FV is compressible, spontaneous, phasic, competent and demonstrates normal augmentation. POP V is compressible, spontaneous, phasic, competent and demonstrates normal augmentation. T/P Trunk is compressible. PTV is compressible. RT PerV is compressible. Procedure This is a venous duplex using B-mode, color flow and spectral Doppler. Exam performed portable in patient room. The study was technically difficult due to Post Op swelling/edema. A preliminary report was called and/or faxed to [facility]. VL/Venous Duplex US, Unilateral Interpretation Summary Deep veins of the right lower extremity are patent and compressible segmentally . There is no evidence of right lower extremity deep vein thrombosis. The right great sapheno us vein appears patent and compressible segmentally. Ordering Physician: Gray Horowitz Chi Referring Physician: Swati Calix Performed By: Jaswant Barnett RVT
== END | disposition home or self-care (01) ==
PROVIDERS: PCP Family Medicine; Referring Provider Family Medicine Geriatric Medicine; Visit Provider Family Medicine Geriatric Medicine
DX: M79.89 Other specified soft tissue disorders (principal)
CPT/HCPCS: 93971

== ENCOUNTER 2023-08-06 15:00 | Inpatient (IN) | payer MEDICARE, SELFPAY ==
[2023-08-06 15:01] VITALS: BP 122/70; PULSE 105; RESP 18; TEMP 36.9; O2SAT 95; BMI 30.9
--- NOTE | 2023-08-06 15:29 | EDS_ITS ---
HPI History of Present Illness HPI Narrative: Patient presents with right knee injury that occurred today. Patient lost her balance and fell. Patient had a recent right total knee replacement. Patient landed on her anterior right knee. Patient's knee incision opened up. Patient had been in the TCU after her knee surgery and was discharged today. Patient has a history of dementia and is a poor informant. denies any other injuries. Chief Complaint: Wound Check Informant: spouse/S.O. Limited: dementia Occured/Mechanism Mechanism/Context: Yes fall Onset/Context/Timing Onset: Today Context: Sudden Onset Timing: Continuous Worsened by: Nothing Relieved by: Nothing Narrative Recent Illness/Hospitalization: Yes PFSH PFSH Medical History Vision problems Skin cancer Neuropathy Breast cancer Home Medications ?Medication ?Instructions ?Recorded ?Last Taken ?Type alendronate 70 mg tablet 70 mg PO QWEEK 04/28/19 04/28/19 History fluticasone furoate 200 1 inh inhalation DAILY lungs 08/21/21 Unknown History mcg/actuation blister powder for inhalation (Arnuity Ellipta) ascorbic acid (vitamin C) 1,000 mg 1 g PO DAILY 02/27/23 Unknown History tablet donepezil 10 mg tablet 10 mg PO QHS memory #30 tabs 02/27/23 Unknown Rx memantine 28 mg capsule 28 mg PO QAM memory #30 ea 02/27/23 Unknown Rx sprinkle,extended release 24hr divalproex 250 mg tablet,delayed 250 mg PO DAILY migraine 07/29/23 Unknown History release ibuprofen 800 mg tablet 800 mg PO Q8H PRN PRN pain 07/29/23 Unknown History acetaminophen 500 mg tablet 1,000 mg (2 x 500 mg) PO Q6H PRN 08/04/23 Unknown Rx PRN Pain Score 1-3 #0 tabs aspirin 81 mg tablet,delayed 81 mg PO BIDCM 18 days #0 tabs 08/04/23 Unknown Rx release oxycodone 5 mg tablet 5 mg PO Q4H PRN PRN Pain Score 08/04/23 Unknown Rx 6-10 Or Pre Pt/Ot 3 days #18 tabs sennosides 8.6 mg-docusate sodium 1 tab PO BID 30 days #60 tabs 08/04/23 Unknown Rx 50 mg tablet (Stool Softener-Stimulant Laxative) clindamycin HCl 150 mg capsule 300 mg (2 x 150 mg) PO 4X/DAY 6 08/05/23 Unknown Rx days #48 caps doxycycline monohydrate 100 mg 100 mg PO BID 6 days #12 caps 08/05/23 Unknown Rx capsule Allergy/AdvReac Type Severity Reaction Status Date / Time Penicillins Allergy Unknown Hives Verified 02/27/23 08:26 Family History Mother Dementia Father Lung cancer Grandfather Parkinson disease Surgical History Hx of breast implants, bilateral History of mastectomy Social History household members: spouse Smoking Status: Never smoker second hand exposure: No alcohol intake: never substance use type: does not use what type of physical activity do you participate in: none adeel/buddhism: [employer] seatbelt use: always ROS ROS ED Review of Systems ROS Unobtainable: due to mental condition EXAM Physical Exam Const Vital Signs: 08/06/23 15:01 08/06/23 16:57 08/06/23 18:45 Temperature 98.5 F Temperature Source Oral Pulse Rate 105 H 108 H Respiratory Rate 18 18 Blood Pressure 122/70 H 155/80 H Blood Pressure Mean 87 105 Pulse Ox 95 98 98 Oxygen Delivery Method Room Air Room Air Room Air Positive well nourished and well developed General Appearance ED: well developed and NAD HEENT Reports moist mucous membranes Neck full ROM and supple Extremity Extremity Narrative: There is an 8 cm open wound over the anterior aspect of the right knee. There is some mild bleeding noted. There is no obvious deformity noted. Range of motion was slightly limited in all motions of the right knee secondary to pain. Pedal pulses are equal bilaterally. Sensation was intact to light touch in all digits. Capillary refill was less than 2 seconds in all digits. Strength is 5/5 and plantarflexion and dorsiflexion of the ankle and toes. Neuro CN's II-XII intact bilaterally, moves all extremities and no sensory deficits noted Sensorium / Orientation: alert and oriented to person Motor Exam: strength 5/5 throughout Psych mental status grossly normal MDM MDM MDM Narrative Medical decision making narrative: Differential diagnosis includes open fracture right knee, and right knee laceration. X-rays of the right knee will be obtained to assess for fracture and dislocation. Radiography Diagnostic Testing: Clinical Impression(s) from Imaging Studies Knee X-Ray 08/06/23 15:50 IMPRESSION: Status post total knee replacement. Findings suggestive of soft tissue laceration in the suprapatellar region. Electronically Signed: Jesus Souza MD at 16:01 EDT , X-rays of the right knee were obtained. There are 2 views. On my independent interpretation, there is no acute fracture or dislocation noted. There is no loosening of the prosthesis. Radiologist also interpreted the x-rays and agrees. Management Discussion w/another healthcare provider: Hospitalist Treatment and Re-Evaluation Narrative: The wound was cleaned and irrigated with copious amounts normal saline. The wound was explored. There is no involvement of the joint. Laceration only extends into the subcutaneous tissue. There is moderate gapping of the wound ma rgins. The wound was closed with 7 simple interrupted #4-0 Vicryl subcutaneous sutures and 7 horizontal mattress #4-0 Ethilon sutures. There is adequate approximation of the wound margins. Bacitracin dressing was applied. On discussion with the . He states he does not feel he can care for her at home. He states that [facility] had arranged for home health nurses and aides to come to his home tomorrow but he does not feel that he can manage her at home. Case will be discussed with the hospitalist for admission. Procedures Lacerations Right knee: Length: 8 cm Depth: Sub Q Shape: Linear Prep: Sterile Conditions and Chlorhexadine Laceration repair: Irrigated, Lidocaine, Local, Skin sutures (7 horizontal mattress #4-0 Ethilon), Subcutaneous sutures (7 simple interrupted #4-0 Vicryl) and Wound explored Irrigated (ml): 100 Number of Sutures/Olga: 14 Suture Information: Vicryl, Ethilon, Simple, Horizontal, Mattress and 4-0 Discharge Plan Triage Chief Complaint: Wound Check ED Provider: Walt Prado Dx/Rx/DC Orders Clinical Impression: Laceration of right knee, Dementia, Fall Prescriptions: No Action Arnuity Ellipta 200 mcg/actuation blister with device 1 inh inhalation DAILY ascorbic acid (vitamin C) 1,000 mg tablet 1 g PO DAILY donepezil 10 mg tablet 10 mg PO QHS Qty: 30 6RF memantine 28 mg capsule,sprinkle,ER 24hr 28 mg PO QAM Qty: 30 6RF alendronate 70 MG tablet 70 mg PO QWEEK Rx Instructions: every fri divalproex 250 mg tablet,delayed release (DR/EC) 250 mg PO DAILY Rx Instructions: Take 1 tablet orally every morning. Take 1 additional tablet every afternoon as needed. ibuprofen 800 mg tablet 800 mg PO Q8H PRN PRN (Reason: pain) acetaminophen 500 mg Tablet 1,000 mg PO Q6H PRN PRN (Reason: Pain Score 1-3) Qty: 0 0RF sennosides-docusate sodium [Stool Softener-Stimulant Laxat] 8.6-50 mg Tablet 1 tab PO BID 30 Days Qty: 60 0RF aspirin 81 mg Tablet,Delayed Release (Dr/Ec) 81 mg PO BIDCM 18 Days Qty: 0 0RF oxycodone 5 mg Tablet 5 mg PO Q4H PRN PRN (Reason: Pain Score 6-10 Or Pre Pt/Ot) 3 Days Qty: 18 0RF clindamycin HCl 150 mg Capsule 300 mg PO 4X/DAY 6 Days Qty: 48 0RF doxycycline monohydrate 100 mg Capsule 100 mg PO BID 6 Days Qty: 12 0RF Primary Care Provider: Swati Baron Referrals: Swati Baron MD [Primary Care Provider] - Print Language: Mohawk Disposition Disposition: Acute Care Hospital [facility]
[2023-08-06] MEDS: Lidocaine 1% (20 ml mdv) 20 ML Vial INFILT (15:44)
--- NOTE | 2023-08-06 15:50 | RAD_ITS ---
STUDY: X-RAY - RIGHT KNEE REASON FOR EXAM: Female, 78 years old. Injury/Pain TECHNIQUE: 2 view(s) of the knee. COMPARISON: None. FINDINGS: Normal visualized distal femur. Normal visualized proximal tibia and fibula. Normal proximal tibiofibular articulation. The patient is status post total knee replacement. There is diffuse soft tissue swelling with air in the anterior suprapatellar region. This is suggestive of laceration. RAD/Knee 1 or 2 Views IMPRESSION: Status post total knee replacement. Findings suggestive of soft tissue laceration in the suprapatellar region. Electronically Signed: Jesus Souza MD at 16:01 EDT ,
[2023-08-06] MEDS: LORazepam 2 MG/ML Syringe 0.5 MG IV ×2 (16:53→17:41)
[2023-08-06 16:57] VITALS: BP 155/80; PULSE 108; RESP 18; O2SAT 98
--- NOTE | 2023-08-06 18:39 | ED.RN ---
This RN let Dr. Prado know that states he cannot care for his at home.
[2023-08-06 18:45] VITALS: O2SAT 98
--- NOTE | 2023-08-06 20:00 | HP.PCM.HOS_ITS ---
HPI - General General Date of Admission: 08/06/23 Date of Service: 08/06/23 Chief Complaint: Fall with right knee wound, acute on chronic debility HPI Narrative AAKASH SAMANIEGO, is a 78 F who presented to [facility] ED on 01/2024 after a fall at home with resultant right knee wound. Saw patient at bedside in the ED. She was sitting up comfortably in bed, no acute distress. Patient recently had a right total knee arthroplasty done at outside hospital on 07/23 and was in the TCU from 07/28 to 08/03. Patient lives at home with her . She has significant dementia at baseline. Unfortunately, per her patient lost her balance and fell at home earlier today and landed on the anterior right knee, and her knee replacement incision opened up. reported no other injuries to the patient. In the ED, right knee wound was cleaned and irrigated with copious amounts of normal saline and wound was explored. Was noted that the laceration only extended into the subcutaneous tissue, and the ED physician closed the wound with suture. Wound was then dressed and covered with Jm wrap. When I saw the patient, the knee was wrapped with Jm wrap. Patient denied any right knee pain at rest or with palpation. She denied any right leg pain generally. She otherwise reported feeling fine and denied any other pain or discomfort. Patient knew she was at the hospital but could not tell me the date or time and did not remember having a fall earlier today. noted that he had concern for being able to take care of her at home, so the hospitalist was contacted for admission. Vitals in ED were unremarkable. Labs were notable for hemoglobin 10.0 (mildly decreased from baseline), sodium 133, otherwise unremarkable. Knee x-ray with findings suggestive of soft tissue laceration in suprapatellar region, no fractures noted. [facility] Medical History (Updated 08/06/23 @ 21:38 by Carina Roberts) Dementia Vision problems Skin cancer Neuropathy Breast cancer Medical History unable to obtain Home Medications ?Medication ?Instructions ?Recorded ?Last Taken ?Type alendronate 70 mg tablet 70 mg PO QWEEK 04/28/19 04/28/19 History fluticasone furoate 200 1 inh inhalation DAILY lungs 08/21/21 Unknown History mcg/actuation blister powder for inhalation (Arnuity Ellipta) ascorbic acid (vitamin C) 1,000 mg 1 g PO DAILY 02/27/23 Unknown History tablet donepezil 10 mg tablet 10 mg PO QHS memory #30 tabs 02/27/23 Unknown Rx memantine 28 mg capsule 28 mg PO QAM memory #30 ea 02/27/23 Unknown Rx sprinkle,extended release 24hr divalproex 250 mg tablet,delayed 250 mg PO DAILY migraine 07/29/23 Unknown History release ibuprofen 800 mg tablet 800 mg PO Q8H PRN PRN pain 07/29/23 Unknown History acetaminophen 500 mg tablet 1,000 mg (2 x 500 mg) PO Q6H PRN 08/04/23 Unknown Rx PRN Pain Score 1-3 #0 tabs aspirin 81 mg tablet,delayed 81 mg PO BIDCM 18 days #0 tabs 08/04/23 Unknown Rx release oxycodone 5 mg tablet 5 mg PO Q4H PRN PRN Pain Score 08/04/23 Unknown Rx 6-10 Or Pre Pt/Ot 3 days #18 tabs sennosides 8.6 mg-docusate sodium 1 tab PO BID 30 days #60 tabs 08/04/23 Unknown Rx 50 mg tablet (Stool Softener-Stimulant Laxative) clindamycin HCl 150 mg capsule 300 mg (2 x 150 mg) PO 4X/DAY 6 08/05/23 Unknown Rx days #48 caps doxycycline monohydrate 100 mg 100 mg PO BID 6 days #12 caps 08/05/23 Unknown Rx capsule Allergy/AdvReac Type Severity Reaction Status Date / Time Penicillins Allergy Unknown Hives Verified 02/27/23 08:26 Family History Mother Dementia Father Lung cancer Grandfather Parkinson disease Surgical History Hx of breast implants, bilateral History of mastectomy Social History household members: spouse Smoking Status: Never smoker second hand exposure: No alcohol intake: never substance use type: does not use what type of physical activity do you participate in: none adeel/zoroastrianism: Sabianism seatbelt use: always ROS Review of Systems ROS Unobtainable: due to mental condition Vital Signs Vital Signs Vital Signs: 08/06/23 15:01 08/06/23 16:57 08/06/23 18:45 Temperature 98.5 F Temperature Source Oral Pulse Rate 105 H 108 H Respiratory Rate 18 18 Blood Pressure 122/70 H 155/80 H Blood Pressure Mean 87 105 Pulse Ox 95 98 98 Oxygen Delivery Method Room Air Room Air Room Air Weight Weight: 87.1 kg Body Mass Index (BMI) 30.9 Physical Exam Const alert and no apparent distress Constitutional Narrative: Pleasant elderly female, obese, alert and oriented x [address] but not time, sitting up comfortably in bed, conversing normally, in no acute distress. General Appearance: cooperative and comfortable HEENT normocephalic, head/scalp atraumatic, hearing grossly normal bilaterally, nasal mucous membranes and turbinates normal and moist oral mucous membranes Eyes PERRL, EOMs intact bilaterally and conjunctivae normal Neck full ROM Chest inspection of chest normal Resp normal respiratory effort, normal air movement, no use of accessory muscles and clear to auscultation bilaterally Cardio regular rate, regular rhythm, no murmurs and peripheral pulses 2+ throughout GI normal to inspection, nondistended, normoactive bowel sounds, soft to palpation, non-tender and non-distended Back/Spine normal ROM Extremity Extremity Narrative: Right knee with Jm wrap in place over wound. Neuro moves all extremities and no focal motor deficits Speech: speech normal Results Imaging Radiology Impression Knee X-Ray 08/06/23 15:50 IMPRESSION: Status post total knee replacement. Findings suggestive of soft tissue laceration in the suprapatellar region. Electronically Signed: Jesus Souza MD at 16:01 EDT , Assessment & Plan Assessment/Plan (1) Fall: (2) Laceration of right knee: (3) Debility: PLAN: Plan Patient is a 78-year-old female who presented to [facility] ED on 08/06/2023 after a fall at home with right knee wound. 1. Mechanical fall with right knee wound, recent right TKA with acute on chronic debility ? Admit under observation status to [facility]. PT/OT/case management consulted. Dressing changes of right knee per nursing staff, can consider wound care consult as needed. Pain management with Tylenol as needed, ibuprofen as needed and oxycodone as needed. 2. Alzheimer's dementia with intermittent irritability ? Stable. Continue home Depakote, memantine and donepezil. Chronic medical conditions: ? Obesity: BMI 30 on admit. Complicates hospital course, care and prognosis. ? Asthma/COPD: Stable on room air, not in acute exacerbation. Continue home inhalers. ? Osteoporosis: Continue alendronate weekly on discharge. DVT prophylaxis: Aspirin 81 mg twice daily CODE STATUS: Full code, unverified Expected disposition: Likely SNF, TBD Total clinical time spent by myself addressing the patient's medical issues, reviewing all the data, and collaborating with patient's care team: 55 minutes. Charges/Coding Visit Charges Inpatient E&M: 74575 Init Hosp L2
[2023-08-06] MEDS: LORazepam 2 MG/ML Syringe 1 MG IV (20:06)
[2023-08-06 20:15] VITALS: BP 121/75; PULSE 91; RESP 18; TEMP 37.1; O2SAT 95
[2023-08-06 20:17] VITALS: BP 121/75; PULSE 91; RESP 18; TEMP 37.1; O2SAT 95
[2023-08-06 21:38] VITALS: BMI 30.1
[2023-08-06 21:53] VITALS: BP 144/70; PULSE 83; RESP 16; TEMP 36.8; O2SAT 98
[2023-08-07] MEDS: Acetaminophen 500 MG Tablet 1000 MG PO ×2 (00:26→09:01)
[2023-08-07] MEDS: MELATONIN 3 MG TABLET PO ×2 (00:26→20:51)
[2023-08-07] MEDS: oxyCODONE 5 MG Tablet PO ×4 (00:26→20:51)
[2023-08-07] MEDS: Donepezil HCl 10 MG Tablet PO ×2 (00:27→20:51)
[2023-08-07] MEDS: Memantine Hydrochloride 10 MG Tablet PO ×3 (00:27→20:51)
[2023-08-07 05:30] VITALS: PULSE 106; RESP 15; O2SAT 99
[2023-08-07 07:24] LABS: Hematocrit 38.1 % (37-47); Hemoglobin 12.1 g/dL (12.0-15.0); Mean Corp Hgb Conc 31.8 g/dL (32-36); Mean Corpuscular Hgb 29.6 pg (27.0-32.0); Mean Corpuscular Volume 93.2 fL (81-99); Mean Platelet Vol. 9.2 fl (6.2-12.0); Platelet Count 274 K/mm3 (150-450); RBC Distribution Width CV 14.1 % (11.6-14.6); RBC Distribution Width SD 47.3 fl (35.1-43.9); Red Blood Count 4.09 M/mm3 (4.2-5.4); White Blood Count 7.9 K/mm3 (4.4-11.0)
[2023-08-07 08:07] VITALS: O2SAT 98
[2023-08-07 08:50] VITALS: BP 154/88; PULSE 106; RESP 18; TEMP 36.4; O2SAT 97
[2023-08-07] MEDS: Senna/Docusate Sodium 1 Tablet PO ×2 (08:55→20:51)
[2023-08-07] MEDS: Aspirin E.C. 81 MG Tablet PO ×2 (08:55→18:35)
[2023-08-07] MEDS: Ascorbic Acid 500 MG Tablet 1000 MG PO (08:55)
[2023-08-07] MEDS: Divalproex Sodium 250 MG Tablet PO (08:56)
--- NOTE | 2023-08-07 09:12 | CASEMGMT ---
Discharge Planning A list of SNF providers including quality and resource use data and consistent with the patient's preferred geographic region, medical needs, and insurance network was created in [employer] Guide.? This list was provided to the SW. Luzmaria Thornton Discharge Planning Asst.
[2023-08-07 10:13] LABS: Anion Gap 10 (5-15); BUN 12 mg/dL (7-18); BUN/Creat Ratio 17.6 RATIO (10-20); Calcium,Total 9.1 mg/dL (8.5-10.1); Chloride 102 mmol/L (98-107); Creatinine, Serum 0.68 mg/dL (0.55-1.02); EST Glomerular Filtration Rate 89 mL/min (>60); Est Glom Filt Rate - Afr Amer 108 mL/min (>60); Estimated Creatinine Clearance 65.56 ml/min; Glucose 118 mg/dL (74-106); Potassium 3.9 mmol/L (3.5-5.1); Sodium Level 138 mmol/L (136-145)
--- NOTE | 2023-08-07 12:30 | CASEMGMT ---
Addendum entered by Consuelo Castaneda 08/07/23 14:13: Spoke with hospitalist, potentially pt may dc today if the plan is to return home with [facility]. TC to [facility], they are able to start care on Friday08/09/23. TC to , he is able to take home tonight if discharged. He will have assistance at home after 5pm. stated he is able to transport her home. Addendum entered by Consuelo Castaneda 08/07/23 12:47: DANNY BARRAGAN called , informed him [facility] able to accept back. Addendum entered by Consuelo Castaneda 08/07/23 12:42: Lauren from [facility] called and stated able to accept pt back given they have home health aides se up. Stated if DC over the weekend, will start plan of care on Friday08/11/23. Original Note: SW updated, pt wants pt to return home with [facility]. States they have secured 2 private duty aides during the week and dtrs able to help on the weekends. Waiting for therapy to evaluate. DANNY BARRAGAN called Lauren at [facility] to see if able to accept pt back. She will call back and notify if able to accept.
--- NOTE | 2023-08-07 12:33 | CASEMGMT ---
Social Work- SW met with pt spouse, Yassine. Yassine states that he would like to take pt home. Yassine reports that he recently completed home modifications to make everything (bathroom, sleeping, eating areas) on one floor for pt and is having to lift/reclining love seats delivered today so that pt does not have to get in and out of a bed. Yassine reports that [facility] was supposed to come for intake today, but that was cancelled. Yassine would like [facility] to be re-established. Yassine reports that he has also hired two private-duty aides who will be working full stack developer in the home. Yassine was receptive to discussion on LTC placement. Yassine reports that he is understanding that pt will likely need LTC placement due to disease progression and current decline/trajectory and will begin speaking with his mat roller and family to have additional plans in place. OLI notified RNCM of pt spouse wishes to be reconnected with [facility] and take pt home. BHAVANA Freeman
--- NOTE | 2023-08-07 14:40 | CASEMGMT ---
Spoke with patients to complete STODDARD form. STODDARD form explained to who voiced understanding and verbally acknowledged. Original form placed in pt?s chart and copy placed in patients room. Luzmaria Thornton, Discharge Planning Asst
[2023-08-07 15:00] VITALS: BP 179/90; PULSE 114; RESP 18; TEMP 36.2; O2SAT 99
[2023-08-07] MEDS: Ibuprofen 400 MG Tablet 800 MG PO (15:09)
--- NOTE | 2023-08-07 15:09 | CASEMGMT ---
Spoke with Ariana at [facility], she is aware pt will not dc today per hospitalist as general surgery is consulted for open area on knee. Pt called in to speak with pt nurse, he is also aware pt will not dc today. Updated pt nurse that pt called in and requested a call for an update.
--- NOTE | 2023-08-07 16:04 | PCM.PN.HOSP ---
Reason for Visit Reason for Visit: Diagnoses Other malaise (08/06/23) Laceration without foreign body, right knee, initial encounter (08/06/23) Unspecified fall, initial encounter (08/06/23) Subjective Subjective Patient was seen and examined today, the patient's surgical incision area over her right knee has opened a bit, there is no active bleeding noted at this time. Patient's family has decided to take her home with additional hired home care personnel. If patient remains medically stable tomorrow I will discharge her. Home health will be able to see her tomorrow. I talked to the patient's by phone today, I advised him to try to make an appointment for her to be seen tomorrow at her orthopod's office to examine her right knee wound. Objective Data Objective Data Vital Signs: Vital Signs Temp Pulse Resp BP Pulse Ox O2 Del Method 97.6 F L 106 H 18 154/88 H 97 Room Air 08/07/23 08:50 08/07/23 08:50 08/07/23 08:50 08/07/23 08:50 08/07/23 08:50 08/07/23 08:50 Oxygen Delivery Method Room Air Weight: 84.6 kg Body Mass Index (BMI) 30.1 Intake & Output: Intake and Output for Last 24 Hours 08/05/23 08/06/23 08/07/23 23:59 23:59 23:59 Intake Total 0 / 0 Balance 0 / 0 Lab / Micro Data 08/07/23 06:04 08/07/23 06:04 Labs: Laboratory Results - last 24 hr 08/07/23 06:04: WBC 7.9, RBC 4.09 L, Hgb 12.1, Hct 38.1, MCV 93.2, MCH 29.6, MCHC 31.8 L, RDW Std Deviation 47.3 H, RDW Coeff of [place] 14.1, Plt Count 274, MPV 9.2, Sodium 138, Potassium 3.9, Chloride 102, Carbon Dioxide 26.0, Anion Gap 10, BUN 12, Creatinine 0.68, Estim Creat Clear Calc 65.56, Est GFR (MDRD) Af Amer 108, Est GFR (MDRD) Non-Af 89, BUN/Creatinine Ratio 17.6, Glucose 118 H, Calcium 9.1 Physical Exam Const alert and no apparent distress General Appearance: cooperative, well kempt and well developed Orientation / Consciousness: awake and confused HEENT normocephalic, head/scalp atraumatic and moist oral mucous membranes Eyes PERRL, EOMs intact bilaterally and conjunctivae normal Neck supple, no JVD, thyroid normal and no carotid bruits General: trachea midline Resp normal respiratory effort, no retractions, no use of accessory muscles and clear to auscultation bilaterally Auscultation: Negative for rales, rhonchi or wheezes Cardio regular rate, regular rhythm, no murmurs, no rub and no gallops GI normal to inspection, nondistended, normoactive bowel sounds, soft to palpation, non-tender and non-distended Extremity Extremity Narrative: There is a wound over his surgical incision spanning the right pretibial area vertically, there are interrupted mattress sutures in place, part of this incision is gapped open and there is some slight bleeding which is not significant. Neuro CN's II-XII intact bilaterally, no focal motor deficits and no sensory deficits noted Neuro Narrative: Patient is alert but confused Sensorium / Orientation: awake and alert Psych Psych Narrative: Patient is alert but confused Assessment & Plan Assessment/Plan (1) Laceration of right knee: PLAN: Plan 1. Acute debility secondary to recent right knee surgery and Alzheimer's dementia-patient is being seen by PT and OT, again family plans to take the patient home with additional home care provided by them, home health will also see patient #2 laceration of the right knee at the side of the surgical incision from her recent total knee replacement over the top of the right knee-again this will need to be looked at by the patient's orthopedic surgeon, I have asked the to make an appointment if possible to be seen tomorrow in his office for him to examine the area. #3 Alzheimer's dementia-complicates care, management, recovery, and prognosis, patient will remain on her home medications which include memantine and donepezil #4 chronic obstructive pulmonary disease-patient is on budesonide aerosol treatments Total clinical time spent by myself addressing the patient's medical issues, reviewing all of her data, and collaborating with patient's care team: 35 minutes Charges/Coding Visit Charges Inpatient E&M: 15764 Subs Hosp L2
--- NOTE | 2023-08-07 17:39 | NURSING ---
received phone call from Ally CHURCH for Dr. Chaidez at [facility]. phone number taken, text sent to Dr. Adams requesting he call her regarding incision/ knee wound.
--- NOTE | 2023-08-07 18:42 | CON.PCM.OR_ITS ---
HPI Consult Data Date of Consult: 08/07/23 PCP / Referring MD: Malik Louis MD HPI Narrative Reason for Consultation: Right knee wound dehiscence HPI Narrative: AAKASH SAMANIEGO, is a 78 F with severe progressive dementia who presents today status post fall yesterday. Patient presented to the emergency department last evening where the emergency room physician attempted to explore and closed the wound. Initially was reported that the wound was primarily superficial however, throughout the day patient has had progressive serous drainage from the wound. Patient is significantly demented and unable to answer many my questions. I did contact her over the phone who could not be at bedside today noted that she fell and she was bit hard to watch at home due to her dementia she has difficult time following commands. She had surgery on July 23 which was relatively uneventful. She did need medial augments based on medial erosion of the tibia. She was then transferred to the transitional care unit here in [place] and eventually discharged home on the . However, she lost her balance yesterday and felt as when the wound dehisced. [facility] Medical History Dementia Vision problems Skin cancer Neuropathy Breast cancer Medical History unable to obtain Home Medications ?Medication ?Instructions ?Recorded ?Last Taken ?Type alendronate 70 mg tablet 70 mg PO QWEEK 04/28/19 04/28/19 History fluticasone furoate 200 1 inh inhalation DAILY lungs 08/21/21 Unknown History mcg/actuation blister powder for inhalation (Arnuity Ellipta) ascorbic acid (vitamin C) 1,000 mg 1 g PO DAILY 02/27/23 Unknown History tablet donepezil 10 mg tablet 10 mg PO QHS memory #30 tabs 02/27/23 Unknown Rx memantine 28 mg capsule 28 mg PO QAM memory #30 ea 02/27/23 Unknown Rx sprinkle,extended release 24hr divalproex 250 mg tablet,delayed 250 mg PO DAILY migraine 07/29/23 Unknown History release ibuprofen 800 mg tablet 800 mg PO Q8H PRN PRN pain 07/29/23 Unknown History acetaminophen 500 mg tablet 1,000 mg (2 x 500 mg) PO Q6H PRN 08/04/23 Unknown Rx PRN Pain Score 1-3 #0 tabs aspirin 81 mg tablet,delayed 81 mg PO BIDCM 18 days #0 tabs 08/04/23 Unknown Rx release oxycodone 5 mg tablet 5 mg PO Q4H PRN PRN Pain Score 08/04/23 Unknown Rx 6-10 Or Pre Pt/Ot 3 days #18 tabs sennosides 8.6 mg-docusate sodium 1 tab PO BID 30 days #60 tabs 08/04/23 Unknown Rx 50 mg tablet (Stool Softener-Stimulant Laxative) clindamycin HCl 150 mg capsule 300 mg (2 x 150 mg) PO 4X/DAY 6 08/05/23 Unknown Rx days #48 caps doxycycline monohydrate 100 mg 100 mg PO BID 6 days #12 caps 08/05/23 Unknown Rx capsule Allergy/AdvReac Type Severity Reaction Status Date / Time Penicillins Allergy Unknown Hives Verified 02/27/23 08:26 Family History Mother Dementia Father Lung cancer Grandfather Parkinson disease Surgical History Hx of breast implants, bilateral History of mastectomy Social History household members: spouse Smoking Status: Never smoker second hand exposure: No alcohol intake: never substance use type: does not use what type of physical activity do you participate in: none adeel/hindu: Protestant seatbelt use: always ROS Review of Systems ROS Unobtainable: due to mental status Vital Signs Vital Signs Vital Signs: 08/06/23 18:45 08/06/23 20:15 08/06/23 20:17 Temperature 98.8 F 98.8 F Temperature Source Axillary Pulse Rate 91 91 Pulse Strength Respiratory Rate 18 18 Respiratory Effort Respiratory Depth Respiratory Pattern Blood Pressure 121/75 H 121/75 H Blood Pressure Mean 90 90 Blood Pressure Source Blood Pressure Position Blood Pressure Location Pulse Ox 98 95 95 Oxygen Delivery Method Room Air Room Air 08/06/23 21:37 08/06/23 21:53 08/07/23 03:37 Temperature 98.2 F Temperature Source Oral Pulse Rate 83 Pulse Strength Respiratory Rate 16 Respiratory Effort Non-Labored Normal Non-Labored Respiratory Depth Normal Normal Respiratory Pattern Normal Normal Blood Pressure 144/70 H Blood Pressure Mean 94 Blood Pressure Source Monitor Blood Pressure Position Semi-Fowlers Blood Pressure Location Right Arm Pulse Ox 98 Oxygen Delivery Method Room Air Room Air Room Air 08/07/23 05:30 08/07/23 08:07 08/07/23 08:50 Temperature Temperature Source Pulse Rate 106 H Pulse Strength Respiratory Rate 15 Respiratory Effort Normal Non-Labored Respiratory Depth Normal Respiratory Pattern Normal Blood Pressure Blood Pressure Mean Blood Pressure Source Blood Pressure Position Blood Pressure Location Pulse Ox 99 98 Oxygen Delivery Method Room Air Room Air Room Air 08/07/23 08:50 08/07/23 09:16 08/07/23 15:00 Temperature 97.6 F L 97.2 F L Temperature Source Temporal Temporal Pulse Rate 106 H 114 H Pulse Strength Normal (2+) Respiratory Rate 18 18 Respiratory Effort Respiratory Depth Respiratory Pattern Blood Pressure 154/88 H 179/90 H Blood Pressure Mean 110 119 Blood Pressure Source Monitor Monitor Blood Pressure Position Semi-Fowlers Semi-Fowlers Blood Pressure Location Left Arm Left Arm Pulse Ox 97 99 Oxygen Delivery Method Room Air Room Air Weight Weight: 186 lb 8.177 oz Body Mass Index (BMI) 30.1 Physical Exam Const alert Constitutional Narrative: Demented HEENT normocephalic and head/scalp atraumatic Eyes PERRL Neck no JVD Resp normal respiratory effort Cardio Cardio Narrative: Regular pulse rate GI non-distended Extremity Extremity Narrative: Right lower extremity: Patient has previous anterior knee incision the but there is visible underlying soft tissue. central two thirds of the incision have significant gapping. There is an attempted closure, There is significant serosanguineous drainage. Neuro moves all extremities Psych Memory / Cognition: cognition impaired Medical Records Data Attestation: I reviewed the patient's medical records Lab / Micro Data Attestation: I reviewed the patient's lab results. 08/07/23 06:04 08/07/23 06:04 Labs: Laboratory Results - last 24 hr 08/07/23 06:04: WBC 7.9, RBC 4.09 L, Hgb 12.1, Hct 38.1, MCV 93.2, MCH 29.6, M CHC 31.8 L, RDW Std Deviation 47.3 H, RDW Coeff of [place] 14.1, Plt Count 274, MPV 9.2, Sodium 138, Potassium 3.9, Chloride 102, Carbon Dioxide 26.0, Anion Gap 10, BUN 12, Creatinine 0.68, Estim Creat Clear Calc 65.56, Est GFR (MDRD) Af Amer 108, Est GFR (MDRD) Non-Af 89, BUN/Creatinine Ratio 17.6, Glucose 118 H, Calcium 9.1 Imaging Knee x-rays from the emergency department reviewed showing stable well aligned total knee replacement with stemmed tibial implant with medial augment. Assessment & Plan Assessment/Plan (1) Laceration of right knee: (2) Status post total knee replacement, right: PLAN: Patient is 14 days status post patient had a fall and has significant wound dehiscence of the anterior incision. There is still skin gapping and significant serous fluid. At this point and significant concerned about the integrity of the arthrotomy. I was able to discuss with the patient's that the most prudent decision at this time will be to return to the operating room and explore the wound irrigated out the joint repair of the arthrotomy and doing more primary closure of the skin. At this time there is significant gapping of the skin and require significant secondary healing. Additionally this will make physical therapy difficult. My primary concern however is that the patient has ruptured her arthrotomy. Unfortunately I am unable to do full examination due to the patient's inability to cooperate. This will also allow us to assess the integrity of the extensor mechanism intraoperatively. Risk and benefits of the procedure were discussed with the patient's including but not limited to blood loss, DVTs, PEs, nervous damage complex, risk of anesthesia include loss of life. Family understands nonoperative treatment also includes with a significant risk of infection due to open wound and drainage. Finally, I did express some concerns for the wound may necessitate slow return to range of motion and chronic decreased overall range of motion depending on ability to fully close the wound intraoperatively. Patient has been demonstrated understanding. I have been in contact with the patient's original surgeon who is out of town at this time and also does not have present privileges at this facility. All parties are in agreement to proceed with surgery tomorrow. Will make her n.p.o. after midnight in order antibiotics on- call the operating room. [facility] Office:
[2023-08-07 21:00] VITALS: BP 125/82; PULSE 107; RESP 15; TEMP 37.2; O2SAT 97
[2023-08-08] VITALS (16 sets, daily range): BP systolic 85–170; BP diastolic 46–93; PULSE 76–110; RESP 14–20; TEMP 35.9–37.2; O2SAT 92–98; BMI 30.1
[2023-08-08] MEDS: oxyCODONE 5 MG Tablet PO (03:50)
[2023-08-08 04:30] LABS: Absolute Lymphocyte Count 1.25 X10^3/uL (0.83-4.51); Basophil# 0.04 X10^3/uL; Basophil% 0.5 % (0-1); Eosinophil# 0.12 X10^3/uL; Eosinophils% 1.6 % (0-5); Hematocrit 30.2 % (37-47); Hemoglobin 9.8 g/dL (12.0-15.0); Lymphocyte # 1.25 X10^3/ul (0.83-4.51); Lymphocyte % 16.8 % (19-41); Mean Corp Hgb Conc 32.5 g/dL (32-36); Mean Corpuscular Hgb 29.4 pg (27.0-32.0); Mean Corpuscular Volume 90.7 fL (81-99); Mean Platelet Vol. 8.9 fl (6.2-12.0); Monocyte# 1.04 X10^3/uL; Monocyte% 13.9 % (0-10); NRBC Flagged by Analyzer 0 % (0-5); Neutrophil # 4.95 X10^3/uL (2.7-7.7); Neutrophil % 66.4 % (47-70); Platelet Count 242 K/mm3 (150-450); RBC Distribution Width CV 13.7 % (11.6-14.6); RBC Distribution Width SD 45.7 fl (35.1-43.9); Red Blood Count 3.33 M/mm3 (4.2-5.4); White Blood Count 7.5 K/mm3 (4.4-11.0)
--- NOTE | 2023-08-08 06:00 | EKG12_ITS ---
Test Reason : PRE OP Blood Pressure : / mmHG Vent. Rate : 104 BPM Atrial Rate : 104 BPM P-R Int : 132 ms QRS Dur : 080 ms QT Int : 358 ms P-R-T Axes : 028 010 022 degrees QTc Int : 470 ms Sinus tachycardia Otherwise normal ECG Confirmed by MICHOACANO RAIN, KENIA ([id number]), city editor MARIANNA NICHOLS ([id number]) on 08/11/2023 2:06:37 PM Referred By: NASIM Confirmed By:KENIA RÍOS MD
--- NOTE | 2023-08-08 10:52 | PCM.PN.HOSP ---
Reason for Visit Reason for Visit: Diagnoses Other malaise (08/07/23) Laceration without foreign body, right knee, initial encounter (08/07/23) Unspecified fall, initial encounter (08/07/23) Presence of right artificial knee joint (08/07/23) Subjective Subjective Patient was seen and examined today, orthopedic surgery saw the patient yesterday and will perform a washout on her knee today. It may be possible to discharge her over the weekend if she remains stable and it is okay from the orthopedic standpoint. Objective Data Objective Data Vital Signs: Vital Signs Temp Pulse Resp BP Pulse Ox O2 Del Method 98.7 F 102 H 16 167/80 H 95 Room Air 08/08/23 07:50 08/08/23 07:50 08/08/23 07:50 08/08/23 07:50 08/08/23 07:50 08/08/23 07:50 Oxygen Delivery Method Room Air Weight: 84.6 kg Body Mass Index (BMI) 30.1 Intake & Output: Intake and Output for Last 24 Hours 08/06/23 08/07/23 08/08/23 23:59 23:59 23:59 Intake Total 0 / 0 300 / 300 Balance 0 / 0 300 / 300 Lab / Micro Data 08/08/23 03:42 08/07/23 06:04 Labs: Laboratory Results - last 24 hr 08/08/23 03:42: WBC 7.5, RBC 3.33 L, Hgb 9.8 L, Hct 30.2 L, MCV 90.7, MCH 29.4, MCHC 32.5, RDW Std Deviation 45.7 H, RDW Coeff of Trinidad 13.7, Plt Count 242, MPV 8.9, Immature Gran % (Auto) 0.800, Neut % (Auto) 66.4, Lymph % (Auto) 16.8 L, Yancey % (Auto) 13.9 H, Eos % (Auto) 1.6, Baso % (Auto) 0.5, Absolute Neuts (auto) 5.0, Absolute Lymphs (auto) 1.25, Nucleated RBC % 0 Physical Exam Narrative alert and no apparent distress General Appearance: cooperative, well kempt and well developed Orientation / Consciousness: awake and confused HEENT normocephalic, head/scalp atraumatic and moist oral mucous membranes Eyes PERRL, EOMs intact bilaterally and conjunctivae normal Neck supple, no JVD, thyroid normal and no carotid bruits General: trachea midline Resp normal respiratory effort, no retractions, no use of accessory muscles and clear to auscultation bilaterally Auscultation: Negative for rales, rhonchi or wheezes Cardio regular rate, regular rhythm, no murmurs, no rub and no gallops GI normal to inspection, nondistended, normoactive bowel sounds, soft to palpation, non-tender and non-distended Extremity Extremity Narrative: There is a wound over his surgical incision spanning the right pretibial area vertically, there are interrupted mattress sutures in place, part of this incision is gapped open and there is some slight bleeding which is not significant. Neuro CN's II-XII intact bilaterally, no focal motor deficits and no sensory deficits noted Neuro Narrative: Patient is alert but confused Sensorium / Orientation: awake and alert Psych Psych Narrative: Patient is alert but confused Assessment & Plan Assessment/Plan (1) Laceration of right knee: PLAN: Plan 1. Acute debility secondary to recent right knee surgery and Alzheimer's dementia-patient is being seen by PT and OT, again family plans to take the patient home with additional home care provided by them, home health will also see patient #2 Wound dehiscence right knee incision from recent right knee replacement-orthopedic surgery is taking the patient for a washout of her wound today, they indicated yesterday they would place her on antibiotics after the procedure. #3 Alzheimer's dementia-complicates care, management, recovery, and prognosis, patient will remain on her home medications which include memantine and donepezil #4 chronic obstructive pulmonary disease-patient is on budesonide aerosol treatments Total clinical time spent by myself addressing the patient's medical issues, reviewing all of her data, and collaborating with patient's care team: 35 minutes Charges/Coding Visit Charges Inpatient E&M: 74307 Subs Hosp L2
--- NOTE | 2023-08-08 11:04 | CASEMGMT ---
Addendum entered by Consuelo Castaneda 08/08/23 11:13: DANNY BARRAGAN notified SW of pt request for SNF list. Original Note: Spoke with pt and daughter to discuss DC planning. Provided family with education about options regarding RU, SNF for therapy, and HHC. DANNY BARRAGAN asked family about private duty aides, daughter states they do not have this secured yet and she was planning to look into this today. Family requested a list of SNF facilities as well as private duty options. Family preference at this time is to provide CM with top 3 preferences for SNF. Called [facility] and spoke with Lauren to cancel HHC.
--- NOTE | 2023-08-08 11:41 | CASEMGMT ---
SW met with pt daughterIsha, and pt spouse to discuss need for SNF d/t surgery. A list of SNF providers including quality and resource use data and consistent with the patient?s preferred geographic region, medical needs, and insurance network were provided from the [facility] Guide. SW also provided list of private duty agencies. BHAVANA Freeman
--- NOTE | 2023-08-08 13:09 | CASEMGMT ---
Addendum entered by Luzmaria Thornton 08/11/23 09:01: [facility] declined d/t no female bed availability. SW updated. Luzmaria Thornton DC Planning Asst. Addendum entered by Luzmaria Thornton 08/08/23 14:35: [facility] accepted but will not have a bed until mid-next week. Referral sent to [facility] via [facility]. Luzmaria Thornton DC Planning Asst. Addendum entered by Luzmaria Thornton 08/08/23 13:31: [facility] declined referral. Luzmaria Thornton DC Planning Asst. Original Note: Discharge Planning Referral sent via [facility] to [facility]. Luzmaria Thornton DC Planning Asst.
--- NOTE | 2023-08-08 13:12 | PRE.ANES_ITS ---
ASA Classification* ASA Classification ASA Classification: 2 Assessment & Plan Anesthesia* Anesthesia Assessment Anesthesia Assessment: Discussed sedation and/or anesthesia options, risks, benefits, and alternatives with patient/parents/legal guardian/POA. Questions invited. The patient/parents/legal guardian/POA seems to understand and agrees to proceed with anesthesia plan. Reviewed the physical assessment, medical history, allergy history and patient home medications list prior to surgery/procedure/anesthetic and documented any changes. Performed airway and anesthesia risk assessments. Anesthesia Type Anesthesia Type: Spinal (verses General per surgeon req) Pre-Assessment Diagnosis/Proposed Procedure Planned Operative Procedure(s): right knee i/d poly exchange Anesthesia History Anesthesia History - supervisor nutritional yeast: Anesthesia History - supervisor nutritional yeast Hx Hospitalization No 04/03/20 08:29 Any Problems With Anesthesia No 08/08/23 10:58 Cholinesterase deficiency No 08/08/23 10:58 You/Your Family Experience No 08/08/23 10:58 fever (hyperthermia) with Relationship Recent Exposure to Contagious No 08/08/23 10:58 Disease Does patient have nerve No 08/08/23 10:58 stimulator Patient instructed to have device shut off --Does patient have Pacemaker No 08/08/23 11:19 or ICD? When Was Last Pacemaker Check QUESTION #4 FULL TEXT: You/Your Family Experience fever (hyperthermia) with Anesthesia Last Oral Intake Last Oral intake: Last Oral Intake NPO since 00:00 08/08/23 11:19 Meds taken in AM with sips of No 08/08/23 11:19 water? Meds patient instructed to take am of surgery PONV PONV - supervisor nutritional yeast: PONV - supervisor nutritional yeast Female HX of Motion Sickness HX of N/V After Surgery Non-Smoker Duration of Surgery greater than 60 minutes Number of Risk Factors PONV Score Height & Weight Height & Weight: Anesthesia: Height & Weight Height 5 ft 6 in 08/08/23 11:19 Weight: 84.6 kg 08/08/23 11:19 Body Mass Index (BMI) 30.1 08/08/23 11:19 Respiratory Assessment Respiratory Assessment - supervisor nutritional yeast: Respiratory Tract Infection Hx - supervisor nutritional yeast Hx Respiratory Tract Infection No 08/08/23 10:58 STOP Sleep Apnea STOP Sleep Apnea - supervisor nutritional yeast: STOP Sleep Apnea - supervisor nutritional yeast Hx Hypertension No 08/08/23 10:36 Hx Sleep Apnea Yes 08/06/23 21:38 CPAP No 08/06/23 21:38 BIPAP No 08/06/23 21:38 Do you snore loudly (louder than talking or can be heard Do you often feel tired/ fatigued/ sleepy during daytime? Has anyone observed you stop breathing during sleep? STOP Results Positive 08/06/23 21:38 QUESTION #5 FULL TEXT : Do you snore loudly (louder than talking or can be heard through closed doors)? Tobacco Use History Tobacco Use History - supervisor nutritional yeast: Tobacco Use History - supervisor nutritional yeast Tobacco Use Smoking Status Never smoker 08/06/23 21:38 Hx Tobacco Use No 08/06/23 21:38 Years Smoking Packs Smoked per Day Smoking Cessation Date was within the last 15 years Hx Smoking Cessation Date Hx Smoking Cessation Counseling Hematologic Medial History Hematologic Hx - supervisor nutritional yeast: Hematologic Medical Hx - pharmacy manager Hx of Blood Transfusion Hx of Transfusion in last 3 Months Date of Last Transfusion (if within last 3 months) Ever experience any problems with transfusion(s)? Specify any problems Hx of Preganancy in last 3 Months Nurse Filling Out Transfusion & Questions: Date: Time: Patient unable to answer at Yes 08/06/23 21:38 this time (ie. confused, unrespo /Reproduction History /Reproductive History - supervisor nutritional yeast: /Reproductive Hx- supervisor nutritional yeast Hx Now No 08/08/23 10:58 Gestational Age (in weeks): EDC: Hx Hx Para Hx Section SAB No 08/08/23 10:58 Active Medications Active Medications: Current Medications Generic Name Dose Route Start Last Admin Trade Name Freq PRN Reason Stop Dose Admin Acetaminophen 1,000 mg 08/06/23 21:37 08/07/23 09:01 Acetaminophen 500 Mg Tablet PO 1,000 mg Q6H PRN PRN Administration Pain Score 1-3 Ascorbic Acid 1,000 mg 08/07/23 10:00 08/07/23 08:55 Ascorbic Acid 500 Mg Tablet PO 1,000 mg DAILY JEWEL Administration Aspirin 81 mg 08/07/23 08:00 08/07/23 18:35 Aspirin E.C. 81 Mg Tablet PO 81 mg BIDCM JEWEL Administration Budesonide 0.5 mg 08/06/23 21:45 Budesonide Respules 0.5 Mg/2 Ml Ampul.Neb. INHALATION Q12H.RT JEWEL Divalproex Sodium 250 mg 08/07/23 10:00 08/07/23 08:56 Divalproex Sodium 250 Mg Tablet PO 250 mg DAILY JEWEL Administration Donepezil HCl 10 mg 08/06/23 22:00 08/07/23 20:51 Donepezil Hcl 10 Mg Tablet PO 10 mg QHS JEWEL Administration Sodium Chloride 250 mls @ 15 mls/hr 08/06/23 21:41 IV .[id number] PRN Saline Flush Ibuprofen 800 mg 08/06/23 21:41 08/07/23 15:09 Ibuprofen 400 Mg Tablet PO 800 mg Q8H PRN PRN Administration Pain Score 1-10 Melatonin 3 mg 08/06/23 21:37 08/07/23 20:51 Melatonin 3 Mg Tablet PO 3 mg QHS PRN PRN Administration INSOMNIA Memantine 10 mg 08/06/23 22:00 08/07/23 20:51 Memantine Hydrochloride 10 Mg Tablet PO 10 mg BID JEWEL Administration Nutritional Formula (Lactose Free) 120 ml 08/06/23 22:00 08/07/23 22:00 Ensure Plus High Protein 120 Ml Liquid PO Not Given 4X/DAY JEWEL Ondansetron HCl 4 mg 08/06/23 21:37 Ondansetron 4 Mg/2 Ml Vial IV Q8H PRN PRN NAUSEA/VOMITING Oxycodone HCl 5 mg 08/06/23 21:37 08/08/23 03:50 Oxycodone 5 Mg Tablet PO 5 mg Q4H PRN PRN Administration Pain Score 4-10 or Pre PT/OT Senna/Docusate Sodium 1 tablet 08/06/23 22:00 08/07/23 20:51 Senna/Docusate Sodium 1 Tablet PO 1 tablet BID JEWEL Administration Sodium Chloride 10 - 40 ml 08/06/23 21:41 0.9% Saline Lock 10 Ml Syringe IV UD PRN SALINE FLUSH Anesthesia Focused Assessment* Temperature: 98.9 F Pulse Rate: 104 Blood Pressure: 136/83 Respiratory Rate: 16 Pulse Ox: 97 Airway Assessment Mouth opens: >3 cm Mallampati Score: II Focused Labs Anesthesia Preop lab: CBC WBC 7.5 K/mm3 (4.4-11.0) 08/08/23 03:42 RBC 3.33 M/mm3 (4.2-5.4) L 08/08/23 03:42 Hgb 9.8 g/dL (12.0-15.0) L 08/08/23 03:42 Hct 30.2 % (37-47) L 08/08/23 03:42 Plt Count 242 K/mm3 (150-450) 08/08/23 03:42 CHEMISTRY Potassium 3.9 mmol/L (3.5-5.1) 08/07/23 06:04 Sodium 138 mmol/L (136-145) 08/07/23 06:04 Magnesium 2.3 mg/dL (1.6-2.6) 09/27/19 08:52 BUN 12 mg/dL (7-18) 08/07/23 06:04 Creatinine 0.68 mg/dL (0.55-1.02) 08/07/23 06:04 Glucose 118 mg/dL (74-106) H 08/07/23 06:04 TSH 1.10 uIU/mL (0.358-3.74) 07/10/21 10:48 COAG Review of Systems (Anesthesia) ROS Narrative System reviewed and no additional complaints, except as documented. [facility] Medical History Dementia Vision problems Skin cancer Neuropathy Breast cancer Medical History unable to obtain Home Medications ?Medication ?Instructions ?Recorded ?Last Taken ?Type alendronate 70 mg tablet 70 mg PO QWEEK 04/28/19 04/28/19 History fluticasone furoate 200 1 inh inhalation DAILY lungs 08/21/21 Unknown History mcg/actuation blister powder for inhalation (Arnuity Ellipta) ascorbic acid (vitamin C) 1,000 mg 1 g PO DAILY 02/27/23 Unknown History tablet donepezil 10 mg tablet 10 mg PO QHS memory #30 tabs 02/27/23 Unknown Rx memantine 28 mg capsule 28 mg PO QAM memory #30 ea 02/27/23 Unknown Rx sprinkle,extended release 24hr divalproex 250 mg tablet,delayed 250 mg PO DAILY migraine 07/29/23 Unknown History release ibuprofen 800 mg tablet 800 mg PO Q8H PRN PRN pain 07/29/23 Unknown History acetaminophen 500 mg tablet 1,000 mg (2 x 500 mg) PO Q6H PRN 08/04/23 Unknown Rx PRN Pain Score 1-3 #0 tabs aspirin 81 mg tablet,delayed 81 mg PO BIDCM 18 days #0 tabs 08/04/23 Unknown Rx release oxycodone 5 mg tablet 5 mg PO Q4H PRN PRN Pain Score 08/04/23 Unknown Rx 6-10 Or Pre Pt/Ot 3 days #18 tabs sennosides 8.6 mg-docusate sodium 1 tab PO BID 30 days #60 tabs 08/04/23 Unknown Rx 50 mg tablet (Stool Softener-Stimulant Laxative) clindamycin HCl 150 mg capsule 300 mg (2 x 150 mg) PO 4X/DAY 6 08/05/23 Unknown Rx days #48 caps doxycycline monohydrate 100 mg 100 mg PO BID 6 days #12 caps 08/05/23 Unknown Rx capsule Allergy/AdvReac Type Severity Reaction Status Date / Time Penicillins Allergy Unknown Hives Verified 02/27/23 08:26 Family History Mother Dementia Father Lung cancer Grandfather Parkinson disease Surgical History Hx of breast implants, bilateral History of mastectomy Social History household members: spouse Smoking Status: Never smoker second hand exposure: No alcohol intake: never substance use type: does not use what type of physical activity do you participate in: none adeel/jewish: Worship seatbelt use: always
[2023-08-08] MEDS: Cefazolin 2 GM in 0.9% Normal Saline (100mL Bag) 100 ML IV (14:00)
--- NOTE | 2023-08-08 15:24 | PCM.OPRPT ---
Report of Operation Date of Procedure: 08/08/23 Pre-Operative Diagnosis: Right total knee replacement wound dehiscence acute postop setting Post-Operative Diagnosis: right total knee replacement superficial wound dehiscence and retinacular rupture acute postop setting Surgery/Procedure Performed:: Right knee irrigation debridement, 1 component revision/polyethylene exchange arthrotomy repair and complex wound closure 18 cm. Description of Surgical Findings:: 10 cm of the wound incision was dehisced. There was direct medication with the joint as the arthrotomy had ruptured. Surgeon: Oliver Puente director of marketing and promotions: Brooklyn Vidal Type of Anesthesia: Spinal Anesthesiologist: Conor Cifuentes Special Medications: Ancef Specimen's removed: None Estimated Blood Loss (mL): 50 Fluids Replaced: 1100 mL crystalloid Description of Procedure: 78 yo f history of r TKA in 07/24/2023 presents with acute fall and dehiscence of the incision. Reviewed options were discussed the patient. Based on acuity of the symptoms and continued drainage concern for retinacular rupture was significant and irrigation debridement, exploration of wound and polyethylene exchange is recommended. Risks and benefits of the procedure were discussed with the patient including but not limited to blood loss, DVTs, PEs, neurovascular damage, infection, general risk of anesthesia including loss of life. Demonstrated understanding and was able to sign informed consent. On the date of procedure patient's R lower extremity was marked in the preoperative area. The patient was then taken back to the operating room where the patient was placed on the table in the supine position. All bony prominences were identified a well-padded. Anesthesia assumed control of the C-spine and airway and remained controlled throughout the remainder of the procedure. A tourniquet was placed on the operative thigh and the leg was prepped in a sterile fashion. The surgeon then scrubbed at this time .Upon reentering the room left lower extremity was draped in a standard orthopedic fashion. A timeout was then called and everyone agreed upon the side, the site, the procedure to be performed, patient's identity and antibiotics given. A midline skin incision was made and sharp dissection was taken down through skin subcutaneous tissue and fat. Appropriate flaps were elevated medially and laterally. His arthrotomy was identified and there was clear disruption of the proximal 75% the standard medial parapatellar incision was made and the patella was subluxed laterally. The standard deep MCL release was done. At this point a synovectomy commenced. Our attention was first turned towards the subpatellar pouch and all suspicious synovium and tissues were debrided. We then directed our attention towards medial lateral gutters where these tissues were debrided. Knee was then flexed up the polyethylene was removed. Once polyethylene was removed we did the remainder of the synovium in the medial and lateral gutters and along the lateral structures and MCL. We then debrided the posterior knee. Knee was flexed up and synovium was debrided from the femoral notch. He had completed our synovectomy and were happy with the joint. 6 L of normal saline were then irrigated throughout the wound with low-pressure lavage and the wound was once again explored. All remaining tissue that was suspicious was seen in the wound was once again irrigated with normal saline. 14 mm polyethylene was then opened and put back into place after appropriate trialing. Tourniquet was let down and hemostasis was obtained as well as possible. Once the final components were placed the wound was lavaged with a 3-minute dilute Betadine lavage followed by chlorhexidine solution and then copiously irrigated with normal saline solution. The wound was closed in a layer shelton fashion using #1 vicryl interrupted sutures for the arthrotomy, running proximally and distally. Then we did use a barbed suture to run the subcutaneous layer as the tissues were somewhat tenuous. Finally, 2-0 interrupted Vicryl for the subcuticular layer and 2-0 nylon mattress sutures for final skin closure. A sterile wound VAC incisional dressing was then placed. The patient was then awakened from anesthesia, transferred to the [facility] and transferred to the PACU for recovery. Post op plan Weightbearing as tolerated, follow posterior knee protocol. Will place the patient on doxycycline after 24 hours of IV antibiotics. Will do doxycycline 100 mg p.o. twice daily for 2 weeks. Patient should maintain wound VAC for 7 days postop. Patient needs to follow-up in 2 weeks either with myself or her original operating surgeon. Grafts/Implants Used: Khadra X.3 polyethylene size 4, 14 mm Complications No intraoperative complications Admit VTE Documentation VTE Present on Admission: No VTE Mechan Device Prophylaxis: SCD's and Thigh High MIR Hose VTE Pharm Prophylaxis ordered?: Yes
--- NOTE | 2023-08-08 15:32 | PCM.POST.ANE ---
Anesthesia: Postop Eval I Current Vital Signs Temperature: 98.3 F Pulse Rate: 76 Blood Pressure: 100/64 Respiratory Rate: 14 Pulse Ox: 97 Oxygen Delivery Method: Room Air Assessment Airway patent: Yes Spontaneous unlabored respirations: Yes Mental status: Awake nausea: No Vomiting: No Anesthesia Complication: No Fluid Hydration Crystalloid volume administer (ml): 1,100 Total IV fluid infused: 1,100 Progress Note Anesthesia document: Postop Eval 1 completed: Yes
--- NOTE | 2023-08-08 15:45 | RAD_ITS ---
STUDY: X-RAY - RIGHT KNEE REASON FOR EXAM: Female, 78 years old. post op -- AP and Lateral xray of operative knee in PACU TECHNIQUE: 2 view(s) of the knee. COMPARISON: 08/06/2023. Findings: There is a recent total knee arthroplasty. The femoral and tibial components appear in satisfactory position. There has been patellar resurfacing. There is soft tissue air and soft tissue swelling consistent with recent surgery. The visualized femoral, tibial, and fibular shafts are unremarkable. RAD/Knee 1 or 2 Views IMPRESSION: Satisfactory appearance of recent total knee arthroplasty. Electronically Signed: Bradley Peres MD at 16:06 EDT ,
--- NOTE | 2023-08-08 16:01 | PCM.POSTANE2 ---
Anesthesia Postop Eval I Sum Postop Eval Completion status Anesthesia document: Postop Eval 1 completed: Yes Anesthesia Postop Eval I Summary Anesthesia Postop Eval I Summary: Anesthesia Postop Eval I: Assessment Summary Airway patent Yes 08/08/23 15:41 [email or web address] Spontaneous unlabored Yes 08/08/23 15:41 [email or web address] respirations Mental status Awake 08/08/23 15:41 [email or web address] nausea No 08/08/23 15:41 [email or web address] Vomiting No 08/08/23 15:41 [email or web address] Anesthesia Postop Eval I: Fluid Summary Crystalloid volume administer 1,100 08/08/23 15:41 [email or web address] (ml) Colloids volume administered ( ml) Blood Product volume administered (ml) Total IV fluid infused 1,100 08/08/23 15:41 [email or web address] Anesthesia Postop Eval I: Summary Notes Anesthesia Complication No 08/08/23 15:41 [email or web address] Anesthesia Complication Comment: Post-operative progress note Anesthesia: Postop Eval II Evaluation Mental status: Awake and Calm Pain Level: 1 nausea: No Vomiting: No Complications Anesthesia Complication: No
[2023-08-08] MEDS: Divalproex Sodium 250 MG Tablet PO (17:18)
[2023-08-08] MEDS: Ascorbic Acid 500 MG Tablet 1000 MG PO (17:19)
[2023-08-08] MEDS: Memantine Hydrochloride 10 MG Tablet PO (20:18)
[2023-08-08] MEDS: Donepezil HCl 10 MG Tablet PO (20:18)
[2023-08-08] MEDS: Aspirin 81 MG TAB.CHEW PO (20:18)
[2023-08-08] MEDS: Senna/Docusate Sodium 1 Tablet PO (20:18)
[2023-08-08] MEDS: Acetaminophen 500 MG Tablet 1000 MG PO (20:18)
[2023-08-08] MEDS: MELATONIN 3 MG TABLET PO (20:20)
[2023-08-09] VITALS (7 sets, daily range): BP systolic 117–155; BP diastolic 60–79; PULSE 96–105; RESP 15–18; TEMP 36.3–37.2; O2SAT 95–99; BMI 30.1
[2023-08-09] MEDS: oxyCODONE 5 MG Tablet PO ×3 (03:35→16:16)
--- NOTE | 2023-08-09 09:39 | PN.HOSP_ITS ---
Reason for Visit Reason for Visit: Diagnoses Other malaise (08/07/23) Laceration without foreign body, right knee, initial encounter (08/07/23) Unspecified fall, initial encounter (08/07/23) Presence of right artificial knee joint (08/07/23) Subjective Subjective Patient was seen and examined today, she underwent a washout procedure on her right knee yesterday, patient is alert today, she does not appear agitated Objective Data Objective Data Vital Signs: Vital Signs Temp Pulse Resp BP Pulse Ox O2 Del Method 98.0 F 102 H 15 155/79 H 99 Room Air 08/09/23 06:52 08/09/23 06:52 08/09/23 06:52 08/09/23 06:52 08/09/23 06:52 08/09/23 06:52 Oxygen Delivery Method Room Air Weight: 84.6 kg Body Mass Index (BMI) 30.1 Intake & Output: Intake and Output for Last 24 Hours 08/07/23 08/08/23 08/09/23 23:59 23:59 23:59 Intake Total 1410 / 1410 Output Total 1150 / 1150 Balance 1410 / 1110 -1150 / -1150 Lab / Micro Data 08/08/23 03:42 08/07/23 06:04 Radiography Diagnostic Testing: Radiology Impression Knee X-Ray 08/08/23 15:45 IMPRESSION: Satisfactory appearance of recent total knee arthroplasty. Electronically Signed: Bradley Peres MD at 16:06 EDT , Physical Exam Narrative alert and no apparent distress General Appearance: cooperative, well kempt and well developed Orientation / Consciousness: awake and confused HEENT normocephalic, head/scalp atraumatic and moist oral mucous membranes Eyes PERRL, EOMs intact bilaterally and conjunctivae normal Neck supple, no JVD, thyroid normal and no carotid bruits General: trachea midline Resp normal respiratory effort, no retractions, no use of accessory muscles and clear to auscultation bilaterally Auscultation: Negative for rales, rhonchi or wheezes Cardio regular rate, regular rhythm, no murmurs, no rub and no gallops GI normal to inspection, nondistended, normoactive bowel sounds, soft to palpation, non-tender and non-distended Extremity Extremity Narrative: There is a wound over his surgical incision spanning the right pretibial area vertically, there are interrupted mattress sutures in place, part of this incision is gapped open and there is some slight bleeding which is not significant. Neuro CN's II-XII intact bilaterally, no focal motor deficits and no sensory deficits noted Neuro Narrative: Patient is alert but confused Sensorium / Orientation: awake and alert Psych Psych Narrative: Patient is alert but confused, she is not agitated Assessment & Plan Assessment/Plan (1) Laceration of right knee: PLAN: Plan 1. Acute debility secondary to recent right knee surgery and Alzheimer's dementia-patient is being seen by PT and OT, I feel the patient most likely should go to a skilled care facility owing to the fact that she had repeat surgery on her knee yesterday, patient has a wound VAC in place #2 Wound dehiscence right knee incision from recent right knee replacement- patient went to surgery yesterday for a right knee irrigation debridement and 1 component revision/polyethylene exchange arthrotomy repair and complex wound closure, she has a wound VAC in place. #3 Alzheimer's dementia-complicates care, management, recovery, and prognosis, patient will remain on her home medications which include memantine and donepezil #4 chronic obstructive pulmonary disease-patient is on budesonide aerosol treatments Total clinical time spent by myself addressing the patient's medical issues, reviewing all of her data, and collaborating with patient's care team: 35 minutes Charges/Coding Visit Charges Inpatient E&M: 86722 Subs Hosp L2
--- NOTE | 2023-08-09 10:22 | PCM.PN.ORT ---
Subjective Subjective Patient seen and evaluated at bedside this morning. There is a sitter at bedside due to patient's mental status. She is unable to answer any questions. No events overnight per nursing. Objective Data Objective Data Vital Signs: Vital Signs Temp Pulse Resp BP Pulse Ox O2 Del Method 98.0 F 102 H 15 155/79 H 99 Room Air 08/09/23 06:52 08/09/23 06:52 08/09/23 06:52 08/09/23 06:52 08/09/23 06:52 08/09/23 09:42 Oxygen Delivery Method Room Air Weight: 186 lb 8.177 oz Body Mass Index (BMI) 30.1 Intake & Output: Intake and Output for Last 24 Hours 08/07/23 08/08/23 08/09/23 23:59 23:59 23:59 Intake Total 1410 / 1410 Output Total 1150 / 1150 Balance 1410 / 1110 -1150 / -1150 Lab / Micro Data 08/08/23 03:42 08/07/23 06:04 Radiography Diagnostic Testing: Radiology Impression Knee X-Ray 08/08/23 15:45 IMPRESSION: Satisfactory appearance of recent total knee arthroplasty. Electronically Signed: Bradley Peres MD at 16:06 EDT , Physical Exam Narrative General -alert, NAD. VSS/AF Right lower extremity -incisional wound VAC is in place with good suction seal. There is sanguinous drainage noted with scant output noted in the wound VAC container. Neuroexam is limited by mental status. Patient does wiggle her toes on command, ankle plantarflexion and dorsiflexion is intact. There is brisk capillary refill in the toes. Assessment & Plan Assessment/Plan (1) Status post total knee replacement, right: PLAN: Covering for Dr. Punete. POD# 1 s/p right TKA I&D, poly exchange with complex wound closure by Dr. Puente - Pain control-Tylenol/NSAIDs. Judicious use of narcotics due to dementia - Medicine following for medical management - PT/OT -range of motion and weightbearing as tolerated right knee - DVT PPX -Multimodal with early mobilization, aspirin 81 mg twice daily, MIR Painter - Plan to maintain Prevena wound VAC x 1 week postoperatively. - Case management - D/C planning. Working on placement. Patient is stable for discharge from my standpoint once placement is arranged. Discharge instructions: Maintain surgical Prevena wound VAC dressing to the right knee until postoperative day #7. Okay to remove and leave open to air if no drainage. If drainage is present, dry sterile dressing changes are recommended. Follow-up with Dr. Puente or Dr. Mccormack 2 weeks postoperatively. Discharge on 2 weeks doxycycline 100 mg by mouth twice daily. Aspirin 81 mg twice daily for DVT prophylaxis. I will sign off at this time. Please do not hesitate to call if any questions or concerns arise.
[2023-08-09] MEDS: Ensure Plus High Protein 120 ML LIQUID PO ×3 (10:37→20:33)
[2023-08-09] MEDS: Senna/Docusate Sodium 1 Tablet PO ×2 (10:40→20:18)
[2023-08-09] MEDS: Ascorbic Acid 500 MG Tablet 1000 MG PO (10:40)
[2023-08-09] MEDS: Memantine Hydrochloride 10 MG Tablet PO ×2 (10:41→20:17)
[2023-08-09] MEDS: Aspirin 81 MG TAB.CHEW PO ×2 (10:41→20:18)
[2023-08-09] MEDS: Doxycycline 100 MG CAPSULE PO ×2 (10:41→20:17)
[2023-08-09] MEDS: Divalproex Sodium 250 MG Tablet PO (10:42)
[2023-08-09] MEDS: Acetaminophen 500 MG Tablet 1000 MG PO ×2 (10:56→20:48)
[2023-08-09] MEDS: Ensure Surgery 237 ML LIQUID PO ×2 (10:59→16:17)
[2023-08-09] MEDS: Ibuprofen 400 MG Tablet 800 MG PO (16:16)
[2023-08-09] MEDS: Donepezil HCl 10 MG Tablet PO (20:18)
[2023-08-09] MEDS: MELATONIN 3 MG TABLET PO (20:34)
[2023-08-10 10:50] VITALS: BP 123/68; PULSE 97; RESP 17; TEMP 37; O2SAT 96
[2023-08-10] MEDS: Senna/Docusate Sodium 1 Tablet PO ×2 (11:14→20:17)
[2023-08-10] MEDS: Aspirin 81 MG TAB.CHEW PO ×2 (11:14→20:18)
[2023-08-10] MEDS: Ascorbic Acid 500 MG Tablet 1000 MG PO (11:14)
[2023-08-10] MEDS: Ensure Plus High Protein 120 ML LIQUID PO ×3 (11:15→20:21)
[2023-08-10] MEDS: Memantine Hydrochloride 10 MG Tablet PO ×2 (11:15→20:17)
[2023-08-10] MEDS: Divalproex Sodium 250 MG Tablet PO (11:15)
[2023-08-10] MEDS: Doxycycline 100 MG CAPSULE PO ×2 (11:15→20:18)
[2023-08-10] MEDS: Acetaminophen 500 MG Tablet 1000 MG PO (11:19)
[2023-08-10] MEDS: Ensure Surgery 237 ML LIQUID PO (11:20)
[2023-08-10] MEDS: oxyCODONE 5 MG Tablet PO (11:20)
--- NOTE | 2023-08-10 13:36 | NURSING ---
This RN was informed by the sitter that is in the room with the patient that pt tore off her Wound Vac. Pt was starting to pick at her wound vac when Sitter started to intervene but pt had already grabbed wound vac foam and pulled it off of incision. Pt started to try to pick at sutures but then was stopped by staff. Incision covered w a chux. This RN has a call out to Dr. Puente to inform him. Waiting reponse.
[2023-08-10] MEDS: QUEtiapine 25 MG Tablet PO ×2 (13:55→20:21)
[2023-08-10] MEDS: Ibuprofen 400 MG Tablet 800 MG PO (13:55)
--- NOTE | 2023-08-10 14:22 | PN.HOSP_ITS ---
Reason for Visit Reason for Visit: Diagnoses Other malaise (08/07/23) Laceration without foreign body, right knee, initial encounter (08/07/23) Unspecified fall, initial encounter (08/07/23) Presence of right artificial knee joint (08/07/23) Subjective Subjective Patient was seen and examined today, according to nursing she has been acting anxious today, I made decision to place her on Seroquel, she is alert and talks to this examiner. Objective Data Objective Data Vital Signs: Vital Signs Temp Pulse Resp BP Pulse Ox O2 Del Method 98.6 F 97 17 123/68 H 96 Room Air 08/10/23 10:50 08/10/23 10:50 08/10/23 10:50 08/10/23 10:50 08/10/23 10:50 08/10/23 10:50 Oxygen Delivery Method Room Air Weight: 84.6 kg Body Mass Index (BMI) 30.1 Intake & Output: Intake and Output for Last 24 Hours 08/08/23 08/09/23 08/10/23 23:59 23:59 23:59 Intake Total 1410 / 1410 1260 / 1660 400 / 400 Output Total 1900 / 1900 Balance 1410 / 1110 -640 / -240 400 / 400 Lab / Micro Data 08/08/23 03:42 08/07/23 06:04 Physical Exam Narrative alert and no apparent distress General Appearance: cooperative, well kempt and well developed Orientation / Consciousness: awake and confused HEENT normocephalic, head/scalp atraumatic and moist oral mucous membranes Eyes PERRL, EOMs intact bilaterally and conjunctivae normal Neck supple, no JVD, thyroid normal and no carotid bruits General: trachea midline Resp normal respiratory effort, no retractions, no use of accessory muscles and clear to auscultation bilaterally Auscultation: Negative for rales, rhonchi or wheezes Cardio regular rate, regular rhythm, no murmurs, no rub and no gallops GI normal to inspection, nondistended, normoactive bowel sounds, soft to palpation, non-tender and non-distended Extremity Extremity Narrative: Patient's right knee is wrapped with surgical dressing, this was not removed for examination Neuro CN's II-XII intact bilaterally, no focal motor deficits and no sensory deficits noted Neuro Narrative: Patient is alert but confused Sensorium / Orientation: awake and alert Psych Psych Narrative: Patient is alert but confused, she is not agitated, she appears to be slightly anxious Assessment & Plan Assessment/Plan (1) Laceration of right knee: PLAN: Plan 1. Acute debility secondary to recent right knee surgery and Alzheimer's dementia-patient is being seen by PT and OT, I feel the patient most likely should go to a skilled care facility owing to the fact that she had repeat surgery on her knee yesterday, patient has a wound VAC in place #2 Wound dehiscence right knee incision from recent right knee replacement- patient went to surgery yesterday for a right knee irrigation debridement and 1 component revision/polyethylene exchange arthrotomy repair and complex wound closure, she has a wound VAC in place. #3 Alzheimer's dementia-complicates care, management, recovery, and prognosis, patient will remain on her home medications which include memantine and donepezil, I have decided to place her on Seroquel due to her anxiety #4 chronic obstructive pulmonary disease-patient is on budesonide aerosol treatments Total clinical time spent by myself addressing the patient's medical issues, reviewing all of her data, and collaborating with patient's care team: 35 minutes Charges/Coding Visit Charges Inpatient E&M: 48545 Subs Hosp L2
[2023-08-10 14:23] VITALS: BP 136/79; PULSE 105; RESP 16; TEMP 36.7; O2SAT 97
[2023-08-10 20:05] VITALS: BP 138/72; PULSE 99; RESP 16; TEMP 36.3; O2SAT 97
[2023-08-10] MEDS: Donepezil HCl 10 MG Tablet PO (20:17)
[2023-08-10] MEDS: MELATONIN 3 MG TABLET PO (20:18)
[2023-08-11 01:14] VITALS: BP 127/65; PULSE 95; RESP 18; TEMP 36.7; O2SAT 96
[2023-08-11] MEDS: oxyCODONE 5 MG Tablet PO ×3 (01:14→13:51)
[2023-08-11] MEDS: Acetaminophen 500 MG Tablet 1000 MG PO ×3 (01:15→20:47)
[2023-08-11 07:41] VITALS: O2SAT 95
[2023-08-11 09:04] VITALS: BP 151/66; PULSE 89; RESP 18; TEMP 36.4; O2SAT 98
[2023-08-11] MEDS: Ensure Plus High Protein 120 ML LIQUID PO ×4 (09:22→20:47)
[2023-08-11] MEDS: Memantine Hydrochloride 10 MG Tablet PO ×2 (09:22→20:49)
[2023-08-11] MEDS: QUEtiapine 25 MG Tablet PO (09:23)
[2023-08-11] MEDS: Ibuprofen 400 MG Tablet 800 MG PO ×2 (09:23→18:04)
[2023-08-11] MEDS: Ascorbic Acid 500 MG Tablet 1000 MG PO (09:23)
[2023-08-11] MEDS: Doxycycline 100 MG CAPSULE PO ×2 (09:23→20:49)
[2023-08-11] MEDS: Divalproex Sodium 250 MG Tablet PO (09:23)
[2023-08-11] MEDS: Aspirin 81 MG TAB.CHEW PO ×2 (09:23→20:49)
[2023-08-11] MEDS: Senna/Docusate Sodium 1 Tablet PO ×2 (09:23→20:48)
--- NOTE | 2023-08-11 11:33 | CASEMGMT ---
Social Work- SW met with pt spouse to update on pending referrals. BHAVANA Freeman
--- NOTE | 2023-08-11 12:08 | CASEMGMT ---
Social Work- SW called pt daughter and POA and left message to update on denial by [facility] and [facility]. OLI has reached out to [facility] for a timeline on bed availability and will provide updates to family. BHAVANA Freeman
[2023-08-11 13:50] VITALS: BP 154/79; PULSE 95; RESP 18; TEMP 36.8; O2SAT 97
[2023-08-11] MEDS: QUEtiapine 25 MG Tablet 50 MG PO (13:52)
--- NOTE | 2023-08-11 13:57 | CHAPLAIN ---
Type of Pastoral Visit ___ Initial Visit _x__ Follow-up Visit ___ On-call Visit ___ General Patient Visit ___ Spiritual Assessment ___ Family Conference ___ Bereavement ___ Rapid Response ___ Code Blue ___ Other (describe below) Pastoral Care Referral From ___ Patient _x__ Family ___ Nurse ___ Physician ___ Intelligence Operations Specialist ___ Principal Systems Architect ___ Other (describe below) Sacrament/Intervention _x__ Active listening ___ Anointing ___ Orthodox ___ Bereavement ___ Communion ___ [place] exploration ___ ___ Life review ___ Prayer ___ Reconciliation ___ Sacrament of Sick _x__ Supportive presence ___ Wedding ___ Other (describe below) Pastoral Comments patient had been seen previously in TCU; pt is out in lobby and is busy coloring a page from book with a BAG SEALER; pt is focused on her project; pt is pleasant and answers questions with simple responses; pt does not engage in a conversation though and just continues to color; offered presence and support as desired;
--- NOTE | 2023-08-11 15:13 | CASEMGMT ---
Discharge Planning Follow up call placed to [facility]. They will not have an open bed until next week and uncertain of exact date. SW updated. Luzmaria Thornton DC Planning Asst.
--- NOTE | 2023-08-11 15:26 | CASEMGMT ---
Social Work- OLI spoke with pt daughter, Isha, to discuss [facility] reporting no available beds this week. Isha states that she would like to explore [facility] referrals. OLI advised DCA. BHAVANA Freeman
--- NOTE | 2023-08-11 15:51 | CASEMGMT ---
Discharge Planning Referral sent to [facility] via [facility]. Luzmaria Thornton DC Planning Asst.
--- NOTE | 2023-08-11 15:57 | CASEMGMT ---
Addendum entered by Luzmaria Thornton 08/11/23 16:19: [facility] declined. SW updated. Luzmaria Thornton DC Planning Asst. Original Note: Discharge Planning Referral faxed to [facility]. Confirmation rec'd. Luzmaria Thornton DC Planning Asst.
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
--- NOTE | 2023-08-11 18:08 | NURSING ---
pt daughter at bedside, staets she is pt medical POA and i don't want her to have anymore oxyir. I would rather she have pain and it slow her down and try to stop her from moving than to be comfortable and be wanting to move around a lot and want to leave. Text to Dr. Evans informing him of daughter request.
[2023-08-11 20:37] VITALS: BP 145/62; PULSE 99; RESP 16; TEMP 36.2; O2SAT 95
[2023-08-11] MEDS: MELATONIN 3 MG TABLET PO (20:47)
[2023-08-11] MEDS: QUEtiapine 100 MG Tablet PO (20:48)
[2023-08-11] MEDS: Donepezil HCl 10 MG Tablet PO (20:49)
[2023-08-12 06:59] VITALS: BP 150/85; PULSE 99; RESP 16; TEMP 36.4; O2SAT 100
[2023-08-12] MEDS: Aspirin 81 MG TAB.CHEW PO ×2 (10:28→20:53)
[2023-08-12] MEDS: Memantine Hydrochloride 10 MG Tablet PO ×2 (10:29→20:53)
[2023-08-12] MEDS: Doxycycline 100 MG CAPSULE PO ×2 (10:29→20:53)
[2023-08-12] MEDS: Divalproex Sodium 250 MG Tablet PO (10:29)
[2023-08-12] MEDS: QUEtiapine 100 MG Tablet PO ×2 (10:29→20:53)
[2023-08-12] MEDS: Senna/Docusate Sodium 1 Tablet PO ×2 (10:30→20:53)
[2023-08-12] MEDS: Ascorbic Acid 500 MG Tablet 1000 MG PO (10:30)
[2023-08-12] MEDS: Ensure Plus High Protein 120 ML LIQUID PO ×4 (10:33→20:54)
--- NOTE | 2023-08-12 10:52 | CASEMGMT ---
Social Work- OLI called [facility] to f/u on referral. OLI was told that the restorative coordinator was on vacation yesterday and just was able to forward the referral to the management team; referral is still under review at this time. BHAVANA Freeman
--- NOTE | 2023-08-12 11:22 | CASEMGMT ---
Discharge Planning A list of?SNF providers including quality and resource use data and consistent with the patient's preferred geographic region, medical needs, and insurance network was created in [facility] [facility].? This list was provided to the . This new list was created with an expanded geographic area. Luzmaria Thornton, Discharge Planning Asst.
--- NOTE | 2023-08-12 11:45 | CASEMGMT ---
Social Work- SW spoke with pt daughter to advise of both [facility]. Isha is agreeable to [facility] and [facility] before moving on to an expanded list. OLI advised DCA. BHAVANA Freeman
--- NOTE | 2023-08-12 11:47 | CASEMGMT ---
Social Work- SW spoke with pt spouse to advise of declinations. SW will continue to collaborate with pt spouse and pt daughter. BHAVANA Freeman
--- NOTE | 2023-08-12 11:57 | CASEMGMT ---
Addendum entered by Luzmaria Thornton 08/12/23 13:31: [facility] declined d/t care needs. SW updated. Luzmaria Thornton DC Planning Asst. Original Note: Discharge Planning Referral sent to [facility] via [facility]. Luzmaria Thornton DC Planning Asst.
--- NOTE | 2023-08-12 14:42 | CASEMGMT ---
Social Work- OLI spoke with pt spouse and notified of decline by [facility]. OLI advised that we made an expanded list of facilities; pt spouse will stop to crop picker list. OLI spoke with pt daughter and HCPOA, Isha to notify of denial by [facility]. Isha asked for SW to email list. OLI advised DCA. BHAVANA Freeman
[2023-08-12 15:24] VITALS: BP 115/67; PULSE 19; RESP 16; TEMP 36.8; O2SAT 95
--- NOTE | 2023-08-12 16:43 | PCM.PN.HOSP ---
Reason for Visit Reason for Visit: Diagnoses Other malaise (08/07/23) Laceration without foreign body, right knee, initial encounter (08/07/23) Unspecified fall, initial encounter (08/07/23) Presence of right artificial knee joint (08/07/23) Subjective Subjective Patient was seen and examined today, she appears calm at the time of my examination. Several senior care facilities have refused to accept the patient due to her medical problems. Objective Data Objective Data Vital Signs: Vital Signs Temp Pulse Resp BP Pulse Ox O2 Del Method 98.2 F 19 L 16 115/67 95 Room Air 08/12/23 15:24 08/12/23 15:24 08/12/23 15:24 08/12/23 15:24 08/12/23 15:24 08/12/23 15:24 Oxygen Delivery Method Room Air Weight: 84.6 kg Body Mass Index (BMI) 30.1 Intake & Output: Intake and Output for Last 24 Hours 08/10/23 08/11/23 08/12/23 23:59 23:59 23:59 Intake Total 2009 1500 / 1500 100 / 100 Balance 2009 1500 / 1500 100 / 100 Lab / Micro Data 08/08/23 03:42 08/07/23 06:04 Physical Exam Narrative alert and no apparent distress General Appearance: cooperative, well kempt and well developed Orientation / Consciousness: awake and confused HEENT normocephalic, head/scalp atraumatic and moist oral mucous membranes Eyes PERRL, EOMs intact bilaterally and conjunctivae normal Neck supple, no JVD, thyroid normal and no carotid bruits General: trachea midline Resp normal respiratory effort, no retractions, no use of accessory muscles and clear to auscultation bilaterally Auscultation: Negative for rales, rhonchi or wheezes Cardio regular rate, regular rhythm, no murmurs, no rub and no gallops GI normal to inspection, nondistended, normoactive bowel sounds, soft to palpation, non-tender and non-distended Extremity Extremity Narrative: Patient's right knee is wrapped with surgical dressing, this was not removed for examination Neuro CN's II-XII intact bilaterally, no focal motor deficits and no sensory deficits noted Neuro Narrative: Patient is alert but confused Sensorium / Orientation: awake and alert Psych Psych Narrative: Patient is alert but confused, she is not agitated, she appears to be slightly anxious Assessment & Plan Assessment/Plan (1) Laceration of right knee: PLAN: Plan 1. Acute debility secondary to recent right knee surgery and Alzheimer's dementia-patient is being seen by PT and OT, we are attempting to get the patient placed in a senior care facility for inpatient rehab services #2 Wound dehiscence right knee incision from recent right knee replacement-patient went to surgery for a right knee irrigation debridement and 1 component revision/polyethylene exchange arthrotomy repair and complex wound closure, she has a wound VAC in place. #3 Alzheimer's dementia-complicates care, management, recovery, and prognosis, patient will remain on her home medications which include memantine and donepezil, she remains on Seroquel for mood disturbances #4 chronic obstructive pulmonary disease-patient is on budesonide aerosol treatments #5 behavioral disturbances-patient is on Seroquel 100 mg twice daily. Total clinical time spent by myself addressing the patient's medical issues, reviewing all of her data, and collaborating with patient's care team: 35 minutes Charges/Coding Visit Charges Inpatient E&M: 04096 Subs Hosp L2
[2023-08-12 20:45] VITALS: BP 143/74; PULSE 104; RESP 18; TEMP 36.3; O2SAT 98
[2023-08-12] MEDS: Donepezil HCl 10 MG Tablet PO (20:53)
[2023-08-12] MEDS: MELATONIN 3 MG TABLET PO (22:43)
[2023-08-12] MEDS: Acetaminophen 500 MG Tablet 1000 MG PO (22:43)
[2023-08-13 02:17] VITALS: BP 118/66; PULSE 87; RESP 16; TEMP 36.5; O2SAT 96
--- NOTE | 2023-08-13 08:59 | CASEMGMT ---
Addendum entered by Luzmaria Thornton 08/13/23 10:58: [facility] have accepted patient. SW updated. Luzmaria Thornton DC Planning Asst. Original Note: Discharge Planning Referral sent to Yesika at [facility]. Luzmaria Thornton DC Planning Asst.
[2023-08-13 09:36] VITALS: BP 109/68; PULSE 79; RESP 16; TEMP 36.4; O2SAT 99
[2023-08-13] MEDS: Ascorbic Acid 500 MG Tablet 1000 MG PO (09:44)
[2023-08-13] MEDS: Memantine Hydrochloride 10 MG Tablet PO ×2 (09:44→21:18)
[2023-08-13] MEDS: Aspirin 81 MG TAB.CHEW PO ×2 (09:44→21:18)
[2023-08-13] MEDS: Ensure Plus High Protein 120 ML LIQUID PO ×4 (09:44→21:18)
[2023-08-13] MEDS: Doxycycline 100 MG CAPSULE PO ×2 (09:44→21:18)
[2023-08-13] MEDS: Senna/Docusate Sodium 1 Tablet PO ×2 (09:45→21:18)
[2023-08-13] MEDS: Divalproex Sodium 250 MG Tablet PO (09:45)
[2023-08-13] MEDS: QUEtiapine 100 MG Tablet PO ×2 (09:45→21:18)
--- NOTE | 2023-08-13 10:37 | CASEMGMT ---
Addendum entered by Luzmaria Thornton 08/13/23 10:46: No beds will be available in the immediate future. Luzmaria Thornton DC Planning Asst. Original Note: Discharge Planning Updates sent to [facility] asking if they now have any bed availability. Awaiting response. Luzmaria Thornton DC Planning Asst.
--- NOTE | 2023-08-13 11:03 | CASEMGMT ---
OLI called pt daughter to advise of acceptance at [facility] and left a voicemail. OLI called pt spouse to advise of acceptance as well. OLI will ask [facility] to start precert. BHAVANA Freeman
--- NOTE | 2023-08-13 11:29 | CASEMGMT ---
Social Work- SW spoke with Isha who states that she is on board with [facility] and has also been having conversations with a [facility] agency to set up 24/7 care for pt. Isha reports that agency has committed to -Friday through Friday and is working on evening coverage. OLI will continue to communicate with family as pre-cert is obtained. Isha is agreeable. BHAVANA Freeman
--- NOTE | 2023-08-13 11:33 | CASEMGMT ---
Discharge Planning Insurance card sent to [facility] as requested. Luzmaria Thornton DC Planning Asst.
[2023-08-13 14:11] VITALS: BP 98/58; PULSE 93; RESP 16; TEMP 36.6; O2SAT 97
[2023-08-13 21:16] VITALS: BP 116/77; PULSE 85; RESP 17; TEMP 36.7; O2SAT 97
[2023-08-13] MEDS: Donepezil HCl 10 MG Tablet PO (21:18)
[2023-08-14 06:20] VITALS: BP 158/89; PULSE 90; RESP 19; TEMP 36.7; O2SAT 97
[2023-08-14] MEDS: Acetaminophen 500 MG Tablet 1000 MG PO (06:23)
--- NOTE | 2023-08-14 09:47 | CASEMGMT ---
RN LAUREL spoke with pt and Eddie who is Isha's SO. Stated they plan to take pt [facility] until Friday when private pay nurse aides can start. Address is [address] in [place]. Family requested [facility] for SN services. Pt asked for a script for a hospital bed to order from [facility]. Called Lauren at [facility] - they accepted pt. SOC is 08/15/23.
[2023-08-14 10:00] VITALS: BP 126/63; PULSE 84; RESP 18; TEMP 36.5; O2SAT 97
[2023-08-14] MEDS: Aspirin 81 MG TAB.CHEW PO (10:27)
[2023-08-14] MEDS: Ascorbic Acid 500 MG Tablet 1000 MG PO (10:27)
[2023-08-14] MEDS: Divalproex Sodium 250 MG Tablet PO (10:27)
[2023-08-14] MEDS: Senna/Docusate Sodium 1 Tablet PO (10:27)
[2023-08-14] MEDS: Doxycycline 100 MG CAPSULE PO (10:27)
[2023-08-14] MEDS: Memantine Hydrochloride 10 MG Tablet PO (10:27)
[2023-08-14] MEDS: Ensure Plus High Protein 120 ML LIQUID PO (10:27)
[2023-08-14] MEDS: QUEtiapine 100 MG Tablet PO (10:27)
--- NOTE | 2023-08-14 11:34 | DS.PCM_ITS ---
Providers Date of Admission: 08/07/23 Primary Care Physician: Dr. Swati Baron MD Consultations 08/07/23 18:44 Consult: Orthopedics Routine Consulting Provider: Oliver Puente Reason for Consult: fall s/p total knee surgery. incision care recommendations EMERGENT Consult: No MD Notified: Yes Date Notified: 08/07/23 Time Notified: 18:43 Method of Notification: Verbal Reason For Visit: FALL W/ KNEE INJURY, DEBILITY Diagnosis Discharge Diagnosis (1) Laceration of right knee: Status: Acute Code(s): S81.011A - Laceration without foreign body, right knee, initial encounter Plan Patient is a 78-year-old female who presented to [facility] ED on 08/06/2023 after a fall at home with right knee wound. 1. Mechanical fall with right knee wound, recent right TKA with acute on chronic debility ? Admit under observation status to [facility]. PT/OT/case management consulted. Dressing changes of right knee per nursing staff, can consider wound care consult as needed. Pain management with Tylenol as needed, ibuprofen as needed and oxycodone as needed. 2. Alzheimer's dementia with intermittent irritability ? Stable. Continue home Depakote, memantine and donepezil. Chronic medical conditions: ? Obesity: BMI 30 on admit. Complicates hospital course, care and prognosis. ? Asthma/COPD: Stable on room air, not in acute exacerbation. Continue home inhalers. ? Osteoporosis: Continue alendronate weekly on discharge. DVT prophylaxis: Aspirin 81 mg twice daily CODE STATUS: Full code, unverified Expected disposition: Likely SNF, TBD Total clinical time spent by myself addressing the patient's medical issues, reviewing all the data, and collaborating with patient's care team: 55 minutes. Medications at Discharge Home Medications alendronate 70 mg tablet 70 mg PO QWEEK 04/28/19 fluticasone furoate 200 mcg/actuation blister powder for inhalation (Arnuity Ellipta) 1 inh inhalation DAILY lungs 08/21/21 ascorbic acid (vitamin C) 1,000 mg tablet 1 g PO DAILY 02/27/23 donepezil 10 mg tablet 10 mg PO QHS memory #30 tabs 02/27/23 memantine 28 mg capsule sprinkle,extended release 24hr 28 mg PO QAM memory #30 ea 02/27/23 divalproex 250 mg tablet,delayed release 250 mg PO DAILY migraine 07/29/23 ibuprofen 800 mg tablet 800 mg PO Q8H PRN PRN pain 07/29/23 acetaminophen 500 mg tablet 1,000 mg (2 x 500 mg) PO Q6H PRN PRN Pain Score 1-3 #0 tabs 08/04/23 aspirin 81 mg tablet,delayed release 81 mg PO BIDCM 18 days #0 tabs 08/04/23 oxycodone 5 mg tablet 5 mg PO Q4H PRN PRN Pain Score 6-10 Or Pre Pt/Ot 3 days #18 tabs 08/04/23 sennosides 8.6 mg-docusate sodium 50 mg tablet (Stool Softener-Stimulant Laxative) 1 tab PO BID 30 days #60 tabs 08/04/23 clindamycin HCl 150 mg capsule 300 mg (2 x 150 mg) PO 4X/DAY 6 days #48 caps 08/05/23 doxycycline monohydrate 100 mg capsule 100 mg PO BID 6 days #12 caps 08/05/23 Weight / BMI Weight Weight: 84.6 kg Body Mass Index (BMI) 30.1 ABG / Lab / Microbiology Data 08/08/23 03:42 08/07/23 06:04 Meaningful Use Info Ischemic Stroke Statin Dosing Therapy Reference: STATIN DOSE THERAPY REFERENCE: * Patients > 75 years receive moderate or high dose statin therapy. * Patients 75 years or YOUNGER should receive HIGH intensity statin dose unless contraindicated. You will be required to document reason for non-treatment if statin daily dose does not meet guidelines. HIGH DOSE STATIN THERAPY DAILY Atorvastatin > than or = to 40 mg Rosuvastatin > than or = to 20 mg Amlodipine + Atorvastatin > than or = to 2.5/40 mg Ezetimibe + Simvastatin 10/80 mg Simvastatin 80mg Discharge Plan Admission Admit Date/Time: 08/07/23 19:10 Attending Provider: Spencer Valdez Primary Care Provider: Swati Baron Consulting Providers: Spencer Valdez; Oliver Puente; Eddie Evans Discharge Orders/Prescriptions Prescriptions: No Action Arnuity Ellipta 200 mcg/actuation blister with device 1 inh inhalation DAILY ascorbic acid (vitamin C) 1,000 mg tablet 1 g PO DAILY donepezil 10 mg tablet 10 mg PO QHS Qty: 30 6RF memantine 28 mg capsule,sprinkle,ER 24hr 28 mg PO QAM Qty: 30 6RF alendronate 70 MG tablet 70 mg PO QWEEK Rx Instructions: every fri divalproex 250 mg tablet,delayed release (DR/EC) 250 mg PO DAILY Rx Instructions: Take 1 tablet orally every morning. Take 1 additional tablet every afternoon as needed. ibuprofen 800 mg tablet 800 mg PO Q8H PRN PRN (Reason: pain) acetaminophen 500 mg Tablet 1,000 mg PO Q6H PRN PRN (Reason: Pain Score 1-3) Qty: 0 0RF sennosides-docusate sodium [Stool Softener-Stimulant Laxat] 8.6-50 mg Tablet 1 tab PO BID 30 Days Qty: 60 0RF aspirin 81 mg Tablet,Delayed Release (Dr/Ec) 81 mg PO BIDCM 18 Days Qty: 0 0RF oxycodone 5 mg Tablet 5 mg PO Q4H PRN PRN (Reason: Pain Score 6-10 Or Pre Pt/Ot) 3 Days Qty: 18 0RF clindamycin HCl 150 mg Capsule 300 mg PO 4X/DAY 6 Days Qty: 48 0RF doxycycline monohydrate 100 mg Capsule 100 mg PO BID 6 Days Qty: 12 0RF Referrals / Follow Up: Swati Baron MD [Primary Care Provider] -
--- NOTE | 2023-08-14 11:34 | PCM.DC.SUM ---
Providers Date of Admission: 08/07/23 Date of Discharge: 08/14/23 Primary Care Physician: Dr. Swati Baron MD Consultations 08/07/23 18:44 Consult: Orthopedics Routine Consulting Provider: Oliver Puente Reason for Consult: fall s/p total knee surgery. incision care recommendations EMERGENT Consult: No MD Notified: Yes Date Notified: 08/07/23 Time Notified: 18:43 Method of Notification: Verbal Reason For Visit: FALL W/ KNEE INJURY, DEBILITY Diagnosis Discharge Diagnosis (1) Laceration of right knee: Status: Acute Code(s): S81.011A - Laceration without foreign body, right knee, initial encounter Medications at Discharge Home Medications alendronate 70 mg tablet 70 mg PO QWEEK 04/28/19 fluticasone furoate 200 mcg/actuation blister powder for inhalation (Arnuity Ellipta) 1 inh inhalation DAILY lungs 08/21/21 ascorbic acid (vitamin C) 1,000 mg tablet 1 g PO DAILY 02/27/23 donepezil 10 mg tablet 10 mg PO QHS memory #30 tabs 02/27/23 memantine 28 mg capsule sprinkle,extended release 24hr 28 mg PO QAM memory #30 ea 02/27/23 divalproex 250 mg tablet,delayed release 250 mg PO DAILY migraine 07/29/23 ibuprofen 800 mg tablet 800 mg PO Q8H PRN PRN pain 07/29/23 acetaminophen 500 mg tablet 1,000 mg (2 x 500 mg) PO Q6H PRN PRN Pain Score 1-3 #0 tabs 08/04/23 aspirin 81 mg tablet,delayed release 81 mg PO BIDCM 18 days #0 tabs 08/04/23 sennosides 8.6 mg-docusate sodium 50 mg tablet (Stool Softener-Stimulant Laxative) 1 tab PO BID 30 days #60 tabs 08/04/23 doxycycline monohydrate 100 mg capsule 100 mg PO BID 10 days #20 caps 08/14/23 quetiapine 100 mg tablet 100 mg PO BID 30 days #60 tabs 08/14/23 Hospital Course Operations None Procedures EKG and - (Right knee wound irrigation and debridement with complex wound closure and wound VAC placement, knee x-ray x 2) Summary of Care Provided Minutes Spent on Discharge: 35 Hospital Course: Patient is a 78-year-old female who presented to [facility] ED on 08/06/2023 after a fall at home with right knee wound. Hospital course as noted below. Patient discharged home with home health care in stable condition on 08/13. 1. Mechanical fall with right knee wound dehiscence after recent right total knee arthroplasty ? Orthopedic surgery followed. S/p right knee irrigation with debridement and complex wound closure with wound VAC placement on 08/07. Patient tolerated procedure well. Per orthopedics, continue wound VAC for 1 week postoperatively. Treated with acetaminophen and ibuprofen as needed for pain while inpatient, with goal to limit opiates given dementia as noted below; okay for acetaminophen and ibuprofen as needed on discharge. DVT prophylaxis with aspirin twice daily. PT/OT/case management followed as below. 2. Acute on chronic debility ? PT/OT/case management followed. Plan initially was for SNF placement on discharge but patient unfortunately was denied from several facilities due to her dementia with irritability and other medical problems. Stable for discharge home with home health care on 08/13. 3. Alzheimer's dementia with intermittent irritability ? Did have significant irritability during first few days of the hospitalization. Was started on p.o. Seroquel 100 mg twice daily on 08/10 with significant improvement. Continue Seroquel on discharge. Continue home Depakote, maintain and donepezil on discharge. Chronic medical conditions: ? Obesity: BMI 30 on admit. Complicated hospital course, care and prognosis. ? Asthma/COPD: Stable on room air, not in acute exacerbation. Continue home inhalers. ? Osteoporosis: Continue alendronate weekly on discharge. Total clinical time spent by myself addressing the patient's medical issues, reviewing all the data, and collaborating with patient's care team: 35 minutes. Physical Exam Narrative alert and no apparent distress General Appearance: cooperative, well kempt and well developed Orientation / Consciousness: awake and confused HEENT normocephalic, head/scalp atraumatic and moist oral mucous membranes Eyes PERRL, EOMs intact bilaterally and conjunctivae normal Neck supple, no JVD, thyroid normal and no carotid bruits General: trachea midline Resp normal respiratory effort, no retractions, no use of accessory muscles and clear to auscultation bilaterally Auscultation: Negative for rales, rhonchi or wheezes Cardio regular rate, regular rhythm, no murmurs, no rub and no gallops GI normal to inspection, nondistended, normoactive bowel sounds, soft to palpation, non-tender and non-distended Extremity Extremity Narrative: Patient's right knee is wrapped with surgical dressing, this was not removed for examination Neuro CN's II-XII intact bilaterally, no focal motor deficits and no sensory deficits noted Neuro Narrative: Patient is alert but confused Sensorium / Orientation: awake and alert Psych Psych Narrative: Patient is alert but confused, she is not agitated, she appears to be slightly anxious Weight / BMI Weight Weight: 84.6 kg Body Mass Index (BMI) 30.1 ABG / Lab / Microbiology Data 08/08/23 03:42 08/07/23 06:04 Meaningful Use Info Meaningful Use Meaningful Use Diagnoses (Choose all that apply): None applicable Ischemic Stroke Statin Dosing Therapy Reference: STATIN DOSE THERAPY REFERENCE: * Patients > 75 years receive moderate or high dose statin therapy. * Patients 75 years or YOUNGER should receive HIGH intensity statin dose unless contraindicated. You will be required to document reason for non-treatment if statin daily dose does not meet guidelines. HIGH DOSE STATIN THERAPY DAILY Atorvastatin > than or = to 40 mg Rosuvastatin > than or = to 20 mg Amlodipine + Atorvastatin > than or = to 2.5/40 mg Ezetimibe + Simvastatin 10/80 mg Simvastatin 80mg Discharge Plan Admission Admit Date/Time: 08/07/23 19:10 Primary Reason for Your Visit: fall with knee incision wound Attending Provider: Spencer Valdez Primary Care Provider: Swati Baron Consulting Providers: Spencer Valdez; Oliver Puente; Eddie Evans Discharge Orders/Prescriptions Prescriptions: New quetiapine 100 mg Tablet 100 mg PO BID 30 Days Qty: 60 0RF doxycycline monohydrate 100 mg Capsule 100 mg PO BID 10 Days Qty: 20 0RF Continued Arnuity Ellipta 200 mcg/actuation blister with device 1 inh inhalation DAILY ascorbic acid (vitamin C) 1,000 mg tablet 1 g PO DAILY donepezil 10 mg tablet 10 mg PO QHS Qty: 30 6RF memantine 28 mg capsule,sprinkle,ER 24hr 28 mg PO QAM Qty: 30 6RF alendronate 70 MG tablet 70 mg PO QWEEK Rx Instructions: every fri divalproex 250 mg tablet,delayed release (DR/EC) 250 mg PO DAILY Rx Instructions: Take 1 tablet orally every morning. Take 1 additional tablet every afternoon as needed. ibuprofen 800 mg tablet 800 mg PO Q8H PRN PRN (Reason: pain) acetaminophen 500 mg Tablet 1,000 mg PO Q6H PRN PRN (Reason: Pain Score 1-3) Qty: 0 0RF sennosides-docusate sodium [Stool Softener-Stimulant Laxat] 8.6-50 mg Tablet 1 tab PO BID 30 Days Qty: 60 0RF aspirin 81 mg Tablet,Delayed Release (Dr/Ec) 81 mg PO BIDCM 18 Days Qty: 0 0RF Discontinued oxycodone 5 mg Tablet 5 mg PO Q4H PRN PRN (Reason: Pain Score 6-10 Or Pre Pt/Ot) 3 Days Qty: 18 0RF clindamycin HCl 150 mg Capsule 300 mg PO 4X/DAY 6 Days Qty: 48 0RF doxycycline monohydrate 100 mg Capsule 100 mg PO BID 6 Days Qty: 12 0RF Referrals / Follow Up: Swati Baron MD [Primary Care Provider] - Disposition Disposition (needs filled in before D/C Order can be placed): Home Health Service Charges/Coding Visit Charges Inpatient E&M: 77070 Disch Hosp >30min
--- NOTE | 2023-08-14 11:55 | CASEMGMT ---
Addendum entered by Consuelo Castaneda 08/14/23 15:12: DANNY BARRAGAN provided script for hospital bed per family request.Informed family [facility] is 08/15/23. Family denies any additional needs at this time. Original Note: DANNY BARRAGAN called pt and notified him DC order is in. Stated he was pulling into parking lot now with Eddie.
== END 2023-08-14 12:16 | disposition home health service (06) | DRG 908 ==
LOC: ED 20:14 → MS3 20:50
PROVIDERS: Anesthesiology; Specialist; Admitting Provider Hospitalist; Emergency Provider Emergency Medicine; PCP Family Medicine; Visit Provider Hospitalist
PROC: 0SWT0JZ Revision of Synthetic Substitute in Right Knee Joint, Femoral Surface, Open Approach (ICD-10-PCS; CPT 27487; principal; 2023-08-08 13:10)
DX: T81.31XA Disruption of external operation (surgical) wound, not elsewhere classified, initial encounter (principal); F02.818 Dementia in other diseases classified elsewhere, unspecified severity, with other behavioral disturbance; G30.9 Alzheimer's disease, unspecified; J44.9 Chronic obstructive pulmonary disease, unspecified; E66.9 Obesity, unspecified; S81.011A Laceration without foreign body, right knee, initial encounter; W19.XXXA Unspecified fall, initial encounter; Z79.51 Long term (current) use of inhaled steroids; Z81.8 Family history of other mental and behavioral disorders; Z79.82 Long term (current) use of aspirin; R53.81 Other malaise; Z96.651 Presence of right artificial knee joint; M81.0 Age-related osteoporosis without current pathological fracture; Z68.30 Body mass index [BMI] 30.0-30.9, adult
CPT/HCPCS: 36415; 73560; 80048; 85025; 85027; 93005; 93971; 97110; 97162; 97166; 97530; 97535; 97802; 99252; 99284; C1776; G0463; J2405

== ENCOUNTER → 2023-09-22 | Outpatient (CLI) | payer MEDICARE, SELFPAY ==
[2023-09-22 15:20] LABS: Absolute Lymphocyte Count 0.79 X10^3/uL (0.83-4.51); Absolute Neutrophil Count 4.1 X10^3/uL (2.0-7.7); Basophil# 0.03 X10^3/uL; Basophil% 0.5 % (0-1); Eosinophil# 0.13 X10^3/uL; Eosinophils% 2.2 % (0-5); Hematocrit 27.7 % (37-47); Hemoglobin 8.3 g/dL (12.0-15.0); Lymphocyte # 0.79 X10^3/ul (0.83-4.51); Lymphocyte % 13.2 % (19-41); Mean Corpuscular Hgb 26.5 pg (27.0-32.0); Mean Corpuscular Volume 88.5 fL (81-99); Mean Platelet Vol. 10.1 fl (6.2-12.0); Monocyte# 0.87 X10^3/uL; Monocyte% 14.5 % (0-10); NRBC Flagged by Analyzer 0 % (0-5); Neutrophil # 4.14 X10^3/uL (2.7-7.7); Neutrophil % 69.3 % (47-70); Platelet Count 237 K/mm3 (150-450); RBC Distribution Width CV 15.1 % (11.6-14.6); RBC Distribution Width SD 48.7 fl (35.1-43.9); Red Blood Count 3.13 M/mm3 (4.2-5.4)
[2023-09-22 18:27] LABS: BUN 10 mg/dL (7-18); BUN/Creat Ratio 8.7 RATIO (10-20); Creatinine, Serum 1.15 mg/dL (0.55-1.02); EST Glomerular Filtration Rate 49 mL/min (>60); Est Glom Filt Rate - Afr Amer 59 mL/min (>60); Glucose 107 mg/dL (74-106); Protein, Total 5.5 g/dL (6.4-8.2)
[2023-09-22 18:28] LABS: AST(SGOT) 19 U/L (15-37); Alanine Aminotransfer ALT/SGPT 14 U/L (13-56); Albumin, Serum 2.7 g/dL (3.2-5.0); Alkaline Phosphatase 59 U/L (45-117); Anion Gap 5 (5-15); Calcium,Total 8.7 mg/dL (8.5-10.1); Chloride 112 mmol/L (98-107); Globulin 2.8 g/dL (2.2-4.2); Potassium 2.9 mmol/L (3.5-5.1); Sodium Level 147 mmol/L (136-145)
== END | disposition home or self-care (01) ==
PROVIDERS: PCP Family Medicine; Referring Provider Family Medicine
DX: T84.59XA Infection and inflammatory reaction due to other internal joint prosthesis, initial encounter (principal); E87.6 Hypokalemia; E87.1 Hypo-osmolality and hyponatremia; X58.XXXA Exposure to other specified factors, initial encounter
CPT/HCPCS: 80053; 85025

== ENCOUNTER 2023-09-27 11:44 | Inpatient (IN) | payer MEDICARE, SELFPAY ==
[2023-09-27] VITALS (11 sets, daily range): BP systolic 118–178; BP diastolic 57–110; PULSE 89–109; RESP 13–28; TEMP 36.4–37.7; O2SAT 92–98; BMI 27.8
--- NOTE | 2023-09-27 12:30 | EX.ED.DYSGE1 ---
HPI History of Present Illness Chief Complaint: Abn Labs Narrative Narrative: History and physical limited secondary to patient condition. Family presents her with abnormal laboratory work. They states she has past medical history of dementia and that she has been only saying 1 word answers for few weeks. She was seen by her primary care provider, Dr. Baron, early this week, few days ago. They had lab results that were given to them today, stating that she is hyponatremic, perhaps hypokalemic and dehydrated. Patient lives at home with her . They have caregivers that tend to her. She has history of knee replacement and has had complications with wound dehiscence, and infection. She currently has a PICC line and receives vancomycin. They present her because of the abnormal labs and concern for dehydration. [facility] Medical History Dementia Dementia Vision problems Skin cancer Neuropathy Breast cancer Home Medications ?Medication ?Instructions ?Recorded ?Last Taken ?Type alendronate 70 mg tablet 70 mg PO QWEEK 04/28/19 04/28/19 History fluticasone furoate 200 1 inh inhalation DAILY lungs 08/21/21 Unknown History mcg/actuation blister powder for inhalation (Arnuity Ellipta) ascorbic acid (vitamin C) 1,000 mg 1 g PO DAILY 02/27/23 Unknown History tablet ibuprofen 800 mg tablet 800 mg PO Q8H PRN PRN pain 07/29/23 Unknown History acetaminophen 500 mg tablet 1,000 mg (2 x 500 mg) PO Q6H PRN 08/04/23 Unknown Rx PRN Pain Score 1-3 #0 tabs aspirin 81 mg tablet,delayed 81 mg PO BIDCM 18 days #0 tabs 08/04/23 Unknown Rx release sennosides 8.6 mg-docusate sodium 1 tab PO BID 30 days #60 tabs 08/04/23 Unknown Rx 50 mg tablet (Stool Softener-Stimulant Laxative) doxycycline monohydrate 100 mg 100 mg PO BID 10 days #20 caps 08/14/23 Unknown Rx capsule donepezil 10 mg tablet 10 mg PO QHS memory #30 tabs 09/11/23 Unknown Rx memantine 28 mg capsule 28 mg PO QAM memory #30 ea 09/11/23 Unknown Rx sprinkle,extended release 24hr divalproex 250 mg tablet,delayed 250 mg PO DAILY #30 tabs 07/22/24 Unknown Rx release Allergy/AdvReac Type Severity Reaction Status Date / Time Penicillins Allergy Unknown Hives Verified 09/27/23 11:45 Family History Mother Dementia Father Lung cancer Grandfather Parkinson disease Surgical History Hx of breast implants, bilateral History of mastectomy Social History household members: spouse Smoking Status: Never smoker second hand exposure: No alcohol intake: never substance use type: does not use what type of physical activity do you participate in: none adeel/orthodoxy: [employer] seatbelt use: always ROS ROS ED Review of Systems ROS Unobtainable: due to mental status EXAM Physical Exam Narrative Exam Narrative: Afebrile. Vital signs noted. Lying on cot with eyes open. Intermittently moaning. Regular rate and rhythm. Lungs clear to auscultation bilaterally. Abdomen soft nontender with normal active bowel sounds. Const Vital Signs: 09/27/23 11:45 09/27/23 11:51 09/27/23 12:15 Temperature 97.8 F 99.8 F H Temperature Source Temporal Oral Pulse Rate 94 96 Respiratory Rate 13 20 H Respiratory Pattern Normal Blood Pressure 127/72 H 140/88 H Blood Pressure Mean 90 105 Pulse Ox 95 93 Oxygen Delivery Method Room Air Room Air 09/27/23 12:51 09/27/23 13:00 Temperature 99.7 F H 99.8 F H Temperature Source Oral Oral Pulse Rate 97 100 Respiratory Rate 24 H 28 H Respiratory Pattern Blood Pressure 178/92 H 174/91 H Blood Pressure Mean 120 118 Pulse Ox 94 94 Oxygen Delivery Method Room Air Room Air MDM MDM MDM Narrative Medical decision making narrative: Differential diagnosis includes but not limited to dehydration versus advanced dementia. I reviewed her laboratory work from earlier in the week and she had a potassium of 2.8 and an elevated sodium. Labs were redrawn today and I reviewed them and she has a white count of 11.1, hemoglobin stable at 9.8 with platelet count 204. Sodium is elevated at 146 and potassium 2.8. I checked a magnesium which is normal at 2.0, BUN 14 with creatinine slightly elevated at 1.49 above her baseline consistent with acute kidney injury and dehydration. LFTs are unremarkable except for an ALT low at 11 which I think is nonspecific. I have discussed the possibility of UTI with her granddaughter, but I do not feel that she would be able to produce a sample independently and that she would require catheterization, so family deferred checking a UA currently. Her potassium will be replaced intravenously. Additionally, they state that it is time for her vancomycin and she received 1.5 g intravenously and is supposed to until October 04. I ordered this as well. They state that she needs something for anxiety and usually takes Seroquel. I will administer Geodon for her anxiety. At this point in time, patient will be discussed with the hospitalist for admission. History & Record Review Discussion w/independent historian: Family Lab Data Attestation: I reviewed the patient's lab results. Labs: Laboratory Results - last 24 hr 09/27/23 12:31 WBC 11.1 H RBC 3.77 L Hgb 9.8 L Hct 32.0 L MCV 84.9 MCH 26.0 L MCHC 30.6 L RDW Std Deviation 46.1 H RDW Coeff of [place] 14.9 H Plt Count 204 MPV 9.1 Immature Gran % (Auto) 0.400 Neut % (Auto) 72.3 H Lymph % (Auto) 8.4 L [place] % (Auto) 18.4 H Eos % (Auto) 0.2 Baso % (Auto) 0.3 Absolute Neuts (auto) 8.0 H Absolute Lymphs (auto) 0.93 Nucleated RBC % 0 Differential Comment SCANNED Diff Path Review May foll Sodium 146 H Potassium 2.8 L Chloride 110 H Carbon Dioxide 29.0 Anion Gap 7 BUN 14 Creatinine 1.49 H Estim Creat Clear Calc 33.94 Est GFR (MDRD) Af Amer 44 L Est GFR (MDRD) Non-Af 36 L BUN/Creatinine Ratio 9.4 L Glucose 148 H Calcium 8.4 L Magnesium 2.0 Total Bilirubin 0.40 AST 22 ALT 11 L Alkaline Phosphatase 69 Total Protein 6.2 L Albumin 2.4 L Globulin 3.8 Albumin/Globulin Ratio 0.6 L Discharge Plan Dx/Rx/DC Orders Clinical Impression: Hypokalemia, Alzheimer disease, Hypernatremia Disposition Disposition: Acute Care Hospital [facility]
[2023-09-27] MEDS: 0.9% Normal Saline (1000mL) 1,000 ML 1000 ML IV (12:34)
[2023-09-27 12:39] LABS: Absolute Lymphocyte Count 0.93 X10^3/uL (0.83-4.51); Basophil# 0.03 X10^3/uL; Basophil% 0.3 % (0-1); Eosinophil# 0.02 X10^3/uL; Eosinophils% 0.2 % (0-5); Hemoglobin 9.8 g/dL (12.0-15.0); Lymphocyte # 0.93 X10^3/ul (0.83-4.51); Lymphocyte % 8.4 % (19-41); Mean Corp Hgb Conc 30.6 g/dL (32-36); Mean Corpuscular Volume 84.9 fL (81-99); Mean Platelet Vol. 9.1 fl (6.2-12.0); Monocyte# 2.04 X10^3/uL; Monocyte% 18.4 % (0-10); NRBC Flagged by Analyzer 0 % (0-5); Neutrophil # 8.02 X10^3/uL (2.7-7.7); Neutrophil % 72.3 % (47-70); POSITIVE DIFFERENTIAL YES; Platelet Count 204 K/mm3 (150-450); RBC Distribution Width CV 14.9 % (11.6-14.6); RBC Distribution Width SD 46.1 fl (35.1-43.9); Red Blood Count 3.77 M/mm3 (4.2-5.4); White Blood Count 11.1 K/mm3 (4.4-11.0)
[2023-09-27 13:09] LABS: ALB/GLOB Ratio 0.6 RATIO (0.9-2.4); AST(SGOT) 22 U/L (15-37); Alanine Aminotransfer ALT/SGPT 11 U/L (13-56); Albumin, Serum 2.4 g/dL (3.2-5.0); Alkaline Phosphatase 69 U/L (45-117); Anion Gap 7 (5-15); BUN 14 mg/dL (7-18); BUN/Creat Ratio 9.4 RATIO (10-20); Calcium,Total 8.4 mg/dL (8.5-10.1); Chloride 110 mmol/L (98-107); Creatinine, Serum 1.49 mg/dL (0.55-1.02); EST Glomerular Filtration Rate 36 mL/min (>60); Est Glom Filt Rate - Afr Amer 44 mL/min (>60); Estimated Creatinine Clearance 33.94 ml/min; Globulin 3.8 g/dL (2.2-4.2); Glucose 148 mg/dL (74-106); Potassium 2.8 mmol/L (3.5-5.1); Protein, Total 6.2 g/dL (6.4-8.2); Sodium Level 146 mmol/L (136-145)
[2023-09-27 13:13] LABS: Differential Indicated SCAN CRITERIA MET
[2023-09-27 13:14] LABS: Differential Comment SCANNED
--- NOTE | 2023-09-27 14:18 | NURSING ---
MED SURG MONTOYA HYPERNATREMIA, DEMENTIA, HYPOKALEMIA
[2023-09-27] MEDS: KCL 40mEq in 0.9% NS 40 MEQ/1,000 ML IV.SOLN 250 MEQ IV ×3 (14:41→23:55)
[2023-09-27] MEDS: Vancomycin HCl 1,500 MG in 0.9% Normal Saline (500mL Bag) 500 ML 250 MG IV (14:42)
[2023-09-27] MEDS: Ziprasidone IM 20 MG/ML VIAL 10 MG IM (14:47)
--- NOTE | 2023-09-27 15:16 | HP.PCM.HOS_ITS ---
HPI - General General Date of Admission: 09/27/23 Date of Service: 09/27/23 Chief Complaint: Abn labs HPI Narrative AAKASH SAMANIEGO, is a 78-year-old female history of dementia and breast cancer who presented to [facility] ED 10/24/2023 for abnormal lab work. She is only been saying one-word answers for several weeks and has a history of dementia. Seen by PCP this week and labs given to them today stating she is possibly dehydrated. Presently living at home with and they have caregivers. Also has history of knee replacement with complications and wound dehiscence and infection, presently has PICC line and receiving vancomycin. Patient evaluated with daughter and granddaughter at bedside. They report patient has been less talkative over the past month or so but every now and then will speak a sentence but that is unusual, has been weak and tired as well. Reportedly no change in ED, unable to obtain any further ROS given patient's mental status. ON LICENSE OF [facility] Medical History Dementia Dementia Vision problems Skin cancer Neuropathy Breast cancer Home Medications ?Medication ?Instructions ?Recorded ?Last Taken ?Type donepezil 10 mg tablet 10 mg PO QHS memory #30 tabs 09/11/23 Unknown Rx memantine 28 mg capsule 28 mg PO QAM memory #30 ea 09/11/23 Unknown Rx sprinkle,extended release 24hr divalproex 250 mg tablet,delayed 250 mg PO DAILY #30 tabs 09/15/23 Unknown Rx release quetiapine 25 mg tablet (Seroquel) 25 mg PO DAILY 09/27/23 Unknown History Allergy/AdvReac Type Severity Reaction Status Date / Time Penicillins Allergy Unknown Hives Verified 09/27/23 11:45 Family History Mother Dementia Father Lung cancer Grandfather Parkinson disease Surgical History Hx of breast implants, bilateral History of mastectomy Social History household members: spouse Smoking Status: Never smoker second hand exposure: No alcohol intake: never substance use type: does not use what type of physical activity do you participate in: none adeel/pentecostalism: Evangelical seatbelt use: always ROS ROS Narrative Unable to obtain secondary to patient mental status Vital Signs Vital Signs Vital Signs: 09/27/23 11:45 09/27/23 11:51 09/27/23 12:15 Temperature 97.8 F 99.8 F H Temperature Source Temporal Oral Pulse Rate 94 96 Respiratory Rate 13 20 H Respiratory Pattern Normal Blood Pressure 127/72 H 140/88 H Blood Pressure Mean 90 105 Pulse Ox 95 93 Oxygen Delivery Method Room Air Room Air 09/27/23 12:51 09/27/23 13:00 09/27/23 13:59 Temperature 99.7 F H 99.8 F H 99.8 F H Temperature Source Oral Oral Oral Pulse Rate 97 100 95 Respiratory Rate 24 H 28 H 24 H Respiratory Pattern Blood Pressure 178/92 H 174/91 H 156/83 H Blood Pressure Mean 120 118 107 Pulse Ox 94 94 92 Oxygen Delivery Method Room Air Room Air Room Air 09/27/23 14:22 09/27/23 15:00 Temperature 99.8 F H 99.9 F H Temperature Source Oral Pulse Rate 89 106 H Respiratory Rate 22 H 24 H Respiratory Pattern Blood Pressure 156/83 H 118/75 Blood Pressure Mean 107 89 Pulse Ox 93 94 Oxygen Delivery Method Room Air Weight Weight: 78.4 kg Body Mass Index (BMI) 27.8 Physical Exam Narrative General: Awake, unable to answer questions, appears anxious HEENT: Atraumatic, normocephalic Eyes: Anicteric, normal conjunctiva, extraocular movements grossly intact Neck: Supple Respiratory: Slight increased respiratory effort Cardiovascular: Intermittently very slightly tachycardic GI: Soft, nontender, nondistended Extremities: No edema, right knee skin graft present, patient unable to say if she had any increased pain Musculoskeletal: Moving all extremities in bed Neuro: Patient unable to participate in neurologic exam Skin: No rashes appreciated Psych: Attempts to be cooperative but unable to do so given mental status Results Lab / Micro Data 09/27/23 12:31 09/27/23 12:31 Labs: Laboratory Results - last 24 hr 09/27/23 12:31: WBC 11.1 H, RBC 3.77 L, Hgb 9.8 L, Hct 32.0 L, MCV 84.9, MCH 26.0 L, MCHC 30.6 L, RDW Std Deviation 46.1 H, RDW Coeff of [place] 14.9 H, Plt Count 204, MPV 9.1, Immature Gran % (Auto) 0.400, Neut % (Auto) 72.3 H, Lymph % (Auto) 8.4 L, [place] % (Auto) 18.4 H, Eos % (Auto) 0.2, Baso % (Auto) 0.3, A bsolute Neuts (auto) 8.0 H, Absolute Lymphs (auto) 0.93, Nucleated RBC % 0, Differential Comment SCANNED, Diff Path Review June, Sodium 146 H, Potassium 2.8 L, Chloride 110 H, Carbon Dioxide 29.0, Anion Gap 7, BUN 14, Creatinine 1.49 H, Estim Creat Clear Calc 33.94, Est GFR (MDRD) Af Amer 44 L, Est GFR (MDRD) Non-Af 36 L, BUN/Creatinine Ratio 9.4 L, Glucose 148 H, Calcium 8.4 L, Magnesium 2.0, Total Bilirubin 0.40, AST 22, ALT 11 L, Alkaline Phosphatase 69, Total Protein 6.2 L, Albumin 2.4 L, Globulin 3.8, Albumin/Globulin Ratio 0.6 L Assessment & Plan Assessment/Plan (1) Acute kidney injury: (2) Hypernatremia: (3) Hypokalemia: (4) Debility: PLAN: Plan # Worsened mental status on top of chronic dementia -Dehydration versus infection versus elevated ammonia -Patient has elevated sodium and creatinine and dry mucous membranes suggestive of dehydration -Continue IVF -Also mildly tachycardic and tachypneic with slightly elevated white blood cell count and temp though does not meet fever criteria -UA/urine culture -Blood cultures especially given recent knee infection -Per family knee looks similar to previous, if patient has any further deterioration can consider checking ESR and CRP and skinning knee the patient is on vancomycin and has been receiving doses so feel this is less likely culprit -Will hold off on empiric antibiotics unless patient worsens or source found, will continue vancomycin in the meantime however -Will check ammonia given she is on Depakote -Also check COVID and chest x-ray given patient somewhat tachypneic and tachycardic with unclear underlying infection -TSH # KEILA and elevated sodium, concern for dehydration -Creatinine 1.49, was 0.68 on 08/06 -Sodium also mildly elevated at 146 -Continue IV fluids -Will obtain urine lytes # Dementia -Holding donepezil and memantine, will not make a large difference in short-term -Schedule melatonin nightly -Seroquel as needed, will consider scheduling this versus Risperdal pending patient mental status and any anxiety or agitation # Recent right knee infection with PICC line on vancomycin -Treated by Dr. Puente -PICC line in place, PICC care ordered -Continue vancomycin, patient scheduled continue this until October 04 -Per family knee looks similar to how it had with no increased redness, swelling, complaints # Hypokalemia -Replaced in ED -Will recheck once potassium finished #DVT ppx: Heparin subcu Chen Santos MD Time spent in the patient's overall evaluation,decision-making process, review of diagnostic data, adjustment of management, discussion with other providers, nursing nursing and ancillary staff involved in patient's care documentation, 57 minutes Charges/Coding Visit Charges Inpatient E&M: 84675 Init Hosp L2
[2023-09-27 15:35] LABS: Bacteria 0 SEEN /hpf (None Seen); Mucous, Urine 0 SEEN /hpf (<or=2+); Red Blood Cells-Urine 0 SEEN /hpf (0-5); Squamous Epithelial Cells - UA 0 SEEN /hpf (5-10); White Blood Cells 0 SEEN /hpf (0-5)
[2023-09-27 16:03] LABS: Glucose, Dipstick Normal (Normal); Ketone-Dipstick 5 mg/dl (Negative); Leukocyte Esterase-Dipstick Negative /ul (Negative); Nitrite-Dipstick Negative (Negative); Occult Blood-Urine Negative /ul (Negative); Protein-Dipstick 15 mg/dl (Negative); Urine Bilirubin Dipstick Negative (Negative); Urine Urobilinogen Normal (Normal)
--- NOTE | 2023-09-27 16:50 | RAD_ITS ---
EXAM: XR CHEST, 1 VIEW CLINICAL INDICATION: Increased WOB, elevated WBC, tachy TECHNIQUE: Frontal view of the chest. COMPARISON: 02/12/2023 FINDINGS: LUNGS AND PLEURAL SPACES: Unremarkable. No consolidation or edema. No pneumothorax. No effusion. HEART: Unremarkable. Cardiac silhouette not enlarged. MEDIASTINUM: Central airways and mediastinal contour are unremarkable. BONES/JOINTS: Unremarkable. No acute fracture. SOFT TISSUES: Unremarkable. TUBES, LINES AND DEVICES: Right central venous catheter is in place with the distal tip at the junction superior vena cava and right atrium. RAD/Chest 1 View (Portable) IMPRESSION: No acute findings in the chest. Electronically Signed: Barber Blakely MD at 0:11 EDT ,
[2023-09-27 16:55] LABS: Ammonia < 10.0 umol/L (11-32)
[2023-09-27 17:30] LABS: Valproic Acid (Depakene) Level 46 ug/mL (50-100)
[2023-09-27 17:33] LABS: Lactic Acid 1.4 mmol/L (0.4-1.9)
[2023-09-27 17:40] LABS: Thyroid Stim Hormone (TSH) 2.89 uIU/mL (0.358-3.74)
[2023-09-27] MEDS: 0.9% Normal Saline (1000mL) 1,000 ML 75 ML IV (18:16)
[2023-09-27] MEDS: 0.9% Saline Lock 10 ML Syringe IV (18:18)
[2023-09-27 18:38] LABS: Anion Gap 6 (5-15); BUN 12 mg/dL (7-18); BUN/Creat Ratio 8.8 RATIO (10-20); Chloride 113 mmol/L (98-107); Creatinine, Serum 1.37 mg/dL (0.55-1.02); EST Glomerular Filtration Rate 40 mL/min (>60); Est Glom Filt Rate - Afr Amer 48 mL/min (>60); Estimated Creatinine Clearance 36.92 ml/min; Glucose 188 mg/dL (74-106); Potassium 2.8 mmol/L (3.5-5.1); Sodium Level 147 mmol/L (136-145)
[2023-09-27] MEDS: Heparin Injection (Vial) 5,000 UNIT/ML VIAL 5000 UNIT SC (20:38)
[2023-09-27] MEDS: Potassium Chloride 10mEq/100mL 10 MEQ/100 ML IV.SOLN. 100 MEQ IV BOLUS ×2 (20:39→21:44)
[2023-09-27] MEDS: MELATONIN 10 MG TABLET PO (20:39)
[2023-09-27 22:59] LABS: Anion Gap 14 (5-15); BUN 14 mg/dL (7-18); BUN/Creat Ratio 11.8 RATIO (10-20); Calcium,Total 7.9 mg/dL (8.5-10.1); Chloride 114 mmol/L (98-107); Creatinine, Serum 1.19 mg/dL (0.55-1.02); EST Glomerular Filtration Rate 47 mL/min (>60); Est Glom Filt Rate - Afr Amer 57 mL/min (>60); Glucose 164 mg/dL (74-106); Potassium 3.4 mmol/L (3.5-5.1); Sodium Level 146 mmol/L (136-145)
[2023-09-27 23:28] LABS: Osmolality, Urine 440 mOsm/KG
[2023-09-27 23:46] LABS: Urine Sodium 101 mmol/L (Not Establ.)
[2023-09-28] VITALS (11 sets, daily range): BP systolic 124–158; BP diastolic 65–111; PULSE 70–120; RESP 12–30; TEMP 36.1–37.2; O2SAT 92–100
[2023-09-28 00:36] LABS: Urea Nitrogen, Urine 309 mg/dL (NO RANGE EST.)
[2023-09-28 03:34] LABS: Color, Urine Yellow (Yellow); Urine Clarity Clear (Clear)
[2023-09-28 03:48] LABS: Urine Chloride 152 mmol/L (Not Establ.); Urine Potassium 56.7 mmol/L (Not Establ.)
[2023-09-28] MEDS: QUEtiapine 25 MG Tablet PO (04:02)
[2023-09-28] MEDS: KCL 40mEq in 0.9% NS 40 MEQ/1,000 ML IV.SOLN 250 MEQ IV ×4 (04:02→16:39)
[2023-09-28 05:38] LABS: Absolute Lymphocyte Count 0.75 X10^3/uL (0.83-4.51); Absolute Neutrophil Count 5.2 X10^3/uL (2.0-7.7); Basophil# 0.03 X10^3/uL; Basophil% 0.4 % (0-1); Eosinophil# 0.03 X10^3/uL; Eosinophils% 0.4 % (0-5); Hematocrit 27.2 % (37-47); Lymphocyte # 0.75 X10^3/ul (0.83-4.51); Lymphocyte % 10.1 % (19-41); Mean Corp Hgb Conc 29.4 g/dL (32-36); Mean Corpuscular Hgb 25.6 pg (27.0-32.0); Mean Corpuscular Volume 86.9 fL (81-99); Mean Platelet Vol. 9.8 fl (6.2-12.0); Monocyte% 18.8 % (0-10); NRBC Flagged by Analyzer 0 % (0-5); Neutrophil # 5.19 X10^3/uL (2.7-7.7); Neutrophil % 69.8 % (47-70); Platelet Count 158 K/mm3 (150-450); RBC Distribution Width CV 15.2 % (11.6-14.6); RBC Distribution Width SD 48.1 fl (35.1-43.9); Red Blood Count 3.13 M/mm3 (4.2-5.4); White Blood Count 7.4 K/mm3 (4.4-11.0)
[2023-09-28 06:11] LABS: ALB/GLOB Ratio 0.6 RATIO (0.9-2.4); AST(SGOT) 16 U/L (15-37); Alanine Aminotransfer ALT/SGPT 9 U/L (13-56); Alkaline Phosphatase 60 U/L (45-117); Anion Gap 4 (5-15); BUN 14 mg/dL (7-18); BUN/Creat Ratio 11.5 RATIO (10-20); Calcium,Total 7.7 mg/dL (8.5-10.1); Chloride 117 mmol/L (98-107); Creatinine, Serum 1.22 mg/dL (0.55-1.02); EST Glomerular Filtration Rate 46 mL/min (>60); Est Glom Filt Rate - Afr Amer 55 mL/min (>60); Estimated Creatinine Clearance 41.46 ml/min; Globulin 3.3 g/dL (2.2-4.2); Glucose 137 mg/dL (74-106); Magnesium 1.6 mg/dL (1.6-2.6); Potassium 3.5 mmol/L (3.5-5.1); Protein, Total 5.3 g/dL (6.4-8.2); Sodium Level 147 mmol/L (136-145)
--- NOTE | 2023-09-28 07:19 | NURSING ---
family ([facility]- [facility]) req all four(4) siderails to be up.
[2023-09-28] MEDS: 0.9% Normal Saline (1000mL) 1,000 ML 75 ML IV (08:15)
[2023-09-28] MEDS: Divalproex Sodium 250 MG Tablet PO (10:15)
[2023-09-28] MEDS: Heparin Injection (Vial) 5,000 UNIT/ML VIAL 5000 UNIT SC ×2 (10:15→20:07)
--- NOTE | 2023-09-28 10:45 | PN.HOSP_ITS ---
Reason for Visit Reason for Visit: Diagnoses Hyperosmolality and hypernatremia (09/27/23) Hypokalemia (09/27/23) Acute kidney failure, unspecified (09/27/23) Other malaise (09/27/23) Objective Data Objective Data Vital Signs: Vital Signs Temp Pulse Resp BP Pulse Ox O2 Del Method 97.8 F 92 18 136/69 H 98 Room Air 09/28/23 10:05 09/28/23 10:05 09/28/23 10:05 09/28/23 10:05 09/28/23 10:05 09/28/23 10:09 Oxygen Delivery Method Room Air Weight: 172 lb 13.478 oz Body Mass Index (BMI) 27.8 Intake & Output: Intake and Output for Last 24 Hours 09/26/23 09/27/23 09/28/23 23:59 23:59 23:59 Intake Total 3780 / 3810 3370 / 3370 Output Total 400 / 400 Balance 3780 / 3710 2970 / 2970 Lab / Micro Data 09/28/23 05:20 09/28/23 05:20 Labs: Laboratory Results - last 24 hr 09/27/23 12:31: WBC 11.1 H, RBC 3.77 L, Hgb 9.8 L, Hct 32.0 L, MCV 84.9, MCH 26.0 L, MCHC 30.6 L, RDW Std Deviation 46.1 H, RDW Coeff of [place] 14.9 H, Plt Count 204, MPV 9.1, Immature Gran % (Auto) 0.400, Neut % (Auto) 72.3 H, Lymph % (Auto) 8.4 L, [place] % (Auto) 18.4 H, Eos % (Auto) 0.2, Baso % (Auto) 0.3, A bsolute Neuts (auto) 8.0 H, Absolute Lymphs (auto) 0.93, Nucleated RBC % 0, Differential Comment SCANNED, Diff Path Review June, Sodium 146 H, Potassium 2.8 L, Chloride 110 H, Carbon Dioxide 29.0, Anion Gap 7, BUN 14, Creatinine 1.49 H, Estim Creat Clear Calc 33.94, Est GFR (MDRD) Af Amer 44 L, Est GFR (MDRD) Non-Af 36 L, BUN/Creatinine Ratio 9.4 L, Glucose 148 H, Calcium 8.4 L, Magnesium 2.0, Total Bilirubin 0.40, AST 22, ALT 11 L, Alkaline Phosphatase 69, Total Protein 6.2 L, Albumin 2.4 L, Globulin 3.8, Albumin/Globulin Ratio 0.6 L, TSH 2.89 09/27/23 15:21: Urine Color Yellow, Urine Clarity Clear, Urine pH 8.0, Ur Specific [place] 1.010, Urine Protein 15 H, Urine Glucose (UA) Normal, Urine Ketones 5 H, Urine Occult Blood Negative, Urine Nitrite Negative, Urine Bilirubin Negative, Urine Urobilinogen Normal, Ur Leukocyte Esterase Negative, Urine RBC 0 SEEN, Urine WBC 0 SEEN, Ur Squamous Epith Cells 0 SEEN, Urine Bacteria 0 SEEN, Urine Mucus 0 SEEN 09/27/23 16:08: Lactic Acid 1.4, Ammonia < 10.0 L, Valproic Acid 46 L 09/27/23 18:10: Sodium 147 H, Potassium 2.8 L, Chloride 113 H, Carbon Dioxide 28.0, Anion Gap 6, BUN 12, Creatinine 1.37 H, Estim Creat Clear Calc 36.92, Est GFR (MDRD) Af Amer 48 L, Est GFR (MDRD) Non-Af 40 L, BUN/Creatinine Ratio 8.8 L, Glucose 188 H, Calcium 8.0 L 09/27/23 22:25: Sodium 146 H, Potassium 3.4 L, Chloride 114 H, Carbon Dioxide 18.0 L, Anion Gap 14, BUN 14, Creatinine 1.19 H, Estim Creat Clear Calc 42.50, E st GFR (MDRD) Af Amer 57 L, Est GFR (MDRD) Non-Af 47 L, BUN/Creatinine Ratio 11.8, Glucose 164 H, Calcium 7.9 L 09/27/23 22:30: Urine Osmolality 440, Ur Random Sodium 101, Urine Creatinine 100.00, Urine Potassium 56.7, Urine Chloride 152, Urine Urea Nitrogen 309 09/28/23 05:20: WBC 7.4, RBC 3.13 L, Hgb 8.0 L, Hct 27.2 L, MCV 86.9, MCH 25.6 L , MCHC 29.4 L, RDW Std Deviation 48.1 H, RDW Coeff of [place] 15.2 H, Plt Count 158, MPV 9.8, Immature Gran % (Auto) 0.500, Neut % (Auto) 69.8, Lymph % (Auto) 10.1 L , [place] % (Auto) 18.8 H, Eos % (Auto) 0.4, Baso % (Auto) 0.4, Absolute Neuts (auto) 5.2, Absolute Lymphs (auto) 0.75 L, Nucleated RBC % 0, Sodium 147 H, Potassium 3.5, Chloride 117 H, Carbon Dioxide 26.0, Anion Gap 4 L, BUN 14, C reatinine 1.22 H, Estim Creat Clear Calc 41.46, Est GFR (MDRD) Af Amer 55 L, Est GFR (MDRD) Non-Af 46 L, BUN/Creatinine Ratio 11.5, Glucose 137 H, Calcium 7.7 L, Magnesium 1.6, Total Bilirubin 0.30, AST 16, ALT 9 L, Alkaline Phosphatase 60, T otal Protein 5.3 L, Albumin 2.0 L, Globulin 3.3, Albumin/Globulin Ratio 0.6 L Micro: Microbiology 09/27/23 15:21 Urine, Catheterized Urine Culture - Preliminary Culture exhibits no growth. 09/27/23 17:35 Mucosa - Nasopharyngeal SARS-CoV-2, Influenza & RSV (PCR) - Final Radiography Diagnostic Testing: Radiology Impression Chest X-Ray 09/27/23 16:50 IMPRESSION: No acute findings in the chest. Electronically Signed: Barber Blakely MD at 0:11 EDT , Physical Exam Narrative Seen and examined. Patient has advanced dementia. She was sleeping deep but she woke up in the morning. No meaningful history could be obtained. Physical exam General: Alert, Oriented x3, Cooperative HEENT: Atraumatic, PERRLA, EOMI, Normocephalic Oral: No Gingival or Mucosal Lesions/ Ulcerations Neck: Supple, No JVD, Negative Carotid Bruits Chest wall/Lungs: Air entry diminished in bilateral lung bases. No crepitation/rhonchi Cardiovascular: Regular rate, Regular Rhythm, Normal S1, Normal S2, No M/G/R Abdomen: Bowel Sounds Present, Soft, Non Tender, Non-Distended : No dysuria. No renal angle tenderness. No suprapubic tenderness. Extremities: No edema, Capillary Refill Less than 3 Seconds Skin: Right knee skin graft present. Right GSV seems stripping done. No acute ulcer. Musculoskeletal: No Tenderness to Palpation of Joints or Extremities. Neurological: Cranial nerves II-XII grossly intact, DTR 2+/4. No acute focal neurological deficit. Psych/Mental Status: Flat affect. Dementia Assessment & Plan Assessment/Plan (1) Acute kidney injury: (2) Hypernatremia: (3) Hypokalemia: (4) Debility: PLAN: Plan 78-year-old female was admitted for abnormal lab work. She has history of dementia therefore history limited. Patient was found hypernatremia, dehydration possible hypokalemia. She has a PICC line and receives vancomycin because of wound dehiscence and infection after knee replacement # Worsened mental status, acute encephalopathy on top of chronic dementia possible metabolic encephalopathy -Dehydration versus infection versus elevated ammonia -Patient has elevated sodium and creatinine and dry mucous membranes suggestive of dehydration -Continue IVF -Also mildly tachycardic and tachypneic with slightly elevated white blood cell count and temp though does not meet fever criteria -UA does not show WBC, LE and nitrite negative. Urine culture negative. PCR for SARS-CoV-2, influenza and RSV are negative. Lactic acid 1.4. -Blood cultures e are pending -Will hold off on empiric antibiotics unless patient worsens or source found, continue vancomycin in the meantime however -Ammonia less than 10. Valproic acid 46 low. - # KEILA and elevated sodium, concern for dehydration -Creatinine 1.49, was 0.68 on 08/06 -Sodium also mildly elevated at 146 -Continue IV fluids Urine lites shows urine sodium 101, osmolality 440, potassium 56, urea nitrogen 29 and chloride 152 therefore favors more dehydration. # Dementia -Holding donepezil and memantine, will not make a large difference in short-term -Schedule melatonin nightly -Seroquel as needed, will consider scheduling this versus Risperdal pending patient mental status and any anxiety or agitation # Recent right knee infection with PICC line on vancomycin -Treated by Dr. Puente -PICC line in place, PICC care ordered -Continue vancomycin, patient scheduled continue this until October 04 -Per family knee looks similar to how it had with no increased redness, swelling, complaints # Hypokalemia -Replaced in ED -K3.5 low normal. #DVT ppx: Heparin subcu Charges/Coding Visit Charges Inpatient E&M: 03978 Subs Hosp L2
[2023-09-28 15:25] LABS: Vancomycin, Random Level 18.6 ug/mL (0.0-15.0)
--- NOTE | 2023-09-28 15:42 | PHA.PHARE_ITS ---
Consult Antibiotic Management Pharmacy has been consulted to manage selected antibiotic: Vancomycin Type of Intervention Type of Consult: Follow-up Suspected Infection Suspected Infection: Other Labs Labs: Sodium 147 mmol/L (136-145) H 09/28/23 05:20 Potassium 3.5 mmol/L (3.5-5.1) 09/28/23 05:20 Chloride 117 mmol/L (98-107) H 09/28/23 05:20 Carbon Dioxide 26.0 mmol/L (21.0-32.0) 09/28/23 05:20 Anion Gap 4 (5-15) L 09/28/23 05:20 BUN 14 mg/dL (7-18) 09/28/23 05:20 Creatinine 1.22 mg/dL (0.55-1.02) H 09/28/23 05:20 Est GFR (MDRD) Af Amer 55 mL/min (>60) L 09/28/23 05:20 Est GFR (MDRD) Non-Af 46 mL/min (>60) L 09/28/23 05:20 BUN/Creatinine Ratio 11.5 RATIO (10-20) 09/28/23 05:20 Glucose 137 mg/dL (74-106) H 09/28/23 05:20 Random Vancomycin 18.6 ug/mL (0.0-15.0) H 09/28/23 14:16 Microbiology Microbiology: Microbiology 09/27/23 15:21 Urine, Catheterized Urine Culture - Preliminary Culture exhibits no growth. 09/27/23 17:35 Mucosa - Nasopharyngeal SARS-CoV-2, Influenza & RSV (PCR) - Final Goal Trough Goal Trough: 15-20 mcg/mL Pharmacy Plan for Drug Dosing Pharmacy Plan for Drug Dosing: NEW START IV VANCOMYCIN Consulting Physician: Dr. Santos Indication: Continuation from home infusion antibiotics Goal Trough: 15-20 SrCr: 1.22 CrCl: 41 mL/min Comments: Patient was admitted to hospital on 09/26, was getting vancomycin previously at home. Patient had her home dose of 1500mg IV x1 in the [facility] ED on 09/27/23 @1442. Patient was receiving medications and supplies through [facility]. Pharmacy contacted [facility] to confirm patient's home dose/ last labs. Per [facility], he last known dose was 1500mg IV Q24h and last trough takes was on 09/15 (WNL). Prior to giving additional doses of vancomycin, [facility] pharmacy wanted to get a trough prior to next dose due. This random trough came back at 18.6 (Goal 15-20). Since trough is within therapeutic window, will continue home medication regimen. Vancomycin Dose: 1500mg IV Q24hr Pending Level: 10/02/23 @1530 (Since patient has been on home vancomycin since 09/10, will schedule in 4 days time since random level came back therapeutic after being on this regimen >2 weeks). Pharmacy Service will continue to monitor and adjust dosing as required.
[2023-09-28] MEDS: Potassium Chloride Oral Tablet 20 MEQ 40 MEQ PO (16:39)
[2023-09-28] MEDS: Vancomycin HCl 1,500 MG in 0.9% Normal Saline (500mL Bag) 500 ML 250 MG IV (16:46)
[2023-09-28] MEDS: QUEtiapine 25 MG Tablet 50 MG PO (17:52)
--- NOTE | 2023-09-28 18:22 | RAD_ITS ---
EXAM: XR CHEST, 1 VIEW CLINICAL INDICATION: shortness of breath TECHNIQUE: Frontal view of the chest. COMPARISON: 09/27/2023 FINDINGS: LUNGS AND PLEURAL SPACES: There is hazy right upper lobe airspace disease. No pneumothorax. No effusion. HEART: Unremarkable. Cardiac silhouette not enlarged. MEDIASTINUM: Central airways and mediastinal contour are unremarkable. BONES/JOINTS: There are no effusions. No acute fracture. SOFT TISSUES: Unremarkable. TUBES, LINES AND DEVICES: Right central venous catheter is in stable position. RAD/Chest 1 View (Portable) IMPRESSION: Hazy right upper lobe airspace disease which may represent early pneumonia. Right central venous catheter is in stable position. Electronically Signed: Barber Blakely MD at 19:41 EDT ,
--- NOTE | 2023-09-28 20:00 | NURSING ---
This RN called daughter Esther to update about patient needing to be placed on BIPAP and receiving Seroquel due to restlessness.
[2023-09-28 23:10] LABS: Allen Test Positive; Base Excess -1 mmol/L (-2 to +2); Bicarbonate 23.6 mmol/L (22-26); Blood Gas Specimen Type ART; Comment 14/8; Mode Not entered; O2 Delivery Device BiPAP; PO2 89 mmHG (75-100); RR 12; SITE L Radial; SO2 97 % (95-99); Total Carbon Dioxide 25 mmol/L; pCO2 37.5 mmHg (35-45); pH 7.41 (7.35-7.45)
[2023-09-29] VITALS (18 sets, daily range): BP systolic 131–157; BP diastolic 73–102; PULSE 83–111; RESP 12–29; TEMP 36.3–37.2; O2SAT 96–100
[2023-09-29] MEDS: Ipratropium 0.5 MG/2.5 ML SOLUTION INHALATION ×3 (01:49→09:59)
[2023-09-29] MEDS: Albuterol 2.5 MG/3 ML VIAL.NEB. INHALATION (01:49)
--- NOTE | 2023-09-29 09:38 | CPS ---
patient placed on 2L to eat breakfast. 96%, RR-15 HR 101
[2023-09-29] MEDS: Divalproex Sodium 250 MG Tablet PO (09:48)
[2023-09-29] MEDS: Potassium Chloride Oral Tablet 20 MEQ 40 MEQ PO (09:48)
[2023-09-29] MEDS: Heparin Injection (Vial) 5,000 UNIT/ML VIAL 5000 UNIT SC ×2 (09:48→21:40)
--- NOTE | 2023-09-29 10:12 | PCM.PN.HOSP ---
Reason for Visit Reason for Visit: Diagnoses Hyperosmolality and hypernatremia (09/27/23) Hypokalemia (09/27/23) Acute kidney failure, unspecified (09/27/23) Other malaise (09/27/23) Objective Data Objective Data Vital Signs: Vital Signs Temp Pulse Resp BP Pulse Ox O2 Del Method O2 Flow Rate 97.4 F L 101 H 18 131/73 H 97 Nasal Cannula 2 09/29/23 10:00 09/29/23 10:00 09/29/23 10:00 09/29/23 10:00 09/29/23 10:00 09/29/23 10:00 09/29/23 10:00 FiO2 30 09/29/23 08:59 Oxygen Flow Rate (L/min) 2 Oxygen Delivery Method Nasal Cannula Weight: 172 lb 13.478 oz Body Mass Index (BMI) 27.8 Intake & Output: Intake and Output for Last 24 Hours 09/27/23 09/28/23 09/29/23 23:59 23:59 23:59 Intake Total 3780 / 3810 7664.58 / 7664.58 Output Total 1500 / 1500 350 / 350 Balance 3780 / 3710 6164.58 / 6164.58 -350 / -350 Lab / Micro Data 09/28/23 05:20 09/28/23 05:20 Labs: Laboratory Results - last 24 hr 09/28/23 14:16: Random Vancomycin 18.6 H Micro: Microbiology 09/27/23 15:21 Urine, Catheterized Urine Culture - Preliminary Culture exhibits no growth. 09/27/23 17:35 Mucosa - Nasopharyngeal SARS-CoV-2, Influenza & RSV (PCR) - Final ABG Data ABG results: ABG 09/28/23 23:06 Specimen Type ART Sample Site L Radial pH 7.41 Bicarbonate Actual 23.6 Total CO2 25 Base Excess -1 O2 Saturation 97 O2 % 30.0 ABG pCO2 37.5 ABG pO2 89 Ezra Test Positive Respiration Rate 12 O2 Delivery Device BiPAP Vent Mode Not entered Clinical Comments 07/10 Radiography Diagnostic Testing: Radiology Impression Chest X-Ray 09/28/23 18:22 IMPRESSION: Hazy right upper lobe airspace disease which may represent early pneumonia. Right central venous catheter is in stable position. Electronically Signed: Barber Blakely MD at 19:41 EDT , Physical Exam Narrative Seen and examined. Patient has advanced dementia. She was sleeping deep but she woke up in the morning. No meaningful history could be obtained. Physical exam General: Alert, Oriented x3, Cooperative HEENT: Atraumatic, PERRLA, EOMI, Normocephalic Oral: No Gingival or Mucosal Lesions/ Ulcerations Neck: Supple, No JVD, Negative Carotid Bruits Chest wall/Lungs: Air entry diminished in bilateral lung bases. Mild crepitations and wheezing. Severe hypoxia. Requires BiPAP. Cardiovascular: Regular rate, Regular Rhythm, Normal S1, Normal S2, No M/G/R Abdomen: Bowel Sounds Present, Soft, Non Tender, Non-Distended : No dysuria. No renal angle tenderness. No suprapubic tenderness. Extremities: No edema, Capillary Refill Less than 3 Seconds Skin: Right knee skin graft present. Right GSV seems stripping done. No acute ulcer. Musculoskeletal: No Tenderness to Palpation of Joints or Extremities. Neurological: Cranial nerves II-XII grossly intact, DTR 2+/4. No acute focal neurological deficit. Psych/Mental Status: Flat affect. Advanced dementia Assessment & Plan Assessment/Plan (1) Acute kidney injury: (2) Hypernatremia: (3) Hypokalemia: (4) Debility: PLAN: Plan 78-year-old female was admitted for abnormal lab work. She has history of dementia therefore history limited. Patient was found hypernatremia, dehydration possible hypokalemia. She has a PICC line and receives vancomycin because of wound dehiscence and infection after knee replacement # Worsened mental status, acute encephalopathy on top of chronic dementia possible metabolic encephalopathy -Dehydration versus infection versus elevated ammonia -Patient has elevated sodium and creatinine and dry mucous membranes suggestive of dehydration -Continue IVF -Also mildly tachycardic and tachypneic with slightly elevated white blood cell count and temp though does not meet fever criteria -UA does not show WBC, LE and nitrite negative. Urine culture negative. PCR for SARS-CoV-2, influenza and RSV are negative. Lactic acid 1.4. Ammonia less than 10. Valproic acid 46 low. Acute hypoxic respiratory failure possible due to early developing pneumonia/pulmonary edema: Patient had ABG which showed 7.41/37.5/89 on BiPAP 07/10 at 30% FiO2. Lasix 40 mg IV 1 dose ordered. Chest x-ray shows right upper lobe haziness probably early pneumonia and mild pulmonary edema. BNP ordered. 2D echo ordered. Pneumonia workup ordered. Patient on IV vancomycin. Started on IV ceftriaxone # KEILA and elevated sodium, concern for dehydration -Creatinine 1.49, was 0.68 on 08/06 -Sodium also mildly elevated at 146 -Continue IV fluids Urine lites shows urine sodium 101, osmolality 440, potassium 56, urea nitrogen 29 and chloride 152 therefore favors more dehydration. 09/28: IV fluid was discontinued yesterday on 09/27. Creatinine is stable 1.22. # Dementia -Holding donepezil and memantine, will not make a large difference in short-term -Schedule melatonin nightly -Seroquel as needed, will consider scheduling this versus Risperdal pending patient mental status and any anxiety or agitation # Recent right knee infection with PICC line on vancomycin -Treated by Dr. Puente -PICC line in place, PICC care ordered -Continue vancomycin, patient scheduled continue this until October 04 -Per family knee looks similar to how it had with no increased redness, swelling, complaints # Hypokalemia -Replaced in ED -K3.5 low normal. 09/28K low normal 3.5. Potassium #DVT ppx: Heparin subcu Microbiology Past 72 Hours 09/27/23 15:21 Urine, Catheterized Urine Culture - Final Culture exhibits no growth. 09/27/23 17:35 Mucosa - Nasopharyngeal SARS-CoV-2, Influenza & RSV (PCR) - Final Laboratory Results 09/27/23 12:31: Diff Path Review Reviewed 09/28/23 23:06: Specimen Type ART, Sample Site L Radial, pH 7.41, Bicarbonate Actual 23.6, Total CO2 25, Base Excess -1, O2 Saturation 97, O2 % 30.0, ABG pCO2 37.5, ABG pO2 89, Ezra Test Positive, Respiration Rate 12, O2 Delivery Device BiPAP, Vent Mode Not entered, Clinical Comments 07/10 Charges/Coding Addendum Addendum: Total time of the visit including total time spent in counseling or coordination of care, (more than 50% of the total time, spent in obtaining medical information from nurses and other ancillary care providers,explaining to the patient about labs, imaging, diagnosis and management of active complex medical conditions), acute hypoxic respiratory failure, management of fluid overload and pneumonia, review of ABG, labs and imaging is 40 minutes. Visit Charges Inpatient E&M: 15550 Subs Hosp L3
[2023-09-29] MEDS: Furosemide 40 MG/4 ML Vial IV (10:56)
[2023-09-29] MEDS: 0.9% Saline Lock 10 ML Syringe IV ×2 (10:56→17:44)
--- NOTE | 2023-09-29 11:40 | CASEMGMT ---
RN CM Face to Face with patient for initial transition planning/care coordination assessment. RN CM introduced self and role at [facility]. Patient lying in bed, sleeping on bipap, daughter at bedside. Daughter willing to participate in assessment and is able to answer all questions appropriately. Care providers, pharmacy, and demographics verified. Lace: 11 Strata: 3 PCP: Loraine Specialists: Paty, neurologist; Tila, infection prevention; Easton, ortho [facility]. Preferred Pharmacy: [facility] Insurance: [facility] Prescription Benefit: yes Living Will/HPOA: yes, Yassine Nunes LNOK: , daughters Living Arrangements: Patient lives with in a single story home with 3 steps to enter. Patient has been requiring care from family due to dementia. Transportation: , daughters DME/HHC: Patient has shower chair, BSC, raised toilet, cane, walker, wheelchair, and cpap at home. Patient has been to TCU in the past. Patient is active with [facility] and family has hired aides for assistance. Daughter Isha wishes for patient to discharge to SNF for additional care. Daughter states she will talk with her father regarding care needs. Daughter states she has no further needs or concerns at this time. CM to follow for discharge planning needs that may arise. Disposition Plan: TBD, anticipate SNF pending acceptance and precert. Christel WELCH, RN, CM
[2023-09-29 13:45] LABS: Pathologist Review Reviewed
--- NOTE | 2023-09-29 14:30 | CASEMGMT ---
DANNY CM updated that patient's requesting to speak with RN CM. RN CM in to speak with , Yassine, regarding discharge plans. Per , they are interested in SNF at discharge as they are unable to care for patient at home. A list of SNF providers including quality and resource use data and consistent with the patient?s preferred geographical region, medical needs, and insurance network were provided from the [employer] Guide. to review list with daughters and to provide preferences for SNF. inquired about possible hospice and process for when patient is appropriate for services. RN CM updated patient that hospitalist would be updated to have conversation with family regarding hospice. voiced appropriate and will provide preferences in the morning. DANNY BARRAGAN updated SW. CM to update hospitalist.
[2023-09-29] MEDS: Vancomycin HCl 1,500 MG in 0.9% Normal Saline (500mL Bag) 500 ML 250 MG IV (15:40)
--- NOTE | 2023-09-29 16:39 | ECHOD_ITS ---
Reason For Study: SOB/ RESP FAILURE Procedure This was a 2D Doppler, Color Flow transthoracic echocardiogram. The study was technically difficult. Patient was scanned in supine position during reflux assessment. Patient was on Bipap during exam. Exam performed portable in patient room. Left Ventricle Normal LV size. Left ventricular systolic function is normal. The left ventricular ejection fraction is 55 %. Stage 1 diastolic dysfunction. No regional wall motion abnormalities noted. Right Ventricle Normal RV size. Normal systolic function. Atria Normal left atrium. Normal right atrium. Mitral Valve Normal mitral valve. Tricuspid Valve Normal tricuspid valve. Pulmonic Valve Normal pulmonic valve. Great Vessels Normal aortic root. The pulmonary artery is normal size. Normal inferior vena cava. Pericardium/Pleural No pericardial effusion. MMode/2D Measurements & Calculations LVIDd: 4.5 cm IVSd: 1.4 cm LVOT diam: 2.0 cm LVIDs: 2.9 cm LVPWd: 1.4 cm LVOT area: 3.2 cm2 RVDd: 3.5 cm FS: 34.2 % Ao root diam: 3.2 cm LAV(MOD-bp): 39.4 ml LVAd ap4: 25.9 cm2 LAV(MOD-bp) Indexed: 21.0 ml/m2 LVLd ap4: 7.7 cm LAV(MOD-sp2): 56.1 ml EDV(MOD-sp4): 74.6 ml LAV(MOD-sp4): 28.2 ml EDV(sp4-el): 74.5 ml LVAs ap4: 15.7 cm2 LVLs ap4: 7.1 cm ESV(MOD-sp4): 30.5 ml ESV(sp4-el): 29.8 ml EF(MOD-sp4): 59.2 % EF(sp4-el): 60.0 % SV(MOD-sp4): 44.2 ml SV(MOD-sp2): 36.9 ml LVAd ap2: 24.2 cm2 LVLd ap2: 7.6 cm EDV(MOD-sp2): 63.7 ml EDV(sp2-el): 65.3 ml LVAs ap2: 13.7 cm2 LVLs ap2: 6.0 cm ESV(MOD-sp2): 26.8 ml ESV(sp2-el): 26.4 ml EF(MOD-sp2): 58.0 % SV(sp4-el): 44.7 ml LA A4 area: 13.0 cm2 LA dimension(2D): 3.7 cm TAPSE: 2.1 cm RA A4 area: 12.1 cm2 Time Measurements MV dec time: 0.19 sec Doppler Measurements & Calculations MV E max mathew: 73.9 cm/sec Lat Peak E' Mathew: 8.3 cm/sec Med Peak E' Mathew: 9.0 cm/sec MV A max mathew: 105.3 cm/sec E/E' lat: 8.9 E/E' med: 8.2 MV E/A: 0.70 MV dec slope: 395.8 cm/sec2 Ao V2 max: 113.8 cm/sec LV V1 max: 93.9 cm/sec Ao max P.2 mmHg LV V1 max P.5 mmHg Ao V2 mean: 82.8 cm/sec LV V1 mean P.2 mmHg Ao mean P.1 mmHg LV V1 mean: 72.9 cm/sec Ao V2 VTI: 23.4 cm LV V1 VTI: 19.2 cm AV (velocity ratio): 0.82 JACKIE(I,D): 2.6 cm2 JACKIE(V,D): 2.7 cm2 SV(LVOT): 61.5 ml PA V2 max: 94.9 cm/sec PA max PG (full): 1.6 mmHg ECHO/Echo Complete Interpretation Summary Normal LV size. Left ventricular systolic function is normal. The left ventricular ejection fraction is 55 %. Stage 1 diastolic dysfunction. Ordering Physician: Doug Jacobo Referring Physician: Swati Baron M.D. Performed By: Nanette Sams RDCS
[2023-09-29] MEDS: MethylPREDNISolone 125 MG/2 ML Vial 60 MG IV (17:42)
[2023-09-29] MEDS: Ceftriaxone 1 GM/50 ML BAG IV (18:02)
[2023-09-29 21:13] LABS: Base Excess 3 mmol/L (-2 to +2); Bicarbonate 27.8 mmol/L (22-26); Blood Gas Specimen Type ART; Mode Not entered; O2 Delivery Device BiPAP; PEEP 8; PO2 123 mmHG (75-100); RR 12; SITE L Radial; SO2 99 % (95-99); Total Carbon Dioxide 29 mmol/L; pCO2 44.9 mmHg (35-45)
--- NOTE | 2023-09-29 21:37 | CPS ---
09/29/23 @2110 While RT was at bedside to collect an ABG due to mental status change (from previous shift), multiple 20-30 second periods of apnea were observed. The patient is being maintained by the BIPAP at this time which during these periods of apnea will alarm low minute ventilation until the patient begins to spontaneously breathe again. RN notified of this and of ABG results.
[2023-09-29 22:20] LABS: BNP,B-Type NATRIURETIC PEPTIDE 1839.2 pg/mL (0-100)
[2023-09-30] VITALS (8 sets, daily range): BP systolic 103–135; BP diastolic 51–80; PULSE 83–118; RESP 12–36; TEMP 36–36.6; O2SAT 93–98
[2023-09-30] MEDS: Divalproex Sodium 250 MG Tablet PO (09:07)
[2023-09-30] MEDS: guaiFENesin 1,200 MG Tablet 1200 MG PO (09:07)
[2023-09-30] MEDS: Potassium Chloride Oral Tablet 20 MEQ 40 MEQ PO (09:07)
[2023-09-30] MEDS: QUEtiapine 25 MG Tablet PO ×3 (09:08→21:36)
[2023-09-30] MEDS: Dextrose 5%-Water (1000mL Bag) 1,000 ML 50 ML IV (09:17)
[2023-09-30] MEDS: Heparin Injection (Vial) 5,000 UNIT/ML VIAL 5000 UNIT SC ×2 (09:18→22:27)
[2023-09-30] MEDS: 0.9% Saline Lock 10 ML Syringe IV (09:18)
--- NOTE | 2023-09-30 10:47 | CON.PCM.ID_ITS ---
Assessment & Plan Assessment/Plan (1) Acute kidney injury: (2) Encephalopathy acute: PLAN: Treating for pneumonia, cont ceftriaxone. [facility] vanc for R knee. Will follow, thank you HPI Consult Data Date of Consult: 09/30/23 HPI Narrative Reason for Consultation: pneumonia HPI Narrative: AAKASH SAMANIEGO, is a 78 F with h/o dementia, breast cancer, had R knee replacement which had dehiscence after fall, required re-admit to [facility] and skin graft. Discharged a few weeks ago on iv vanc via picc. Over a few days, had progressive confusion, lethargy, poor po intake. Admitted 09/26 to [facility], vanc continued, ceftriaxone added for suspected pneumonia. Mental status slowly improving. Full ROS performed and neg except as noted above. [facility] Medical History Dementia Dementia Vision problems Skin cancer Neuropathy Breast cancer Home Medications ?Medication ?Instructions ?Recorded ?Last Taken ?Type donepezil 10 mg tablet 10 mg PO QHS memory #30 tabs 09/11/23 Unknown Rx memantine 28 mg capsule 28 mg PO QAM memory #30 ea 09/11/23 Unknown Rx sprinkle,extended release 24hr divalproex 250 mg tablet,delayed 250 mg PO DAILY #30 tabs 09/15/23 Unknown Rx release quetiapine 25 mg tablet (Seroquel) 25 mg PO DAILY 09/27/23 Unknown History Allergy/AdvReac Type Severity Reaction Status Date / Time Penicillins Allergy Unknown Hives Verified 09/27/23 11:45 Family History Mother Dementia Father Lung cancer Grandfather Parkinson disease Surgical History Hx of breast implants, bilateral History of mastectomy Social History household members: spouse Smoking Status: Never smoker second hand exposure: No alcohol intake: never substance use type: does not use what type of physical activity do you participate in: none adeel/gnosticism: Tenriism seatbelt use: always Physical Exam Const no apparent distress General Appearance: cooperative and lethargic HEENT normocephalic and head/scalp atraumatic Eyes PERRL and EOMs intact bilaterally Neck supple and No nodes Resp Auscultation: diminished lung sounds Cardio regular rate and regular rhythm GI soft to palpation, non-tender and non-distended Extremity General Extremity: edema Skin no rashes or lesions noted Neuro CN's II-XII intact bilaterally Lab / Micro Data Attestation: I reviewed the patient's lab results. 09/28/23 05:20 09/28/23 05:20 Labs: Laboratory Results - last 24 hr 09/27/23 12:31: Diff Path Review Reviewed 09/29/23 21:38: B-Natriuretic Peptide 1839.2 H Micro: Microbiology 09/27/23 16:08 Blood Culture (Wb) - Anticubital Left Blood Culture - Preliminary No growth in 48 hours. 09/29/23 17:02 Mucosa - Nasopharyngeal Respiratory Panel (PCR) - Final 09/29/23 17:05 Nasal Secretion MRSA (PCR) - Final 09/29/23 17:30 Urine, Clean Catch Legionella Antigen - Final 09/29/23 17:30 Urine, Clean Catch Streptococcus pneumoniae Antigen (M - Final 09/27/23 15:21 Urine, Catheterized Urine Culture - Final Culture exhibits no growth. ABG Data ABG results: ABG 09/29/23 21:10 Specimen Type ART Sample Site L Radial pH 7.40 Bicarbonate Actual 27.8 H Total CO2 29 Base Excess 3 H O2 Saturation 99 O2 % 30.0 ABG pCO2 44.9 ABG pO2 123 H Ezra Test N/A Respiration Rate 12 O2 Delivery Device BiPAP Vent Mode Not entered POC PEEP 8 Clinical Comments
[2023-09-30 14:35] LABS: Absolute Lymphocyte Count 0.45 X10^3/uL (0.83-4.51); Absolute Neutrophil Count 8.7 X10^3/uL (2.0-7.7); Basophil# 0.01 X10^3/uL; Basophil% 0.1 % (0-1); Hematocrit 26.7 % (37-47); Hemoglobin 7.8 g/dL (12.0-15.0); Lymphocyte # 0.45 X10^3/ul (0.83-4.51); Lymphocyte % 4.4 % (19-41); Mean Corp Hgb Conc 29.2 g/dL (32-36); Mean Corpuscular Hgb 25.3 pg (27.0-32.0); Mean Corpuscular Volume 86.7 fL (81-99); Mean Platelet Vol. 10.4 fl (6.2-12.0); Monocyte# 1.04 X10^3/uL; Monocyte% 10.2 % (0-10); NRBC Flagged by Analyzer 0 % (0-5); Neutrophil # 8.67 X10^3/uL (2.7-7.7); Neutrophil % 84.8 % (47-70); POSITIVE DIFFERENTIAL YES; Platelet Count 195 K/mm3 (150-450); RBC Distribution Width CV 15.2 % (11.6-14.6); RBC Distribution Width SD 48.7 fl (35.1-43.9); Red Blood Count 3.08 M/mm3 (4.2-5.4); White Blood Count 10.2 K/mm3 (4.4-11.0)
--- NOTE | 2023-09-30 14:54 | PN.HOSP_ITS ---
Reason for Visit Reason for Visit: Diagnoses Hyperosmolality and hypernatremia (09/27/23) Hypokalemia (09/27/23) Encephalopathy, unspecified (09/27/23) Acute kidney failure, unspecified (09/27/23) Other malaise (09/27/23) Objective Data Objective Data Vital Signs: Vital Signs Temp Pulse Resp BP Pulse Ox O2 Del Method O2 Flow Rate 97.7 F L 92 20 H 126/64 H 93 Nasal Cannula 2 09/30/23 09:00 09/30/23 09:00 09/30/23 09:00 09/30/23 09:00 09/30/23 09:00 09/30/23 09:00 09/30/23 14:08 FiO2 30 09/30/23 07:50 Oxygen Flow Rate (L/min) 2 Oxygen Delivery Method Nasal Cannula Weight: 172 lb 13.478 oz Body Mass Index (BMI) 27.8 Intake & Output: Intake and Output for Last 24 Hours 09/28/23 09/29/23 09/30/23 23:59 23:59 23:59 Intake Total 7664.58 / 7664.58 820 / 820 Output Total 1500 / 1500 2450 / 2450 150 / 150 Balance 6164.58 / 6164.58 -1630 / -1630 -150 / -150 Lab / Micro Data 09/30/23 14:17 09/28/23 05:20 Labs: Laboratory Results - last 24 hr 09/29/23 21:38: B-Natriuretic Peptide 1839.2 H 09/30/23 14:17: WBC 10.2, RBC 3.08 L, Hgb 7.8 L, Hct 26.7 L, MCV 86.7, MCH 25.3 L, MCHC 29.2 L, RDW Std Deviation 48.7 H, RDW Coeff of [place] 15.2 H, Plt Count 195, MPV 10.4, Immature Gran % (Auto) 0.500, Neut % (Auto) 84.8 H, Lymph % (Auto) 4.4 L, Caldwell % (Auto) 10.2 H, Eos % (Auto) 0.0, Baso % (Auto) 0.1, A bsolute Neuts (auto) 8.7 H, Absolute Lymphs (auto) 0.45 L, Nucleated RBC % 0 Micro: Microbiology 09/27/23 16:08 Blood Culture (Wb) - Anticubital Left Blood Culture - Preliminary No growth in 48 hours. 09/29/23 17:02 Mucosa - Nasopharyngeal Respiratory Panel (PCR) - Final 09/29/23 17:05 Nasal Secretion MRSA (PCR) - Final 09/29/23 17:30 Urine, Clean Catch Legionella Antigen - Final 09/29/23 17:30 Urine, Clean Catch Streptococcus pneumoniae Antigen (M - Final 09/27/23 15:21 Urine, Catheterized Urine Culture - Final Culture exhibits no growth. 09/27/23 17:35 Mucosa - Nasopharyngeal SARS-CoV-2, Influenza & RSV (PCR) - Final ABG Data ABG results: ABG 09/29/23 21:10 Specimen Type ART Sample Site L Radial pH 7.40 Bicarbonate Actual 27.8 H Total CO2 29 Base Excess 3 H O2 Saturation 99 O2 % 30.0 ABG pCO2 44.9 ABG pO2 123 H Ezra Test N/A Respiration Rate 12 O2 Delivery Device BiPAP Vent Mode Not entered POC PEEP 8 Clinical Comments Radiography Diagnostic Testing: Radiology Impression Echocardiogram 09/29/23 16:39 Interpretation Summary Normal LV size. Left ventricular systolic function is normal. The left ventricular ejection fraction is 55 %. Stage 1 diastolic dysfunction. Ordering Physician: Doug Jacobo Referring Physician: Swati Baron M.D. Performed By: Nanette Sams RDCS Physical Exam Narrative Seen and examined. Patient has advanced dementia. Patient on BiPAP. Discussed with the respiratory therapist. Does not have good respiratory effort and requires BiPAP support. Wakes up on verbal command. No meaningful history could be obtained. Physical exam General: Alert, Oriented x3, Cooperative HEENT: Atraumatic, PERRLA, EOMI, Normocephalic Oral: No Gingival or Mucosal Lesions/ Ulcerations Neck: Supple, No JVD, Negative Carotid Bruits Chest wall/Lungs: Air entry diminished in bilateral lung bases. Hypoxia improving on 2 L of oxygen 93%. BiPAP during nighttime. Cardiovascular: Regular rate, Regular Rhythm, Normal S1, Normal S2, No M/G/R Abdomen: Bowel Sounds Present, Soft, Non Tender, Non-Distended : No dysuria. No renal angle tenderness. No suprapubic tenderness. Extremities: No edema, Capillary Refill Less than 3 Seconds Skin: Right knee skin graft present. Right GSV seems stripping done. No acute ulcer. Musculoskeletal: No Tenderness to Palpation of Joints or Extremities. Neurological: Cranial nerves II-XII grossly intact, DTR 2+/4. No acute focal neurological deficit. Psych/Mental Status: Flat affect. Advanced dementia Assessment & Plan Assessment/Plan (1) Acute kidney injury: (2) Hypernatremia: (3) Hypokalemia: (4) Debility: PLAN: Plan 78-year-old female was admitted for abnormal lab work. She has history of dementia therefore history limited. Patient was found hypernatremia, dehydration possible hypokalemia. She has a PICC line and receives vancomycin because of wound dehiscence and infection after knee replacement # Worsened mental status, acute encephalopathy on top of chronic dementia possible metabolic encephalopathy -Dehydration versus infection versus elevated ammonia -Patient has elevated sodium and creatinine and dry mucous membranes suggestive of dehydration -Continue IVF -Also mildly tachycardic and tachypneic with slightly elevated white blood cell count and temp though does not meet fever criteria -UA does not show WBC, LE and nitrite negative. Urine culture negative. PCR for SARS-CoV-2, influenza and RSV are negative. Lactic acid 1.4. Ammonia less than 10. Valproic acid 46 low. 09/29: Seroquel dose decreased to 25 mg twice daily with holding parameters. Acute hypoxic respiratory failure possible due to early developing pneumonia/pulmonary edema: Patient had ABG which showed 7.41/37.5/89 on BiPAP 14/8 at 30% FiO2. Lasix 40 mg IV 1 dose ordered. Chest x-ray shows right upper lobe haziness probably early pneumonia and mild pulmonary edema. BNP ordered. 2D echo ordered. Pneumonia workup ordered. Patient on IV vancomycin. Started on IV ceftriaxone 09/29: Discussed with the respiratory therapist. Requires BiPAP support as she fall asleep with suspicion of narcolepsy or central sleep apnea. ABG reviewed. 7.4 0/45/123 on 30% FiO2 RR 20. PEEP 8. Pulmonary consult requested. Continue oxygen and BiPAP as needed during nap and at night. ID consult reviewed. Continue IV ceftriaxone for pneumonia and IV vancomycin for knee infection. Blood culture negative for 48 hours. Urinary antigens negative. MRSA nasal screen negative. Culture negative. # KEILA and hypernatremia concern for dehydration -Creatinine 1.49, was 0.68 on 08/06 -Sodium also mildly elevated at 146 -Continue IV fluids Urine lites shows urine sodium 101, osmolality 440, potassium 56, urea nitrogen 29 and chloride 152 therefore favors more dehydration. 09/28: IV fluid was discontinued yesterday on 09/27. Creatinine is stable 1.22. 09/29: Creatinine went up to 1.38. Patient had 1 dose of Lasix yesterday because of right lung. Hypernatremia, hyperchloremia with low anion gap. Bicarb 29. D5W ordered for hypernatremia # Dementia -Holding donepezil and memantine, will not make a large difference in short-term -Schedule melatonin nightly -Seroquel as needed, will consider scheduling this versus Risperdal pending patient mental status and any anxiety or agitation # Recent right knee infection with PICC line on vancomycin -Treated by Dr. Puente -PICC line in place, PICC care ordered -Continue vancomycin, patient scheduled continue this until October 04 -Per family knee looks similar to how it had with no increased redness, swelling, complaints ID follow-up # Hypokalemia -Replaced in ED -K3.5 low normal. 8/5K low normal 3.5. Potassium #DVT ppx: Heparin subcu Microbiology Past 72 Hours 09/27/23 16:08 Blood Culture (Wb) - Anticubital Left Blood Culture - Preliminary No growth in 48 hours. 09/29/23 17:02 Mucosa - Nasopharyngeal Respiratory Panel (PCR) - Final 09/29/23 17:05 Nasal Secretion MRSA (PCR) - Final 09/29/23 17:30 Urine, Clean Catch Legionella Antigen - Final 09/29/23 17:30 Urine, Clean Catch Streptococcus pneumoniae Antigen (M - Final 09/27/23 15:21 Urine, Catheterized Urine Culture - Final Culture exhibits no growth. 09/27/23 17:35 Mucosa - Nasopharyngeal SARS-CoV-2, Influenza & RSV (PCR) - Final Laboratory Results 09/29/23 21:10: Specimen Type ART, Sample Site L Radial, pH 7.40, Bicarbonate Actual 27.8 H, Total CO2 29, Base Excess 3 H, O2 Saturation 99, O2 % 30.0, ABG pCO2 44.9, ABG pO2 123 H, Ezra Test N/A, Respiration Rate 12, O2 Delivery Device BiPAP, Vent Mode Not entered, POC PEEP 8, Clinical Comments 09/29/23 21:38: B-Natriuretic Peptide 1839.2 H 09/30/23 14:17: WBC 10.2, RBC 3.08 L, Hgb 7.8 L, Hct 26.7 L, MCV 86.7, MCH 25.3 L, MCHC 29.2 L, RDW Std Deviation 48.7 H, RDW Coeff of [place] 15.2 H, Plt Count 195, MPV 10.4, Immature Gran % (Auto) 0.500, Neut % (Auto) 84.8 H, Lymph % (Auto) 4.4 L, Caldwell % (Auto) 10.2 H, Eos % (Auto) 0.0, Baso % (Auto) 0.1, A bsolute Neuts (auto) 8.7 H, Absolute Lymphs (auto) 0.45 L, Nucleated RBC % 0, S odium 148 H, Potassium 3.6, Chloride 115 H, Carbon Dioxide 29.0, Anion Gap 4 L, BUN 20 H, Creatinine 1.38 H, Estim Creat Clear Calc 36.65, Est GFR (MDRD) Af Amer 48 L, Est GFR (MDRD) Non-Af 40 L, BUN/Creatinine Ratio 14.5, Glucose 175 H, Calcium 8.8, Total Bilirubin 0.20, AST 118 H, ALT 54, Alkaline Phosphatase 64, T otal Protein 5.6 L, Albumin 2.0 L, Globulin 3.6, Albumin/Globulin Ratio 0.6 L Charges/Coding Visit Charges Inpatient E&M: 57426 Subs Hosp L2
[2023-09-30 14:58] LABS: ALB/GLOB Ratio 0.6 RATIO (0.9-2.4); AST(SGOT) 118 U/L (15-37); Alanine Aminotransfer ALT/SGPT 54 U/L (13-56); Alkaline Phosphatase 64 U/L (45-117); Anion Gap 4 (5-15); BUN 20 mg/dL (7-18); BUN/Creat Ratio 14.5 RATIO (10-20); Calcium,Total 8.8 mg/dL (8.5-10.1); Chloride 115 mmol/L (98-107); Creatinine, Serum 1.38 mg/dL (0.55-1.02); EST Glomerular Filtration Rate 40 mL/min (>60); Est Glom Filt Rate - Afr Amer 48 mL/min (>60); Estimated Creatinine Clearance 36.65 ml/min; Globulin 3.6 g/dL (2.2-4.2); Glucose 175 mg/dL (74-106); Potassium 3.6 mmol/L (3.5-5.1); Protein, Total 5.6 g/dL (6.4-8.2); Sodium Level 148 mmol/L (136-145)
--- NOTE | 2023-09-30 16:03 | CT_ITS ---
STUDY: CTA CHEST REASON FOR EXAM: Female, 78 years old. Shortness of breath RADIATION DOSAGE (If Supplied By Facility): CTDIvol = ( 7.22 ) mGy, DLP = ( 430.76 ) mGycm TECHNIQUE: The examination was performed with the intravenous administration of 100mL Isovue-370. Post-processing of the angiographic images was performed, with multiplanar reformation and 3D reconstruction. Individualized dose optimization techniques were used for this CT. COMPARISON: 03/20/2022 FINDINGS: Study limited by extensive breathing motion artifact. Distal segmental and subsegmental pulmonary arteries cannot be reliably evaluated. No large or central filling defects identified. Normal thoracic aorta and visualized great vessels. There is no demonstrated aortic dissection. Normal heart and pericardium. Normal mediastinum. Normal hilar regions. Bilateral, multifocal groundglass opacities. Peripheral septal thickening. No consolidations or mass lesions. Stable lingular fibrosis. There are no pleural effusions. Normal chest wall structures. No acute or aggressive osseous abnormality. No acute findings in the upper abdomen. Stable low-attenuation hepatic lesions. CT/CTA Chest W/WO Contrast IMPRESSION: CTA study limited by breathing motion artifact. No large or central pulmonary emboli. Smaller or more distal PE cannot be reliably excluded. Multifocal bilateral groundglass opacities which were not present on the prior study. In the appropriate clinical setting these findings may represent infection including atypical or viral pneumonia. Pulmonary edema should also be considered. Electronically Signed: Gigi Mandujano MD at 17:29 EDT ,
--- NOTE | 2023-09-30 16:05 | PCMCONS.TICU ---
HPI Consult Data Date of Consult: 09/30/23 HPI Narrative HPI Narrative: N78 yo wf with advanced dementia, Breast Ca admitted 09/26 for abnormal labs from PCP. Pt was mildly hypernatremic with an KEILA. Serum HCO3 on one set of labs was 18. Pt was also tachypneic. She was placed on NIPPV. She had questionable infiltrates on plain films. She is being treated for a wound infection from TKR site: on vanc. Since admit pt at times continues to be tachypneic req NIPPV. When she falls asleep she desaturates. Nurses have noticed her fall asleep quickly. She is on empiric antibxs for CAP. She is on IVFs for KEILA and hypernatremia. [facility] Medical History Dementia Dementia Vision problems Skin cancer Neuropathy Breast cancer Home Medications ?Medication ?Instructions ?Recorded ?Last Taken ?Type donepezil 10 mg tablet 10 mg PO QHS memory #30 tabs 09/11/23 Unknown Rx memantine 28 mg capsule 28 mg PO QAM memory #30 ea 09/11/23 Unknown Rx sprinkle,extended release 24hr divalproex 250 mg tablet,delayed 250 mg PO DAILY #30 tabs 09/15/23 Unknown Rx release quetiapine 25 mg tablet (Seroquel) 25 mg PO DAILY 09/27/23 Unknown History Allergy/AdvReac Type Severity Reaction Status Date / Time Penicillins Allergy Unknown Hives Verified 09/27/23 11:45 Family History Mother Dementia Father Lung cancer Grandfather Parkinson disease Surgical History Hx of breast implants, bilateral History of mastectomy Social History household members: spouse Smoking Status: Never smoker second hand exposure: No alcohol intake: never substance use type: does not use what type of physical activity do you participate in: none adeel/restorationist: Alevism seatbelt use: always ROS ROS Narrative unable to give ROS Objective Data Objective Data Vital Signs: Vital Signs Last response Temperature 36.5 C L 09/30/23 09:00 Temperature Source Temporal 09/30/23 09:00 Pulse Rate 92 08/06/24 09:00 Pulse Strength Weak (1+) 09/29/23 09:00 Respiratory Rate 20 H 09/30/23 09:00 Respiratory Effort Normal, Non-Labored 09/30/23 09:00 Respiratory Depth Normal 09/30/23 09:00 Respiratory Pattern Normal 09/30/23 09:00 Blood Pressure 126/64 H 09/30/23 09:00 Blood Pressure Mean 84 09/30/23 09:00 Blood Pressure Source Monitor 09/30/23 03:03 Blood Pressure Position Semi-Fowlers 09/30/23 03:03 Blood Pressure Location Left Arm 09/30/23 03:03 Pulse Ox 93 09/30/23 09:00 Oxygen Delivery Method Nasal Cannula 09/30/23 09:00 Oxygen Flow Rate (L/min) 2 09/30/23 14:08 Fraction of Inspired Oxygen (FIO2) 30 09/30/23 07:50 I&O: I&O Last 24 Hours 09/29/23 09/30/23 09/30/23 23:59 11:59 23:59 Intake Total 700 / 820 Output Total 1100 / 2450 150 / 150 Balance -400 / -1630 -150 / -150 I&O: Total Stay 09/27/23 11:44 thru 09/30/23 08:54 Intake Total 61540.58 Output Total 4100 Balance 8164.58 Current Meds Ordered / Administered: Current meds ordered / Administered Generic Name Dose Route Start Last Admin Trade Name Freq PRN Reason Stop Dose Admin Acetaminophen 650 mg 09/27/23 15:55 Acetaminophen 325 Mg Tablet PO Q6H PRN PRN Pain 1-10 Or Fever >100.7 Divalproex Sodium 250 mg 09/28/23 10:00 09/30/23 09:07 Divalproex Sodium 250 Mg Tablet PO 250 mg DAILY JEWEL Administration Guaifenesin 1,200 mg 09/29/23 22:00 09/30/23 09:07 Guaifenesin 1,200 Mg Tablet PO 1,200 mg BID JEWEL Administration Heparin Sodium (Porcine) 5,000 unit 09/27/23 22:00 09/30/23 09:18 Heparin Injection (Vial) 5,000 Unit/Ml Vial SC 5,000 unit Q12 JEWEL Administration Vancomycin IV-PHARMACY TO DOSE 500 mls @ 250 mls/hr 09/27/23 15:55 1 each/ Sodium Chloride IV PRN PRN Rx to Dose Vancomycin HCl 1,500 mg/ 530 mls @ 250 mls/hr 09/28/23 16:00 09/29/23 18:02 Sodium Chloride IV Infused Q24H JEWEL Infusion Ceftriaxone Sodium 1 gm in 50 mls @ 100 mls/hr 09/29/23 18:00 09/29/23 19:30 Rocephin IV Infused Q24@2200 JEWEL Infusion Dextrose 1,000 mls @ 50 mls/hr 09/30/23 08:05 09/30/23 09:17 IV 10/01/23 04:04 50 mls/hr .Q20H JEWEL Administration Iopamidol 0 ml 09/30/23 16:15 Contrast Allergy Safety Check IV X1 JEWEL Ipratropium [place] 0.5 mg 09/28/23 18:10 09/29/23 09:59 Ipratropium 0.5 Mg/2.5 Ml Solution INHALATION 0.5 mg Q4H.RT PRN Administration SHORTNESS OF BREATH Melatonin 10 mg 09/27/23 22:00 09/29/23 21:40 Melatonin 10 Mg Tablet PO Not Given QHS JEWEL Metoprolol Tartrate 5 mg 09/28/23 18:10 Metoprolol Tartrate 5 Mg/5 Ml Vial IV Q6 PRN HR >120 Protocol Ondansetron HCl 4 mg 09/27/23 15:55 Ondansetron 4 Mg/2 Ml Vial IV Q8H PRN PRN NAUSEA/VOMITING Quetiapine Fumarate 25 mg 09/30/23 10:00 09/30/23 09:08 Quetiapine 25 Mg Tablet PO 25 mg BID JEWEL Administration Senna/Docusate Sodium 2 tablet 09/27/23 15:55 Senna/Docusate Sodium 1 Tablet PO BID PRN PRN Constipation Sodium Chloride 10 - 40 ml 09/27/23 16:08 09/30/23 09:18 0.9% Saline Lock 10 Ml Syringe IV 10 ml UD PRN Administration SALINE FLUSH Vancomycin Protocol 1 lab 10/02/23 13:30 Vancomycin Trough/Random Due MC 10/02/23 17:30 DAILY JEWEL Physical Exam Narrative asleep, challenge to wake up, once awake non-verbal but responsive pupils: = o/p: clear CV: RRR Chest diminished BS throughout Abd: soft, nt Ext: no c/e/c Skin: no rashes Lab / Micro Data 09/30/23 14:17 09/30/23 14:17 Labs: Laboratory Results - last 24 hr 09/29/23 21:38: B-Natriuretic Peptide 1839.2 H 09/30/23 14:17: WBC 10.2, RBC 3.08 L, Hgb 7.8 L, Hct 26.7 L, MCV 86.7, MCH 25.3 L, MCHC 29.2 L, RDW Std Deviation 48.7 H, RDW Coeff of [place] 15.2 H, Plt Count 195, MPV 10.4, Immature Gran % (Auto) 0.500, Neut % (Auto) 84.8 H, Lymph % (Auto) 4.4 L, Lucas % (Auto) 10.2 H, Eos % (Auto) 0.0, Baso % (Auto) 0.1, Absolute Neuts (auto) 8.7 H, Absolute Lymphs (auto) 0.45 L, Nucleated RBC % 0, Sodium 148 H, Potassium 3.6, Chloride 115 H, Carbon Dioxide 29.0, Anion Gap 4 L, BUN 20 H, Creatinine 1.38 H, Estim Creat Clear Calc 36.65, Est GFR (MDRD) Af Amer 48 L, Est GFR (MDRD) Non-Af 40 L, BUN/Creatinine Ratio 14.5, Glucose 175 H, Calcium 8.8, Total Bilirubin 0.20, AST 118 H, ALT 54, Alkaline Phosphatase 64, Total Protein 5.6 L, Albumin 2.0 L, Globulin 3.6, Albumin/Globulin Ratio 0.6 L Micro: Microbiology 09/27/23 16:08 Blood Culture (Wb) - Anticubital Left Blood Culture - Preliminary No growth in 48 hours. 09/29/23 17:02 Mucosa - Nasopharyngeal Respiratory Panel (PCR) - Final 09/29/23 17:05 Nasal Secretion MRSA (PCR) - Final 09/29/23 17:30 Urine, Clean Catch Legionella Antigen - Final 09/29/23 17:30 Urine, Clean Catch Streptococcus pneumoniae Antigen (M - Final 09/27/23 15:21 Urine, Catheterized Urine Culture - Final Culture exhibits no growth. ABG Data ABG results: ABG 09/29/23 21:10 Specimen Type ART Sample Site L Radial pH 7.40 Bicarbonate Actual 27.8 H Total CO2 29 Base Excess 3 H O2 Saturation 99 O2 % 30.0 ABG pCO2 44.9 ABG pO2 123 H Ezra Test N/A Respiration Rate 12 O2 Delivery Device BiPAP Vent Mode Not entered POC PEEP 8 Clinical Comments Imaging Radiology Impression Echocardiogram 09/29/23 16:39 Interpretation Summary Normal LV size. Left ventricular systolic function is normal. The left ventricular ejection fraction is 55 %. Stage 1 diastolic dysfunction. Ordering Physician: Doug Jacobo Referring Physician: Swati Baron M.D. Performed By: Nanette Sams RDCS Assessment and Plan . Assessment and plan: A/P: 1. Resp Failure: high WOB. ABG likely with chronic hypercapnea at baseline. Also with current metabolic acidosis and acute resp alkalosis. Need to eval for PE given space: CTA ordered. Continue BIPAP with naps/sleep. Continue supplemental O2. 2. CLARA: ?. Habitus suggestive of. Desats when asleep. Will need outpt PSG 3. KEILA: Continue IVFs 4. Hypernatremia: Continue hypotonic IVFs 5. CAP: CT to eval parenchyma. ID following 6. FEN: oral diet 7. Px : chemical Juancho MD Bharat The entirety of this encounter was done via Telemedicine
[2023-09-30] MEDS: Vancomycin HCl 1,500 MG in 0.9% Normal Saline (500mL Bag) 500 ML 250 MG IV (17:33)
--- NOTE | 2023-09-30 21:24 | PCM.HOSP.N ---
Hospitalist Note temporary staff accountant noting patient with underlying dementia with increased anxiety and restlessness. Will given an additional low dose seroquel 25 mg x 1 now and continue to closely monitor.
[2023-09-30] MEDS: Ceftriaxone 1 GM/50 ML BAG IV (22:25)
--- NOTE | 2023-09-30 22:30 | CPS ---
Pt is now intolerant to BIPAP, Pt's respiratory status is stable at this time.
[2023-10-01] VITALS (7 sets, daily range): BP systolic 138–156; BP diastolic 74–92; PULSE 84–88; RESP 14–18; TEMP 35.9–36.8; O2SAT 93–100
[2023-10-01 04:56] LABS: Absolute Lymphocyte Count 1.04 X10^3/uL (0.83-4.51); Absolute Neutrophil Count 7.1 X10^3/uL (2.0-7.7); Basophil# 0.02 X10^3/uL; Basophil% 0.2 % (0-1); Eosinophil# 0.01 X10^3/uL; Eosinophils% 0.1 % (0-5); Hematocrit 24.5 % (37-47); Hemoglobin 7.3 g/dL (12.0-15.0); Lymphocyte # 1.04 X10^3/ul (0.83-4.51); Lymphocyte % 11.3 % (19-41); Mean Corp Hgb Conc 29.8 g/dL (32-36); Mean Corpuscular Hgb 25.4 pg (27.0-32.0); Mean Corpuscular Volume 85.4 fL (81-99); Mean Platelet Vol. 10.6 fl (6.2-12.0); Monocyte# 0.98 X10^3/uL; Monocyte% 10.6 % (0-10); NRBC Flagged by Analyzer 0 % (0-5); Neutrophil # 7.13 X10^3/uL (2.7-7.7); Neutrophil % 77.3 % (47-70); Platelet Count 183 K/mm3 (150-450); RBC Distribution Width CV 15.4 % (11.6-14.6); RBC Distribution Width SD 48.1 fl (35.1-43.9); Red Blood Count 2.87 M/mm3 (4.2-5.4); White Blood Count 9.2 K/mm3 (4.4-11.0)
--- NOTE | 2023-10-01 07:45 | PCM.PN.HOSP ---
Reason for Visit Reason for Visit: Diagnoses Hyperosmolality and hypernatremia (09/27/23) Hypokalemia (09/27/23) Encephalopathy, unspecified (09/27/23) Acute kidney failure, unspecified (09/27/23) Other malaise (09/27/23) Objective Data Objective Data Vital Signs: Vital Signs Temp Pulse Resp BP Pulse Ox O2 Del Method O2 Flow Rate 97.0 F L 84 18 138/74 H 96 Nasal Cannula 3 10/01/23 04:43 10/01/23 04:43 10/01/23 04:43 10/01/23 04:43 10/01/23 07:38 10/01/23 07:38 10/01/23 07:38 FiO2 30 09/30/23 20:00 Oxygen Flow Rate (L/min) 3 Oxygen Delivery Method Nasal Cannula Weight: 172 lb 13.478 oz Body Mass Index (BMI) 27.8 Intake & Output: Intake and Output for Last 24 Hours 09/29/23 09/30/23 10/01/23 23:59 23:59 23:59 Intake Total 820 / 820 1295 / 1295 1000 / 1000 Output Total 2450 / 2450 150 / 150 Balance -1630 / -1630 1145 / 1145 1000 / 1000 Lab / Micro Data 10/01/23 04:30 09/30/23 14:17 Labs: Laboratory Results - last 24 hr 09/30/23 14:17: WBC 10.2, RBC 3.08 L, Hgb 7.8 L, Hct 26.7 L, MCV 86.7, MCH 25.3 L, MCHC 29.2 L, RDW Std Deviation 48.7 H, RDW Coeff of [place] 15.2 H, Plt Count 195, MPV 10.4, Immature Gran % (Auto) 0.500, Neut % (Auto) 84.8 H, Lymph % (Auto) 4.4 L, Bland % (Auto) 10.2 H, Eos % (Auto) 0.0, Baso % (Auto) 0.1, Absolute Neuts (auto) 8.7 H, Absolute Lymphs (auto) 0.45 L, Nucleated RBC % 0, Sodium 148 H, Potassium 3.6, Chloride 115 H, Carbon Dioxide 29.0, Anion Gap 4 L, BUN 20 H, Creatinine 1.38 H, Estim Creat Clear Calc 36.65, Est GFR (MDRD) Af Amer 48 L, Est GFR (MDRD) Non-Af 40 L, BUN/Creatinine Ratio 14.5, Glucose 175 H, Calcium 8.8, Total Bilirubin 0.20, AST 118 H, ALT 54, Alkaline Phosphatase 64, Total Protein 5.6 L, Albumin 2.0 L, Globulin 3.6, Albumin/Globulin Ratio 0.6 L 10/01/23 04:30: WBC 9.2, RBC 2.87 L, Hgb 7.3 L, Hct 24.5 L, MCV 85.4, MCH 25.4 L, MCHC 29.8 L, RDW Std Deviation 48.1 H, RDW Coeff of [place] 15.4 H, Plt Count 183, MPV 10.6, Immature Gran % (Auto) 0.500, Neut % (Auto) 77.3 H, Lymph % (Auto) 11.3 L, Bland % (Auto) 10.6 H, Eos % (Auto) 0.1, Baso % (Auto) 0.2, Absolute Neuts (auto) 7.1, Absolute Lymphs (auto) 1.04, Nucleated RBC % 0 10/01/23 05:00: Ammonia 25.0 Micro: Microbiology 09/27/23 16:08 Blood Culture (Wb) - Anticubital Left Blood Culture - Preliminary No growth in 48 hours. 09/29/23 17:02 Mucosa - Nasopharyngeal Respiratory Panel (PCR) - Final 09/29/23 17:05 Nasal Secretion MRSA (PCR) - Final 09/29/23 17:30 Urine, Clean Catch Legionella Antigen - Final 09/29/23 17:30 Urine, Clean Catch Streptococcus pneumoniae Antigen (M - Final 09/27/23 15:21 Urine, Catheterized Urine Culture - Final Culture exhibits no growth. 09/27/23 17:35 Mucosa - Nasopharyngeal SARS-CoV-2, Influenza & RSV (PCR) - Final Radiography Diagnostic Testing: Radiology Impression Echocardiogram 09/29/23 16:39 Interpretation Summary Normal LV size. Left ventricular systolic function is normal. The left ventricular ejection fraction is 55 %. Stage 1 diastolic dysfunction. Ordering Physician: Doug Jacobo Referring Physician: Swati Baron M.D. Performed By: Nanette Sams RDCS Chest CTA 09/30/23 16:03 IMPRESSION: CTA study limited by breathing motion artifact. No large or central pulmonary emboli. Smaller or more distal PE cannot be reliably excluded. Multifocal bilateral groundglass opacities which were not present on the prior study. In the appropriate clinical setting these findings may represent infection including atypical or viral pneumonia. Pulmonary edema should also be considered. Electronically Signed: Gigi Mandujano MD at 17:29 EDT Reading Location ID and State: [address] [place] [address] Tel , Service support , Physical Exam Narrative Seen and examined. Patient was agitated yesterday and was given extra dose of Seroquel total 50 mg at night. Patient has advanced dementia. Patient on BiPAP. Discussed with the lead ingot molder. Does not have good respiratory effort and requires BiPAP support. Wakes up on verbal command. Patient is still mildly agitated in the morning. No meaningful history could be obtained. Physical exam General: Awake but lethargic. Mildly irritable. Not fully cooperative. Confused. Dementia HEENT: Atraumatic, PERRLA, EOMI, Normocephalic Oral: No Gingival or Mucosal Lesions/ Ulcerations Neck: Supple, No JVD, Negative Carotid Bruits Chest wall/Lungs: Air entry diminished in bilateral lung bases. 93% on room air BiPAP during nighttime. Cardiovascular: Regular rate, Regular Rhythm, Normal S1, Normal S2, No M/G/R Abdomen: Bowel Sounds Present, Soft, Non Tender, Non-Distended : No dysuria. No renal angle tenderness. No suprapubic tenderness. Extremities: No edema, Capillary Refill Less than 3 Seconds Skin: Right knee skin graft present. Right GSV seems stripping done. No acute ulcer. Musculoskeletal: No Tenderness to Palpation of Joints or Extremities. Neurological: Cranial nerves II-XII grossly intact, DTR 2+/4. No acute focal neurological deficit. Psych/Mental Status: Flat affect. Advanced dementia Assessment & Plan Assessment/Plan (1) Acute kidney injury: (2) Hypernatremia: (3) Hypokalemia: (4) Debility: PLAN: Plan 78-year-old female was admitted for abnormal lab work. She has history of dementia therefore history limited. Patient was found hypernatremia, dehydration possible hypokalemia. She has a PICC line and receives vancomycin because of wound dehiscence and infection after knee replacement # Worsened mental status, acute encephalopathy on top of chronic dementia possible metabolic encephalopathy -Dehydration versus infection versus elevated ammonia -Patient has elevated sodium and creatinine and dry mucous membranes suggestive of dehydration -Continue IVF -Also mildly tachycardic and tachypneic with slightly elevated white blood cell count and temp though does not meet fever criteria -UA does not show WBC, LE and nitrite negative. Urine culture negative. PCR for SARS-CoV-2, influenza and RSV are negative. Lactic acid 1.4. Ammonia less than 10. Valproic acid 46 low. 09/29: Seroquel dose decreased to 25 mg twice daily with holding parameters. 09/30: Patient was was agitated last night. Was given extra dose of Seroquel. In the morning she is lethargic and irritable. 2. Acute hypoxic respiratory failure possible due to early developing pneumonia/pulmonary edema due to acute on chronic HFpEF: Patient had ABG which showed 7.41/37.5/89 on BiPAP 14/8 at 30% FiO2. Lasix 40 mg IV 1 dose ordered. Chest x-ray shows right upper lobe haziness probably early pneumonia and mild pulmonary edema. BNP ordered. 2D echo ordered. Pneumonia workup ordered. Patient on IV vancomycin. Started on IV ceftriaxone 09/29: Discussed with the respiratory therapist. Requires BiPAP support as she fall asleep with suspicion of narcolepsy or central sleep apnea. ABG reviewed. 7.4 0/45/123 on 30% FiO2 RR 20. PEEP 8. Pulmonary consult requested. Continue oxygen and BiPAP as needed during nap and at night. ID consult reviewed. Continue IV ceftriaxone for pneumonia and IV vancomycin for knee infection. Blood culture negative for 48 hours. Urinary antigens negative. MRSA nasal screen negative. Culture negative. 09/30: Patient was evaluated by electric lift truck driver yesterday. Increased physiologic space was therefore CT angiogram was done which does not show large vessel or central filling defect but distal segmental and subsegmental pulmonary arteries cannot be definitely ruled out because of motion artifact. Multifocal bilateral groundglass opacities probably due to atypical/viral pneumonia and/or pulmonary edema. BNP elevated. 2D echo shows stage I diastolic dysfunction. Normal LV size. Left ventricular systolic function is normal. Normal RV size and systolic function. Tricuspid valve normal. The left ventricular ejection fraction is 55 %. Stage 1 diastolic dysfunction. # KEILA and hypernatremia concern for dehydration -Creatinine 1.49, was 0.68 on 08/06 -Sodium also mildly elevated at 146 -Continue IV fluids Urine lites shows urine sodium 101, osmolality 440, potassium 56, urea nitrogen 29 and chloride 152 therefore favors more dehydration. 09/28: IV fluid was discontinued yesterday on 09/27. Creatinine is stable 1.22. 09/29: Creatinine went up to 1.38. Patient had 1 dose of Lasix yesterday because of right lung. Hypernatremia, hyperchloremia with low anion gap. Bicarb 29. D5W ordered for hypernatremia 09/30: Labs pending. # Dementia -Holding donepezil and memantine, will not make a large difference in short-term -Schedule melatonin nightly -Seroquel as needed, will consider scheduling this versus Risperdal pending patient mental status and any anxiety or agitation # Recent right knee infection with PICC line on vancomycin -Treated by Dr. Puente -PICC line in place, PICC care ordered -Continue vancomycin, patient scheduled continue this until October 04 -Per family knee looks similar to how it had with no increased redness, swelling, complaints ID follow-up # Hypokalemia -Replaced in ED -K3.5 low normal. 8/5K low normal 3.5. Potassium Acute normocytic normochromic anemia on chronic uremia hemoglobin dropped to 7.3 from admission 9.8 at her baseline balance around. Platelet count stable at 183. Stool for occult blood ordered. Started on pantoprazole 40 IV twice daily Exact etiology unclear but may be from hold for serum potassium more than 5.0 subacute or chronic disease #DVT ppx: Heparin subcu Microbiology Past 72 Hours 09/27/23 16:08 Blood Culture (Wb) - Anticubital Left Blood Culture - Preliminary No growth in 48 hours. 09/29/23 17:02 Mucosa - Nasopharyngeal Respiratory Panel (PCR) - Final 09/29/23 17:05 Nasal Secretion MRSA (PCR) - Final 09/29/23 17:30 Urine, Clean Catch Legionella Antigen - Final 09/29/23 17:30 Urine, Clean Catch Streptococcus pneumoniae Antigen (M - Final 09/27/23 15:21 Urine, Catheterized Urine Culture - Final Culture exhibits no growth. Laboratory Results 09/30/23 14:17: WBC 10.2, RBC 3.08 L, Hgb 7.8 L, Hct 26.7 L, MCV 86.7, MCH 25.3 L, MCHC 29.2 L, RDW Std Deviation 48.7 H, RDW Coeff of [place] 15.2 H, Plt Count 195, MPV 10.4, Immature Gran % (Auto) 0.500, Neut % (Auto) 84.8 H, Lymph % (Auto) 4.4 L, Bland % (Auto) 10.2 H, Eos % (Auto) 0.0, Baso % (Auto) 0.1, Absolute Neuts (auto) 8.7 H, Absolute Lymphs (auto) 0.45 L, Nucleated RBC % 0, Sodium 148 H, Potassium 3.6, Chloride 115 H, Carbon Dioxide 29.0, Anion Gap 4 L, BUN 20 H, Creatinine 1.38 H, Estim Creat Clear Calc 36.65, Est GFR (MDRD) Af Amer 48 L, Est GFR (MDRD) Non-Af 40 L, BUN/Creatinine Ratio 14.5, Glucose 175 H, Calcium 8.8, Total Bilirubin 0.20, AST 118 H, ALT 54, Alkaline Phosphatase 64, Total Protein 5.6 L, Albumin 2.0 L, Globulin 3.6, Albumin/Globulin Ratio 0.6 L 10/01/23 04:30: WBC 9.2, RBC 2.87 L, Hgb 7.3 L, Hct 24.5 L, MCV 85.4, MCH 25.4 L, MCHC 29.8 L, RDW Std Deviation 48.1 H, RDW Coeff of [place] 15.4 H, Plt Count 183, MPV 10.6, Immature Gran % (Auto) 0.500, Neut % (Auto) 77.3 H, Lymph % (Auto) 11.3 L, Bland % (Auto) 10.6 H, Eos % (Auto) 0.1, Baso % (Auto) 0.2, Absolute Neuts (auto) 7.1, Absolute Lymphs (auto) 1.04, Nucleated RBC % 0 10/01/23 05:00: Ammonia 25.0 Charges/Coding Visit Charges Inpatient E&M: 78189 Subs Hosp L2
[2023-10-01] MEDS: Divalproex Sodium 250 MG Tablet PO (09:31)
[2023-10-01] MEDS: QUEtiapine 25 MG Tablet PO ×2 (09:31→23:55)
[2023-10-01] MEDS: guaiFENesin 1,200 MG Tablet 1200 MG PO (09:31)
[2023-10-01] MEDS: Pantoprazole Sodium 40 MG in 0.9% Normal Saline (100mL MB+) 100 ML 330 MG IV (10:06)
--- NOTE | 2023-10-01 13:22 | PN.CC_ITS ---
Objective Data Objective Data Vital Signs: Vital Signs Last response 3 Temperature 36.8 C 10/01/23 10:00 Temperature Source Temporal 10/01/23 10:00 Pulse Rate 88 10/01/23 10:00 Pulse Strength Weak (1+) 10/01/23 10:00 Respiratory Rate 18 10/01/23 10:00 Respiratory Effort Normal, Non-Labored 09/30/23 22:00 Respiratory Depth Normal 09/30/23 22:00 Respiratory Pattern Normal 09/30/23 22:00 Blood Pressure 138/78 H 10/01/23 10:00 Blood Pressure Mean 98 10/01/23 10:00 Blood Pressure Source Monitor 10/01/23 04:43 Blood Pressure Position Semi-Fowlers 10/01/23 04:43 Blood Pressure Location Left Arm 10/01/23 04:43 Pulse Ox 93 10/01/23 10:00 Oxygen Delivery Method Room Air 10/01/23 10:00 Oxygen Flow Rate (L/min) 3 10/01/23 07:38 Fraction of Inspired Oxygen (FIO2) 30 09/30/23 20:00 I&O: I&O Last 24 Hours 3 09/30/23 10/01/23 10/01/23 23:59 11:59 23:59 Intake Total 1295 / 1295 1110 / 1350 240 / 1350 Balance 1295 / 1145 1110 / 1350 240 / 1350 I&O: Total Stay 3 09/27/23 11:44 thru 10/01/23 12:00 Intake Total 56042.58 Output Total 4100 Balance 61461.58 Current Meds Ordered / Administered: Current meds ordered / Administered 3 Generic Name Dose Route Start Last Admin Trade Name Freq PRN Reason Stop Dose Admin Acetaminophen 650 mg 09/27/23 15:55 Acetaminophen 325 Mg Tablet PO Q6H PRN PRN Pain 1-10 Or Fever >100.7 Divalproex Sodium 250 mg 09/28/23 10:00 10/01/23 09:31 Divalproex Sodium 250 Mg Tablet PO 250 mg DAILY JEWEL Administration Guaifenesin 1,200 mg 09/29/23 22:00 10/01/23 09:31 Guaifenesin 1,200 Mg Tablet PO 1,200 mg BID JEWEL Administration Vancomycin IV-PHARMACY TO DOSE 500 mls @ 250 mls/hr 09/27/23 15:55 1 each/ Sodium Chloride IV PRN PRN Rx to Dose Vancomycin HCl 1,500 mg/ 530 mls @ 250 mls/hr 09/28/23 16:00 09/30/23 19:41 Sodium Chloride IV Infused Q24H JEWEL Infusion Ceftriaxone Sodium 1 gm in 50 mls @ 100 mls/hr 09/29/23 18:00 09/30/23 22:55 Rocephin IV Infused Q24@2200 JEWEL Infusion Pantoprazole Sodium 40 mg/ 110 mls @ 330 mls/hr 10/01/23 07:50 10/01/23 10:30 Sodium Chloride IV Infused Q12 JEWEL Infusion Ipratropium [place] 0.5 mg 09/28/23 18:10 09/29/23 09:59 Ipratropium 0.5 Mg/2.5 Ml Solution INHALATION 0.5 mg Q4H.RT PRN Administration SHORTNESS OF BREATH Melatonin 10 mg 09/27/23 22:00 09/30/23 22:28 Melatonin 10 Mg Tablet PO Not Given QHS [facility] Metoprolol Tartrate 5 mg 09/28/23 18:10 Metoprolol Tartrate 5 Mg/5 Ml Vial IV Q6 PRN HR >120 Protocol Ondansetron HCl 4 mg 09/27/23 15:55 Ondansetron 4 Mg/2 Ml Vial IV Q8H PRN PRN NAUSEA/VOMITING Quetiapine Fumarate 25 mg 09/30/23 10:00 10/01/23 09:31 Quetiapine 25 Mg Tablet PO 25 mg BID JEWEL Administration Senna/Docusate Sodium 2 tablet 09/27/23 15:55 Senna/Docusate Sodium 1 Tablet PO BID PRN PRN Constipation Sodium Chloride 10 - 40 ml 09/27/23 16:08 09/30/23 09:18 0.9% Saline Lock 10 Ml Syringe IV 10 ml UD PRN Administration SALINE FLUSH Vancomycin Protocol 1 lab 10/02/23 13:30 Vancomycin Trough/Random Due MC 10/02/23 17:30 DAILY [facility] Lab / Micro Data 10/01/23 04:30 09/30/23 14:17 Labs: Laboratory Results - last 24 hr 09/30/23 14:17: WBC 10.2, RBC 3.08 L, Hgb 7.8 L, Hct 26.7 L, MCV 86.7, MCH 25.3 L, MCHC 29.2 L, RDW Std Deviation 48.7 H, RDW Coeff of [place] 15.2 H, Plt Count 195, MPV 10.4, Immature Gran % (Auto) 0.500, Neut % (Auto) 84.8 H, Lymph % (Auto) 4.4 L, [place] % (Auto) 10.2 H, Eos % (Auto) 0.0, Baso % (Auto) 0.1, A bsolute Neuts (auto) 8.7 H, Absolute Lymphs (auto) 0.45 L, Nucleated RBC % 0, S odium 148 H, Potassium 3.6, Chloride 115 H, Carbon Dioxide 29.0, Anion Gap 4 L, BUN 20 H, Creatinine 1.38 H, Estim Creat Clear Calc 36.65, Est GFR (MDRD) Af Amer 48 L, Est GFR (MDRD) Non-Af 40 L, BUN/Creatinine Ratio 14.5, Glucose 175 H, Calcium 8.8, Total Bilirubin 0.20, AST 118 H, ALT 54, Alkaline Phosphatase 64, T otal Protein 5.6 L, Albumin 2.0 L, Globulin 3.6, Albumin/Globulin Ratio 0.6 L 10/01/23 04:30: WBC 9.2, RBC 2.87 L, Hgb 7.3 L, Hct 24.5 L, MCV 85.4, MCH 25.4 L , MCHC 29.8 L, RDW Std Deviation 48.1 H, RDW Coeff of [place] 15.4 H, Plt Count 183, MPV 10.6, Immature Gran % (Auto) 0.500, Neut % (Auto) 77.3 H, Lymph % (Auto) 11.3 L, [place] % (Auto) 10.6 H, Eos % (Auto) 0.1, Baso % (Auto) 0.2, Absolute Neuts (auto) 7.1, Absolute Lymphs (auto) 1.04, Nucleated RBC % 0 10/01/23 05:00: Ammonia 25.0 Imaging Radiology Impression Chest CTA 09/30/23 16:03 IMPRESSION: CTA study limited by breathing motion artifact. No large or central pulmonary emboli. Smaller or more distal PE cannot be reliably excluded. Multifocal bilateral groundglass opacities which were not present on the prior study. In the appropriate clinical setting these findings may represent infection including atypical or viral pneumonia. Pulmonary edema should also be considered. Electronically Signed: Gigi Mandujano MD at 17:29 EDT , Assessment and Plan . Assessment and plan: A/P: 1. Resp Failure: high WOB on admit. Stable today. On RA. . Acid/base on admit: Acute metabolic acidosis and acute resp alkalosis in setting of chronic resp failure. CTA ordered to eval for space: unrevealing. Continue BIPAP with naps/sleep. Continue supplemental O2 as needed . 2. CLARA: ?. Habitus suggestive of. Desats when asleep. Will need outpt PSG 3. KEILA: On IVFs /. Labs ordered for now. 4. Hypernatremia: On hypotonic IVFs 09/29. Check labs now 5. CAP: CT showed bilateral ggo in subpleural/peribronchovasc distribution. Appears to be worse on successive days. Viral pneumonia screen:unrevealing. On antibxs for atypical bacteria(legionella -). In differential aside from viral/atypical pneumonia is idiopathic interstitial pneumonia: Mainly cryptogenic organizing pneumonia based on distribution. Will repeat imaging in am, if worse will consider transfer for bronch vs empiric steroids. 6. FEN: oral diet 7. Px : chemical Juancho MD Bharat The entirety of this encounter was done via Telemedicine Physical Exam Narrative asleep, NAD pupils:= o/p:clear CV: RRR Chest: coarse BS Abd:soft, NT Ext: no c/e/c Subjective Subjective Off O2 today.
--- NOTE | 2023-10-01 14:50 | CASEMGMT ---
Patient's requested to talk with OLI. OLI met with patient's , Yassine. Introduced self and role at [facility]. Their choices for SNF are [facility] and then [facility]. Yassine said he knows insurance won't pay for it, but he will private pay. (He likely means patient is in her co-pay days) Cailin Magana GENERAL MAINTENANCE TECHNICIAN MARJ
[2023-10-01 14:56] LABS: Anion Gap 4 (5-15); BUN 19 mg/dL (7-18); BUN/Creat Ratio 15.7 RATIO (10-20); Calcium,Total 8.5 mg/dL (8.5-10.1); Chloride 113 mmol/L (98-107); Creatinine, Serum 1.21 mg/dL (0.55-1.02); EST Glomerular Filtration Rate 46 mL/min (>60); Est Glom Filt Rate - Afr Amer 56 mL/min (>60); Glucose 114 mg/dL (74-106); Potassium 3.1 mmol/L (3.5-5.1); Sodium Level 146 mmol/L (136-145)
[2023-10-01] MEDS: Vancomycin HCl 1,500 MG in 0.9% Normal Saline (500mL Bag) 500 ML 250 MG IV (22:33)
[2023-10-01] MEDS: 0.9% Saline Lock 10 ML Syringe IV (22:34)
[2023-10-01] MEDS: MELATONIN 10 MG TABLET PO (23:56)
--- NOTE | 2023-10-01 23:57 | CPS ---
patient no longer tollerating bipap well and is agitated easy when disturbed. Patient is sleeping at this time and RN did not want patient disturbed at this time. No distress or poor respiratory status. Remains on 2L NC 100%
[2023-10-02] VITALS (7 sets, daily range): BP systolic 143–160; BP diastolic 61–90; PULSE 73–96; RESP 16–19; TEMP 36.1–36.8; O2SAT 92–100
[2023-10-02] MEDS: Pantoprazole Sodium 40 MG in 0.9% Normal Saline (100mL MB+) 100 ML 330 MG IV ×3 (01:02→22:08)
[2023-10-02] MEDS: Ceftriaxone 1 GM/50 ML BAG IV ×2 (01:28→23:13)
[2023-10-02 05:38] LABS: Anion Gap 5 (5-15); BUN 17 mg/dL (7-18); BUN/Creat Ratio 15.7 RATIO (10-20); Calcium,Total 8.1 mg/dL (8.5-10.1); Chloride 109 mmol/L (98-107); Creatinine, Serum 1.08 mg/dL (0.55-1.02); EST Glomerular Filtration Rate 52 mL/min (>60); Est Glom Filt Rate - Afr Amer 63 mL/min (>60); Estimated Creatinine Clearance 46.83 ml/min; Glucose 107 mg/dL (74-106); Sodium Level 146 mmol/L (136-145)
[2023-10-02] MEDS: Ipratropium 0.5 MG/2.5 ML SOLUTION INHALATION (07:26)
--- NOTE | 2023-10-02 07:41 | PCM.PN.HOSP ---
Reason for Visit Reason for Visit: Diagnoses Hyperosmolality and hypernatremia (09/27/23) Hypokalemia (09/27/23) Encephalopathy, unspecified (09/27/23) Acute kidney failure, unspecified (09/27/23) Other malaise (09/27/23) Objective Data Objective Data Vital Signs: Vital Signs Temp Pulse Resp BP Pulse Ox O2 Del Method O2 Flow Rate 97.3 F L 77 16 144/72 H 97 Nasal Cannula 2 10/02/23 04:04 10/02/23 07:27 10/02/23 07:27 10/02/23 04:04 10/02/23 07:27 10/02/23 07:27 10/02/23 07:27 FiO2 30 09/30/23 20:00 Oxygen Flow Rate (L/min) 2 Oxygen Delivery Method Nasal Cannula Weight: 172 lb 13.478 oz Body Mass Index (BMI) 27.8 Intake & Output: Intake and Output for Last 24 Hours 09/30/23 10/01/23 10/02/23 23:59 23:59 23:59 Intake Total 1295 / 1295 1590 / 1590 750 / 750 Output Total 150 / 150 320 / 320 Balance 1145 / 1145 1590 / 1590 430 / 430 Lab / Micro Data 10/01/23 04:30 10/02/23 05:03 Labs: Laboratory Results - last 24 hr 10/01/23 13:57: Sodium 146 H, Potassium 3.1 L, Chloride 113 H, Carbon Dioxide 29.0, Anion Gap 4 L, BUN 19 H, Creatinine 1.21 H, Estim Creat Clear Calc 41.80, Est GFR (MDRD) Af Amer 56 L, Est GFR (MDRD) Non-Af 46 L, BUN/Creatinine Ratio 15.7, Glucose 114 H, Calcium 8.5 10/02/23 05:03: Sodium 146 H, Potassium 3.0 L, Chloride 109 H, Carbon Dioxide 32.0, Anion Gap 5, BUN 17, Creatinine 1.08 H, Estim Creat Clear Calc 46.83, Est GFR (MDRD) Af Amer 63, Est GFR (MDRD) Non-Af 52 L, BUN/Creatinine Ratio 15.7, Glucose 107 H, Calcium 8.1 L Micro: Microbiology 10/01/23 19:05 Stool Stool Occult Blood (MELONIE) - Final 09/27/23 16:08 Blood Culture (Wb) - Anticubital Left Blood Culture - Preliminary No growth in 48 hours. 09/29/23 17:02 Mucosa - Nasopharyngeal Respiratory Panel (PCR) - Final 09/29/23 17:05 Nasal Secretion MRSA (PCR) - Final 09/29/23 17:30 Urine, Clean Catch Legionella Antigen - Final 09/29/23 17:30 Urine, Clean Catch Streptococcus pneumoniae Antigen (M - Final 09/27/23 15:21 Urine, Catheterized Urine Culture - Final Culture exhibits no growth. 09/27/23 17:35 Mucosa - Nasopharyngeal SARS-CoV-2, Influenza & RSV (PCR) - Final Physical Exam Narrative Seen and examined. Patient has advanced dementia. Weaned off BiPAP. Discussed with the hospital attendant. Awake no meaningful history could be obtained. Physical exam General: Awake, cooperative. Oriented x 1. HEENT: Atraumatic, PERRLA, EOMI, Normocephalic Oral: No Gingival or Mucosal Lesions/ Ulcerations Neck: Supple, No JVD, Negative Carotid Bruits Chest wall/Lungs: Air entry diminished in bilateral lung bases. 98% on 2 L of oxygen 94% on room air. Cardiovascular: Regular rate, Regular Rhythm, Normal S1, Normal S2, No M/G/R Abdomen: Bowel Sounds Present, Soft, Non Tender, Non-Distended : No dysuria. No renal angle tenderness. No suprapubic tenderness. Extremities: No edema, Capillary Refill Less than 3 Seconds Skin: Right knee skin graft present. Right GSV seems stripping done. No acute ulcer. Musculoskeletal: No Tenderness to Palpation of Joints or Extremities. Neurological: Cranial nerves II-XII grossly intact, DTR 2+/4. No acute focal neurological deficit. Psych/Mental Status: Flat affect. Advanced dementia Assessment & Plan Assessment/Plan (1) Acute kidney injury: (2) Hypernatremia: (3) Hypokalemia: (4) Debility: PLAN: Plan 78-year-old female was admitted for abnormal lab work. She has history of dementia therefore history limited. Patient was found hypernatremia, dehydration possible hypokalemia. She has a PICC line and receives vancomycin because of wound dehiscence and infection after knee replacement # Worsened mental status, acute encephalopathy on top of chronic dementia possible metabolic encephalopathy -Dehydration versus infection versus elevated ammonia -Patient has elevated sodium and creatinine and dry mucous membranes suggestive of dehydration -Continue IVF -Also mildly tachycardic and tachypneic with slightly elevated white blood cell count and temp though does not meet fever criteria -UA does not show WBC, LE and nitrite negative. Urine culture negative. PCR for SARS-CoV-2, influenza and RSV are negative. Lactic acid 1.4. Ammonia less than 10. Valproic acid 46 low. 09/29: Seroquel dose decreased to 25 mg twice daily with holding parameters. 09/30: Patient was was agitated last night. Was given extra dose of Seroquel. In the morning she is lethargic and irritable. 10/01: Patient sodium is 146, potassium 3.0. D5W 75 mL/h for 2 L. Patient on spironolactone. 2. Acute hypoxic respiratory failure possible due to early developing pneumonia/pulmonary edema due to acute on chronic HFpEF: Patient had ABG which showed 7.41/37.5/89 on BiPAP 14/8 at 30% FiO2. Lasix 40 mg IV 1 dose ordered. Chest x-ray shows right upper lobe haziness probably early pneumonia and mild pulmonary edema. BNP ordered. 2D echo ordered. Pneumonia workup ordered. Patient on IV vancomycin. Started on IV ceftriaxone 09/29: Discussed with the respiratory therapist. Requires BiPAP support as she fall asleep with suspicion of narcolepsy or central sleep apnea. ABG reviewed. 7.4 0/45/123 on 30% FiO2 RR 20. PEEP 8. Pulmonary consult requested. Continue oxygen and BiPAP as needed during nap and at night. ID consult reviewed. Continue IV ceftriaxone for pneumonia and IV vancomycin for knee infection. Blood culture negative for 48 hours. Urinary antigens negative. MRSA nasal screen negative. Culture negative. 09/30: Patient was evaluated by experimental preflight mechanic yesterday. Increased physiologic space was therefore CT angiogram was done which does not show large vessel or central filling defect but distal segmental and subsegmental pulmonary arteries cannot be definitely ruled out because of motion artifact. Multifocal bilateral groundglass opacities probably due to atypical/viral pneumonia and/or pulmonary edema. BNP elevated. 2D echo shows stage I diastolic dysfunction. Normal LV size. Left ventricular systolic function is normal. Normal RV size and systolic function. Tricuspid valve normal. LVEF 55 %. Stage 1 diastolic dysfunction. 10/01: Pulmonary follow-up reviewed. 97% on 2 L of oxygen. Was on room air yesterday. Viral pneumonia screen was relatively negative. Other differential idiopathic interstitial pneumonia, mildly cryptogenic pulmonary. He recommended repeat imaging in a.m. and if worse consider transfer for bronc versus empiric steroids I had extensive discussion with patient's who is POA. Patient has advanced dementia with low functional status and does not follow command. Has limited understanding. We agreed that she is high risk for any procedure and probably will follow-up in pulmonary clinic to decide about bronchoscopy as an elective procedure. Currently patient patient is 94% on room air. # KEILA and hypernatremia concern for dehydration -Creatinine 1.49, was 0.68 on 08/06 -Sodium also mildly elevated at 146 -Continue IV fluids Urine lites shows urine sodium 101, osmolality 440, potassium 56, urea nitrogen 29 and chloride 152 therefore favors more dehydration. 09/28: IV fluid was discontinued yesterday on 09/27. Creatinine is stable 1.22. 09/29: Creatinine went up to 1.38. Patient had 1 dose of Lasix yesterday because of right lung. Hypernatremia, hyperchloremia with low anion gap. Bicarb 29. D5W ordered for hypernatremia 10/01: BUNs/creatinine 17/1.08. Acute normocytic normochromic anemia on chronic anemia: Hemoglobin dropped to 7.3 from admission 9.8 at her baseline balance around. Platelet count stable at 183. Stool for occult blood negative. Started on pantoprazole 40 IV twice daily. IV iron infusion ordered # Dementia -Holding donepezil and memantine, will not make a large difference in short-term -Schedule melatonin nightly -Seroquel as needed, will consider scheduling this versus Risperdal pending patient mental status and any anxiety or agitation # Recent right knee infection with PICC line on vancomycin -Treated by Dr. Puente -PICC line in place, PICC care ordered -Continue vancomycin, patient scheduled continue this until October 04 -Per family knee looks similar to how it had with no increased redness, swelling, complaints ID follow-up 10/01: ID follow-up reviewed. Patient had her right knee PJI, stop date planned was 10/07/2023 and thereafter may be long course of suppressive p.o. antibiotic. On IV ceftriaxone for suspected pneumonia # Hypokalemia -Replaced in ED -K3.5 low normal. 8/5K low normal 3.5. Potassium 8/6: Potassium low. Started on spironolactone 25 mg daily. Monitor electrolytes. #DVT ppx: Heparin subcu Microbiology Past 72 Hours 10/01/23 19:05 Stool Stool Occult Blood (MELONIE) - Final 09/27/23 16:08 Blood Culture (Wb) - Anticubital Left Blood Culture - Preliminary No growth in 48 hours. 09/29/23 17:02 Mucosa - Nasopharyngeal Respiratory Panel (PCR) - Final 09/29/23 17:05 Nasal Secretion MRSA (PCR) - Final 09/29/23 17:30 Urine, Clean Catch Legionella Antigen - Final 09/29/23 17:30 Urine, Clean Catch Streptococcus pneumoniae Antigen (M - Final 09/27/23 15:21 Urine, Catheterized Urine Culture - Final Culture exhibits no growth. Laboratory Results 10/01/23 13:57: Sodium 146 H, Potassium 3.1 L, Chloride 113 H, Carbon Dioxide 29.0, Anion Gap 4 L, BUN 19 H, Creatinine 1.21 H, Estim Creat Clear Calc 41.80, Est GFR (MDRD) Af Amer 56 L, Est GFR (MDRD) Non-Af 46 L, BUN/Creatinine Ratio 15.7, Glucose 114 H, Calcium 8.5 10/02/23 05:03: Sodium 146 H, Potassium 3.0 L, Chloride 109 H, Carbon Dioxide 32.0, Anion Gap 5, BUN 17, Creatinine 1.08 H, Estim Creat Clear Calc 46.83, Est GFR (MDRD) Af Amer 63, Est GFR (MDRD) Non-Af 52 L, BUN/Creatinine Ratio 15.7, Glucose 107 H, Calcium 8.1 L Charges/Coding Visit Charges Inpatient E&M: 06243 Subs Hosp L2
--- NOTE | 2023-10-02 08:35 | RAD_ITS ---
STUDY: X-RAY CHEST REASON FOR EXAM: Female, 78 years old. Follow-up pneumonia. TECHNIQUE: Single frontal view of the chest. COMPARISON: September 28, 2023 FINDINGS: Stable right internal jugular catheter. Stable low volume inspiration with patchy parenchymal opacities in the right upper lobe, right lower lobe and left lower lobe. Left pleural effusion unchanged. Stable cardiomegaly. Normal mediastinum and hubert. Normal visualized pulmonary arteries. Aortic tortuosity with calcification unchanged. No abnormality of the visualized soft tissue structures of the upper abdomen. RAD/Chest 1 View (Portable) IMPRESSION: Stable cardiomegaly, low volume inspiration and multi lobar parenchymal opacities. No acute or emergent finding. Electronically Signed: Josh Peter MD at 9:34 EDT ,
--- NOTE | 2023-10-02 10:06 | PCM.PN.ID ---
Physical Exam Narrative Feeling ok, no fever, no abd pain Const no apparent distress Orientation / Consciousness: disoriented Resp normal air movement and clear to auscultation bilaterally Cardio regular rate and regular rhythm GI soft to palpation, non-tender and non-distended Skin no rashes or lesions noted Skin Narrative: R knee mild swelling ID ID: Route of nutrition/ use of supplements: [] Nutritional Intake: [] IV Site: [] Conley Catheter: [] Assessment & Plan Assessment/Plan (1) Acute kidney injury: (2) Encephalopathy acute: PLAN: Treating for suspected pneumonia, cont ceftriaxone. 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 Will follow
[2023-10-02] MEDS: Divalproex Sodium 250 MG Tablet PO (10:30)
[2023-10-02] MEDS: QUEtiapine 25 MG Tablet PO (10:30)
[2023-10-02] MEDS: Spironolactone 25 MG Tablet PO (10:35)
--- NOTE | 2023-10-02 13:15 | CASEMGMT ---
Addendum entered by Luzmaria Thornton 10/03/23 11:40: [facility] will accept private pay. They have a private room on their residential unit available. $9315/mo, must be paid up front. SW updated. Luzmaria Thornton DC Planning Asst. Addendum entered by Luzmaria Thornton 10/02/23 15:12: [facility] declined d/t being out of network. SW aware. Luzmaria Thornton DC Planning Asst. Original Note: Discharge Planning Referral sent to [facility] and [facility] via [facility]. Luzmaria Thornton DC Planning Asst.
[2023-10-02] MEDS: Sodium Ferric Gluconat/Sucrose 250 MG in 0.9% Normal Saline (250mL Bag) 250 ML 135 MG IV (15:02)
[2023-10-02] MEDS: Dextrose 5%-Water (1000mL Bag) 1,000 ML 75 ML IV (15:04)
--- NOTE | 2023-10-02 15:13 | CASEMGMT ---
[facility] is not in network with patient's insurance. This would explain why patient's said he knows insurance won't pay for it and he is willing to private pay. A message was sent to [facility] asking if they would take patient private pay. A referral has also been sent to [facility]. Cailin MCMAHAN
--- NOTE | 2023-10-02 15:30 | PN.CC_ITS ---
Objective Data Objective Data Vital Signs: Vital Signs Last response 3 Temperature 36.8 C 10/02/23 15:05 Temperature Source Temporal 10/02/23 15:05 Pulse Rate 96 10/02/23 15:05 Pulse Strength Weak (1+) 10/01/23 22:35 Respiratory Rate 18 10/02/23 15:05 Respiratory Effort Normal, Non-Labored 10/02/23 08:19 Respiratory Depth Normal 10/02/23 08:19 Respiratory Pattern Normal 10/02/23 08:19 Blood Pressure 143/61 H 10/02/23 15:05 Blood Pressure Mean 88 10/02/23 15:05 Blood Pressure Source Monitor 10/02/23 15:05 Blood Pressure Position Semi-Fowlers 10/02/23 15:05 Blood Pressure Location Left Arm 10/02/23 15:05 Pulse Ox 94 10/02/23 15:05 Oxygen Delivery Method Room Air 10/02/23 15:05 Oxygen Flow Rate (L/min) 2 10/02/23 08:19 Fraction of Inspired Oxygen (FIO2) 30 09/30/23 20:00 I&O: I&O Last 24 Hours 3 10/01/23 10/02/23 10/02/23 23:59 11:59 23:59 Intake Total 480 / 1590 860 / 860 Output Total 320 / 720 400 / 720 Balance 480 / 1590 540 / 140 -400 / 140 I&O: Total Stay 3 09/27/23 11:44 thru 10/02/23 15:05 Intake Total 00827.58 Output Total 4820 Balance 20675.58 Current Meds Ordered / Administered: Current meds ordered / Administered 3 Generic Name Dose Route Start Last Admin Trade Name Freq PRN Reason Stop Dose Admin Acetaminophen 650 mg 09/27/23 15:55 Acetaminophen 325 Mg Tablet PO Q6H PRN PRN Pain 1-10 Or Fever >100.7 Divalproex Sodium 250 mg 09/28/23 10:00 10/02/23 10:30 Divalproex Sodium 250 Mg Tablet PO 250 mg DAILY JEWEL Administration Guaifenesin 10 ml 10/02/23 02:05 Guaifenesin 10 Ml Udc (200mg/10ml) PO Q4H PRN PRN COUGH/CONGESTION Vancomycin IV-PHARMACY TO DOSE 500 mls @ 250 mls/hr 09/27/23 15:55 1 each/ Sodium Chloride IV PRN PRN Rx to Dose Vancomycin HCl 1,500 mg/ 530 mls @ 250 mls/hr 09/28/23 16:00 10/02/23 00:50 Sodium Chloride IV Infused Q24H JEWEL Infusion Ceftriaxone Sodium 1 gm in 50 mls @ 100 mls/hr 09/29/23 18:00 10/02/23 01:58 Rocephin IV Infused Q24@2200 JEWEL Infusion Pantoprazole Sodium 40 mg/ 110 mls @ 330 mls/hr 10/01/23 07:50 10/02/23 11:20 Sodium Chloride IV Infused Q12 JEWEL Infusion Dextrose 1,000 mls @ 75 mls/hr 10/02/23 15:00 10/02/23 15:04 IV 10/03/23 17:39 75 mls/hr .[id number] JEWEL Administration Ferric Sodium Gluconate 270 mls @ 135 mls/hr 10/02/23 15:00 10/02/23 15:02 Complex 250 mg/ Sodium IV 10/02/23 16:59 135 mls/hr Chloride X1 ONE Administration Ipratropium [place] 0.5 mg 09/28/23 18:10 10/02/23 07:26 Ipratropium 0.5 Mg/2.5 Ml Solution INHALATION 0.5 mg Q4H.RT PRN Administration SHORTNESS OF BREATH Melatonin 10 mg 09/27/23 22:00 10/01/23 23:56 Melatonin 10 Mg Tablet PO 10 mg QHS JEWEL Administration Metoprolol Tartrate 5 mg 09/28/23 18:10 Metoprolol Tartrate 5 Mg/5 Ml Vial IV Q6 PRN HR >120 Protocol Ondansetron HCl 4 mg 09/27/23 15:55 Ondansetron 4 Mg/2 Ml Vial IV Q8H PRN PRN NAUSEA/VOMITING Quetiapine Fumarate 25 mg 09/30/23 10:00 10/02/23 10:30 Quetiapine 25 Mg Tablet PO 25 mg BID JEWEL Administration Senna/Docusate Sodium 2 tablet 09/27/23 15:55 Senna/Docusate Sodium 1 Tablet PO BID PRN PRN Constipation Sodium Chloride 10 - 40 ml 09/27/23 16:08 10/01/23 22:34 0.9% Saline Lock 10 Ml Syringe IV 10 ml UD PRN Administration SALINE FLUSH Spironolactone 25 mg 10/02/23 10:00 10/02/23 10:35 Spironolactone 25 Mg Tablet PO 25 mg DAILY [facility] Administration Protocol Vancomycin Protocol 1 lab 10/02/23 13:30 Vancomycin Trough/Random Due 10/02/23 17:30 DAILY [facility] Lab / Micro Data 10/01/23 04:30 10/02/23 05:03 Labs: Laboratory Results - last 24 hr 10/02/23 05:03: Sodium 146 H, Potassium 3.0 L, Chloride 109 H, Carbon Dioxide 32.0, Anion Gap 5, BUN 17, Creatinine 1.08 H, Estim Creat Clear Calc 46.83, Est GFR (MDRD) Af Amer 63, Est GFR (MDRD) Non-Af 52 L, BUN/Creatinine Ratio 15.7, G lucose 107 H, Calcium 8.1 L Micro: Microbiology 10/01/23 19:05 Stool Stool Occult Blood (MELONIE) - Final Imaging Radiology Impression Chest X-Ray 10/02/23 08:35 IMPRESSION: Stable cardiomegaly, low volume inspiration and multi lobar parenchymal opacities. No acute or emergent finding. Electronically Signed: Josh Peter MD at 9:34 EDT Reading Location ID and State: [facility] [place] Service support , Assessment and Plan . Assessment and plan: Assessment and plan: A/P: 1. Resp Failure: high WOB on admit. Stable today. On RA. Continue supplemental O2 as needed . 2. CLARA: ?. Habitus suggestive of. Desats when asleep. Will need outpt PSG 3. KEILA: On IVFs. Cr Better. 4. Hypernatremia: On hypotonic IVFs. Na better. 5. CAP: CT showed bilateral ggo in subpleural/peribronchovasc distribution. Appears to be worse on successive days. Viral pneumonia screen:unrevealing. On antibxs for atypical bacteria(legionella -). In differential aside from viral/atypical pneumonia is idiopathic interstitial pneumonia: Mainly cryptogenic organizing pneumonia based on distribution. Repeat CXR looks better. No need for empiric steroids or bronch to eval for IIP. Complete course of antibxs. ID following. 6. FEN: oral diet 7. Px : chemical 8. DNR Will sign off. Juancho Nicholson MD The entirety of this encounter was done via Telemedicine Physical Exam Narrative more awake and interactive, NAD pupils:= o/p:clear CV: RRR Chest: CTA B, good a/e Abd: soft, nt Ext: no c/c/e Skin: no rashes Subjective Subjective doing okay. On RA
[2023-10-02 15:47] LABS: Platelet Count 236 K/mm3 (150-450); RET-HE 22.4 pg (30-35); Reticulocyte Count 1.01 % (0.5-1.5)
[2023-10-02 16:26] LABS: Vancomycin, Trough Level 24.4 ug/mL (5.0-15.0)
[2023-10-02 16:34] LABS: Ferritin 142 ng/mL (8-252); Iron 34 ug/dL (50-170); Iron Binding Capacity,Total 181 ug/dL (250-450); LDH 248 U/L (84-246); PERCENT IRON SATURATION 18.8 % (15.0-55.0)
--- NOTE | 2023-10-02 16:38 | PHA.PHARE_ITS ---
Consult Antibiotic Management Pharmacy has been consulted to manage selected antibiotic: Vancomycin Type of Intervention Type of Consult: Follow-up Labs Labs: Sodium 146 mmol/L (136-145) H 10/02/23 05:03 Potassium 3.0 mmol/L (3.5-5.1) L 10/02/23 05:03 Chloride 109 mmol/L (98-107) H 10/02/23 05:03 Carbon Dioxide 32.0 mmol/L (21.0-32.0) 10/02/23 05:03 Anion Gap 5 (5-15) 10/02/23 05:03 BUN 17 mg/dL (7-18) 10/02/23 05:03 Creatinine 1.08 mg/dL (0.55-1.02) H 10/02/23 05:03 Est GFR (MDRD) Af Amer 63 mL/min (>60) 10/02/23 05:03 Est GFR (MDRD) Non-Af 52 mL/min (>60) L 10/02/23 05:03 BUN/Creatinine Ratio 15.7 RATIO (10-20) 10/02/23 05:03 Glucose 107 mg/dL (74-106) H 10/02/23 05:03 Vancomycin Trough 24.4 ug/mL (5.0-15.0) H 10/02/23 15:30 Random Vancomycin 18.6 ug/mL (0.0-15.0) H 09/28/23 14:16 Microbiology Microbiology: Microbiology 10/01/23 19:05 Stool Stool Occult Blood (MELONIE) - Final 09/27/23 16:08 Blood Culture (Wb) - Anticubital Left Blood Culture - Preliminary No growth in 48 hours. 09/29/23 17:02 Mucosa - Nasopharyngeal Respiratory Panel (PCR) - Final 09/29/23 17:05 Nasal Secretion MRSA (PCR) - Final 09/29/23 17:30 Urine, Clean Catch Legionella Antigen - Final 09/29/23 17:30 Urine, Clean Catch Streptococcus pneumoniae Antigen (M - Final 09/27/23 15:21 Urine, Catheterized Urine Culture - Final Culture exhibits no growth. 09/27/23 17:35 Mucosa - Nasopharyngeal SARS-CoV-2, Influenza & RSV (PCR) - Final Goal Trough Goal Trough: 15-20 mcg/mL Pharmacy Plan for Drug Dosing Pharmacy Plan for Drug Dosing: VANCOMYCIN LEVEL RECEIVED Current Vancomycin Dose: 1500mg IV Q24hr (continuation of home antibiotic) Number of Doses Received: several Vancomycin Level: 24.4 Hours Since Last Dose: 17hr Renal Function: 1.08 Renal Function Trend: improvement from admission levels Lab/Micro: no new results Vancomycin Plan/Comments: Patient had a trough drawn which resulted in a value of 24.4 (goal 15-20). Although trough is elevated, this is not an accurate repr esentation of vancomycin dosing. The dose on 10/01/23 was administered 6.5hrs late from scheduled dose. At that time, pharmacy was not notified so trough level was not able to be adjusted. Re-drawing a trough @2200 to get an accurate trough result. patient had been therapeutic prior to this trough draw, so likely patient will be able to be restarted on their 1500mg IV Q24hr dosing pending random level. Pending Level: *RANDOM* level 10/02/23 @2200 Pharmacy Service will continue to monitor and adjust dosing as required.
[2023-10-02 16:41] LABS: Vitamin B12 960 pg/mL (211-911)
[2023-10-02] MEDS: QUEtiapine 25 MG Tablet 50 MG PO (22:12)
[2023-10-02] MEDS: MELATONIN 10 MG TABLET PO (22:12)
[2023-10-02 23:03] LABS: Vancomycin, Random Level 20.1 ug/mL (0.0-15.0)
--- NOTE | 2023-10-02 23:30 | PCM.RX.CS ---
Consult Antibiotic Management Pharmacy has been consulted to manage selected antibiotic: Vancomycin Type of Intervention Type of Consult: Follow-up Suspected Infection Suspected Infection: Other (CONTINUATION FROM HOME) Prior Doses of Antibiotics Prior Doses of Antibiotics Received/Current Regimen: Vancomycin 1500 mg Q24H given 09/30 @ 2233 Labs Labs: Sodium 146 mmol/L (136-145) H 10/02/23 05:03 Potassium 3.0 mmol/L (3.5-5.1) L 10/02/23 05:03 Chloride 109 mmol/L (98-107) H 10/02/23 05:03 Carbon Dioxide 32.0 mmol/L (21.0-32.0) 10/02/23 05:03 Anion Gap 5 (5-15) 10/02/23 05:03 BUN 17 mg/dL (7-18) 10/02/23 05:03 Creatinine 1.08 mg/dL (0.55-1.02) H 10/02/23 05:03 Est GFR (MDRD) Af Amer 63 mL/min (>60) 10/02/23 05:03 Est GFR (MDRD) Non-Af 52 mL/min (>60) L 10/02/23 05:03 BUN/Creatinine Ratio 15.7 RATIO (10-20) 10/02/23 05:03 Glucose 107 mg/dL (74-106) H 10/02/23 05:03 Vancomycin Trough 24.4 ug/mL (5.0-15.0) H 10/02/23 15:30 Random Vancomycin 20.1 ug/mL (0.0-15.0) H 10/02/23 21:55 Microbiology Microbiology: Microbiology 10/01/23 19:05 Stool Stool Occult Blood (MELONIE) - Final 09/27/23 16:08 Blood Culture (Wb) - Anticubital Left Blood Culture - Preliminary No growth in 48 hours. 09/29/23 17:02 Mucosa - Nasopharyngeal Respiratory Panel (PCR) - Final 09/29/23 17:05 Nasal Secretion MRSA (PCR) - Final 09/29/23 17:30 Urine, Clean Catch Legionella Antigen - Final 09/29/23 17:30 Urine, Clean Catch Streptococcus pneumoniae Antigen (M - Final 09/27/23 15:21 Urine, Catheterized Urine Culture - Final Culture exhibits no growth. 09/27/23 17:35 Mucosa - Nasopharyngeal SARS-CoV-2, Influenza & RSV (PCR) - Final Dosing Weight Weight used for dosin.4 kg Estimated Creatinine Clearance Estimated Creatinine Clearance: ~46 Goal Trough Goal Trough: 15-20 mcg/mL Pharmacy Plan for Drug Dosing Pharmacy Plan for Drug Dosing: Vancomycin trough = 20.1, will continue home dose of 1500 mg Q24H Pharmacy Service will continue to monitor and adjust dosing as required. Follow-Up Labs Follow-Up Labs: Trough: Vancomycin Date/Time Labs Ordered Labs to be done on [date and time ordered]: 10/04/23 @ 5739
[2023-10-03] MEDS: Vancomycin HCl 1,500 MG in 0.9% Normal Saline (500mL Bag) 500 ML 250 MG IV (00:52)
[2023-10-03 03:55] VITALS: BP 155/80; PULSE 78; RESP 18; TEMP 36.2; O2SAT 94
[2023-10-03] MEDS: 0.9% Saline Lock 10 ML Syringe IV ×3 (05:18→21:08)
[2023-10-03 05:29] LABS: Absolute Lymphocyte Count 0.87 X10^3/uL (0.83-4.51); Absolute Neutrophil Count 4.4 X10^3/uL (2.0-7.7); Basophil# 0.03 X10^3/uL; Basophil% 0.5 % (0-1); Eosinophil# 0.11 X10^3/uL; Eosinophils% 1.7 % (0-5); Hematocrit 27.7 % (37-47); Hemoglobin 8.3 g/dL (12.0-15.0); Lymphocyte # 0.87 X10^3/ul (0.83-4.51); Lymphocyte % 13.1 % (19-41); Mean Corpuscular Hgb 24.6 pg (27.0-32.0); Mean Platelet Vol. 9.8 fl (6.2-12.0); Monocyte# 1.09 X10^3/uL; Monocyte% 16.4 % (0-10); NRBC Flagged by Analyzer 0.3 % (0-5); Neutrophil # 4.38 X10^3/uL (2.7-7.7); Platelet Count 224 K/mm3 (150-450); RBC Distribution Width CV 15.5 % (11.6-14.6); RBC Distribution Width SD 46.5 fl (35.1-43.9); Red Blood Count 3.38 M/mm3 (4.2-5.4); White Blood Count 6.6 K/mm3 (4.4-11.0)
[2023-10-03 05:46] LABS: Anion Gap 4 (5-15); BUN 10 mg/dL (7-18); BUN/Creat Ratio 10.1 RATIO (10-20); Calcium,Total 8.1 mg/dL (8.5-10.1); Chloride 105 mmol/L (98-107); Creatinine, Serum 0.99 mg/dL (0.55-1.02); EST Glomerular Filtration Rate 58 mL/min (>60); Est Glom Filt Rate - Afr Amer 70 mL/min (>60); Estimated Creatinine Clearance 51.09 ml/min; Glucose 119 mg/dL (74-106); Potassium 2.2 mmol/L (3.5-5.1); Sodium Level 143 mmol/L (136-145)
[2023-10-03] MEDS: Potassium Chloride Oral Tablet 20 MEQ 40 MEQ PO ×2 (06:10→14:48)
[2023-10-03] MEDS: Potassium Chloride 10mEq/100mL 10 MEQ/100 ML IV.SOLN. 100 MEQ IV BOLUS ×2 (06:10→08:36)
[2023-10-03 06:38] LABS: Magnesium 1.5 mg/dL (1.6-2.6)
[2023-10-03 08:00] VITALS: O2SAT 97
[2023-10-03 08:35] VITALS: BP 146/87; PULSE 88; RESP 16; TEMP 36.4; O2SAT 95
[2023-10-03] MEDS: Dextrose 5%-Water (1000mL Bag) 1,000 ML 75 ML IV (08:36)
[2023-10-03 09:32] LABS: Phosphorus 2.9 mg/dL (2.5-4.9)
[2023-10-03 09:39] LABS: Anion Gap 5 (5-15); BUN 9 mg/dL (7-18); BUN/Creat Ratio 8.9 RATIO (10-20); Calcium,Total 8.1 mg/dL (8.5-10.1); Chloride 108 mmol/L (98-107); Creatinine, Serum 1.01 mg/dL (0.55-1.02); EST Glomerular Filtration Rate 57 mL/min (>60); Est Glom Filt Rate - Afr Amer 69 mL/min (>60); Estimated Creatinine Clearance 50.08 ml/min; Glucose 126 mg/dL (74-106); Potassium 2.7 mmol/L (3.5-5.1); Sodium Level 143 mmol/L (136-145)
[2023-10-03] MEDS: Pantoprazole Sodium 40 MG in 0.9% Normal Saline (100mL MB+) 100 ML 330 MG IV ×2 (10:23→21:01)
[2023-10-03] MEDS: Magnesium Sulfate 4gm/100mL 4 GM/100 ML IV.SOLN. IV (10:24)
[2023-10-03] MEDS: Spironolactone 25 MG Tablet PO ×2 (10:31→14:48)
[2023-10-03] MEDS: QUEtiapine 25 MG Tablet PO (10:31)
[2023-10-03] MEDS: Divalproex Sodium 250 MG Tablet PO (10:31)
--- NOTE | 2023-10-03 13:03 | PCM.PN.ID ---
Physical Exam Narrative Confused, no fever Const no apparent distress Orientation / Consciousness: confused Resp normal air movement and clear to auscultation bilaterally Cardio regular rate and regular rhythm GI soft to palpation, non-tender and non-distended Skin Skin Narrative: no erythema on BLE ID ID: Route of nutrition/ use of supplements: [] Nutritional Intake: [] IV Site: [] Conley Catheter: [] Assessment & Plan Assessment/Plan (1) Acute kidney injury: (2) Encephalopathy acute: PLAN: Treating for suspected pneumonia, cont ceftriaxone. 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 Wrote rx for vanc if she leaves this weekend, and she should followup with Jeron[facility] PALOMO physician as planned. Plan is for 6 days total pneumonia coverage, ceftriaxone was started 09/28; course can finish 10/04 with po omnicef 300mg bid. Will follow
--- NOTE | 2023-10-03 13:36 | PCM.PN.HOSP ---
Reason for Visit Reason for Visit: Diagnoses Hyperosmolality and hypernatremia (09/27/23) Hypokalemia (09/27/23) Encephalopathy, unspecified (09/27/23) Acute kidney failure, unspecified (09/27/23) Other malaise (09/27/23) Objective Data Objective Data Vital Signs: Vital Signs Temp Pulse Resp BP Pulse Ox O2 Del Method O2 Flow Rate 97.5 F L 88 16 146/87 H 95 Room Air 2 10/03/23 08:35 10/03/23 08:35 10/03/23 08:35 10/03/23 08:35 10/03/23 08:35 10/03/23 08:35 10/03/23 08:00 FiO2 30 09/30/23 20:00 Oxygen Flow Rate (L/min) 2 Oxygen Delivery Method Room Air Weight: 172 lb 13.478 oz Body Mass Index (BMI) 27.8 Intake & Output: Intake and Output for Last 24 Hours 10/01/23 10/02/23 10/03/23 23:59 23:59 23:59 Intake Total 1590 / 1590 1936.25 / 1936.25 1163.75 / 1163.75 Output Total 720 / 720 350 / 350 Balance 1590 / 1590 1216.25 / 1216.25 813.75 / 813.75 Lab / Micro Data 10/03/23 05:16 10/03/23 08:55 Labs: Laboratory Results - last 24 hr 10/02/23 15:30: Retic Count 1.01, Immature Retic Fraction 20.30 H, Retic Hgb Equivalent 22.4 L, Iron 34 L, TIBC 181 L, Iron Saturation 18.8, Ferritin 142, Lactate Dehydrogenase 248 H, Vitamin B12 960 H, Folate 6.70, Vancomycin Trough 24.4 H 10/02/23 21:55: Random Vancomycin 20.1 H 10/03/23 05:16: WBC 6.6, RBC 3.38 L, Hgb 8.3 L, Hct 27.7 L, MCV 82.0, MCH 24.6 L, MCHC 30.0 L, RDW Std Deviation 46.5 H, RDW Coeff of [place] 15.5 H, Plt Count 224, MPV 9.8, Immature Gran % (Auto) 2.300 H, Neut % (Auto) 66.0, Lymph % (Auto) 13.1 L, [place] % (Auto) 16.4 H, Eos % (Auto) 1.7, Baso % (Auto) 0.5, Absolute Neuts (auto) 4.4, Absolute Lymphs (auto) 0.87, Nucleated RBC % 0.3, Sodium 143, Potassium 2.2 L*, Chloride 105, Carbon Dioxide 34.0 H, Anion Gap 4 L, BUN 10, Creatinine 0.99, Estim Creat Clear Calc 51.09, Est GFR (MDRD) Af Amer 70, Est GFR (MDRD) Non-Af 58 L, BUN/Creatinine Ratio 10.1, Glucose 119 H, Calcium 8.1 L, Magnesium 1.5 L 10/03/23 08:55: Sodium 143, Potassium 2.7 L*, Chloride 108 H, Carbon Dioxide 30.0, Anion Gap 5, BUN 9, Creatinine 1.01, Estim Creat Clear Calc 50.08, Est GFR (MDRD) Af Amer 69, Est GFR (MDRD) Non-Af 57 L, BUN/Creatinine Ratio 8.9 L, Glucose 126 H, Calcium 8.1 L, Phosphorus 2.9 Micro: Microbiology 09/27/23 16:08 Blood Culture (Wb) - Anticubital Left Blood Culture - Final No growth in 5 days. 10/01/23 19:05 Stool Stool Occult Blood (MELONIE) - Final 09/29/23 17:02 Mucosa - Nasopharyngeal Respiratory Panel (PCR) - Final 09/29/23 17:05 Nasal Secretion MRSA (PCR) - Final 09/29/23 17:30 Urine, Clean Catch Legionella Antigen - Final 09/29/23 17:30 Urine, Clean Catch Streptococcus pneumoniae Antigen (M - Final 09/27/23 15:21 Urine, Catheterized Urine Culture - Final Culture exhibits no growth. 09/27/23 17:35 Mucosa - Nasopharyngeal SARS-CoV-2, Influenza & RSV (PCR) - Final Physical Exam Narrative Seen and examined. Patient has advanced dementia. Weaned off BiPAP. Discussed with the back up machine operator. Awake no meaningful history could be obtained. Severe hypokalemia and hypomagnesemia. Physical exam General: Awake, cooperative. Oriented x 1. HEENT: Atraumatic, PERRLA, EOMI, Normocephalic Oral: No Gingival or Mucosal Lesions/ Ulcerations Neck: Supple, No JVD, Negative Carotid Bruits Chest wall/Lungs: Air entry diminished in bilateral lung bases. 95% on room air Cardiovascular: Regular rate, Regular Rhythm, Normal S1, Normal S2, No M/G/R Abdomen: Bowel Sounds Present, Soft, Non Tender, Non-Distended : No dysuria. No renal angle tenderness. No suprapubic tenderness. Extremities: No edema, Capillary Refill Less than 3 Seconds Skin: Right knee skin graft present. Right GSV seems stripping done. No acute ulcer. Musculoskeletal: No Tenderness to Palpation of Joints or Extremities. Neurological: Cranial nerves II-XII grossly intact, DTR 2+/4. No acute focal neurological deficit. Psych/Mental Status: Flat affect. Advanced dementia Assessment & Plan Assessment/Plan (1) Acute kidney injury: (2) Hypernatremia: (3) Hypokalemia: (4) Debility: PLAN: Plan 78-year-old female was admitted for abnormal lab work. She has history of dementia therefore history limited. Patient was found hypernatremia, dehydration possible hypokalemia. She has a PICC line and receives vancomycin because of wound dehiscence and infection after knee replacement # Worsened mental status, acute encephalopathy on top of chronic dementia possible metabolic encephalopathy -Dehydration versus infection versus elevated ammonia -Patient has elevated sodium and creatinine and dry mucous membranes suggestive of dehydration -Continue IVF -Also mildly tachycardic and tachypneic with slightly elevated white blood cell count and temp though does not meet fever criteria -UA does not show WBC, LE and nitrite negative. Urine culture negative. PCR for SARS-CoV-2, influenza and RSV are negative. Lactic acid 1.4. Ammonia less than 10. Valproic acid 46 low. 09/29: Seroquel dose decreased to 25 mg twice daily with holding parameters. 09/30: Patient was was agitated last night. Was given extra dose of Seroquel. In the morning she is lethargic and irritable. 10/01: Patient sodium is 146, potassium 3.0. D5W 75 mL/h for 2 L. Patient on spironolactone. 10/02: Severe hypokalemia potassium was 2.2 in the morning and 40 mEq was given repeat came to 2.7. Patient on spironolactone 25 mg daily. 1 more dose of K-Dur 40 mEq given. Unclear about the source of loss of potassium as she is not having bowel movement nausea or vomiting. His spironolactone dose increased to 50 mg daily. Serum magnesium, 1.5. Hypomagnesemia, 4 g resume sulfate ordered. Bicarb 34 and then 30. Hypokalemic metabolic alkalosis. 2. Acute hypoxic respiratory failure possible due to early developing pneumonia/pulmonary edema due to acute on chronic HFpEF: Patient had ABG which showed 7.41/37.5/89 on BiPAP 14/8 at 30% FiO2. Lasix 40 mg IV 1 dose ordered. Chest x-ray shows right upper lobe haziness probably early pneumonia and mild pulmonary edema. BNP ordered. 2D echo ordered. Pneumonia workup ordered. Patient on IV vancomycin. Started on IV ceftriaxone 09/29: Discussed with the respiratory therapist. Requires BiPAP support as she fall asleep with suspicion of narcolepsy or central sleep apnea. ABG reviewed. 7.4 0/45/123 on 30% FiO2 RR 20. PEEP 8. Pulmonary consult requested. Continue oxygen and BiPAP as needed during nap and at night. ID consult reviewed. Continue IV ceftriaxone for pneumonia and IV vancomycin for knee infection. Blood culture negative for 48 hours. Urinary antigens negative. MRSA nasal screen negative. Culture negative. 09/30: Patient was evaluated by journal clerk yesterday. Increased physiologic space was therefore CT angiogram was done which does not show large vessel or central filling defect but distal segmental and subsegmental pulmonary arteries cannot be definitely ruled out because of motion artifact. Multifocal bilateral groundglass opacities probably due to atypical/viral pneumonia and/or pulmonary edema. BNP elevated. 2D echo shows stage I diastolic dysfunction. Normal LV size. Left ventricular systolic function is normal. Normal RV size and systolic function. Tricuspid valve normal. LVEF 55 %. Stage 1 diastolic dysfunction. 10/01: Pulmonary follow-up reviewed. 97% on 2 L of oxygen. Was on room air yesterday. Viral pneumonia screen was relatively negative. Other differential idiopathic interstitial pneumonia, mildly cryptogenic pulmonary. He recommended repeat imaging in a.m. and if worse consider transfer for bronc versus empiric steroids I had extensive discussion with patient's who is POA. Patient has advanced dementia with low functional status and does not follow command. Has limited understanding. We agreed that she is high risk for any procedure and probably will follow-up in pulmonary clinic to decide about bronchoscopy as an elective procedure. Currently patient patient is 94% on room air. # KEILA and hypernatremia concern for dehydration -Creatinine 1.49, was 0.68 on 08/06 -Sodium also mildly elevated at 146 -Continue IV fluids Urine lites shows urine sodium 101, osmolality 440, potassium 56, urea nitrogen 29 and chloride 152 therefore favors more dehydration. 09/28: IV fluid was discontinued yesterday on 09/27. Creatinine is stable 1.22. 09/29: Creatinine went up to 1.38. Patient had 1 dose of Lasix yesterday because of right lung. Hypernatremia, hyperchloremia with low anion gap. Bicarb 29. D5W ordered for hypernatremia 10/01: BUNs/creatinine 17/1.08. 10/02: Creatinine is 1.01. Acute normocytic normochromic anemia on chronic anemia: Hemoglobin dropped to 7.3 from admission 9.8 at her baseline balance around. Platelet count stable at 183. Stool for occult blood negative. Started on pantoprazole 40 IV twice daily. IV iron infusion ordered. Heparin subcu was discontinued. 11/01: Anemia workup done. Serum iron 34, TIBC low, iron saturation 18%, ferritin 142, LDH 248. Immature reticulocyte fraction high 20.3%. Reticulocyte count normal. Overall it seems mixed from anemia of chronic disease and iron deficiency anemia. Stool for occult blood negative. 1 more dose of IV iron infusion ordered # Dementia -Holding donepezil and memantine, will not make a large difference in short-term -Schedule melatonin nightly -Seroquel as needed, will consider scheduling this versus Risperdal pending patient mental status and any anxiety or agitation # Recent right knee infection with PICC line on vancomycin -Treated by Dr. Puente -PICC line in place, PICC care ordered -Continue vancomycin, patient scheduled continue this until October 04 -Per family knee looks similar to how it had with no increased redness, swelling, complaints ID follow-up 10/01: ID follow-up reviewed. Patient had her right knee PJI, stop date planned was 10/07/2023 and thereafter may be long course of suppressive p.o. antibiotic. On IV ceftriaxone for suspected pneumonia # Hypokalemia -Replaced in ED -K3.5 low normal. 09/28K low normal 3.5. Potassium 8/6: Potassium low. Started on spironolactone 25 mg daily. Monitor electrolytes. #DVT ppx: Heparin subcu 10/02: Heparin subcu was discontinued as patient had severe anemia. Discharge planning. Microbiology Past 72 Hours 10/01/23 19:05 Stool Stool Occult Blood (MELONIE) - Final 09/27/23 16:08 Blood Culture (Wb) - Anticubital Left Blood Culture - Preliminary No growth in 48 hours. 09/29/23 17:02 Mucosa - Nasopharyngeal Respiratory Panel (PCR) - Final 09/29/23 17:05 Nasal Secretion MRSA (PCR) - Final 09/29/23 17:30 Urine, Clean Catch Legionella Antigen - Final 09/29/23 17:30 Urine, Clean Catch Streptococcus pneumoniae Antigen (M - Final 09/27/23 15:21 Urine, Catheterized Urine Culture - Final Culture exhibits no growth. Laboratory Results 10/01/23 13:57: Sodium 146 H, Potassium 3.1 L, Chloride 113 H, Carbon Dioxide 29.0, Anion Gap 4 L, BUN 19 H, Creatinine 1.21 H, Estim Creat Clear Calc 41.80, Est GFR (MDRD) Af Amer 56 L, Est GFR (MDRD) Non-Af 46 L, BUN/Creatinine Ratio 15.7, Glucose 114 H, Calcium 8.5 10/02/23 05:03: Sodium 146 H, Potassium 3.0 L, Chloride 109 H, Carbon Dioxide 32.0, Anion Gap 5, BUN 17, Creatinine 1.08 H, Estim Creat Clear Calc 46.83, Est GFR (MDRD) Af Amer 63, Est GFR (MDRD) Non-Af 52 L, BUN/Creatinine Ratio 15.7, Glucose 107 H, Calcium 8.1 L Charges/Coding Visit Charges Inpatient E&M: 97506 Subs Hosp L2
[2023-10-03 14:41] VITALS: BP 139/88; PULSE 82; RESP 17; TEMP 36.2; O2SAT 94
--- NOTE | 2023-10-03 14:58 | CASEMGMT ---
OLI called patient's Yassine. OLI let Yassine know that [facility] does not take their insurance so going their private pay [facility] would want $[phone] for the month. OLI then let Yassine know that [facility] has not responded yet letting us know if they can take patient or not. Yassine thanked OLI for the update. Plan: D/c to SNF pending accepting facility and pre-cert vs private pay. Cailin Magana [employer] MARJ
[2023-10-03] MEDS: Sodium Ferric Gluconat/Sucrose 250 MG in 0.9% Normal Saline (250mL Bag) 250 ML 135 MG IV (15:31)
[2023-10-03] MEDS: Haloperidol Lactate 5 MG/ML Vial 2 MG IV (17:55)
[2023-10-03] MEDS: QUEtiapine 25 MG Tablet 50 MG PO (20:44)
[2023-10-03] MEDS: MELATONIN 10 MG TABLET PO (20:44)
[2023-10-03 21:10] VITALS: BP 140/85; PULSE 86; RESP 16; TEMP 36.4; O2SAT 98
[2023-10-03] MEDS: Ceftriaxone 1 GM/50 ML BAG IV (22:35)
[2023-10-04] MEDS: Vancomycin HCl 1,500 MG in 0.9% Normal Saline (500mL Bag) 500 ML 250 MG IV (00:22)
[2023-10-04] MEDS: 0.9% Saline Lock 10 ML Syringe IV ×4 (00:23→20:15)
[2023-10-04 03:10] VITALS: BP 142/82; PULSE 78; RESP 16; TEMP 36.4; O2SAT 98
[2023-10-04 05:39] LABS: Absolute Lymphocyte Count 1.05 X10^3/uL (0.83-4.51); Absolute Neutrophil Count 4.7 X10^3/uL (2.0-7.7); Basophil# 0.03 X10^3/uL; Basophil% 0.4 % (0-1); Eosinophils% 2.8 % (0-5); Hematocrit 28.9 % (37-47); Hemoglobin 8.7 g/dL (12.0-15.0); Lymphocyte # 1.05 X10^3/ul (0.83-4.51); Lymphocyte % 14.5 % (19-41); Mean Corp Hgb Conc 30.1 g/dL (32-36); Mean Corpuscular Hgb 24.5 pg (27.0-32.0); Mean Corpuscular Volume 81.4 fL (81-99); Monocyte% 15.2 % (0-10); NRBC Flagged by Analyzer 0 % (0-5); Neutrophil # 4.71 X10^3/uL (2.7-7.7); Neutrophil % 64.9 % (47-70); Platelet Count 254 K/mm3 (150-450); RBC Distribution Width CV 15.8 % (11.6-14.6); RBC Distribution Width SD 47.2 fl (35.1-43.9); Red Blood Count 3.55 M/mm3 (4.2-5.4); White Blood Count 7.3 K/mm3 (4.4-11.0)
[2023-10-04 05:58] LABS: Anion Gap 7 (5-15); BUN 7 mg/dL (7-18); BUN/Creat Ratio 6.7 RATIO (10-20); Calcium,Total 8.2 mg/dL (8.5-10.1); Chloride 104 mmol/L (98-107); Creatinine, Serum 1.05 mg/dL (0.55-1.02); EST Glomerular Filtration Rate 54 mL/min (>60); Est Glom Filt Rate - Afr Amer 66 mL/min (>60); Estimated Creatinine Clearance 48.17 ml/min; Glucose 119 mg/dL (74-106); Magnesium 2.2 mg/dL (1.6-2.6); Sodium Level 139 mmol/L (136-145)
[2023-10-04 06:02] LABS: Phosphorus 2.8 mg/dL (2.5-4.9)
[2023-10-04 08:04] VITALS: O2SAT 92
[2023-10-04 09:35] VITALS: BP 113/69; PULSE 78; RESP 16; TEMP 36.8; O2SAT 98
[2023-10-04] MEDS: Spironolactone 50 MG Tablet PO (09:40)
[2023-10-04] MEDS: Divalproex Sodium 250 MG Tablet PO (09:40)
[2023-10-04] MEDS: QUEtiapine 25 MG Tablet PO (09:40)
--- NOTE | 2023-10-04 09:45 | CASEMGMT ---
Social Work Late on Friday reports that they have not made a determination on acceptance of pt yet. Pt to remain in hospital until Friday when SNF placement can be secured and precert is obtained. Physician aware. Plan: [facility], pending acceptance and precert BHAVANA Guzman
[2023-10-04] MEDS: Pantoprazole Sodium 40 MG in 0.9% Normal Saline (100mL MB+) 100 ML 330 MG IV ×2 (09:59→20:17)
[2023-10-04] MEDS: Ensure Plus High Protein 120 ML LIQUID PO ×3 (10:01→20:09)
[2023-10-04 10:42] LABS: Haptoglobin 303 mg/dL (42-346)
--- NOTE | 2023-10-04 11:53 | PN.HOSP_ITS ---
Reason for Visit Reason for Visit: Diagnoses Hyperosmolality and hypernatremia (09/27/23) Hypokalemia (09/27/23) Encephalopathy, unspecified (09/27/23) Acute kidney failure, unspecified (09/27/23) Other malaise (09/27/23) Objective Data Objective Data Vital Signs: Vital Signs Temp Pulse Resp BP Pulse Ox O2 Del Method O2 Flow Rate 98.2 F 78 16 113/69 98 Room Air 2 10/04/23 09:35 10/04/23 09:35 10/04/23 09:35 10/04/23 09:35 10/04/23 09:35 10/04/23 09:45 10/03/23 08:00 FiO2 30 09/30/23 20:00 Oxygen Flow Rate (L/min) 2 Oxygen Delivery Method Room Air Weight: 172 lb 13.478 oz Body Mass Index (BMI) 27.8 Intake & Output: Intake and Output for Last 24 Hours 10/02/23 10/03/23 10/04/23 23:59 23:59 23:59 Intake Total 1936.25 / 1936.25 2693.75 / 2693.75 530 / 530 Output Total 720 / 720 1750 / 1750 Balance 1216.25 / 1216.25 943.75 / 943.75 530 / 530 Lab / Micro Data 10/04/23 05:08 10/04/23 05:08 Labs: Laboratory Results - last 24 hr 10/02/23 15:30: Haptoglobin 303 10/04/23 05:08: WBC 7.3, RBC 3.55 L, Hgb 8.7 L, Hct 28.9 L, MCV 81.4, MCH 24.5 L , MCHC 30.1 L, RDW Std Deviation 47.2 H, RDW Coeff of [place] 15.8 H, Plt Count 254, MPV 10.0, Immature Gran % (Auto) 2.200 H, Neut % (Auto) 64.9, Lymph % (Auto) 14.5 L, [place] % (Auto) 15.2 H, Eos % (Auto) 2.8, Baso % (Auto) 0.4, Absolute Neuts (auto) 4.7, Absolute Lymphs (auto) 1.05, Nucleated RBC % 0, Sodium 139, P otassium 3.0 L, Chloride 104, Carbon Dioxide 28.0, Anion Gap 7, BUN 7, C reatinine 1.05 H, Estim Creat Clear Calc 48.17, Est GFR (MDRD) Af Amer 66, Est GFR (MDRD) Non-Af 54 L, BUN/Creatinine Ratio 6.7 L, Glucose 119 H, Calcium 8.2 L , Phosphorus 2.8, Magnesium 2.2 Micro: Microbiology 09/27/23 16:08 Blood Culture (Wb) - Anticubital Left Blood Culture - Final No growth in 5 days. 10/01/23 19:05 Stool Stool Occult Blood (MELONIE) - Final 09/29/23 17:02 Mucosa - Nasopharyngeal Respiratory Panel (PCR) - Final 09/29/23 17:05 Nasal Secretion MRSA (PCR) - Final 09/29/23 17:30 Urine, Clean Catch Legionella Antigen - Final 09/29/23 17:30 Urine, Clean Catch Streptococcus pneumoniae Antigen (M - Final 09/27/23 15:21 Urine, Catheterized Urine Culture - Final Culture exhibits no growth. 09/27/23 17:35 Mucosa - Nasopharyngeal SARS-CoV-2, Influenza & RSV (PCR) - Final Physical Exam Narrative Seen and examined. Patient relatively doing well. Awake. Blood pressure and heart rate controlled. Pulse ox 98% on room air. Potassium also improved. Physical exam Physical exam General: Awake, cooperative. Oriented x 1. HEENT: Atraumatic, PERRLA, EOMI, Normocephalic Oral: No Gingival or Mucosal Lesions/ Ulcerations Neck: Supple, No JVD, Negative Carotid Bruits Chest wall/Lungs: Air entry diminished in bilateral lung bases. on room air. No crepitations Cardiovascular: Regular rate, Regular Rhythm, Normal S1, Normal S2, No M/G/R Abdomen: Bowel Sounds Present, Soft, Non Tender, Non-Distended : No dysuria. No renal angle tenderness. No suprapubic tenderness. Extremities: No edema, Capillary Refill Less than 3 Seconds Skin: Right knee skin graft present. Right GSV seems stripping done. No acute ulcer. Musculoskeletal: No Tenderness to Palpation of Joints or Extremities. Neurological: Cranial nerves II-XII grossly intact, DTR 2+/4. No acute focal neurological deficit. Psych/Mental Status: Flat affect. Advanced dementia Assessment & Plan Assessment/Plan (1) Acute kidney injury: (2) Hypernatremia: (3) Hypokalemia: (4) Debility: PLAN: Plan 78-year-old female was admitted for abnormal lab work. She has history of dementia therefore history limited. Patient was found hypernatremia, dehydration possible hypokalemia. She has a PICC line and receives vancomycin because of wound dehiscence and infection after knee replacement # Worsened mental status, acute encephalopathy on top of chronic dementia possible metabolic encephalopathy -Dehydration versus infection versus elevated ammonia -Patient has elevated sodium and creatinine and dry mucous membranes suggestive of dehydration -Continue IVF -Also mildly tachycardic and tachypneic with slightly elevated white blood cell count and temp though does not meet fever criteria -UA does not show WBC, LE and nitrite negative. Urine culture negative. PCR for SARS-CoV-2, influenza and RSV are negative. Lactic acid 1.4. Ammonia less than 10. Valproic acid 46 low. 09/29: Seroquel dose decreased to 25 mg twice daily with holding parameters. 09/30: Patient was was agitated last night. Was given extra dose of Seroquel. In the morning she is lethargic and irritable. 10/01: Patient sodium is 146, potassium 3.0. D5W 75 mL/h for 2 L. Patient on spironolactone. 10/02: Severe hypokalemia potassium was 2.2 in the morning and 40 mEq was given repeat came to 2.7. Patient on spironolactone 25 mg daily. 1 more dose of K- Dur 40 mEq given. Unclear about the source of loss of potassium as she is not having bowel movement nausea or vomiting. His spironolactone dose increased to 50 mg daily. Serum magnesium, 1.5. Hypomagnesemia, 4 g resume sulfate ordered. Bicarb 34 and then 30. Hypokalemic metabolic alkalosis. 10/03: Hypokalemia has improved. Blood pressure and heart rate are controlled. Afebrile. K3.0. 2. Acute hypoxic respiratory failure possible due to early developing pneumonia/pulmonary edema due to acute on chronic HFpEF: Patient had ABG which showed 7.41/37.5/89 on BiPAP 14/8 at 30% FiO2. Lasix 40 mg IV 1 dose ordered. Chest x-ray shows right upper lobe haziness probably early pneumonia and mild pulmonary edema. BNP ordered. 2D echo ordered. Pneumonia workup ordered. Patient on IV vancomycin. Started on IV ceftriaxone 09/29: Discussed with the respiratory therapist. Requires BiPAP support as she fall asleep with suspicion of narcolepsy or central sleep apnea. ABG reviewed. 08.27 0/45/123 on 30% FiO2 RR 20. PEEP 8. Pulmonary consult requested. Continue oxygen and BiPAP as needed during nap and at night. ID consult reviewed. Continue IV ceftriaxone for pneumonia and IV vancomycin for knee infection. Blood culture negative for 48 hours. Urinary antigens negative. MRSA nasal screen negative. Culture negative. 09/30: Patient was evaluated by automotive tire tester yesterday. Increased physiologic space was therefore CT angiogram was done which does not show large vessel or central filling defect but distal segmental and subsegmental pulmonary arteries cannot be definitely ruled out because of motion artifact. Multifocal bilateral groundglass opacities probably due to atypical/viral pneumonia and/or pulmonary edema. BNP elevated. 2D echo shows stage I diastolic dysfunction. Normal LV size. Left ventricular systolic function is normal. Normal RV size and systolic function. Tricuspid valve normal. LVEF 55 %. Stage 1 diastolic dysfunction. 10/01: Pulmonary follow-up reviewed. 97% on 2 L of oxygen. Was on room air yesterday. Viral pneumonia screen was relatively negative. Other differential idiopathic interstitial pneumonia, mildly cryptogenic pulmonary. He recommended repeat imaging in a.m. and if worse consider transfer for bronc versus empiric steroids I had extensive discussion with patient's who is POA. Patient has advanced dementia with low functional status and does not follow command. Has limited understanding. We agreed that she is high risk for any procedure and probably will follow-up in pulmonary clinic to decide about bronchoscopy as an elective procedure. Currently patient patient is 94% on room air. # KEILA and hypernatremia concern for dehydration -Creatinine 1.49, was 0.68 on 08/06 -Sodium also mildly elevated at 146 -Continue IV fluids Urine lites shows urine sodium 101, osmolality 440, potassium 56, urea nitrogen 29 and chloride 152 therefore favors more dehydration. 09/28: IV fluid was discontinued yesterday on 09/27. Creatinine is stable 1.22. 09/29: Creatinine went up to 1.38. Patient had 1 dose of Lasix yesterday because of right lung. Hypernatremia, hyperchloremia with low anion gap. Bicarb 29. D5W ordered for hypernatremia 10/01: BUNs/creatinine 17/1.08. 10/02: Creatinine is 1.01. 10/03: Creatinine 1.05. Hypernatremia has resolved. K3.0. Patient on spironolactone 50 mg daily. Serum magnesium and phosphorus level normal. Acute normocytic normochromic anemia on chronic anemia: Hemoglobin dropped to 7.3 from admission 9.8 at her baseline balance around. Platelet count stable at 183. Stool for occult blood negative. Started on pantoprazole 40 IV twice daily. IV iron infusion ordered. Heparin subcu was discontinued. 10/02: Anemia workup done. Serum iron 34, TIBC low, iron saturation 18%, ferritin 142, LDH 248. Immature reticulocyte fraction high 20.3%. Reticulocyte count normal. Overall it seems mixed from anemia of chronic disease and iron deficiency anemia. Stool for occult blood negative. 1 more dose of IV iron infusion ordered 10/03: H&H improving 8.7/29.7. Platelet count 254,000. # Dementia -Holding donepezil and memantine, will not make a large difference in short-term -Schedule melatonin nightly -Seroquel as needed, will consider scheduling this versus Risperdal pending patient mental status and any anxiety or agitation # Recent right knee infection with PICC line on vancomycin -Treated by Dr. Puente -PICC line in place, PICC care ordered -Continue vancomycin, patient scheduled continue this until October 04 -Per family knee looks similar to how it had with no increased redness, swelling, complaints ID follow-up 10/01: ID follow-up reviewed. Patient had her right knee PJI, stop date planned was 10/07/2023 and thereafter may be long course of suppressive p.o. antibiotic. On IV ceftriaxone for suspected pneumonia # Hypokalemia -Replaced in ED -K3.5 low normal. 09/28K low normal 3.5. Potassium 09/29: Potassium low. Started on spironolactone 25 mg daily. Monitor electrolytes. #DVT ppx: Heparin subcu 10/02: Heparin subcu was discontinued as patient had severe anemia. 09/30: Patient is high risk for DVT therefore put back on heparin 5000 cutaneous twice daily. Bilateral SCDs Discharge planning. : Patient is medically ready for discharge but does not have pre-CERT. Microbiology Past 72 Hours 09/27/23 16:08 Blood Culture (Wb) - Anticubital Left Blood Culture - Final No growth in 5 days. 10/01/23 19:05 Stool Stool Occult Blood (MELONIE) - Final Laboratory Results 10/02/23 15:30: Haptoglobin 303 10/04/23 05:08: WBC 7.3, RBC 3.55 L, Hgb 8.7 L, Hct 28.9 L, MCV 81.4, MCH 24.5 L , MCHC 30.1 L, RDW Std Deviation 47.2 H, RDW Coeff of [place] 15.8 H, Plt Count 254, MPV 10.0, Immature Gran % (Auto) 2.200 H, Neut % (Auto) 64.9, Lymph % (Auto) 14.5 L, [place] % (Auto) 15.2 H, Eos % (Auto) 2.8, Baso % (Auto) 0.4, Absolute Neuts (auto) 4.7, Absolute Lymphs (auto) 1.05, Nucleated RBC % 0, Sodium 139, P otassium 3.0 L, Chloride 104, Carbon Dioxide 28.0, Anion Gap 7, BUN 7, C reatinine 1.05 H, Estim Creat Clear Calc 48.17, Est GFR (MDRD) Af Amer 66, Est GFR (MDRD) Non-Af 54 L, BUN/Creatinine Ratio 6.7 L, Glucose 119 H, Calcium 8.2 L , Phosphorus 2.8, Magnesium 2.2 Charges/Coding Visit Charges Inpatient E&M: 61674 Subs Hosp L2
[2023-10-04 15:43] VITALS: BP 143/61; PULSE 96; RESP 16; TEMP 36.7; O2SAT 98
[2023-10-04] MEDS: Haloperidol Lactate 5 MG/ML Vial 2 MG IV (16:49)
[2023-10-04 16:57] VITALS: O2SAT 95
[2023-10-04] MEDS: QUEtiapine 25 MG Tablet 50 MG PO (18:56)
[2023-10-04] MEDS: proMETHazine 25 MG/ML Syringe 12.5 MG IM (18:56)
[2023-10-04] MEDS: MELATONIN 10 MG TABLET PO (20:04)
[2023-10-04] MEDS: Heparin Injection (Vial) 5,000 UNIT/ML VIAL 5000 UNIT SC (20:09)
[2023-10-04] MEDS: Menthol/Lanolin/Calamine/Znox 113 GM Tube 1 APPLIC TOPICAL (20:10)
[2023-10-04 20:33] VITALS: BP 139/62; PULSE 103; RESP 18; TEMP 36.5; O2SAT 96
[2023-10-04] MEDS: Ceftriaxone 1 GM/50 ML BAG IV (20:58)
[2023-10-05] VITALS (9 sets, daily range): BP systolic 100–143; BP diastolic 65–98; PULSE 70–104; RESP 12–19; TEMP 36.1–36.7; O2SAT 93–100
[2023-10-05 00:24] LABS: Vancomycin, Trough Level 22.1 ug/mL (5.0-15.0)
--- NOTE | 2023-10-05 00:49 | PCM.RX.CS ---
Consult Antibiotic Management Pharmacy has been consulted to manage selected antibiotic: Vancomycin Type of Intervention Type of Consult: Follow-up Suspected Infection Suspected Infection: Other (CONT. FROM HOME) Prior Doses of Antibiotics Prior Doses of Antibiotics Received/Current Regimen: Vancomycin 1500 mg given 10/03 @ 0022 Labs Labs: Sodium 139 mmol/L (136-145) 10/04/23 05:08 Potassium 3.0 mmol/L (3.5-5.1) L 10/04/23 05:08 Chloride 104 mmol/L (98-107) 10/04/23 05:08 Carbon Dioxide 28.0 mmol/L (21.0-32.0) 10/04/23 05:08 Anion Gap 7 (5-15) 10/04/23 05:08 BUN 7 mg/dL (7-18) 10/04/23 05:08 Creatinine 1.05 mg/dL (0.55-1.02) H 10/04/23 05:08 Est GFR (MDRD) Af Amer 66 mL/min (>60) 10/04/23 05:08 Est GFR (MDRD) Non-Af 54 mL/min (>60) L 10/04/23 05:08 BUN/Creatinine Ratio 6.7 RATIO (10-20) L 10/04/23 05:08 Glucose 119 mg/dL (74-106) H 10/04/23 05:08 Vancomycin Trough 22.1 ug/mL (5.0-15.0) H 10/04/23 23:30 Random Vancomycin 20.1 ug/mL (0.0-15.0) H 10/02/23 21:55 Microbiology Microbiology: Microbiology 09/27/23 16:08 Blood Culture (Wb) - Anticubital Left Blood Culture - Final No growth in 5 days. 10/01/23 19:05 Stool Stool Occult Blood (MELONIE) - Final 09/29/23 17:02 Mucosa - Nasopharyngeal Respiratory Panel (PCR) - Final 09/29/23 17:05 Nasal Secretion MRSA (PCR) - Final 09/29/23 17:30 Urine, Clean Catch Legionella Antigen - Final 09/29/23 17:30 Urine, Clean Catch Streptococcus pneumoniae Antigen (M - Final 09/27/23 15:21 Urine, Catheterized Urine Culture - Final Culture exhibits no growth. 09/27/23 17:35 Mucosa - Nasopharyngeal SARS-CoV-2, Influenza & RSV (PCR) - Final Dosing Weight Weight used for dosin.4 kg Estimated Creatinine Clearance Estimated Creatinine Clearance: ~48 Goal Trough Goal Trough: 15-20 mcg/mL Pharmacy Plan for Drug Dosing Pharmacy Plan for Drug Dosing: Vancomycin trough = 22.1, will hold vancomycin and get a random later this morning, and will likely reduce dosing thereafter. Pharmacy Service will continue to monitor and adjust dosing as required. Follow-Up Labs Follow-Up Labs: Trough: Vancomycin Date/Time Labs Ordered Labs to be done on [date and time ordered]: 10/05/23 @ 0600
--- NOTE | 2023-10-05 07:38 | PN.HOSP_ITS ---
Reason for Visit Reason for Visit: Diagnoses Hyperosmolality and hypernatremia (09/27/23) Hypokalemia (09/27/23) Encephalopathy, unspecified (09/27/23) Acute kidney failure, unspecified (09/27/23) Other malaise (09/27/23) Objective Data Objective Data Vital Signs: Vital Signs Temp Pulse Resp BP Pulse Ox O2 Del Method O2 Flow Rate 96.9 F L 76 16 143/65 H 99 Bi-pap 2 10/05/23 05:36 10/05/23 05:36 10/05/23 05:36 10/05/23 05:36 10/05/23 05:36 10/05/23 05:42 10/03/23 08:00 FiO2 25 10/05/23 03:45 Oxygen Flow Rate (L/min) 2 Oxygen Delivery Method Bi-pap Weight: 172 lb 13.478 oz Body Mass Index (BMI) 27.8 Intake & Output: Intake and Output for Last 24 Hours 10/03/23 10/04/23 10/05/23 23:59 23:59 23:59 Intake Total 2693.75 / 2693.75 1560 / 1560 Output Total 1750 / 1750 500 / 500 Balance 943.75 / 943.75 1060 / 1060 Lab / Micro Data 10/05/23 06:00 10/05/23 06:00 Labs: Laboratory Results - last 24 hr 10/02/23 15:30: Haptoglobin 303 10/04/23 23:30: Vancomycin Trough 22.1 H Micro: Microbiology 09/27/23 16:08 Blood Culture (Wb) - Anticubital Left Blood Culture - Final No growth in 5 days. 10/01/23 19:05 Stool Stool Occult Blood (MELONIE) - Final 09/29/23 17:02 Mucosa - Nasopharyngeal Respiratory Panel (PCR) - Final 09/29/23 17:05 Nasal Secretion MRSA (PCR) - Final 09/29/23 17:30 Urine, Clean Catch Legionella Antigen - Final 09/29/23 17:30 Urine, Clean Catch Streptococcus pneumoniae Antigen (M - Final 09/27/23 15:21 Urine, Catheterized Urine Culture - Final Culture exhibits no growth. 09/27/23 17:35 Mucosa - Nasopharyngeal SARS-CoV-2, Influenza & RSV (PCR) - Final Physical Exam Narrative Seen and examined. Patient was again very irritable and agitated trying to get out of the bed yesterday about 4 PM. She was given Haldol and Phenergan in early Seroquel and then she was good. She was sleeping in the morning but woke up. Blood pressure and heart rate controlled. On BiPAP at night at 25% FiO2. Serum potassium slightly low. Physical exam General: Sleepy and lethargic but woke up. Dementia. On BiPAP at night HEENT: Atraumatic, PERRLA, EOMI, Normocephalic Oral: On BiPAP, oral mucosa could not be visualized well. Neck: Supple, No JVD, Negative Carotid Bruits Chest wall/Lungs: Air entry diminished in bilateral lung bases. on room air During daytime and BiPAP at night Cardiovascular: Regular rate, Regular Rhythm, Normal S1, Normal S2, No M/G/R Abdomen: Bowel Sounds Present, Soft, Non Tender, Non-Distended : No dysuria. No renal angle tenderness. No suprapubic tenderness. Extremities: No edema, Capillary Refill Less than 3 Seconds Skin: Right knee skin graft present. Right GSV seems stripping done. No acute ulcer. Musculoskeletal: No Tenderness to Palpation of Joints or Extremities. Neurological: Cranial nerves II-XII grossly intact, DTR 2+/4. No acute focal neurological deficit. Psych/Mental Status: Flat affect. Advanced dementia Assessment & Plan Assessment/Plan (1) Acute kidney injury: (2) Hypernatremia: (3) Hypokalemia: (4) Debility: PLAN: Plan 78-year-old female was admitted for abnormal lab work. She has history of dementia therefore history limited. Patient was found hypernatremia, dehydration possible hypokalemia. She has a PICC line and receives vancomycin because of wound dehiscence and infection after knee replacement # Worsened mental status, acute encephalopathy on top of chronic dementia possible metabolic encephalopathy -Dehydration versus infection versus elevated ammonia -Patient has elevated sodium and creatinine and dry mucous membranes suggestive of dehydration -Continue IVF -Also mildly tachycardic and tachypneic with slightly elevated white blood cell count and temp though does not meet fever criteria -UA does not show WBC, LE and nitrite negative. Urine culture negative. PCR for SARS-CoV-2, influenza and RSV are negative. Lactic acid 1.4. Ammonia less than 10. Valproic acid 46 low. 09/29: Seroquel dose decreased to 25 mg twice daily with holding parameters. 09/30: Patient was was agitated last night. Was given extra dose of Seroquel. In the morning she is lethargic and irritable. 10/01: Patient sodium is 146, potassium 3.0. D5W 75 mL/h for 2 L. Patient on spironolactone. 10/02: Severe hypokalemia potassium was 2.2 in the morning and 40 mEq was given repeat came to 2.7. Patient on spironolactone 25 mg daily. 1 more dose of K- Dur 40 mEq given. Unclear about the source of loss of potassium as she is not having bowel movement nausea or vomiting. His spironolactone dose increased to 50 mg daily. Serum magnesium, 1.5. Hypomagnesemia, 4 g resume sulfate ordered. Bicarb 34 and then 30. Hypokalemic metabolic alkalosis. 10/03: Hypokalemia has improved. Blood pressure and heart rate are controlled. Afebrile. K3.0. 10/04: She gets intermittently irritable and agitated in the evening time therefore Seroquel at night was changed to about 4 PM daily. Discussed with the nursing staff. Mild hypokalemia, 1 dose Kdur given. On spironolactone 50 mg daily. Serum magnesium 2.3, phosphorus 2.8. 2. Acute hypoxic respiratory failure possible due to early developing pneumonia/pulmonary edema due to acute on chronic HFpEF: Patient had ABG which showed 7.41/37.5/89 on BiPAP 14/8 at 30% FiO2. Lasix 40 mg IV 1 dose ordered. Chest x-ray shows right upper lobe haziness probably early pneumonia and mild pulmonary edema. BNP ordered. 2D echo ordered. Pneumonia workup ordered. Patient on IV vancomycin. Started on IV ceftriaxone 09/29: Discussed with the respiratory therapist. Requires BiPAP support as she fall asleep with suspicion of narcolepsy or central sleep apnea. ABG reviewed. 7.4 0/45/123 on 30% FiO2 RR 20. PEEP 8. Pulmonary consult requested. Continue oxygen and BiPAP as needed during nap and at night. ID consult reviewed. Continue IV ceftriaxone for pneumonia and IV vancomycin for knee infection. Blood culture negative for 48 hours. Urinary antigens negative. MRSA nasal screen negative. Culture negative. 09/30: Patient was evaluated by primary school teacher librarian yesterday. Increased physiologic space was therefore CT angiogram was done which does not show large vessel or central filling defect but distal segmental and subsegmental pulmonary arteries cannot be definitely ruled out because of motion artifact. Multifocal bilateral groundglass opacities probably due to atypical/viral pneumonia and/or pulmonary edema. BNP elevated. 2D echo shows stage I diastolic dysfunction. Normal LV size. Left ventricular systolic function is normal. Normal RV size and systolic function. Tricuspid valve normal. LVEF 55 %. Stage 1 diastolic dysfunction. 10/01: Pulmonary follow-up reviewed. 97% on 2 L of oxygen. Was on room air yesterday. Viral pneumonia screen was relatively negative. Other differential idiopathic interstitial pneumonia, mildly cryptogenic pulmonary. He recommended repeat imaging in a.m. and if worse consider transfer for bronc versus empiric steroids I had extensive discussion with patient's who is POA. Patient has advanced dementia with low functional status and does not follow command. Has limited understanding. We agreed that she is high risk for any procedure and probably will follow-up in pulmonary clinic to decide about bronchoscopy as an elective procedure. Currently patient patient is 94% on room air. 10/04: She needs BiPAP during naps and at night. 6 days of IV ceftriaxone recommended by ID which she will complete today. IV Vanco plan to stop for right knee PJI on 10/06 and then long course of p.o. suppressive antibiotic. Follow-up with ID on 10/05 for discharge antibiotics for right knee PJI # KEILA and hypernatremia concern for dehydration -Creatinine 1.49, was 0.68 on 08/06 -Sodium also mildly elevated at 146 -Continue IV fluids Urine lites shows urine sodium 101, osmolality 440, potassium 56, urea nitrogen 29 and chloride 152 therefore favors more dehydration. 09/28: IV fluid was discontinued yesterday on 09/27. Creatinine is stable 1.22. 09/29: Creatinine went up to 1.38. Patient had 1 dose of Lasix yesterday because of right lung. Hypernatremia, hyperchloremia with low anion gap. Bicarb 29. D5W ordered for hypernatremia 10/01: BUNs/creatinine 17/1.08. 10/02: Creatinine is 1.01. 10/03: Creatinine 1.05. Hypernatremia has resolved. K3.2. Creatinine slowly increased from 0.99 to 1.14 therefore discontinue spironolactone. Serum magnesium and phosphorus level normal. Increase the potassium supplement. Monitor kidney function daily. Acute normocytic normochromic anemia on chronic anemia: Hemoglobin dropped to 7.3 from admission 9.8 at her baseline balance around. Platelet count stable at 183. Stool for occult blood negative. Started on pantoprazole 40 IV twice daily. IV iron infusion ordered. Heparin subcu was discontinued. 10/02: Anemia workup done. Serum iron 34, TIBC low, iron saturation 18%, ferritin 142, LDH 248. Immature reticulocyte fraction high 20.3%. Reticulocyte count normal. Overall it seems mixed from anemia of chronic disease and iron deficiency anemia. Stool for occult blood negative. 1 more dose of IV iron infusion ordered 10/03: H&H improving 8.7/29.7. Platelet count 254,000. 10/04: Hemoglobin 8.4/28.2%. # Dementia -Holding donepezil and memantine, will not make a large difference in short-term -Schedule melatonin nightly -Seroquel as needed, will consider scheduling this versus Risperdal pending patient mental status and any anxiety or agitation # Recent right knee infection with PICC line on vancomycin -Treated by Dr. Puente -PICC line in place, PICC care ordered -Continue vancomycin, patient scheduled continue this until October 04 -Per family knee looks similar to how it had with no increased redness, swelling, complaints ID follow-up 10/01: ID follow-up reviewed. Patient had her right knee PJI, stop date planned was 10/07/2023 and thereafter may be long course of suppressive p.o. antibiotic. On IV ceftriaxone for suspected pneumonia # Hypokalemia -Replaced in ED -K3.5 low normal. 09/28K low normal 3.5. Potassium 09/29: Potassium low. Started on spironolactone 25 mg daily. Monitor electrolytes. #DVT ppx: Heparin subcu 10/02: Heparin subcu was discontinued as patient had severe anemia. 09/30: Patient is high risk for DVT therefore put back on heparin 5000 cutaneous twice daily. Bilateral SCDs Discharge planning. : Patient is medically ready for discharge but does not have pre-CERT. Microbiology Past 72 Hours 09/27/23 16:08 Blood Culture (Wb) - Anticubital Left Blood Culture - Final No growth in 5 days. Laboratory Results 10/02/23 15:30: Haptoglobin 303 10/04/23 23:30: Vancomycin Trough 22.1 H 10/05/23 06:00: WBC 7.7, RBC 3.30 L, Hgb 8.4 L, Hct 28.2 L, MCV 85.5 D, MCH 25.5 L, MCHC 29.8 L, RDW Std Deviation 49.3 H, RDW Coeff of [place] 16.2 H, Plt Count 237, MPV 10.6, Immature Gran % (Auto) 2.100 H, Neut % (Auto) 65.0, Lymph % (Auto) 15.8 L, [place] % (Auto) 13.5 H, Eos % (Auto) 3.1, Baso % (Auto) 0.5, Absolute Neuts (auto) 5.0, Absolute Lymphs (auto) 1.22, Nucleated RBC % 0, Sodium 144, Potassium 3.2 L, Chloride 107, Carbon Dioxide 29.0, Anion Gap 8, BUN 9, Creatinine 1.14 H, Estim Creat Clear Calc 44.37, Est GFR (MDRD) Af Amer 60, E st GFR (MDRD) Non-Af 49 L, BUN/Creatinine Ratio 7.9 L, Glucose 97, Calcium 8.6, Magnesium 2.3, Random Vancomycin 20.2 H Charges/Coding Visit Charges Inpatient E&M: 57280 Subs Hosp L2
[2023-10-05 07:51] LABS: Absolute Lymphocyte Count 1.22 X10^3/uL (0.83-4.51); Basophil# 0.04 X10^3/uL; Basophil% 0.5 % (0-1); Eosinophil# 0.24 X10^3/uL; Eosinophils% 3.1 % (0-5); Hematocrit 28.2 % (37-47); Hemoglobin 8.4 g/dL (12.0-15.0); Lymphocyte # 1.22 X10^3/ul (0.83-4.51); Lymphocyte % 15.8 % (19-41); Mean Corp Hgb Conc 29.8 g/dL (32-36); Mean Corpuscular Hgb 25.5 pg (27.0-32.0); Mean Corpuscular Volume 85.5 fL (81-99); Mean Platelet Vol. 10.6 fl (6.2-12.0); Monocyte# 1.04 X10^3/uL; Monocyte% 13.5 % (0-10); NRBC Flagged by Analyzer 0 % (0-5); Neutrophil # 5.03 X10^3/uL (2.7-7.7); Platelet Count 237 K/mm3 (150-450); RBC Distribution Width CV 16.2 % (11.6-14.6); RBC Distribution Width SD 49.3 fl (35.1-43.9); White Blood Count 7.7 K/mm3 (4.4-11.0)
[2023-10-05 08:31] LABS: Magnesium 2.3 mg/dL (1.6-2.6)
[2023-10-05 08:39] LABS: Vancomycin, Random Level 20.2 ug/mL (0.0-15.0)
[2023-10-05 08:42] LABS: Anion Gap 8 (5-15); BUN 9 mg/dL (7-18); BUN/Creat Ratio 7.9 RATIO (10-20); Calcium,Total 8.6 mg/dL (8.5-10.1); Chloride 107 mmol/L (98-107); Creatinine, Serum 1.14 mg/dL (0.55-1.02); EST Glomerular Filtration Rate 49 mL/min (>60); Est Glom Filt Rate - Afr Amer 60 mL/min (>60); Estimated Creatinine Clearance 44.37 ml/min; Glucose 97 mg/dL (74-106); Potassium 3.2 mmol/L (3.5-5.1); Sodium Level 144 mmol/L (136-145)
--- NOTE | 2023-10-05 09:48 | PCM.RX.CS ---
Consult Antibiotic Management Pharmacy has been consulted to manage selected antibiotic: Vancomycin Type of Intervention Type of Consult: Follow-up Suspected Infection Suspected Infection: Other Prior Doses of Antibiotics Prior Doses of Antibiotics Received/Current Regimen: Presently on 1500mg iv q24. Labs Labs: Sodium 144 mmol/L (136-145) 10/05/23 06:00 Potassium 3.2 mmol/L (3.5-5.1) L 10/05/23 06:00 Chloride 107 mmol/L (98-107) 10/05/23 06:00 Carbon Dioxide 29.0 mmol/L (21.0-32.0) 10/05/23 06:00 Anion Gap 8 (5-15) 10/05/23 06:00 BUN 9 mg/dL (7-18) 10/05/23 06:00 Creatinine 1.14 mg/dL (0.55-1.02) H 10/05/23 06:00 Est GFR (MDRD) Af Amer 60 mL/min (>60) 10/05/23 06:00 Est GFR (MDRD) Non-Af 49 mL/min (>60) L 10/05/23 06:00 BUN/Creatinine Ratio 7.9 RATIO (10-20) L 10/05/23 06:00 Glucose 97 mg/dL (74-106) 10/05/23 06:00 Vancomycin Trough 22.1 ug/mL (5.0-15.0) H 10/04/23 23:30 Random Vancomycin 20.2 ug/mL (0.0-15.0) H 10/05/23 06:00 Microbiology Microbiology: Microbiology 09/27/23 16:08 Blood Culture (Wb) - Anticubital Left Blood Culture - Final No growth in 5 days. 10/01/23 19:05 Stool Stool Occult Blood (MELONIE) - Final 09/29/23 17:02 Mucosa - Nasopharyngeal Respiratory Panel (PCR) - Final 09/29/23 17:05 Nasal Secretion MRSA (PCR) - Final 09/29/23 17:30 Urine, Clean Catch Legionella Antigen - Final 09/29/23 17:30 Urine, Clean Catch Streptococcus pneumoniae Antigen (M - Final 09/27/23 15:21 Urine, Catheterized Urine Culture - Final Culture exhibits no growth. 09/27/23 17:35 Mucosa - Nasopharyngeal SARS-CoV-2, Influenza & RSV (PCR) - Final Dosing Weight Weight used for dosin.4 kg Estimated Creatinine Clearance Estimated Creatinine Clearance: 44ml/min Goal Trough Goal Trough: 15-20 mcg/mL Pharmacy Plan for Drug Dosing Pharmacy Plan for Drug Dosing: Random level today (~30 hrs post dose) 20.2. Trough last evening 22.1. Recommend reducing dose to 1000mg iv q24h with trough level before third dose. Pharmacy Service will continue to monitor and adjust dosing as required. Follow-Up Labs Follow-Up Labs: Trough: Vancomycin (10.07.23 0930)
[2023-10-05] MEDS: Menthol/Lanolin/Calamine/Znox 113 GM Tube 1 APPLIC TOPICAL ×2 (11:19→20:43)
[2023-10-05] MEDS: Vancomycin IV 1,000 MG/200 ML BAG 200 MG IV (11:19)
[2023-10-05] MEDS: Divalproex Sodium 250 MG Tablet PO (11:35)
[2023-10-05] MEDS: QUEtiapine 25 MG Tablet PO (11:35)
[2023-10-05] MEDS: Acetaminophen 325 MG Tablet 650 MG PO (11:42)
[2023-10-05] MEDS: Potassium Chloride Oral Tablet 20 MEQ 40 MEQ PO ×2 (11:42→16:57)
[2023-10-05] MEDS: Pantoprazole Sodium 40 MG in 0.9% Normal Saline (100mL MB+) 100 ML 330 MG IV ×2 (12:46→21:48)
[2023-10-05] MEDS: Ensure Plus High Protein 120 ML LIQUID PO ×2 (16:57→20:41)
[2023-10-05] MEDS: QUEtiapine 25 MG Tablet 50 MG PO (16:57)
[2023-10-05] MEDS: 0.9% Saline Lock 10 ML Syringe IV (17:07)
[2023-10-05] MEDS: Ceftriaxone 1 GM/50 ML BAG IV (20:37)
[2023-10-05] MEDS: MELATONIN 10 MG TABLET PO (20:44)
[2023-10-06] VITALS (8 sets, daily range): BP systolic 115–145; BP diastolic 66–97; PULSE 88–108; RESP 12–20; TEMP 36.7–37; O2SAT 94–99
[2023-10-06 06:52] LABS: Absolute Lymphocyte Count 1.19 X10^3/uL (0.83-4.51); Absolute Neutrophil Count 5.7 X10^3/uL (2.0-7.7); Basophil# 0.03 X10^3/uL; Basophil% 0.3 % (0-1); Eosinophils% 2.3 % (0-5); Hematocrit 28.2 % (37-47); Hemoglobin 8.4 g/dL (12.0-15.0); Lymphocyte # 1.19 X10^3/ul (0.83-4.51); Lymphocyte % 13.8 % (19-41); Mean Corp Hgb Conc 29.8 g/dL (32-36); Mean Corpuscular Hgb 25.1 pg (27.0-32.0); Mean Corpuscular Volume 84.2 fL (81-99); Mean Platelet Vol. 9.9 fl (6.2-12.0); Monocyte# 1.32 X10^3/uL; Monocyte% 15.3 % (0-10); NRBC Flagged by Analyzer 0 % (0-5); Neutrophil # 5.71 X10^3/uL (2.7-7.7); Neutrophil % 66.3 % (47-70); Platelet Count 227 K/mm3 (150-450); RBC Distribution Width CV 16.5 % (11.6-14.6); RBC Distribution Width SD 49.5 fl (35.1-43.9); Red Blood Count 3.35 M/mm3 (4.2-5.4); White Blood Count 8.6 K/mm3 (4.4-11.0)
[2023-10-06 07:13] LABS: Anion Gap 5 (5-15); BUN 9 mg/dL (7-18); BUN/Creat Ratio 8.4 RATIO (10-20); Calcium,Total 8.7 mg/dL (8.5-10.1); Chloride 106 mmol/L (98-107); Creatinine, Serum 1.07 mg/dL (0.55-1.02); EST Glomerular Filtration Rate 53 mL/min (>60); Est Glom Filt Rate - Afr Amer 64 mL/min (>60); Estimated Creatinine Clearance 47.27 ml/min; Glucose 107 mg/dL (74-106); Magnesium 1.7 mg/dL (1.6-2.6); Potassium 3.5 mmol/L (3.5-5.1); Sodium Level 140 mmol/L (136-145)
[2023-10-06] MEDS: Menthol/Lanolin/Calamine/Znox 113 GM Tube 1 APPLIC TOPICAL ×2 (09:43→22:00)
[2023-10-06] MEDS: QUEtiapine 25 MG Tablet PO ×2 (09:43→17:44)
[2023-10-06] MEDS: Divalproex Sodium 250 MG Tablet PO (09:43)
[2023-10-06] MEDS: Heparin Injection (Vial) 5,000 UNIT/ML VIAL 5000 UNIT SC ×2 (09:43→21:59)
[2023-10-06] MEDS: Potassium Chloride Oral Tablet 20 MEQ 40 MEQ PO ×2 (09:56→17:44)
[2023-10-06] MEDS: Ensure Plus High Protein 120 ML LIQUID PO (10:09)
[2023-10-06] MEDS: 0.9% Saline Lock 10 ML Syringe IV ×2 (10:19→17:48)
[2023-10-06] MEDS: Vancomycin IV 1,000 MG/200 ML BAG 200 MG IV (10:20)
--- NOTE | 2023-10-06 10:52 | PCM.PN.HOSP ---
Reason for Visit Reason for Visit: Diagnoses Hyperosmolality and hypernatremia (09/27/23) Hypokalemia (09/27/23) Encephalopathy, unspecified (09/27/23) Acute kidney failure, unspecified (09/27/23) Other malaise (09/27/23) Subjective Subjective Saw patient at bedside this morning. Patient was sitting up comfortably in bedside chair, in no acute distress. She did appear to be understanding my questions but was only able to answer with a few short nonsensical responses. She did deny any pain or discomfort. No other acute concerns. Discussed with nursing staff and they noted that this was the most calm the patient has looked over the past several days. Suspected that the Seroquel has been working well for her. Nursing noted that she did seem to sleep well last night. Notably has not needed any Haldol since 10/03. Objective Data Objective Data Vital Signs: Vital Signs Temp Pulse Resp BP Pulse Ox O2 Del Method O2 Flow Rate 98.0 F 88 16 115/67 95 Room Air 2 10/06/23 09:35 10/06/23 09:35 10/06/23 09:35 10/06/23 09:35 10/06/23 09:35 10/06/23 09:35 10/03/23 08:00 FiO2 25 10/05/23 10:45 Oxygen Flow Rate (L/min) 2 Oxygen Delivery Method Room Air Weight: 78.4 kg Body Mass Index (BMI) 27.8 Intake & Output: Intake and Output for Last 24 Hours 10/04/23 10/05/23 10/06/23 23:59 23:59 23:59 Intake Total 1560 / 1560 1130 / 1130 Output Total 500 / 500 600 / 600 Balance 1060 / 1060 530 / 530 Lab / Micro Data 10/06/23 06:27 10/06/23 06:27 Labs: Laboratory Results - last 24 hr 10/06/23 06:27: WBC 8.6, RBC 3.35 L, Hgb 8.4 L, Hct 28.2 L, MCV 84.2, MCH 25.1 L, MCHC 29.8 L, RDW Std Deviation 49.5 H, RDW Coeff of [place] 16.5 H, Plt Count 227, MPV 9.9, Immature Gran % (Auto) 2.000 H, Neut % (Auto) 66.3, Lymph % (Auto) 13.8 L, [place] % (Auto) 15.3 H, Eos % (Auto) 2.3, Baso % (Auto) 0.3, Absolute Neuts (auto) 5.7, Absolute Lymphs (auto) 1.19, Nucleated RBC % 0, Sodium 140, Potassium 3.5, Chloride 106, Carbon Dioxide 29.0, Anion Gap 5, BUN 9, Creatinine 1.07 H, Estim Creat Clear Calc 47.27, Est GFR (MDRD) Af Amer 64, Est GFR (MDRD) Non-Af 53 L, BUN/Creatinine Ratio 8.4 L, Glucose 107 H, Calcium 8.7, Magnesium 1.7 Micro: Microbiology 09/27/23 16:08 Blood Culture (Wb) - Anticubital Left Blood Culture - Final No growth in 5 days. 10/01/23 19:05 Stool Stool Occult Blood (MELONIE) - Final 09/29/23 17:02 Mucosa - Nasopharyngeal Respiratory Panel (PCR) - Final 09/29/23 17:05 Nasal Secretion MRSA (PCR) - Final 09/29/23 17:30 Urine, Clean Catch Legionella Antigen - Final 09/29/23 17:30 Urine, Clean Catch Streptococcus pneumoniae Antigen (M - Final 09/27/23 15:21 Urine, Catheterized Urine Culture - Final Culture exhibits no growth. 09/27/23 17:35 Mucosa - Nasopharyngeal SARS-CoV-2, Influenza & RSV (PCR) - Final Physical Exam Const alert, no apparent distress and average body habitus Constitutional Narrative: Elderly female, history of severe dementia, alert but only answering with short nonsensical responses, otherwise sitting up comfortably in bedside chair, in no acute distress. General Appearance: cooperative and comfortable HEENT normocephalic, head/scalp atraumatic, hearing grossly normal bilaterally, nasal mucous membranes and turbinates normal and moist oral mucous membranes Eyes PERRL, EOMs intact bilaterally and conjunctivae normal Neck full ROM Chest inspection of chest normal Resp normal respiratory effort, normal air movement, no use of accessory muscles and clear to auscultation bilaterally Cardio regular rate, regular rhythm, no murmurs and peripheral pulses 2+ throughout GI normal to inspection, nondistended, normoactive bowel sounds, soft to palpation, non-tender and non-distended Back/Spine normal ROM Extremity normal to inspection, full ROM and no pedal edema Skin no rashes or lesions noted Neuro moves all extremities and no focal motor deficits Psych affect normal Assessment & Plan Assessment/Plan (1) Encephalopathy acute: (2) Alzheimer disease: (3) Acute kidney injury: (4) Debility: (5) Hypokalemia: PLAN: Plan Patient is a 78-year-old female who presented to [facility] ED on 09/27/2023 with abnormal labs. 1. Acute metabolic encephalopathy in setting of chronic severe dementia, improving ? History of severe dementia, only answers with short nonsensical responses at baseline. Has had significant agitation at various points during hospitalization along with . Started on Seroquel on 10/03 with improvement. Increased to Seroquel 25 mg in the morning, 25 mg in the afternoon and 50 mg at night on 10/05. Haldol as needed discontinued on 10/05. Continue home divalproex daily. Continue melatonin scheduled at night. Holding home donepezil and memantine for now. 2. Acute on chronic HFpEF with acute hypoxic respiratory failure, improving; suspected community-acquired pneumonia ? Pulmonology followed. CTA chest on admit was negative for PE but did show multifocal bilateral groundglass opacities concerning for atypical/viral pneumonia versus pulmonary edema. BNP was elevated. Echo on 09/30 showed EF 55%, stage I diastolic dysfunction. Viral panel was negative. Pulmonology had concern for possible idiopathic interstitial pneumonia versus mild cryptogenic pneumonia. However, given her poor functional status pulmonology recommended treating with antibiotics and could consider steroids if needed, but no invasive workup to be done. Patient had significant improvement, currently satting well on room air. Completed course of IV ceftriaxone for pneumonia. Will need BiPAP during naps and at night as noted below. 3. Recent right knee prosthetic joint infection ? ID following. Completed course of IV vancomycin on 10/05, started on p.o. doxycycline for suppressive antibiotics. ID recommended that patient follow-up with her [place] ID physician after discharge from SNF. 4. Acute on chronic anemia, stable ?Hemoglobin 7.3 on admit from baseline around 9-10. Anemia workup showed a mixed anemia of chronic disease and iron deficiency anemia. Stool occult blood was negative. Was given 2 doses of IV iron infusion. Hemoglobin has improved well, stable between 8 and 9. Was on IV PPI twice daily, okay to de-escalate to p.o. PPI daily on 10/05. Can monitor hemoglobin every other day for remainder of hospitalization. 5. KEILA, improved ? Creatinine 1.49 on admit, baseline appears to be around 0.7-0.9. Patient appeared dry on exam. Creatinine improved back to near baseline with IV fluids. However, given the concern for HFpEF exacerbation patient was then given a dose of IV Lasix on 09/29. Creatinine remaining stable now around 0.9-1.0. Holding on any further Lasix or spironolactone for now. 6. Suspected central sleep apnea ? Patient had episodes of significant respiratory depression while sleeping noted during early part of hospitalization. Suspected that she has central sleep apnea in setting of HFpEF noted above. Significant improvement with BiPAP support with naps and at night. Case management following, will ensure patient has BiPAP set up with sleep on going to SNF. 7. Acute on chronic debility ? PT/OT/case management following. Planning for SNF on discharge. Medically stable for discharge on 10/05, pre-CERT pending. 8. Hypokalemia ? Repleting as needed. DVT prophylaxis: Heparin subcu CODE STATUS: DNR CCA, DNI Expected disposition: SNF, medically ready for discharge, pre-CERT pending Total clinical time spent by myself addressing the patient's medical issues, reviewing all the data, and collaborating with patient's care team: 35 minutes. Charges/Coding Visit Charges Inpatient E&M: 75531 Subs Hosp L2
--- NOTE | 2023-10-06 10:56 | CASEMGMT ---
Addendum entered by Charis Jackson 10/06/23 12:36: Social Work As per physician, awaiting ID input in regard to medications and central line. [facility] also had additional questions around the central line, bipapp and if pt has had a sitter. D/C planning rn Luzmaria will follow up w/them. SW let daughter know that we are waiting for input from ID, and also still waiting to hear back from [facility] as they had additional questions. SW explained will keep her informed once we hear back from [facility]. SW will continue to follow. KHRIS Valdez Original Note: Social Work Pt's daughter Isha is here, has some questions. SW spoke w/Isha in the room. SW explained to her that [facility] is out of network, so if pt goes there would be private pay, gave her the amount quoted which is $9315/month. SW explained referral made to [facility], waiting to hear if they can take pt and if they can will start precert. SW explained if [facility] cannot take pt, will need additional choices or can opt to go to [facility] private pay. Daughter states they have the SNF list. She states has some questions regarding what is going on medically, SW explained can reach out to physician to see if he is available to speak w/her. SW texted physician, he is going to review pt's medical information. SW will continue to follow. KHRIS Valdez
[2023-10-06] MEDS: Pantoprazole Sodium 40 MG in 0.9% Normal Saline (100mL MB+) 100 ML 330 MG IV ×2 (12:03→21:54)
--- NOTE | 2023-10-06 13:20 | PCM.PN.ID ---
Physical Exam Narrative Feeling ok, no fever, no n/v/d. Const alert and no apparent distress General Appearance: cooperative Resp normal air movement and clear to auscultation bilaterally Cardio regular rate and regular rhythm GI soft to palpation, non-tender and non-distended Extremity General Extremity: Negative for edema Skin no rashes or lesions noted ID ID: Route of nutrition/ use of supplements: [] Nutritional Intake: [] IV Site: [] [place] Catheter: [] Assessment & Plan Assessment/Plan (1) Acute kidney injury: (2) Encephalopathy acute: PLAN: Treating for suspected pneumonia, completed ceftriaxone. 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 Will d/c vanc, change to po doxy. Ok for picc removal at discharge and she should followup with [facility] physician as planned. Will follow
--- NOTE | 2023-10-06 14:06 | CASEMGMT ---
Discharge Planning [facility] has accepted and will submit for precert. SW updated. Luzmaria Thornton DC Planning Asst.
--- NOTE | 2023-10-06 14:28 | CASEMGMT ---
Social Work D/C planning management it specialist Luzmaria spoke w/[facility], they can accept pt and will start precert. OLI spoke w/Dr. Rogers, he states pt will leave here on oral antibiotics and can get the central line pulled here, also states pt should follow up w/the ID physician in [place] in next 1-2 weeks. SW called daughter Isha to update her, that [facility] accepted and will start precert. SW let her know also that as per the infectious disease doctor here, pt should follow up w/ID in [place] in the next 1-2 weeks but the line will be pulled here so do not need to keep the appt for that. SW explained that she should reschedule the ID appt. Daughter states understanding. She is w/pt's and will update him. OLI also again let daughter know if insurance does not authorize they can choose to private pay at [facility], will keep them informed of what insurance says. SW will continue to follow. KHRIS Valdez
[2023-10-06] MEDS: MELATONIN 10 MG TABLET PO (21:59)
[2023-10-06] MEDS: Doxycycline 100 MG CAPSULE PO (21:59)
[2023-10-06] MEDS: QUEtiapine 25 MG Tablet 50 MG PO (22:00)
--- NOTE | 2023-10-06 22:50 | CPS ---
placed pt on AVAPS MODE on V60. pt tried a few times to take mask off. , tried to reassure pt till she fell asleep again. RN aware
[2023-10-07 03:44] VITALS: RESP 12; RESP 18; O2SAT 100
[2023-10-07 04:52] VITALS: BP 133/82; PULSE 85; RESP 18; TEMP 36.7; O2SAT 100
[2023-10-07 07:44] VITALS: O2SAT 98
[2023-10-07] MEDS: Divalproex Sodium 250 MG Tablet PO (09:26)
[2023-10-07] MEDS: Menthol/Lanolin/Calamine/Znox 113 GM Tube 1 APPLIC TOPICAL (09:27)
[2023-10-07] MEDS: Potassium Chloride Oral Tablet 20 MEQ 40 MEQ PO (09:27)
[2023-10-07] MEDS: Heparin Injection (Vial) 5,000 UNIT/ML VIAL 5000 UNIT SC (09:27)
[2023-10-07] MEDS: QUEtiapine 25 MG Tablet PO ×2 (09:27→14:34)
[2023-10-07] MEDS: Doxycycline 100 MG CAPSULE PO (09:27)
[2023-10-07] MEDS: Pantoprazole Sodium 40 MG Tablet PO (09:43)
[2023-10-07 09:44] VITALS: BP 148/100; PULSE 101; RESP 18; TEMP 36.4; O2SAT 93
--- NOTE | 2023-10-07 11:49 | PCM.PN.HOSP ---
Reason for Visit Reason for Visit: Diagnoses Hyperosmolality and hypernatremia (09/27/23) Hypokalemia (09/27/23) Dementia in other diseases classified elsewhere, unspecified severity, without behavioral disturbance, psychotic disturbance, mood disturbance, and anxiety (09/27/23) Alzheimer's disease, unspecified (09/27/23) Encephalopathy, unspecified (09/27/23) Acute kidney failure, unspecified (09/27/23) Other malaise (09/27/23) Subjective Subjective No acute events overnight per nursing staff. Saw patient at bedside this morning. Patient was fatigued appearing but otherwise appeared similar to yesterday, was sitting up comfortably in bed, in no acute distress. Still only answering questions with short nonsensical responses. No other new concerns today. Objective Data Objective Data Vital Signs: Vital Signs Temp Pulse Resp BP Pulse Ox O2 Del Method O2 Flow Rate 97.5 F L 101 H 18 148/100 H 93 Room Air 2 10/07/23 09:44 10/07/23 09:44 10/07/23 09:44 10/07/23 09:44 10/07/23 09:44 10/07/23 10:00 10/03/23 08:00 FiO2 25 10/07/23 03:44 Oxygen Flow Rate (L/min) 2 Oxygen Delivery Method Room Air Weight: 78.4 kg Body Mass Index (BMI) 27.8 Intake & Output: Intake and Output for Last 24 Hours 10/05/23 10/06/23 10/07/23 23:59 23:59 23:59 Intake Total 1130 / 1130 1240 / 1240 500 / 500 Output Total 600 / 600 Balance 530 / 530 1240 / 1240 500 / 500 Lab / Micro Data 10/06/23 06:27 10/06/23 06:27 Micro: Microbiology 09/27/23 16:08 Blood Culture (Wb) - Anticubital Left Blood Culture - Final No growth in 5 days. 10/01/23 19:05 Stool Stool Occult Blood (MELONIE) - Final 09/29/23 17:02 Mucosa - Nasopharyngeal Respiratory Panel (PCR) - Final 09/29/23 17:05 Nasal Secretion MRSA (PCR) - Final 09/29/23 17:30 Urine, Clean Catch Legionella Antigen - Final 09/29/23 17:30 Urine, Clean Catch Streptococcus pneumoniae Antigen (M - Final 09/27/23 15:21 Urine, Catheterized Urine Culture - Final Culture exhibits no growth. 09/27/23 17:35 Mucosa - Nasopharyngeal SARS-CoV-2, Influenza & RSV (PCR) - Final Physical Exam Const alert, no apparent distress and average body habitus Constitutional Narrative: Elderly female, history of severe dementia, alert but only answering with short nonsensical responses, otherwise sitting up comfortably in bed, in no acute distress. Stable. General Appearance: cooperative and comfortable HEENT normocephalic, head/scalp atraumatic, hearing grossly normal bilaterally, nasal mucous membranes and turbinates normal and moist oral mucous membranes Eyes PERRL, EOMs intact bilaterally and conjunctivae normal Neck full ROM Chest inspection of chest normal Resp normal respiratory effort, normal air movement, no use of accessory muscles and clear to auscultation bilaterally Cardio regular rate, regular rhythm, no murmurs and peripheral pulses 2+ throughout GI normal to inspection, nondistended, normoactive bowel sounds, soft to palpation, non-tender and non-distended Back/Spine normal ROM Extremity normal to inspection, full ROM and no pedal edema Skin no rashes or lesions noted Neuro moves all extremities and no focal motor deficits Psych affect normal Assessment & Plan Assessment/Plan (1) Encephalopathy acute: (2) Alzheimer disease: (3) Acute kidney injury: (4) Debility: (5) Hypokalemia: PLAN: Plan Patient is a 78-year-old female who presented to [facility] ED on 09/27/2023 with abnormal labs. 1. Acute metabolic encephalopathy in setting of chronic severe dementia, improving ? History of severe dementia, only answers with short nonsensical responses at baseline. Has had significant agitation at various points during hospitalization along with ing. Started on Seroquel on 10/03 with improvement. Increased to Seroquel 25 mg in the morning, 25 mg in the afternoon and 50 mg at night on 10/05; patient tolerating this well. Haldol as needed discontinued on 10/05. Continue home divalproex daily. Continue melatonin scheduled at night. Holding home donepezil and memantine for now. 2. Acute on chronic HFpEF with acute hypoxic respiratory failure, improved; suspected community-acquired pneumonia ? Pulmonology followed. CTA chest on admit was negative for PE but did show multifocal bilateral groundglass opacities concerning for atypical/viral pneumonia versus pulmonary edema. BNP was elevated. Echo on 09/30 showed EF 55%, stage I diastolic dysfunction. Viral panel was negative. Pulmonology had concern for possible idiopathic interstitial pneumonia versus mild cryptogenic pneumonia. However, given her poor functional status pulmonology recommended treating with antibiotics and could consider steroids if needed, but no invasive workup to be done. Patient had significant improvement, currently satting well on room air. Completed course of IV ceftriaxone for pneumonia. Will need BiPAP during naps and at night as noted below. 3. Recent right knee prosthetic joint infection ? ID following. Completed course of IV vancomycin on 10/05, started on p.o. doxycycline for suppressive antibiotics. ID recommended that patient follow-up with her [facility] physician after discharge from SNF. 4. Acute on chronic anemia, stable ? Hemoglobin 7.3 on admit from baseline around 9-10. Anemia workup showed a mixed anemia of chronic disease and iron deficiency anemia. Stool occult blood was negative. Was given 2 doses of IV iron infusion. Hemoglobin has improved well, stable between 8 and 9. Was on IV PPI twice daily, okay to de-escalate to p.o. PPI daily on 10/05. Can monitor hemoglobin every other day for remainder of hospitalization. 5. KEILA, improved ? Creatinine 1.49 on admit, baseline appears to be around 0.7-0.9. Patient appeared dry on exam. Creatinine improved back to near baseline with IV fluids. However, given the concern for HFpEF exacerbation patient was then given a dose of IV Lasix on 09/29. Creatinine remaining stable now around 0.9-1.0. Holding on any further Lasix or spironolactone for now. 6. Suspected central sleep apnea ? Patient had episodes of significant respiratory depression while sleeping noted during early part of hospitalization. Suspected that she has central sleep apnea in setting of HFpEF noted above. Significant improvement with BiPAP support with naps and at night. Case management following, will ensure patient has BiPAP set up with sleep on going to SNF. 7. Acute on chronic debility ? PT/OT/case management following. Planning for SNF on discharge. Medically stable for discharge on 10/05, pre-CERT pending. 8. Hypokalemia ? Repleting as needed. DVT prophylaxis: Heparin subcu CODE STATUS: DNR CCA, DNI Expected disposition: SNF, medically ready for discharge, pre-CERT pending Total clinical time spent by myself addressing the patient's medical issues, reviewing all the data, and collaborating with patient's care team: 35 minutes. Charges/Coding Visit Charges Inpatient E&M: 31042 Subs Hosp L2
--- NOTE | 2023-10-07 13:25 | CASEMGMT ---
Social Work Luzmaria, d/c medical assistant secretary, did send updates to [facility], still waiting for precert. Pt's daughter Isha called, SW updated her. SW explained we are waiting to see if insurance will cover pt for a [facility] stay, explained if insurance will cover pt will get PT/OT, this is what would qualify pt for a skilled stay. Daughter states the plan is for [facility] placement for pt most likely. SW explained that once insurance stops covering, the family can speak w/[facility] about paying privately, or work w/[facility] to get pt moved to [place] private pay. Daughter states understanding. SW will continue to follow, will update the daughter as the day goes should we hear back from [facility] on the precert. KHRIS Valdez
[2023-10-07 14:49] VITALS: BP 151/86; PULSE 105; RESP 20; TEMP 36.6; O2SAT 100
--- NOTE | 2023-10-07 15:52 | NURSING ---
report given to Lisa at [facility], no further questions.
--- NOTE | 2023-10-07 15:55 | PCM.TXEXTCAR ---
Diet Diet Order/Speech Therapy: 09/27/23 15:55 Diet: Regular - General Food consistency:: Soft & Bite Sized Liquid Consistency:: Regular/Thin Diet Comments: Direct sup/assist feeding/fortified foods at meals as able Routine Orders/Code Status Code Status: DNRCC-A (DO NOT INTUBATE) Wound(s) Right Knee: Wound Type: old surgical wound bridge of nose: Wound Type: scab Therapies Weight Bearing: Full weight bearing Physical Therapy: Eval and Treat Occupational Therapy: Eval and Treat Problem/Diagnosis (1) Encephalopathy acute: Status: Acute Code(s): G93.40 - Encephalopathy, unspecified (2) Alzheimer disease: Status: Acute Code(s): G30.9 - Alzheimer's disease, unspecified; F02.80 - Dementia in other diseases classified elsewhere, unspecified severity, without behavioral disturbance, psychotic disturbance, mood disturbance, and anxiety (3) Acute kidney injury: Status: Acute Code(s): N17.9 - Acute kidney failure, unspecified (4) Debility: Status: Acute Code(s): R53.81 - Other malaise (5) Hypokalemia: Status: Acute Code(s): E87.6 - Hypokalemia Plan Patient is a 78-year-old female who presented to [facility] ED on 09/27/2023 with abnormal labs. Hospital course as noted below. Patient discharged to SNF at [facility] in stable condition on 10/06. 1. Acute metabolic encephalopathy in setting of chronic severe dementia, improved ? History of severe dementia, only answers with short nonsensical responses at baseline. Had significant agitation at various points during hospitalization along with ing. Started on Seroquel on 10/03 with improvement. Increased to Seroquel 25 mg in the morning, 25 mg in the afternoon and 50 mg at night on 10/05; patient tolerated this well. No doses of Haldol needed after 10/03. Continue Seroquel 3 times daily on discharge. Continue home divalproex daily. Continue melatonin scheduled at night. Holding home donepezil and memantine on discharge, can discuss with outpatient physician on timing of restarting these medications. 2. Acute on chronic HFpEF with acute hypoxic respiratory failure, improved; suspected community-acquired pneumonia ? Pulmonology followed. CTA chest on admit was negative for PE but did show multifocal bilateral groundglass opacities concerning for atypical/viral pneumonia versus pulmonary edema. BNP was elevated. Echo on 09/30 showed EF 55%, stage I diastolic dysfunction. Viral panel was negative. Pulmonology had concern for possible idiopathic interstitial pneumonia versus mild cryptogenic pneumonia. However, given her poor functional status pulmonology recommended treating with antibiotics and could consider steroids if needed, but no invasive workup to be done. Patient had significant improvement, satting well on room air for last several days of hospitalization. Completed course of IV ceftriaxone for pneumonia. Will need BiPAP during naps and at night as noted below. 3. Recent right knee prosthetic joint infection ? ID followed. Completed course of IV vancomycin on 10/05, started on p.o. doxycycline for suppressive antibiotics, will continue this. ID recommended that patient follow-up with her [place] ID physician after discharge from SNF to determine course length of doxycycline. 4. Acute on chronic anemia, stable ? Hemoglobin 7.3 on admit from baseline around 9-10. Anemia workup showed a mixed anemia of chronic disease and iron deficiency anemia. Stool occult blood was negative. Was given 2 doses of IV iron infusion. Hemoglobin has improved well, stable between 8 and 9. Was on IV PPI twice daily, de-escalated to p.o. PPI daily on 10/05. Recommend repeat CBC in 5 to 7 days to ensure hemoglobin remained stable. 5. KEILA, improved ? Creatinine 1.49 on admit, baseline appears to be around 0.7-0.9. Patient appeared dry on exam. Creatinine improved back to near baseline with IV fluids. However, given the concern for HFpEF exacerbation patient was then given a dose of IV Lasix on 09/29. Creatinine remaining stable now around 0.9-1.0. Holding Lasix and spironolactone on discharge. 6. Suspected central sleep apnea ? Patient had episodes of significant respiratory depression while sleeping noted during early part of hospitalization. Suspected that she has central sleep apnea in setting of HFpEF noted above. Significant improvement with BiPAP support with naps and at night. Case management following, will ensure patient has BiPAP set up with sleep on going to SNF. 7. Acute on chronic debility ? PT/OT/case management following. Planning for SNF on discharge. Medically stable for discharge on 10/05, pre-CERT pending. 8. Hypokalemia ? Repleted as needed. Will discharge on potassium 40 meq daily. Recommend repeat BMP in 5 to 7 days to ensure potassium remains stable. Total clinical time spent by myself addressing the patient's medical issues, reviewing all the data, and collaborating with patient's care team: 35 minutes. Allergies/Procedures Done in Hospital Allergies Penicillins Allergy (Unknown, Verified 09/27/23 11:45) Hives Procedures: EKG, Transthoracic Echo and - (Chest x-ray x 3, CTA chest) Type of Care/Length of Stay Estimated LOS: Convalescent Care Less Than 30 days Type of Care Needed: Skilled Rehab Potential: Fair Prognosis: Fair Additional Orders/Day of Discharge H&P will serve as current which was dated: 09/27/23 Day of Discharge: 10/07/23 Dietary and Speech Recommendations Dietitian Recommendations/Changes: Continue Regular diet to optimize oral intakes with texture/consistency per STORY ANALYST. Continue 4 oz ensure plus high protein 4x/day w/ medpass for increased nutrition if consumed Add fortified foods at meals as able Consider appetite stimulant to help encourage increased po intake Discharge Plan Admission Admit Date/Time: 09/27/23 15:16 Primary Reason for Your Visit: Abnormal labs Attending Provider: Spencer Valdez Primary Care Provider: Swati Baron Consulting Providers: Chen Santos; Ned Rogers; Doug Jacobo Discharge Orders/Prescriptions Prescriptions: New doxycycline monohydrate 100 mg Capsule 100 mg PO BID 30 Days Qty: 60 1RF quetiapine 25 mg Tablet 25 mg PO 0800,1400 Qty: 0 0RF quetiapine 25 mg Tablet 50 mg PO 2000 Qty: 0 0RF potassium chloride 20 mEq Tablet,Er Particles/Crystals 40 meq PO DAILY Qty: 0 0RF pantoprazole 40 mg Tablet,Delayed Release (Dr/Ec) 40 mg PO BID Qty: 0 0RF menthol-zinc oxide [Calmoseptine] 0.44-20.6 % Ointment 1 applic topical BID Qty: 0 0RF Protocol: *Topical Application Instructions APPLICATION INSTRUCTIONS: groin/ coccyx melatonin 10 mg Tablet, Sublingual 10 mg PO QHS Qty: 0 0RF Ensure Plus High Protein 0.08 gram-1.5 kcal/mL Liquid 120 ml PO 4X/DAY Qty: 0 0RF Continued divalproex 250 mg tablet,delayed release (DR/EC) 250 mg PO DAILY Qty: 30 3RF Rx Instructions: Take 1 tablet orally every morning. Take 1 additional tablet every afternoon as needed. Held donepezil 10 mg tablet 10 mg PO QHS Qty: 30 3RF Hold Instructions: Resume on 11/25/23. Discuss with outpatient doctor prior to restarting. memantine 28 mg capsule,sprinkle,ER 24hr 28 mg PO QAM Qty: 30 4RF Hold Instructions: Resume on 11/25/23. Discuss with outpatient doctor prior to restarting. Discontinued quetiapine [Seroquel] 25 mg tablet 25 mg PO DAILY Referrals / Follow Up: Swati Baron MD [Primary Care Provider] - Disposition Disposition (needs filled in before D/C Order can be placed): Alf Facility
--- NOTE | 2023-10-07 15:59 | CASEMGMT ---
Addendum entered by Charis Jackson 10/07/23 16:12: Social work SW completed the hospital exemption in the [facility] system. KHRIS Valdez Original Note: Social Work Precert attained, pt will go to [facility] today. SW called pt's daughter, left a message to let her know precert attained and pt going to [facility] today, 5pm. SW spoke w/pt's , let him know that precert was attained and pt will go to [facility] today at 5pm. Pt's asked about going to [place] or [place] private pt. SW explained it was this SW's understanding that pt would go to [facility] initially under insurance, explained if they want to move pt elsewhere once insurance is no longer covering they can do so with the assist of [facility]. states understanding. SW waiting for discharge instructions to sent to [facility] and to complete the hospital exemption. KHRIS Valdez
--- NOTE | 2023-10-07 16:04 | PCM.DC.SUM ---
Providers Date of Admission: 09/27/23 Date of Discharge: 10/07/23 Primary Care Physician: Dr. Swati Baron MD Consultations 09/29/23 10:10 Consult: Infectious Disease Routine Consulting Provider: Ned Rogers Reason for Consult: RIGHT KNEE infection on vanco from outpatient EMERGENT Consult: No MD Notified: Yes Date Notified: 09/29/23 Time Notified: 10:10 Method of Notification: Text Reason For Visit: DEHYDRATION, HYPOKALEMIA Diagnosis Discharge Diagnosis (1) Encephalopathy acute: Status: Acute Code(s): G93.40 - Encephalopathy, unspecified (2) Alzheimer disease: Status: Acute Code(s): G30.9 - Alzheimer's disease, unspecified; F02.80 - Dementia in other diseases classified elsewhere, unspecified severity, without behavioral disturbance, psychotic disturbance, mood disturbance, and anxiety (3) Acute kidney injury: Status: Acute Code(s): N17.9 - Acute kidney failure, unspecified (4) Debility: Status: Acute Code(s): R53.81 - Other malaise (5) Hypokalemia: Status: Acute Code(s): E87.6 - Hypokalemia Medications at Discharge Home Medications donepezil 10 mg tablet 10 mg PO QHS memory #30 tabs 09/11/23 memantine 28 mg capsule sprinkle,extended release 24hr 28 mg PO QAM memory #30 ea 09/11/23 divalproex 250 mg tablet,delayed release 250 mg PO DAILY #30 tabs 09/15/23 doxycycline monohydrate 100 mg capsule 100 mg PO BID 30 days #60 caps 10/06/23 food supplemt, lactose-reduced 0.08 gram-1.5 kcal/mL oral liquid (Ensure Plus High Protein) 120 ml PO 4X/DAY #0 mL 10/07/23 melatonin 10 mg sublingual tablet 10 mg PO QHS #0 tabs 10/07/23 menthol 0.44 %-zinc oxide 20.6 % topical ointment (Calmoseptine) 1 applic topical BID #0 grams 10/07/23 pantoprazole 40 mg tablet,delayed release 40 mg PO BID #0 tabs 10/07/23 potassium chloride 20 mEq tablet,extended release(part/cryst) 40 meq (2 x 20 mEq) PO DAILY #0 tabs 10/07/23 quetiapine 25 mg tablet 25 mg PO 0800,1400 #0 tabs 10/07/23 quetiapine 25 mg tablet 50 mg (2 x 25 mg) PO 1999 #0 tabs 10/07/23 Hospital Course Operations None Procedures EKG, Transthoracic echo and - (Chest x-ray x 3, CTA chest) Summary of Care Provided Minutes Spent on Discharge: 35 Hospital Course: Patient is a 78-year-old female who presented to [facility] ED on 09/27/2023 with abnormal labs. Hospital course as noted below. Patient discharged to SNF at [facility] in stable condition on 10/06. 1. Acute metabolic encephalopathy in setting of chronic severe dementia, improved ? History of severe dementia, only answers with short nonsensical responses at baseline. Had significant agitation at various points during hospitalization along with sundowning. Started on Seroquel on 10/03 with improvement. Increased to Seroquel 25 mg in the morning, 25 mg in the afternoon and 50 mg at night on 10/05; patient tolerated this well. No doses of Haldol needed after 10/03. Continue Seroquel 3 times daily on discharge. Continue home divalproex daily. Continue melatonin scheduled at night. Holding home donepezil and memantine on discharge, can discuss with outpatient physician on timing of restarting these medications. 2. Acute on chronic HFpEF with acute hypoxic respiratory failure, improved; suspected community-acquired pneumonia ? Pulmonology followed. CTA chest on admit was negative for PE but did show multifocal bilateral groundglass opacities concerning for atypical/viral pneumonia versus pulmonary edema. BNP was elevated. Echo on 09/30 showed EF 55%, stage I diastolic dysfunction. Viral panel was negative. Pulmonology had concern for possible idiopathic interstitial pneumonia versus mild cryptogenic pneumonia. However, given her poor functional status pulmonology recommended treating with antibiotics and could consider steroids if needed, but no invasive workup to be done. Patient had significant improvement, satting well on room air for last several days of hospitalization. Completed course of IV ceftriaxone for pneumonia. Will need BiPAP during naps and at night as noted below. 3. Recent right knee prosthetic joint infection ? ID followed. Completed course of IV vancomycin on 10/05, started on p.o. doxycycline for suppressive antibiotics, will continue this. ID recommended that patient follow-up with her Jeron[facility] PALOMO physician after discharge from SNF to determine course length of doxycycline. 4. Acute on chronic anemia, stable ? Hemoglobin 7.3 on admit from baseline around 9-10. Anemia workup showed a mixed anemia of chronic disease and iron deficiency anemia. Stool occult blood was negative. Was given 2 doses of IV iron infusion. Hemoglobin has improved well, stable between 8 and 9. Was on IV PPI twice daily, de-escalated to p.o. PPI daily on 10/05. Recommend repeat CBC in 5 to 7 days to ensure hemoglobin remained stable. 5. KEILA, improved ? Creatinine 1.49 on admit, baseline appears to be around 0.7-0.9. Patient appeared dry on exam. Creatinine improved back to near baseline with IV fluids. However, given the concern for HFpEF exacerbation patient was then given a dose of IV Lasix on 09/29. Creatinine remaining stable now around 0.9-1.0. Holding Lasix and spironolactone on discharge. 6. Suspected central sleep apnea ? Patient had episodes of significant respiratory depression while sleeping noted during early part of hospitalization. Suspected that she has central sleep apnea in setting of HFpEF noted above. Significant improvement with BiPAP support with naps and at night. Case management following, will ensure patient has BiPAP set up with sleep on going to SNF. 7. Acute on chronic debility ? PT/OT/case management following. Planning for SNF on discharge. Medically stable for discharge on 10/05, pre-CERT pending. 8. Hypokalemia ? Repleted as needed. Will discharge on potassium 40 meq daily. Recommend repeat BMP in 5 to 7 days to ensure potassium remains stable. Total clinical time spent by myself addressing the patient's medical issues, reviewing all the data, and collaborating with patient's care team: 35 minutes. Physical Exam Const alert, no apparent distress and average body habitus Constitutional Narrative: Elderly female, history of severe dementia, alert but only answering with short nonsensical responses, otherwise sitting up comfortably in bed, in no acute distress. Stable. General Appearance: cooperative and comfortable HEENT normocephalic, head/scalp atraumatic, hearing grossly normal bilaterally, nasal mucous membranes and turbinates normal and moist oral mucous membranes Eyes PERRL, EOMs intact bilaterally and conjunctivae normal Neck full ROM Chest inspection of chest normal Resp normal respiratory effort, normal air movement, no use of accessory muscles and clear to auscultation bilaterally Cardio regular rate, regular rhythm, no murmurs and peripheral pulses 2+ throughout GI normal to inspection, nondistended, normoactive bowel sounds, soft to palpation, non-tender and non-distended Back/Spine normal ROM Extremity normal to inspection, full ROM and no pedal edema Skin no rashes or lesions noted Neuro moves all extremities and no focal motor deficits Psych affect normal Weight / BMI Weight Weight: 78.4 kg Body Mass Index (BMI) 27.8 ABG / Lab / Microbiology Data 10/06/23 06:27 10/06/23 06:27 Microbiology: Microbiology 09/27/23 16:08 Blood Culture (Wb) - Anticubital Left Blood Culture - Final No growth in 5 days. 10/01/23 19:05 Stool Stool Occult Blood (MELONIE) - Final 09/29/23 17:02 Mucosa - Nasopharyngeal Respiratory Panel (PCR) - Final 09/29/23 17:05 Nasal Secretion MRSA (PCR) - Final 09/29/23 17:30 Urine, Clean Catch Legionella Antigen - Final 09/29/23 17:30 Urine, Clean Catch Streptococcus pneumoniae Antigen (M - Final 09/27/23 15:21 Urine, Catheterized Urine Culture - Final Culture exhibits no growth. 09/27/23 17:35 Mucosa - Nasopharyngeal SARS-CoV-2, Influenza & RSV (PCR) - Final Meaningful Use Info Meaningful Use Meaningful Use Diagnoses (Choose all that apply): None applicable Ischemic Stroke Statin Dosing Therapy Reference: STATIN DOSE THERAPY REFERENCE: * Patients > 75 years receive moderate or high dose statin therapy. * Patients 75 years or YOUNGER should receive HIGH intensity statin dose unless contraindicated. You will be required to document reason for non-treatment if statin daily dose does not meet guidelines. HIGH DOSE STATIN THERAPY DAILY Atorvastatin > than or = to 40 mg Rosuvastatin > than or = to 20 mg Amlodipine + Atorvastatin > than or = to 2.5/40 mg Ezetimibe + Simvastatin 10/80 mg Simvastatin 80mg Discharge Plan Admission Admit Date/Time: 09/27/23 15:16 Primary Reason for Your Visit: Abnormal labs Attending Provider: Spencer Valdez Primary Care Provider: Swati Baron Consulting Providers: Chen Santos; Ned Rogers; Doug Jacobo Discharge Orders/Prescriptions Prescriptions: New doxycycline monohydrate 100 mg Capsule 100 mg PO BID 30 Days Qty: 60 1RF quetiapine 25 mg Tablet 25 mg PO 0800,1400 Qty: 0 0RF quetiapine 25 mg Tablet 50 mg PO 2000 Qty: 0 0RF potassium chloride 20 mEq Tablet,Er Particles/Crystals 40 meq PO DAILY Qty: 0 0RF pantoprazole 40 mg Tablet,Delayed Release (Dr/Ec) 40 mg PO BID Qty: 0 0RF menthol-zinc oxide [Calmoseptine] 0.44-20.6 % Ointment 1 applic topical BID Qty: 0 0RF Protocol: *Topical Application Instructions APPLICATION INSTRUCTIONS: groin/ coccyx melatonin 10 mg Tablet, Sublingual 10 mg PO QHS Qty: 0 0RF Ensure Plus High Protein 0.08 gram-1.5 kcal/mL Liquid 120 ml PO 4X/DAY Qty: 0 0RF Continued divalproex 250 mg tablet,delayed release (DR/EC) 250 mg PO DAILY Qty: 30 3RF Rx Instructions: Take 1 tablet orally every morning. Take 1 additional tablet every afternoon as needed. Held donepezil 10 mg tablet 10 mg PO QHS Qty: 30 3RF Hold Instructions: Resume on 11/25/23. Discuss with outpatient doctor prior to restarting. memantine 28 mg capsule,sprinkle,ER 24hr 28 mg PO QAM Qty: 30 4RF Hold Instructions: Resume on 11/25/23. Discuss with outpatient doctor prior to restarting. Discontinued quetiapine [Seroquel] 25 mg tablet 25 mg PO DAILY Referrals / Follow Up: Swati Baron MD [Primary Care Provider] - Disposition Disposition (needs filled in before D/C Order can be placed): [facility] Facility Charges/Coding Visit Charges Inpatient E&M: 78477 Disch Hosp >30min
--- NOTE | 2023-10-07 16:12 | CASEMGMT ---
Discharge Planning Discharge orders, signed med list, and [id number] faxed to [facility]. Physicians will transport patient by wheelchair at 5p. Nursing and SW updated. SW updated . Luzmaria Thornton DC Planning Asst.
--- NOTE | 2023-10-07 17:18 | NURSING ---
Violeta from [facility] stated aware of central line still in patient and okay to send
== END 2023-10-07 17:19 | disposition skilled nursing facility (03) | DRG 682 ==
LOC: ED 13:56 → PCU 15:29
PROVIDERS: Family Medicine; Internal Medicine; Internal Medicine Critical Care Medicine; Internal Medicine Infectious Disease; Admitting Provider Internal Medicine; Emergency Provider Emergency Medicine; PCP Family Medicine; Visit Provider Hospitalist
DX: N17.9 Acute kidney failure, unspecified (principal); I50.33 Acute on chronic diastolic (congestive) heart failure; J96.21 Acute and chronic respiratory failure with hypoxia; G93.41 Metabolic encephalopathy; J96.22 Acute and chronic respiratory failure with hypercapnia; J84.116 Cryptogenic organizing pneumonia; F02.C4 Dementia in other diseases classified elsewhere, severe, with anxiety; E87.0 Hyperosmolality and hypernatremia; T84.53XA Infection and inflammatory reaction due to internal right knee prosthesis, initial encounter; T81.31XA Disruption of external operation (surgical) wound, not elsewhere classified, initial encounter; F02.C11 Dementia in other diseases classified elsewhere, severe, with agitation; E87.4 Mixed disorder of acid-base balance; D63.8 Anemia in other chronic diseases classified elsewhere; E86.0 Dehydration; G30.9 Alzheimer's disease, unspecified; E87.6 Hypokalemia; G47.33 Obstructive sleep apnea (adult) (pediatric); E87.8 Other disorders of electrolyte and fluid balance, not elsewhere classified; D50.9 Iron deficiency anemia, unspecified; G47.31 Primary central sleep apnea; Y79.2 Prosthetic and other implants, materials and accessory orthopedic devices associated with adverse incidents; R53.81 Other malaise; Z11.52 Encounter for screening for COVID-19; Z66 Do not resuscitate; Z79.2 Long term (current) use of antibiotics; Z79.82 Long term (current) use of aspirin; Z79.83 Long term (current) use of bisphosphonates; Z79.899 Other long term (current) drug therapy
CPT/HCPCS: 36415; 36592; 36600; 71045; 71275; 80048; 80053; 80164; 80202; 81001; 82140; 82274; 82436; 82570; 82607; 82728; 82746; 82803; 83010; 83540; 83550; 83605; 83615; 83735; 83880; 83935; 84100; 84133; 84300; 84443; 84540; 85025; 85045; 87040; 87086; 87449; 87631; 87633; 87641; 92507; 92526; 93306; 94002; 94003; 94640; 94762; 97162; 97166; 97530; 97535; 99283; J7030; J7040; J7050; Q9967; A4216; J1940; J2916; J3486

== ENCOUNTER 2023-10-14 13:21 | Emergency (ER) | payer MEDICARE, SELFPAY ==
[2023-10-14 13:22] VITALS: BP 98/60; PULSE 95; RESP 18; TEMP 36.6; O2SAT 100
--- NOTE | 2023-10-14 15:12 | EX.ED.DYSGE1 ---
HPI History of Present Illness Chief Complaint: Suture Remv Informant: SNF Onset/Context/Timing Onset: Today Context: Gradual Onset Timing: Continuous Quality: Tunneled PICC line Location: Right upper chest Worsened by: Nothing Relieved by: Nothing Narrative Narrative: Patient presents for PICC line removal. Patient was receiving IV antibiotics through her PICC line. Patient was brought in to have the PICC line removed today. Patient does not currently get any medications through her PICC line. Caregivers deny fevers or chills. Patient denies any chest pain or shortness of breath. Patient denies any nausea or vomiting. Patient has a history of dementia and is a poor informant. [facility] Medical History Dementia Dementia Vision problems Skin cancer Neuropathy Breast cancer Home Medications ?Medication ?Instructions ?Recorded ?Last Taken ?Type donepezil 10 mg tablet 10 mg PO QHS memory #30 tabs 09/11/23 Unknown Rx memantine 28 mg capsule 28 mg PO QAM memory #30 ea 09/11/23 Unknown Rx sprinkle,extended release 24hr divalproex 250 mg tablet,delayed 250 mg PO DAILY #30 tabs 09/15/23 Unknown Rx release doxycycline monohydrate 100 mg 100 mg PO BID 30 days #60 caps 10/06/23 Unknown Rx capsule food supplemt, lactose-reduced 120 ml PO 4X/DAY #0 mL 10/07/23 Unknown Rx 0.08 gram-1.5 kcal/mL oral liquid (Ensure Plus High Protein) melatonin 10 mg sublingual tablet 10 mg PO QHS #0 tabs 10/07/23 Unknown Rx menthol 0.44 %-zinc oxide 20.6 % 1 applic topical BID #0 grams 10/07/23 Unknown Rx topical ointment (Calmoseptine) pantoprazole 40 mg tablet,delayed 40 mg PO BID #0 tabs 10/07/23 Unknown Rx release potassium chloride 20 mEq 40 meq (2 x 20 mEq) PO DAILY #0 10/07/23 Unknown Rx tablet,extended release(part/cryst) tabs quetiapine 25 mg tablet 25 mg PO 0800,1400 #0 tabs 10/07/23 Unknown Rx quetiapine 25 mg tablet 50 mg (2 x 25 mg) PO 1999 #0 tabs 10/07/23 Unknown Rx Allergy/AdvReac Type Severity Reaction Status Date / Time Penicillins Allergy Unknown Hives Verified 10/14/23 13:25 Family History Mother Dementia Father Lung cancer Grandfather Parkinson disease Surgical History Hx of breast implants, bilateral History of mastectomy Social History household members: spouse Smoking Status: Never smoker second hand exposure: No alcohol intake: never substance use type: does not use what type of physical activity do you participate in: none adeel/sikh: Gnosticism seatbelt use: always ROS ROS ED Review of Systems ROS Unobtainable: due to mental condition Constitutional Constitutional ED: Denies chills or fever(s) Cardiovascular Cardiovascular: Denies chest pain Respiratory/Chest Respiratory/Chest: Denies cough or dyspnea Gastrointestinal Gastrointestinal: Denies nausea or vomiting Neurologic Neurologic: Denies weakness EXAM Physical Exam Const Vital Signs: 10/14/23 13:22 Temperature 97.8 F Temperature Source Temporal Pulse Rate 95 Respiratory Rate 18 Blood Pressure 98/60 Blood Pressure Mean 72 Pulse Ox 100 Oxygen Delivery Method Room Air Positive well nourished and well developed General Appearance ED: well developed and NAD HEENT Reports moist mucous membranes Chest Wall Chest Narrative: There is a PICC line in the right upper chest wall. There is no surrounding erythema. There is no discharge or drainage noted. Dressing is in place. Resp normal respiratory effort and clear to auscultation bilaterally Cardio regular rate and regular rhythm Neuro CN's II-XII intact bilaterally and no sensory deficits noted Sensorium / Orientation: alert Motor Exam: strength 5/5 throughout MDM MDM MDM Narrative Medical decision making narrative: The dressing was removed. The PICC line site was cleaned. Initially, the PICC line was difficult to remove. The area around the PICC line was anesthetized 1% lidocaine locally. A small incision was made using an 11 blade scalpel. The PICC line was able to be removed. PICC line was removed intact. An occlusive dressing using Adaptic and gauze was applied over the PICC line site. This was taped in place. Chest x-ray will be obtained to assess for pneumothorax. Patient tolerated procedure well. Radiography Chest X-Ray - ED: 1 View, Read by ED Physician, Read by Radiologist and No Acute Disease Diagnostic Testing: Clinical Impression(s) from Imaging Studies Chest X-Ray 10/14/23 15:20 IMPRESSION: Moderate cardiomegaly. The right-sided PICC line catheter has been withdrawn. Electronically Signed: Jesus Souza MD at 15:43 EDT , Portable 1 view chest x-ray was obtained. On my independent interpretation, lung sánchez are clear. There is no pneumothorax noted. There is moderate cardiomegaly. Bony thorax is normal. There is no acute process noted. Radiologist also interpreted the x-ray and agrees. Treatment and Re-Evaluation :: Caregivers were advised that there was no complications from the PICC line removal. They were instructed to continue the Adaptic and occlusive dressing. residential staff instructed to follow-up with the patient's primary care physician in 5 to 7 days. Caregivers understood and were agreeable with the plan. All questions were answered. Discharge Plan Triage Chief Complaint: Suture Remv ED Provider: Walt Prado Dx/Rx/DC Orders Clinical Impression: PIC line (peripherally inserted central catheter) removal, Alzheimer disease Prescriptions: No Action doxycycline monohydrate 100 mg Capsule 100 mg PO BID 30 Days Qty: 60 1RF quetiapine 25 mg Tablet 25 mg PO 0800,1400 Qty: 0 0RF quetiapine 25 mg Tablet 50 mg PO 2000 Qty: 0 0RF potassium chloride 20 mEq Tablet,Er Particles/Crystals 40 meq PO DAILY Qty: 0 0RF pantoprazole 40 mg Tablet,Delayed Release (Dr/Ec) 40 mg PO BID Qty: 0 0RF menthol-zinc oxide [Calmoseptine] 0.44-20.6 % Ointment 1 applic topical BID Qty: 0 0RF Protocol: *Topical Application Instructions APPLICATION INSTRUCTIONS: groin/ coccyx melatonin 10 mg Tablet, Sublingual 10 mg PO QHS Qty: 0 0RF Ensure Plus High Protein 0.08 gram-1.5 kcal/mL Liquid 120 ml PO 4X/DAY Qty: 0 0RF donepezil 10 mg tablet 10 mg PO QHS Qty: 30 3RF memantine 28 mg capsule,sprinkle,ER 24hr 28 mg PO QAM Qty: 30 4RF divalproex 250 mg tablet,delayed release (DR/EC) 250 mg PO DAILY Qty: 30 3RF Rx Instructions: Take 1 tablet orally every morning. Take 1 additional tablet every afternoon as needed. Primary Care Provider: Laron Ash Referrals: Laron Ash MD [Primary Care Provider] - Print Language: Cameroonian Disposition Disposition: Detention Facility Discharge Location: [facility]
[2023-10-14 15:13] VITALS: BMI 25.2
[2023-10-14] MEDS: Lidocaine 1% (20 ml mdv) 20 ML Vial INFILT (15:14)
--- NOTE | 2023-10-14 15:20 | RAD_ITS ---
STUDY: X-RAY CHEST REASON FOR EXAM: Female, 78 years old. PICC line removal TECHNIQUE: Single AP portable view of the chest. COMPARISON: Comparison is made with prior study dated October 02, 2023. FINDINGS: The right-sided PICC line catheter has been withdrawn. The lungs are clear and expanded. There is no demonstrated pleural abnormality. There is moderate cardiac enlargement. Normal mediastinum and hubert. Normal visualized pulmonary arteries. There is atherosclerotic tortuosity of the aortic arch and descending thoracic aorta. There are diffuse degenerative changes of the visualized thoracic spine. Normal visualized ribs, clavicles, and shoulders. There is no demonstrated abnormality of the visualized soft tissue structures of the upper abdomen. RAD/Chest 1 View (Portable) IMPRESSION: Moderate cardiomegaly. The right-sided PICC line catheter has been withdrawn. Electronically Signed: Jesus Souza MD at 15:43 EDT ,
== END 2023-10-14 16:00 | disposition skilled nursing facility (03) ==
PROVIDERS: Emergency Provider Emergency Medicine; PCP Family Medicine; Visit Provider Emergency Medicine
DX: Z45.2 Encounter for adjustment and management of vascular access device (principal); G30.9 Alzheimer's disease, unspecified; F02.80 Dementia in other diseases classified elsewhere, unspecified severity, without behavioral disturbance, psychotic disturbance, mood disturbance, and anxiety; Z85.3 Personal history of malignant neoplasm of breast
CPT/HCPCS: 71045; 99282

== ENCOUNTER → 2023-10-24 05:00 | Outpatient (REF) | payer SELFPAY ==
[2023-10-24 09:19] LABS: Valproic Acid (Depakene) Level 79 ug/mL (50-100)
[2023-10-24 09:22] LABS: Vitamin D,25 Hydroxy 43.7 ng/mL
[2023-10-24 09:30] LABS: ALB/GLOB Ratio 0.8 RATIO (0.9-2.4); AST(SGOT) 14 U/L (15-37); Alanine Aminotransfer ALT/SGPT 12 U/L (13-56); Albumin, Serum 3.2 g/dL (3.2-5.0); Alkaline Phosphatase 96 U/L (45-117); Anion Gap 6 (5-15); BUN 33 mg/dL (7-18); Calcium,Total 9.9 mg/dL (8.5-10.1); Chloride 119 mmol/L (98-107); Creatinine, Serum 1.65 mg/dL (0.55-1.02); EST Glomerular Filtration Rate 32 mL/min (>60); Est Glom Filt Rate - Afr Amer 39 mL/min (>60); Ferritin 269 ng/mL (8-252); Globulin 3.9 g/dL (2.2-4.2); Glucose 123 mg/dL (74-106); Potassium 4.3 mmol/L (3.5-5.1); Protein, Total 7.1 g/dL (6.4-8.2); Sodium Level 148 mmol/L (136-145); T4 Total, Thyroxin 9.1 ug/dL (4.8-13.9)
== END ==
LOC: OLS.BROOKB 05:00
PROVIDERS: PCP Family Medicine; Visit Provider Family Medicine
DX: N17.9 Acute kidney failure, unspecified (principal); E87.6 Hypokalemia; J96.12 Chronic respiratory failure with hypercapnia; Z79.899 Other long term (current) drug therapy
CPT/HCPCS: 36415; 80053; 80164; 82306; 82728; 83550; 84436; 84443

== ENCOUNTER 2023-10-25 18:44 | Inpatient (IN) | payer MEDICARE, SELFPAY ==
[2023-10-25] VITALS (8 sets, daily range): BP systolic 137–167; BP diastolic 68–105; PULSE 88–99; RESP 15–20; TEMP 36.3–37.1; O2SAT 94–98; BMI 24.5; BMI 25.7
--- NOTE | 2023-10-25 19:04 | EX.ED.DYSGE1 ---
HPI History of Present Illness Chief Complaint: Weakness Detail of Chief Complaint: Generalized weakness. Informant: patient, spouse/S.O. and friend Onset/Context/Timing Onset: Days Context: Gradual Onset Timing: Continuous Current Severity: Moderate Maximum Severity: Moderate Narrative Narrative: 78-year-old female history of dementia. states about the last 62 days she has either been in this hospital, and [facility], [facility] or [facility]. Today presents from [facility] with generalized weakness. Patient is a very poor informant really cannot give me any history. As a close family friend at bedside and her arrived shortly after the patient did. Prior similar symptoms: Yes Recent Illness/Hospitalization: Yes [facility] Medical History Alzheimer disease Dementia Dementia Vision problems Skin cancer Neuropathy Breast cancer Home Medications ?Medication ?Instructions ?Recorded ?Last Taken ?Type donepezil 10 mg tablet 10 mg PO QHS memory #30 tabs 09/11/23 Unknown Rx memantine 28 mg capsule 28 mg PO QAM memory #30 ea 09/11/23 Unknown Rx sprinkle,extended release 24hr divalproex 250 mg tablet,delayed 250 mg PO DAILY #30 tabs 09/15/23 Unknown Rx release doxycycline monohydrate 100 mg 100 mg PO BID 30 days #60 caps 10/06/23 Unknown Rx capsule food supplemt, lactose-reduced 120 ml PO 4X/DAY #0 mL 10/07/23 Unknown Rx 0.08 gram-1.5 kcal/mL oral liquid (Ensure Plus High Protein) melatonin 10 mg sublingual tablet 10 mg PO QHS #0 tabs 10/07/23 Unknown Rx menthol 0.44 %-zinc oxide 20.6 % 1 applic topical BID #0 grams 10/07/23 Unknown Rx topical ointment (Calmoseptine) pantoprazole 40 mg tablet,delayed 40 mg PO BID #0 tabs 10/07/23 Unknown Rx release potassium chloride 20 mEq 40 meq (2 x 20 mEq) PO DAILY #0 10/07/23 Unknown Rx tablet,extended release(part/cryst) tabs quetiapine 25 mg tablet 25 mg PO 0800,1400 #0 tabs 10/07/23 Unknown Rx quetiapine 25 mg tablet 50 mg (2 x 25 mg) PO 2000 #0 tabs 10/07/23 Unknown Rx Allergy/AdvReac Type Severity Reaction Status Date / Time Penicillins Allergy Unknown Hives Verified 10/25/23 18:52 Family History Mother Dementia Father Lung cancer Grandfather Parkinson disease Surgical History Hx of breast implants, bilateral History of mastectomy Social History household members: spouse Smoking Status: Never smoker second hand exposure: No alcohol intake: never substance use type: does not use what type of physical activity do you participate in: none adeel/adventist: Baptism seatbelt use: always ROS ROS ED ROS Narrative Unknown Review of Systems ROS Unobtainable: due to encephalopathy EXAM Physical Exam Narrative Exam Narrative: 78-year-old female sitting upright in bed. Family friend at bedside. Vital signs are stable afebrile. Pulse ox 94% on room air no hypoxia. H EENT exam is reactive light. Head and scalp no trauma. Very dry mucous membranes. Neck nontender. Lungs clear to auscultation. Heart regular rhythm rate about 95 no murmur. Chest wall ribs nontender. Abdomen soft nontender. Extremities no deformity. Trace edema both lower extremities. Neurologically she will open her eyes. Follows very limited commands fair. Very very limited informant. Const Vital Signs: 10/25/23 18:45 10/25/23 18:49 10/25/23 18:53 Temperature 98.2 F 97.3 F L Temperature Source Axillary Axillary Pulse Rate 99 99 Respiratory Rate 18 20 H Respiratory Effort Normal Respiratory Pattern Normal Blood Pressure 158/92 H 158/92 H Blood Pressure Mean 114 114 Pulse Ox 94 94 Oxygen Delivery Method Room Air Room Air 10/25/23 20:00 Temperature 97.8 F Temperature Source Axillary Pulse Rate 98 Respiratory Rate 17 Respiratory Effort Respiratory Pattern Blood Pressure 167/104 H Blood Pressure Mean 125 Pulse Ox 98 Oxygen Delivery Method Room Air Positive well nourished and well developed; Negative for obese, cachectic, contractures or unkempt General Appearance ED: well developed; Negative for unkempt, cachectic, contractures, cyanotic, diaphoretic, NAD or pallor Nutritional Appearance: Negative for cachectic or obese HEENT Reports dry mucous membranes; Denies moist mucous membranes Negative for trauma or tenderness Mouth ED: Yes dry mucous membranes Mouth: dry mucous membranes Eyes PERRL and EOMs intact bilaterally General Eye ED: Negative for pale conjunctiva or scleral icterus Neck no lymphadenopathy, supple and no JVD General: Negative for tenderness Lymph Lymphatic: Negative for other Chest Wall inspection of chest normal and palpation of chest normal Chest: Negative for other Resp normal respiratory effort and clear to auscultation bilaterally Effort and Inspection: Negative for retractions Auscultation: Negative for rales, rhonchi, wheezes or diminished lung sounds Cardio regular rate, regular rhythm, S1 normal heart sound, S2 normal heart sound and no murmurs Rate: Negative for bradycardia or tachycardic Rhythm: Negative for abnormal rhythm GI normal to inspection, nondistended, normoactive bowel sounds, non-tender, non-distended and no masses Inspection: Negative for abdominal distention Palpation: soft; Negative for tender, guarding or rebound tenderness present Back/Spine no CVA tenderness General Back: Negative for CVA tenderness Cervical Spine: Negative for cervical spine tenderness Thoracic Spine / Upper Back: Negative for thoracic spinal tenderness or paraspinal muscle tenderness Lumbar Spine / Lower Back: Negative for lumbar spinal tenderness Extremity Negative for normal to inspection General Extremety ED: Yes edema; Negative for tenderness or other findings General Extremity: edema; Negative for other findings Neuro No oriented x3 Sensorium / Orientation: alert Motor Exam: general weakness Psych Negative for mental status grossly normal Appearance: Negative for unkempt Attitude: No agitated Mood & Affect: depressed Skin no rashes or lesions noted and no wounds General Skin Exam: Negative for elasticity normal, jaundice or pallor Rashes: No rashes noted Trauma: Negative for abrasion Wounds: Negative for wounds noted MDM MDM MDM Narrative Medical decision making narrative: 78-year-old female from local nursing facility with generalized weakness. Clinically looks dehydrated. Screening labs and UA will be obtained. Repeat exam no significant change. Patient was written for a liter normal saline she has not gotten it yet because she keeps flexing her arm and kinking off the IV. I discussed with her and family member at bedside that it appears this is mainly from dehydration. I discussed with them options greatly preferred should be admitted for IV fluids I have the hospitalist on page for admission. History & Record Review Discussion w/independent historian: Patient, Family and Friend Additional record(s) reviewed:: Prior inpatient record, Prior outpatient record, Prior ED visit and Prior labs Lab Data Attestation: I reviewed the patient's lab results. Lab results narrative: CBC shows a white count 1.6. H&H 12.3 and 42. Platelets 188. Electrolytes show sodium 150. Chloride of 120. Gap of 5. BUN and creatinine of 34 and 1.67 consistent with dehydration. Glucose 117. UA shows no white or red cells. Rare bacteria and no nitrites. Positive ketones consistent with dehydration. Chest x-ray shows density right middle lobe most likely atelectasis. Labs: Laboratory Results - last 24 hr 10/25/23 10/25/23 18:31 19:28 WBC 11.6 H RBC 4.89 Hgb 12.3 Hct 42.1 MCV 86.1 MCH 25.2 L MCHC 29.2 L RDW Std Deviation 57.3 H RDW Coeff of [place] 18.8 H Plt Count 188 MPV 11.1 Immature Gran % (Auto) 0.500 Neut % (Auto) 75.0 H Lymph % (Auto) 11.3 L [place] % (Auto) 12.5 H Eos % (Auto) 0.3 Baso % (Auto) 0.4 Absolute Neuts (auto) 8.7 H Absolute Lymphs (auto) 1.32 Nucleated RBC % 0 Sodium 150 H Potassium 4.6 Chloride 120 H Carbon Dioxide 25.0 Anion Gap 5 BUN 34 H Creatinine 1.67 H Estim Creat Clear Calc 26.83 Est GFR (MDRD) Af Amer 38 L Est GFR (MDRD) Non-Af 32 L BUN/Creatinine Ratio 20.4 H Glucose 117 H Calcium 10.3 H Urine Color Yellow Urine Clarity Sl. Cloudy Urine pH 5.0 Ur Specific [place] 1.020 Urine Protein 30 H Urine Glucose (UA) Normal Urine Ketones 50 H Urine Occult Blood Negative Urine Nitrite Negative Urine Bilirubin Negative Urine Urobilinogen Normal Ur Leukocyte Esterase 25 H Urine RBC 0-5 SEEN Urine WBC 0-5 SEEN Ur Squamous Epith Cells 0 SEEN Urine Bacteria RARE Urine Mucus 1+ Radiography Chest X-Ray - ED: 1 View and Read by ED Physician Diagnostic Testing: Clinical Impression(s) from Imaging Studies Chest X-Ray 10/25/23 19:06 IMPRESSION: 1. Interval development of patchy area of atelectasis versus infiltrate in the RIGHT infrahilar region likely within the RIGHT middle lobe. 2. The remaining lung zones are clear. 3. No congestive failure. Electronically Signed: Babak Barfield MD at 19:50 EDT , Discharge Plan Triage Chief Complaint: Weakness ED Provider: Ashkan Neumann Dx/Rx/DC Orders Clinical Impression: Acute dehydration, Acute hypernatremia, Altered level of consciousness, Generalized weakness, History of dementia Prescriptions: No Action doxycycline monohydrate 100 mg Capsule 100 mg PO BID 30 Days Qty: 60 1RF quetiapine 25 mg Tablet 25 mg PO 0800,1400 Qty: 0 0RF quetiapine 25 mg Tablet 50 mg PO 2000 Qty: 0 0RF potassium chloride 20 mEq Tablet,Er Particles/Crystals 40 meq PO DAILY Qty: 0 0RF pantoprazole 40 mg Tablet,Delayed Release (Dr/Ec) 40 mg PO BID Qty: 0 0RF menthol-zinc oxide [Calmoseptine] 0.44-20.6 % Ointment 1 applic topical BID Qty: 0 0RF Protocol: *Topical Application Instructions APPLICATION INSTRUCTIONS: groin/ coccyx melatonin 10 mg Tablet, Sublingual 10 mg PO QHS Qty: 0 0RF Ensure Plus High Protein 0.08 gram-1.5 kcal/mL Liquid 120 ml PO 4X/DAY Qty: 0 0RF donepezil 10 mg tablet 10 mg PO QHS Qty: 30 3RF memantine 28 mg capsule,sprinkle,ER 24hr 28 mg PO QAM Qty: 30 4RF divalproex 250 mg tablet,delayed release (DR/EC) 250 mg PO DAILY Qty: 30 3RF Rx Instructions: Take 1 tablet orally every morning. Take 1 additional tablet every afternoon as needed. Primary Care Provider: Swati Baron Referrals: Laron Ash MD [Non-Staff] - Print Language: Trinidadian Disposition Disposition: Merged with [facility]
--- NOTE | 2023-10-25 19:06 | RAD_ITS ---
INDICATION: MS CHANGE EXAMINATION/TECHNIQUE: X-RAY - XR Chest 1 View COMPARISON: 10/14/2023 FINDINGS: LIFE-SUPPORT AND LINES: 1. None HEART AND VESSELS: The cardiac silhouette, pulmonary vasculature have normal appearance. No evidence of congestive failure. LUNGS AND PLEURAL SPACES: Patchy area of atelectasis versus infiltrate in the RIGHT infrahilar region likely within the RIGHT middle lobe. Remaining lung zones are clear. No pulmonary mass is noted. MEDIASTINUM AND HILAR REGIONS: No masses adenopathy noted. No areas of calcification. Visualized upper airway is normal in position. BONY ELEMENTS: No acute bony changes noted. RAD/Chest 1 View (Portable) IMPRESSION: 1. Interval development of patchy area of atelectasis versus infiltrate in the RIGHT infrahilar region likely within the RIGHT middle lobe. 2. The remaining lung zones are clear. 3. No congestive failure. Electronically Signed: Babak Barfield MD at 19:50 EDT ,
[2023-10-25 19:20] LABS: Absolute Lymphocyte Count 1.32 X10^3/uL (0.83-4.51); Absolute Neutrophil Count 8.7 X10^3/uL (2.0-7.7); Basophil# 0.05 X10^3/uL; Basophil% 0.4 % (0-1); Eosinophil# 0.03 X10^3/uL; Eosinophils% 0.3 % (0-5); Hematocrit 42.1 % (37-47); Hemoglobin 12.3 g/dL (12.0-15.0); Lymphocyte # 1.32 X10^3/ul (0.83-4.51); Lymphocyte % 11.3 % (19-41); Mean Corp Hgb Conc 29.2 g/dL (32-36); Mean Corpuscular Hgb 25.2 pg (27.0-32.0); Mean Corpuscular Volume 86.1 fL (81-99); Mean Platelet Vol. 11.1 fl (6.2-12.0); Monocyte# 1.45 X10^3/uL; Monocyte% 12.5 % (0-10); NRBC Flagged by Analyzer 0 % (0-5); Neutrophil # 8.73 X10^3/uL (2.7-7.7); Platelet Count 188 K/mm3 (150-450); RBC Distribution Width CV 18.8 % (11.6-14.6); RBC Distribution Width SD 57.3 fl (35.1-43.9); Red Blood Count 4.89 M/mm3 (4.2-5.4); White Blood Count 11.6 K/mm3 (4.4-11.0)
[2023-10-25] MEDS: 0.9% Normal Saline (1000mL) 1,000 ML 1000 ML IV (19:29)
[2023-10-25 19:33] LABS: Anion Gap 5 (5-15); BUN 34 mg/dL (7-18); BUN/Creat Ratio 20.4 RATIO (10-20); Calcium,Total 10.3 mg/dL (8.5-10.1); Chloride 120 mmol/L (98-107); Creatinine, Serum 1.67 mg/dL (0.55-1.02); EST Glomerular Filtration Rate 32 mL/min (>60); Est Glom Filt Rate - Afr Amer 38 mL/min (>60); Estimated Creatinine Clearance 26.83 ml/min; Glucose 117 mg/dL (74-106); Potassium 4.6 mmol/L (3.5-5.1); Sodium Level 150 mmol/L (136-145)
[2023-10-25 19:39] LABS: Squamous Epithelial Cells - UA 0 SEEN /hpf (5-10)
[2023-10-25 19:46] LABS: Color, Urine Yellow (Yellow); Glucose, Dipstick Normal (Normal); Ketone-Dipstick 50 mg/dl (Negative); Leukocyte Esterase-Dipstick 25 /ul (Negative); Nitrite-Dipstick Negative (Negative); Occult Blood-Urine Negative /ul (Negative); Protein-Dipstick 30 mg/dl (Negative); Urine Bilirubin Dipstick Negative (Negative); Urine Clarity Sl. Cloudy (Clear); Urine Urobilinogen Normal (Normal)
[2023-10-25 20:11] LABS: Red Blood Cells-Urine 0-5 SEEN /hpf (0-5); White Blood Cells 0-5 SEEN /hpf (0-5)
[2023-10-25 20:12] LABS: Mucous, Urine 1+ /hpf (<or=2+)
[2023-10-25 20:15] LABS: Bacteria RARE /hpf (None Seen)
--- NOTE | 2023-10-25 20:38 | HP.PCM.HOS_ITS ---
[facility] - General General Date of Admission: 10/25/23 Date of Service: 10/25/23 Chief Complaint: Worsening Generalized Weakness and Confusion. HPI Narrative AAKASH SAMANIEGO, is a 78 F with a past medical history of Alzheimer's dementia; on Donepezil, Divalproex and Memantine sprinkles, history of tobacco abuse; with subsequent asthma/COPD, CLARA, history of breast cancer; s/p mastectomy, history of bilateral breast implants, history of skin cancer, polyneuropathy, GERD, osteoporosis, OA, generalized anxiety and chronic generalized weakness with debility causing patient to reside at [facility] after multiple recent hospitalizations over the past ~62 days at this hospital, [facility] and [facility] who re-presents to [facility] ER with her complaining she is developing worsening generalized weakness and confusion. Mrs. Samaniego is not a reliable historian at this time so information was gathered from, chart, medical staff, computer and her at the bedside. According to the records she has been declining in her functional status in spite of aggressive care and serial hospitalizations with her concerned her ECF is not doing enough to keep her hydrated. There is no report of associated fever, chills, nausea, vomiting, chest pain or SOB. In the ER she was noted to have CXR evidence of RML infiltrate concerning for Hospital Acquired Pneumonia with leukocytosis of 11.6 K present on admission complicated by laboratory evidence of mild Dehydration; evidenced by slightly elevated BUN/creatinine ratio of 20.1 present on admission compounded by an elevated serum sodium of 150 mmol/L present on admission consistent with Hypernatremia along with clinical evidence of Acute Metabolic Encephalopathy in the setting of chronic Alzheimer's dementia and she was then admitted to the general medical floor for ongoing care for a stay that is expected to extend beyond 2 midnights. [facility] Medical History (Updated 10/26/23 @ 02:[address] Abdoulaye Gonzales, DO) Alzheimer disease Dementia Dementia Vision problems Skin cancer Neuropathy Breast cancer Home Medications ?Medication ?Instructions ?Recorded ?Last Taken ?Type donepezil 10 mg tablet 10 mg PO QHS memory #30 tabs 09/11/23 Unknown Rx doxycycline monohydrate 100 mg 100 mg PO BID 30 days #60 caps 10/06/23 Unknown Rx capsule food supplemt, lactose-reduced 120 ml PO 4X/DAY #0 mL 10/07/23 Unknown Rx 0.08 gram-1.5 kcal/mL oral liquid (Ensure Plus High Protein) menthol 0.44 %-zinc oxide 20.6 % 1 applic topical BID #0 grams 10/07/23 Unknown Rx topical ointment (Calmoseptine) potassium chloride 20 mEq 40 meq (2 x 20 mEq) PO DAILY #0 10/07/23 Unknown Rx tablet,extended release(part/cryst) tabs quetiapine 25 mg tablet 25 mg PO 0800,1400 #0 tabs 10/07/23 Unknown Rx quetiapine 25 mg tablet 50 mg (2 x 25 mg) PO 2000 #0 tabs 10/07/23 Unknown Rx Lactobacillus acidophilus 500 mmu cells PO BID gut health 10/25/23 Unknown History divalproex 250 mg tablet,delayed 250 mg PO Q12H dementia 10/25/23 Unknown History release ferrous sulfate 325 mg (65 mg 325 mg PO DAILY 10/25/23 Unknown History iron) tablet (Feosol) melatonin 10 mg sublingual tablet 5 mg PO QHS 10/25/23 Unknown History Allergy/AdvReac Type Severity Reaction Status Date / Time Penicillins Allergy Unknown Hives Verified 10/25/23 18:52 Family History Mother Dementia Father Lung cancer Grandfather Parkinson disease Surgical History Hx of breast implants, bilateral History of mastectomy Social History household members: spouse Smoking Status: Never smoker second hand exposure: No alcohol intake: never substance use type: does not use what type of physical activity do you participate in: none adeel/roman catholic: Jainism seatbelt use: always ROS ROS Narrative For use with possible due to this patient's acute metabolic encephalopathy in the setting of chronic Alzheimer's dementia. Vital Signs Vital Signs Vital Signs: 10/25/23 18:45 10/25/23 18:49 10/25/23 18:53 Temperature 98.2 F 97.3 F L Temperature Source Axillary Axillary Pulse Rate 99 99 Respiratory Rate 18 20 H Respiratory Effort Normal Respiratory Pattern Normal Blood Pressure 158/92 H 158/92 H Blood Pressure Mean 114 114 Pulse Ox 94 94 Oxygen Delivery Method Room Air Room Air 10/25/23 20:00 Temperature 97.8 F Temperature Source Axillary Pulse Rate 98 Respiratory Rate 17 Respiratory Effort Respiratory Pattern Blood Pressure 167/104 H Blood Pressure Mean 125 Pulse Ox 98 Oxygen Delivery Method Room Air Weight Weight: 152 lb 6.4 oz Body Mass Index (BMI) 24.5 Physical Exam Const alert, no apparent distress and average body habitus Constitutional Narrative: Patient is confused and appears chronically ill. General Appearance: cooperative Orientation / Consciousness: confused HEENT normocephalic, head/scalp atraumatic and hearing grossly normal bilaterally HEENT Narrative: Mucous membranes dry. Eyes PERRL and EOMs intact bilaterally Neck no lymphadenopathy and supple Resp Resp Narrative: Diminished breath sounds over the Right middle lobe. Cardio regular rate and regular rhythm GI normal to inspection, nondistended, normoactive bowel sounds, soft to palpation, non-tender and non-distended Extremity normal to inspection, full ROM and no clubbing, cyanosis or edema Skin Skin Narrative: Patient has no evidence of jaundice, rash or abscess. Neuro oriented x3, CN's II-XII intact bilaterally, moves all extremities and no focal motor deficits Sensorium / Orientation: awake, alert, oriented to person, oriented to place and oriented to time Speech: speech normal Psych affect normal Results Medical Records Data Attestation: I reviewed the patient's medical records Lab / Micro Data Attestation: I reviewed the patient's lab results. 10/25/23 18:31 10/25/23 18:31 Labs: Laboratory Results - last 24 hr 10/25/23 18:31: WBC 11.6 H, RBC 4.89, Hgb 12.3, Hct 42.1, MCV 86.1, MCH 25.2 L, MCHC 29.2 L, RDW Std Deviation 57.3 H, RDW Coeff of [place] 18.8 H, Plt Count 188, MPV 11.1, Immature Gran % (Auto) 0.500, Neut % (Auto) 75.0 H, Lymph % (Auto) 11.3 L, [place] % (Auto) 12.5 H, Eos % (Auto) 0.3, Baso % (Auto) 0.4, Absolute Neuts (auto) 8.7 H, Absolute Lymphs (auto) 1.32, Nucleated RBC % 0, Sodium 150 H , Potassium 4.6, Chloride 120 H, Carbon Dioxide 25.0, Anion Gap 5, BUN 34 H, C reatinine 1.67 H, Estim Creat Clear Calc 26.83, Est GFR (MDRD) Af Amer 38 L, Est GFR (MDRD) Non-Af 32 L, BUN/Creatinine Ratio 20.4 H, Glucose 117 H, Calcium 10.3 H 10/25/23 19:28: Urine Color Yellow, Urine Clarity Sl. Cloudy, Urine pH 5.0, Ur Specific [place] 1.020, Urine Protein 30 H, Urine Glucose (UA) Normal, Urine Ketones 50 H, Urine Occult Blood Negative, Urine Nitrite Negative, Urine Bilirubin Negative, Urine Urobilinogen Normal, Ur Leukocyte Esterase 25 H, Urine RBC 0-5 SEEN, Urine WBC 0-5 SEEN, Ur Squamous Epith Cells 0 SEEN, Urine Bacteria RARE, Urine Mucus 1+ Imaging Radiology Impression Chest X-Ray 10/25/23 19:06 IMPRESSION: 1. Interval development of patchy area of atelectasis versus infiltrate in the RIGHT infrahilar region likely within the RIGHT middle lobe. 2. The remaining lung zones are clear. 3. No congestive failure. Electronically Signed: Babak Barfield MD at 19:50 EDT , [facility] Imaging Services [address] [place] [address] [id number] Chest without Contrast MR#: [id number] Acct: [id number] Name: AAKASH SAMANIEGO Rep #: [id number] : 1945 F 78 From: Shalom Villarreal MD PCP: Dr. Swati Baron MD Status: ADM IN Study: Chest without Contrast Date of Exam: 10/25/23 Exam# [id number] Ordering Dr: Abdoulaye Gonzales DO EXAM: CT CHEST WITHOUT INTRAVENOUS CONTRAST CLINICAL INDICATION: RML infiltrate suspected on CXR. Confirm PNA. TECHNIQUE: Helically acquired images were obtained of the chest without intravenous contrast. This CT exam was performed using one or more of the following dose reduction techniques: automated exposure control, adjustment of the mA and/or kV according to patient size, and/or use of iterative reconstruction technique. RADIATION DOSE: CTDIvol = 13.33 mGy, DLP = 444.18 mGy-cm COMPARISON: CTA chest 09/30/2023 in the single view chest 10/25/2023 FINDINGS: LUNGS AND PLEURAL SPACES: Dependent airspace disease in the right lower lobe. Mild scarring in the left lung apex. No mass. No pleural effusion or thickening. HEART: Moderate cardiomegaly. No pericardial effusion. No significant coronary artery calcifications. MEDIASTINUM: Unremarkable. No mediastinal or hilar adenopathy. Esophagus is unremarkable. No hiatal hernia. THYROID: Unremarkable. No thyroid lesions. BONES/JOINTS: Degenerative changes of the spine. No suspicious lytic or blastic abnormality. VASCULATURE: Unremarkable. Thoracic aorta is non-dilated. CT/Chest without Contrast IMPRESSION: Dependent airspace disease in the right lower lobe. Findings may indicate atelectasis or pneumonia. The remainder of the pulmonary parenchyma has an improved appearance compared with the September 29 exam. Electronically Signed: Shalom Villarreal MD at 23:54 EDT , CC: Dr. Swati Baron MD; Dr. Abdoulaye Gonzales DO ~ Public Health Informatician: Signed Assessment & Plan Assessment/Plan (1) Pneumonia: QUALIFIERS: Pneumonia type: due to unspecified organism L aterality: right Lung location: lower lobe of lung Qualified Code(s): J18.9 - Pneumonia, unspecified organism (2) Acute hypernatremia: (3) Dehydration: (4) Acute metabolic encephalopathy: (5) Alzheimer disease: (6) Generalized weakness: (7) Obstructive sleep apnea: (8) COPD (chronic obstructive pulmonary disease): QUALIFIERS: COPD type: unspecified COPD Qualified Code(s): J44.9 - Chronic obstructive pulmonary disease, unspecified (9) Asthma: QUALIFIERS: Asthma severity: unspecified severity Asthma persistence: intermittent Asthma complication type: uncomplicated Qualified Code(s): J45.20 - Mild intermittent asthma, uncomplicated (10) Debility: PLAN: Plan 1. CXR evidence of RLL infiltrate concerning for Hospital Acquired Pneumonia with leukocytosis of 11.6 K present on admission - Admit to general medical floor. Start broad-spectrum antibiotic coverage with IV Azactam and IV Vancomycin and await culture and sensitivity data. Give scheduled Mucinex 600 mg PO BID. Give Tylenol prn pain or fever. Finally, we will checked CT of chest without contrast to confirm pneumonia suspected on CXR. 2. Hypernatremia; evidenced by elevated serum sodium of 150 mmol/L present on admission complicating #1 - Start D5 1/2 NS at 75 cc/hour and recheck levels in the AM to ensure improvement. 3. Dehydration; evidenced by slightly elevated BUN/creatinine ratio of 20.1 present on admission compounding #1 & #2 - Gently volume resuscitate and repeat renal indices in AM to hopefully follow trend of improvement. 4. Acute Metabolic Encephalopathy in the setting of chronic Alzheimer's dementia attributable to #1 - #3 in the setting of known generalized anxiety and chronic generalized weakness with debility causing patient to reside at [facility] after multiple recent hospitalizations over the past ~62 days - Check TSH, B12, Folate and UDS to evaluate for potentially reversible causes of confusion. Continue current home treatment regimen. Otherwise, minimize GROCERY STOCKER- active medications and monitor for improvement. 5. History of tobacco abuse; with subsequent asthma/COPD plus CLARA - Stable and without evidence of acute flare of COPD at this time. Give nebulizers prn. Resume nocturnal CPAP as previous. 6. History of bilateral breast implants - Noted. 7. History of skin cancer - Stable. 8. Polyneuropathy - Stable. 9. GERD - Continue PPI. 10. Osteoporosis - Stable. 11. OA - Give Tylenol prn. 12. DVT prophylaxis - Lovenox 40 mg sq daily plus SCD's. Total time: Approximately 75 minutes. Charges/Coding Visit Charges Inpatient E&M: 31656 Init Hosp L3
--- NOTE | 2023-10-25 22:15 | CT_ITS ---
EXAM: CT CHEST WITHOUT INTRAVENOUS CONTRAST CLINICAL INDICATION: RML infiltrate suspected on CXR. Confirm PNA. TECHNIQUE: Helically acquired images were obtained of the chest without intravenous contrast. This CT exam was performed using one or more of the following dose reduction techniques: automated exposure control, adjustment of the mA and/or kV according to patient size, and/or use of iterative reconstruction technique. RADIATION DOSE: CTDIvol = 13.33 mGy, DLP = 444.18 mGy-cm COMPARISON: CTA chest 09/30/2023 in the single view chest 10/25/2023 FINDINGS: LUNGS AND PLEURAL SPACES: Dependent airspace disease in the right lower lobe. Mild scarring in the left lung apex. No mass. No pleural effusion or thickening. HEART: Moderate cardiomegaly. No pericardial effusion. No significant coronary artery calcifications. MEDIASTINUM: Unremarkable. No mediastinal or hilar adenopathy. Esophagus is unremarkable. No hiatal hernia. THYROID: Unremarkable. No thyroid lesions. BONES/JOINTS: Degenerative changes of the spine. No suspicious lytic or blastic abnormality. VASCULATURE: Unremarkable. Thoracic aorta is non-dilated. CT/Chest without Contrast IMPRESSION: Dependent airspace disease in the right lower lobe. Findings may indicate atelectasis or pneumonia. The remainder of the pulmonary parenchyma has an improved appearance compared with the September 29 exam. Electronically Signed: Shalom Villarreal MD at 23:54 EDT ,
[2023-10-25] MEDS: Aztreonam 1 GM in 0.9% Normal Saline (50mL MB+) 50 ML IV (22:30)
[2023-10-25] MEDS: Vancomycin HCl 1,750 MG in 0.9% Normal Saline (500mL Bag) 500 ML 250 MG IV (23:44)
[2023-10-25] MEDS: Menthol/Lanolin/Calamine/Znox 113 GM Tube 1 APPLIC TOPICAL (23:45)
[2023-10-25] MEDS: Dext 5%-0.45% NS 1,000 ML 70 ML IV (23:45)
--- NOTE | 2023-10-26 | PCM.RX.CS ---
Consult Antibiotic Management Pharmacy has been consulted to manage selected antibiotic: Vancomycin Type of Intervention Type of Consult: New start Suspected Infection Suspected Infection: Pneumonia Labs Labs: Sodium 150 mmol/L (136-145) H 10/25/23 18:31 Potassium 4.6 mmol/L (3.5-5.1) 10/25/23 18:31 Chloride 120 mmol/L (98-107) H 10/25/23 18:31 Carbon Dioxide 25.0 mmol/L (21.0-32.0) 10/25/23 18:31 Anion Gap 5 (5-15) 10/25/23 18:31 BUN 34 mg/dL (7-18) H 10/25/23 18:31 Creatinine 1.67 mg/dL (0.55-1.02) H 10/25/23 18:31 Est GFR (MDRD) Af Amer 38 mL/min (>60) L 10/25/23 18:31 Est GFR (MDRD) Non-Af 32 mL/min (>60) L 10/25/23 18:31 BUN/Creatinine Ratio 20.4 RATIO (10-20) H 10/25/23 18:31 Glucose 117 mg/dL (74-106) H 10/25/23 18:31 Dosing Weight Weight used for dosin kg Estimated Creatinine Clearance Estimated Creatinine Clearance: 27 Goal Trough Goal Trough: 15-20 mcg/mL Pharmacy Plan for Drug Dosing Pharmacy Plan for Drug Dosing: Pharmacy Service will continue to monitor and adjust dosing as required. Follow-Up Labs Follow-Up Labs: Trough: Vancomycin Date/Time Labs Ordered Labs to be done on [date and time ordered]: 10/27/23 @2300
[2023-10-26] MEDS: metroNIDAZOLE 500 MG/100 ML BAG 100 MG IV ×2 (02:01→06:30)
[2023-10-26 03:29] VITALS: BMI 25.6
[2023-10-26 04:00] VITALS: BP 128/74; PULSE 94; RESP 16; O2SAT 86
[2023-10-26 04:16] VITALS: RESP 16; O2SAT 86
[2023-10-26 04:23] VITALS: O2SAT 95
[2023-10-26 04:35] VITALS: BP 128/74; PULSE 94; RESP 16; TEMP 37.1; O2SAT 95
[2023-10-26 06:12] LABS: Absolute Lymphocyte Count 1.16 X10^3/uL (0.83-4.51); Absolute Neutrophil Count 6.4 X10^3/uL (2.0-7.7); Basophil# 0.05 X10^3/uL; Basophil% 0.5 % (0-1); Eosinophil# 0.19 X10^3/uL; Eosinophils% 2.1 % (0-5); Hematocrit 34.5 % (37-47); Lymphocyte # 1.16 X10^3/ul (0.83-4.51); Lymphocyte % 12.7 % (19-41); Mean Corpuscular Hgb 24.9 pg (27.0-32.0); Mean Platelet Vol. 11.9 fl (6.2-12.0); Monocyte% 14.2 % (0-10); NRBC Flagged by Analyzer 0 % (0-5); Neutrophil # 6.39 X10^3/uL (2.7-7.7); Neutrophil % 70.1 % (47-70); Platelet Count 166 K/mm3 (150-450); RBC Distribution Width CV 18.3 % (11.6-14.6); Red Blood Count 4.01 M/mm3 (4.2-5.4); White Blood Count 9.1 K/mm3 (4.4-11.0)
[2023-10-26 07:13] LABS: ALB/GLOB Ratio 0.7 RATIO (0.9-2.4); AST(SGOT) 9 U/L (15-37); Alanine Aminotransfer ALT/SGPT 7 U/L (13-56); Albumin, Serum 2.5 g/dL (3.2-5.0); Alkaline Phosphatase 78 U/L (45-117); Anion Gap 4 (5-15); BUN 33 mg/dL (7-18); BUN/Creat Ratio 22.3 RATIO (10-20); Calcium,Total 9.6 mg/dL (8.5-10.1); Chloride 125 mmol/L (98-107); Creatinine, Serum 1.48 mg/dL (0.55-1.02); EST Glomerular Filtration Rate 36 mL/min (>60); Est Glom Filt Rate - Afr Amer 44 mL/min (>60); Estimated Creatinine Clearance 29.47 ml/min; Globulin 3.7 g/dL (2.2-4.2); Glucose 122 mg/dL (74-106); Magnesium 2.2 mg/dL (1.6-2.6); Phosphorus 2.7 mg/dL (2.5-4.9); Potassium 3.9 mmol/L (3.5-5.1); Protein, Total 6.2 g/dL (6.4-8.2); Sodium Level 152 mmol/L (136-145)
[2023-10-26 07:34] VITALS: BP 126/73; PULSE 78; RESP 22; TEMP 36.7; O2SAT 94
[2023-10-26 08:10] VITALS: O2SAT 94
[2023-10-26] MEDS: Ascorbic Acid 500 MG Tablet 1000 MG PO (09:13)
[2023-10-26] MEDS: Acetaminophen 325 MG Tablet 650 MG PO (09:17)
[2023-10-26] MEDS: Potassium Chloride Oral Tablet 20 MEQ 40 MEQ PO (09:26)
[2023-10-26] MEDS: Enoxaparin 30 MG/0.3 ML Syringe SC (09:26)
[2023-10-26] MEDS: QUEtiapine 25 MG Tablet PO (09:27)
[2023-10-26] MEDS: Pantoprazole Sodium 40 MG Tablet PO (09:27)
[2023-10-26] MEDS: Lactobacillis Acidophilus 1 CAP PO (09:27)
[2023-10-26] MEDS: Cholecalciferol (Vit D3) 125 MCG CAPSULE (5,000 UNITS) PO (09:28)
[2023-10-26] MEDS: Zinc Sulfate 50 mg zinc (220 mg) ORAL capsule PO (09:30)
[2023-10-26] MEDS: Memantine Hydrochloride 10 MG Tablet PO (09:31)
[2023-10-26] MEDS: Aztreonam 1 GM in 0.9% Normal Saline (50mL MB+) 50 ML IV (11:05)
[2023-10-26] MEDS: Menthol/Lanolin/Calamine/Znox 113 GM Tube 1 APPLIC TOPICAL (12:40)
[2023-10-26] MEDS: Valproate Sodium 250 MG in Dextrose 5%-Water (50mL Bag) 50 ML 50 MG IV (12:40)
--- NOTE | 2023-10-26 14:39 | NURSING ---
report called to Ally at [facility].
[2023-10-28 08:02] LABS: Vitamin B12 930 pg/mL (211-911)
--- NOTE | 2023-11-22 09:55 | DS.PCM_ITS ---
Providers Date of Admission: 10/25/23 Date of Discharge: 10/26/23 Primary Care Physician: Dr. Swati Baron MD Consultations 10/26/23 10:37 Consult: Hospice / Palliative Care Routine Consulting Provider: [facility] Reason for Consult: End-of-life care EMERGENT Consult: No MD Notified: Yes Date Notified: 10/26/23 Time Notified: 10:37 Method of Notification: Verbal Reason For Visit: RML PNA HYPERNATREMIA DEHYDRATION AND ACUTE Diagnosis Discharge Diagnosis (1) Pneumonia: Status: Acute Code(s): J18.9 - Pneumonia, unspecified organism Qualifiers: Pneumonia type: due to unspecified organism Laterality: right Lung location: lower lobe of lung Qualified Code(s): J18.9 - Pneumonia, unspecified organism (2) Acute hypernatremia: Status: Acute Code(s): E87.0 - Hyperosmolality and hypernatremia (3) Dehydration: Status: Acute Code(s): E86.0 - Dehydration (4) Acute metabolic encephalopathy: Status: Acute Code(s): G93.41 - Metabolic encephalopathy (5) Alzheimer disease: Status: Acute Code(s): G30.9 - Alzheimer's disease, unspecified; F02.80 - Dementia in other diseases classified elsewhere, unspecified severity, without behavioral disturbance, psychotic disturbance, mood disturbance, and anxiety (6) Generalized weakness: Status: Acute Code(s): R53.1 - Weakness (7) Obstructive sleep apnea: Status: Acute Code(s): G47.33 - Obstructive sleep apnea (adult) (pediatric) (8) COPD (chronic obstructive pulmonary disease): Status: Chronic Code(s): J44.9 - Chronic obstructive pulmonary disease, unspecified Qualifiers: COPD type: unspecified COPD Qualified Code(s): J44.9 - Chronic obstructive pulmonary disease, unspecified (9) Asthma: Status: Acute Code(s): J45.909 - Unspecified asthma, uncomplicated Qualifiers: Asthma severity: unspecified severity Asthma persistence: intermittent Asthma complication type: uncomplicated Qualified Code(s): J45.20 - Mild intermittent asthma, uncomplicated (10) Debility: Status: Acute Code(s): R53.81 - Other malaise Plan 1. Community-acquired pneumonia-organism unknown #2 hypernatremia secondary to dehydration #3 dehydration #4 metabolic encephalopathy with an overlay of chronic Alzheimer's dementia Medications at Discharge Home Medications donepezil 10 mg tablet 10 mg PO QHS memory #30 tabs 09/11/23 doxycycline monohydrate 100 mg capsule 100 mg PO BID 30 days #60 caps 10/06/23 food supplemt, lactose-reduced 0.08 gram-1.5 kcal/mL oral liquid (Ensure Plus High Protein) 120 ml PO 4X/DAY #0 mL 10/07/23 menthol 0.44 %-zinc oxide 20.6 % topical ointment (Calmoseptine) 1 applic topical BID #0 grams 10/07/23 potassium chloride 20 mEq tablet,extended release(part/cryst) 40 meq (2 x 20 mEq) PO DAILY #0 tabs 10/07/23 quetiapine 25 mg tablet 25 mg PO 0800,1400 #0 tabs 10/07/23 quetiapine 25 mg tablet 50 mg (2 x 25 mg) PO 2000 #0 tabs 10/07/23 Lactobacillus acidophilus 500 mmu cells PO BID gut health 10/25/23 divalproex 250 mg tablet,delayed release 250 mg PO Q12H dementia 10/25/23 ferrous sulfate 325 mg (65 mg iron) tablet (Feosol) 325 mg PO DAILY 10/25/23 melatonin 10 mg sublingual tablet 5 mg PO QHS 10/25/23 Hospital Course Operations None Procedures None Summary of Care Provided Minutes Spent on Discharge: 30 Hospital Course: This 78-year-old white female was seen in the emergency room at [facility] after being brought in from an assisted living facility due to generalized weakness and increasing confusion. Patient has a history of chronic dementia and it had recent hospitalization in September 2023. Evaluation in the emergency room included a chest x-ray which showed evidence of a right middle lobe infiltrate concerning for pneumonia, patient had evidence of mild dehydration with elevated BUN to creatinine ratio, serum sodium was elevated at 150. Patient was admitted to [place] [address] and placed on IV antibiotics and IV fluids, discussions were undertaken with the patient's family and it was requested that hospice see the patient, she was seen by hospice on 10/26/2023 and she was excepted into the inpatient hospice unit at [facility]. On 10/26/2023, patient was seen and examined: On examination she does not appear to be in any distress. Patient was confused. Vital signs as documented. Skin warm and dry and without overt rashes. Neck without JVD, thyroid appears normal, trachea is midline, neck is supple. Lungs clear, normal air movement was noted. Heart exam notable for regular rhythm, normal sounds and absence of murmurs, rubs or gallops. Abdomen unremarkable and without evidence of organomegaly, masses, or abdominal aortic enlargement, bowel sounds are present in all 4 quadrants, no abdominal tenderness was noted. Extremities nonedematous, no cyanosis was noted, no clubbing was noted. Neuro: Cranial nerves II through XII are grossly intact, no focal motor deficits were noted, sensation to light touch and pinprick is intact, motor exam 5/5 throughout. Psych: Patient is alert but confused. Patient was transferred to the inpatient hospice unit at [facility] on 10/26/2023 in stable condition. Weight / BMI Weight Weight: 65.7 kg Body Mass Index (BMI) 25.6 ABG / Lab / Microbiology Data 10/26/23 04:57 10/26/23 04:57 Meaningful Use Info Meaningful Use Meaningful Use Diagnoses (Choose all that apply): None applicable Ischemic Stroke Statin Dosing Therapy Reference: STATIN DOSE THERAPY REFERENCE: * Patients > 75 years receive moderate or high dose statin therapy. * Patients 75 years or YOUNGER should receive HIGH intensity statin dose unless contraindicated. You will be required to document reason for non-treatment if statin daily dose does not meet guidelines. HIGH DOSE STATIN THERAPY DAILY Atorvastatin > than or = to 40 mg Rosuvastatin > than or = to 20 mg Amlodipine + Atorvastatin > than or = to 2.5/40 mg Ezetimibe + Simvastatin 10/80 mg Simvastatin 80mg Discharge Plan Admission Admit Date/Time: 10/25/23 21:18 Primary Reason for Your Visit: Pneumonia Attending Provider: Eddie Evans Primary Care Provider: Swati Baron Consulting Providers: Abdoulaye Gonzales; Abdoulaye Fuller; Uma Echeverria; Emily Wells; Sivan Hylton REGISTERED NURSE FLOAT POOL Discharge Orders/Prescriptions Prescriptions: No Action ferrous sulfate [Feosol] 325 mg (65 mg iron) tablet 325 mg PO DAILY divalproex 250 mg tablet,delayed release (DR/EC) 250 mg PO Q12H Rx Instructions: Take 1 tablet orally every morning. Take 1 additional tablet every afternoon as needed. melatonin 10 mg Tablet, Sublingual 5 mg PO QHS Lactobacillus acidophilus Capsule 500 mmu cells PO BID doxycycline monohydrate 100 mg Capsule 100 mg PO BID 30 Days Qty: 60 1RF quetiapine 25 mg Tablet 25 mg PO 0800,1400 Qty: 0 0RF quetiapine 25 mg Tablet 50 mg PO 2000 Qty: 0 0RF potassium chloride 20 mEq Tablet,Er Particles/Crystals 40 meq PO DAILY Qty: 0 0RF menthol-zinc oxide [Calmoseptine] 0.44-20.6 % Ointment 1 applic topical BID Qty: 0 0RF Protocol: *Topical Application Instructions APPLICATION INSTRUCTIONS: groin/ coccyx Ensure Plus High Protein 0.08 gram-1.5 kcal/mL Liquid 120 ml PO 4X/DAY Qty: 0 0RF donepezil 10 mg tablet 10 mg PO QHS Qty: 30 3RF Referrals / Follow Up: Swati Baron MD [Primary Care Provider] - Laron Ash MD [Non-Staff] - Disposition Disposition (needs filled in before D/C Order can be placed): Hospice in Medical Facility Charges/Coding Visit Charges Inpatient E&M: 92739 Disch Hosp
== END 2023-10-26 15:01 | disposition hospice, inpatient (51) | DRG 193 ==
LOC: ED 20:46 → MS3 22:41
PROVIDERS: Admitting Provider Internal Medicine; Emergency Provider Emergency Medicine; PCP Family Medicine; Visit Provider Internal Medicine
DX: J18.9 Pneumonia, unspecified organism (principal); G93.41 Metabolic encephalopathy; E87.0 Hyperosmolality and hypernatremia; J44.0 Chronic obstructive pulmonary disease with (acute) lower respiratory infection; F02.80 Dementia in other diseases classified elsewhere, unspecified severity, without behavioral disturbance, psychotic disturbance, mood disturbance, and anxiety; J45.20 Mild intermittent asthma, uncomplicated; E86.0 Dehydration; G47.33 Obstructive sleep apnea (adult) (pediatric); K21.9 Gastro-esophageal reflux disease without esophagitis; G30.9 Alzheimer's disease, unspecified; Z87.891 Personal history of nicotine dependence; R40.4 Transient alteration of awareness; R53.81 Other malaise; F41.1 Generalized anxiety disorder; Z79.899 Other long term (current) drug therapy; Z85.3 Personal history of malignant neoplasm of breast; Z90.10 Acquired absence of unspecified breast and nipple; Z85.828 Personal history of other malignant neoplasm of skin
CPT/HCPCS: 36415; 71045; 71250; 80048; 80053; 81001; 82607; 82746; 83735; 84100; 84443; 85025; 97802; 99285; J7040; P9612; J7799